=== PATIENT | male | born 1950 | race Caucasian/White ===

== ENCOUNTER 2018-11-11 09:33 | Observation (INO) ==
--- NOTE | 2018-11-09 12:19 | Anesthesiology Consultation ---
Date of Service November 09, 2018 Assessment & Plan (1) Encounter for pre-operative examination: Chart Review Chart Review: Acceptable Risk for Surgery and Patient seen in Pre Admission Testing Consults Requested none Was seen by PCPs office on 11/01, at which time it was noted "For history of coronary artery disease status post bypass surgery the repeat EKG shows no change compared to February 11, 2018." "There are no contraindications to surgery." Teaching & Discussion Pre-Anesthesia Teaching/Discussion Notes: Instructed NPO after midnight before surgery, except medications with 15 cc of water. Medication instructions provided according to the PAT guidelines. History Surgery Operation Date: 11/11/18 12:00 Proposed Procedures p Laparoscopic Cholecystectomy - Bishop Guevara MD, FACS Height/Weight Height: 5 ft 7 in Weight: 75.6 kg Allergies Allergy/AdvReac Type Severity Reaction Status Date / Time amoxicillin Allergy Mild Diarrhea Verified 11/09/18 07:51 ciprofloxacin [From Cipro] Allergy Mild diarhea Verified 11/09/18 07:51 Sulfa (Sulfonamide Allergy Unknown fever/chill Unverified 11/09/18 07:51 Antibiotics) s Medications Home Medications Medication Instructions Recorded Confirmed Last Taken aspirin 81 mg PO QAM 11/09/18 11/09/18 Unknown cephalexin 500 mg PO QID 11/09/18 11/09/18 Unknown ezetimibe-simvastatin 1 tab PO PM 11/09/18 11/09/18 Unknown metoprolol succinate 100 mg PO QAM 11/09/18 11/09/18 Unknown olsalazine [Dipentum] 250 mg PO BID 11/09/18 11/09/18 Unknown omeprazole 20 mg PO QPM 11/09/18 11/09/18 Unknown ursodiol 300 mg PO BID 11/09/18 11/09/18 Unknown Past Medical History Medical History CAD (coronary artery disease) Crohn disease GERD (gastroesophageal reflux disease) Hyperlipidemia Hypertension Myocardial Infarction 1995 - then CABG X 5 IN [place] Sleep apnea no machine Past Surgical History Surgical History History of open reduction and internal fixation (ORIF) procedure RIGHT ELBOW Hx of appendectomy Hx of colonoscopy Hx of foot surgery RIGHT FOOT SURGERY, REMOVAL OF FIBROMA Hx of inguinal hernia repair RIGHT Hx of laceration of skin LEFT WRIST REPAIR OF LACERATION S/P CABG x 5 1996 AFTER [place] Past Anesthesia History No Hx of Anesthesia Complications and No Family Hx of Anesthesia Complications History of PONV No (Once in 1970's) Motion Sickness Screening History of Motion Sickness: No Social History Smoking Status: Never smoker Do You Dip or Chew Tobacco: No Hx Alcohol Use: No Hx Substance Use: No Exercise / Class Metabolic Activity II 4-5 Yardwork/Stairs/Walk up hill (Was very active until earlier this month, has been sick from gallbladder this month. Usually hikes, hunts, etc. Able to climb FOS. Denies CP/SOB.) Review of Systems Patient denies chest pain, shortness of breath, dyspnea on exertion, joint pain, cough, wheezing, palpitations. +acid reflux (controlled by medications) Physical Exam Vital Signs BP: 125/75 P: 70 R: 18 T: 97.8 SPO2: 98% on RA ENMT Thyromental Distance: < 3.5 Finger Breadths (3) Mallampati Class: I Neck normal visual inspection, trachea midline and + facial hair (advised); neck extension not limited Respiratory normal respiratory effort Auscultation: lungs clear to auscultation bilaterally Cardiovascular Rate/Rhythm: regular rate and regular rhythm Heart Sounds: no murmur Vessels: no carotid bruit Neurologic moves all extremities Psychiatric Orientation: alert and oriented x 3 Testing Electrocardiogram Date: 11/01/18 Findings: + NSR @ (66) Borderline left axis deviation. Nonspecific T-wave abnormality. No change compared to 02/11/18. Chest X-Ray Date: 10/14/18 Findings: + NAD Laboratory Results Laboratory Tests 11/01/18 11/01/18 11/01/18 10:16 10:16 10:16 WBC 9.77 Hgb 16.3 Hct 47.9 Plt Count 323 PT 11.1 INR 1.1 APTT 31.3 H Sodium 137 Laboratory Tests 11/01/18 10:16 Potassium 4.1 Chloride 105 Carbon Dioxide 27 BUN 20 H Creatinine 1.11 Glucose 81
[2018-11-09 13:29] LABS: Albumin Level 2.9 gm/dl (3.4-5.0); Bilirubin Direct 0.1 mg/dl (0-0.2); Bilirubin,Total 0.4 mg/dl (0.2-1); Total Protein 8.2 gm/dl (6.4-8.2)
[~2018-11-11 09:33] MED LIST: LR 15ML/HR IV SCH; cefUROXime 1,500 MG in DEXTROSE 5% 100 ML IV SCH
--- NOTE | 2018-11-11 10:52 | History & Physical Bridge Note ---
Date of Service November 11, 2018 History & Physical Bridge Note I have examined the patient, reviewed the History & Physical and in the interval since the performance of the History & Physical I have noted the following changes of clinical significance: no changes noted
[2018-11-11] MEDS ORDERED: MIDAZOLAM HCL 1 MG/ML 2ML VIAL ONE (11:46)
[2018-11-11] MEDS ORDERED: fentaNYL citrate 100 MCG/2 ML VIAL ONE ×2 (11:46→12:55)
[2018-11-11] MEDS ORDERED: NALOXONE HCL 0.4 MG/1 ML VIAL/CARP IV PRN (12:15)
[2018-11-11] MEDS ORDERED: fentaNYL citrate 100 MCG/2 ML VIAL IV PRN (12:15)
[2018-11-11] MEDS ORDERED: ONDANSETRON INJ 2 MG/ML 2 ML VIAL IV PRN ×2 (12:15→14:33)
[2018-11-11] MEDS ORDERED: ePHEDrine sulfate 50 MG/ML AMP IV PRN (12:15)
[2018-11-11] MEDS ORDERED: LABETALOL HCL IV 5 MG/ML 20ML IV PRN (12:15)
[2018-11-11] MEDS ORDERED: ATROPINE SULFATE 0.1 MG/ML 10ML SYR IV PRN (12:15)
[2018-11-11] MEDS ORDERED: PROMETHAZINE HCL 12.5 MG in SODIUM CHLORIDE 0.9% 50 ML IV PRN ×2 (12:15→14:33)
[2018-11-11] MEDS ORDERED: FLUMAZENIL 0.1 MG/1 ML 10 ML VIAL IV PRN (12:15)
[2018-11-11] MEDS ORDERED: BUPIVACAINE 0.5 % 5 MG/1 ML MPF 30ML VIAL ONE (12:19)
[2018-11-11] MEDS ORDERED: ePHEDrine sulfate 50 MG/ML SYR ONE (13:02)
[2018-11-11] MEDS ORDERED: PHENYLEPHRINE 100MCG/ML 5ML SYR ONE (13:02)
[2018-11-11] MEDS ORDERED: CISATRACURIUM BESYLATE IV SOLN 2 MG/ML 10 ML VIAL IV ONE (13:03)
[2018-11-11] MEDS ORDERED: LIDOCAINE HCL 2% 2 ML VIAL/AMP(20MG/ML) INFIL ONE (13:03)
[2018-11-11] MEDS ORDERED: ONDANSETRON INJ 2 MG/ML 2 ML VIAL ONE (13:03)
[2018-11-11] MEDS ORDERED: DEXAMETHASONE SOD INJ 4 MG/ML VIAL ONE (13:03)
[2018-11-11] MEDS ORDERED: PROPOFOL IV EMULSION 10 MG/ML 20 ML VIAL IV ONE (13:03)
[2018-11-11] MEDS ORDERED: GLYCOPYRROLATE 0.2 MG/ML VIAL ONE (13:12)
[2018-11-11] MEDS ORDERED: NEOSTIGMINE METHYLSULFATE 5 MG/5 ML SYR ONE (13:12)
--- NOTE | 2018-11-11 13:15 | Operative Report ---
Post Operative Report Pre & Post Diagnosis Operation Date: 11/11/18 12:00 Pre-Op Diagnosis: Biliary Colic and right upper quadrant pain Post-Op Diagnosis: Biliary Colic and right upper quadrant pain same Procedure Operation Date: 11/11/18 12:00 Actual Procedures p Laparoscopic Cholecystectomy(Not Applicable) - Bishop Guevara MD, FACS same Surgeon Bishop Guevara MD, FACS Vessel Specialist nurses Estimated Blood Loss 10 Findings Consistent with Post-Op Diagnosis Specimens gallbladder Description of Procedure see distated note I attest to the content of the Intraoperative Record and any orders documented therein. Any exceptions are noted below.
--- NOTE | 2018-11-11 14:09 | Anesthesiology Progress Note ---
Date of Service November 11, 2018 Anesthesia Post Procedure Vital Signs Vital Signs: Temp Pulse Pulse Pulse Resp BP BP 11/11/18 14:03 36.9 C 11/11/18 14:00 62 14 130/79 11/11/18 13:55 62 22 140/81 11/11/18 13:50 64 18 147/86 H 11/11/18 13:48 60 22 11/11/18 13:47 62 14 147/92 H 11/11/18 13:45 72 21 142/109 H 11/11/18 13:40 59 L 18 144/83 H 11/11/18 13:35 68 20 139/79 11/11/18 13:30 69 23 146/97 H 11/11/18 13:28 36.3 C L 72 72 20 145/84 H 11/11/18 10:11 36.5 C 66 20 155/92 H BP Pulse Ox 11/11/18 14:03 95 11/11/18 14:00 96 11/11/18 13:55 95 11/11/18 13:50 96 11/11/18 13:48 95 11/11/18 13:47 96 11/11/18 13:45 100 11/11/18 13:40 99 11/11/18 13:35 99 11/11/18 13:30 100 11/11/18 13:28 145/84 H 100 11/11/18 10:11 96 Pain Intensity Abdomen: Pain Intensity: 0 Notes Mental Status: alert / awake / arousable Patient Amnestic to Procedure: Yes Nausea / Vomiting: adequately controlled Pain: adequately controlled Airway Patency, RR, SpO2: stable & adequate BP & HR: stable & adequate Hydration State: stable & adequate Anesthetic Complications: no major complications apparent
[2018-11-11] MEDS ORDERED: HYDROmorphone INJ 0.5 MG/0.5 ML SYR IV PRN (14:33)
[2018-11-11] MEDS ORDERED: SODIUM CHLORIDE 0.9% 1000ML 1,000 ML IV SCH (14:33)
[2018-11-11] MEDS ORDERED: HYDROCODONE/ACETAMOPHEN 5/325MG TAB PO PRN ×2 (14:33)
[2018-11-11] MEDS ORDERED: PROMETHAZINE HCL 25 MG in SODIUM CHLORIDE 0.9% 50 ML IV PRN (14:33)
--- NOTE | 2018-11-11 14:55 | Consultation ---
Date of Consultation November 11, 2018 Assessment & Plan (1) S/P laparoscopic cholecystectomy: - Pain management, bowel regimen per primary team - will add tylenol 1000 mg PO scheduled. - Continue keflex 500 mg QID - Continue olsalazine 250 mg PO BID and ursodiol 300 mg PO BID - Continue to encourage ambulation, incentive spirometry. No chemical dvt ppx. - Heart healthy diet (2) CAD (coronary artery disease): - Cont asa 81 mg, metoprolol succinate 100 mg daily - S/p CABG x 5 in [place] in 1995 after [place] - VS stable, HR in mid 50s. (3) Benign essential HTN: - Continue antihypertensives as above, BP stable. (4) HLD (hyperlipidemia): - Continue ezetimibe-simvastatin (5) FLAKITO (obstructive sleep apnea): - Noted, does not wear Cpap (6) GERD (gastroesophageal reflux disease): - Stable (7) Crohn's disease: - Stable, no recent flares. (8) DVT prophylaxis: - Teds, scds, ambulation. No chemical ppx. Disposition: From home, discharge per the primary team. Thank you for involving the medical team in the care of Mr. Hartley, please do not hesitate to call with questions or concerns. Supervising Physician Co-Signing Physician Notes Patient seen and examined, discussed with physician marketing operations assistant about patient condition and care plan, agree current care plan, History of Present Illness Reason for Consultation: Medical management Requesting Physician: Dr. Bishop Guevara Attending Physician: Bishop Guevara MD, [facility] History of Present Illness This is a 68 yo M with PMHx of CAD, HTN, HLD, s/p CABG x 5 in 1995 after [place], Crohns disease, GERD, FLAKITO not on cpap, who presents for elective laproscopic cholecystectomy by Dr. Guevara on 11/11/18. The patient was seen this afternoon. He appears to be in mild pain, has difficulty with minimal movement but is able to participate in coversation and follow commands. He has c/o abdominal soreness/deep pain from surgery, and is feeling bloated. Pt denies flatus yet, and has just had a few sips of water. He has a lunch tray being delivered now. Pt reports his gallbladder initially gave him trouble last January-February, and then flared up again earlier this month where gallbladder ware thickened on imaging so elected for removal. He lives at home with and son. Allergies Allergy/AdvReac Type Severity Reaction Status Date / Time Sulfa (Sulfonamide Allergy Unknown fever/chill Verified 11/11/18 10:00 Antibiotics) s amoxicillin AdvReac Mild Diarrhea Verified 11/11/18 10:00 ciprofloxacin [From Cipro] AdvReac Mild diarhea Verified 11/11/18 10:00 Home Medications Home Medications Medication Instructions Recorded Confirmed Type Dipentum 250 mg PO BID 11/09/18 11/11/18 History aspirin 81 mg PO QAM 11/09/18 11/11/18 History cephalexin 500 mg PO QID 11/09/18 11/11/18 History ezetimibe-simvastatin 1 tab PO PM 11/09/18 11/11/18 History metoprolol succinate 100 mg PO QAM 11/09/18 11/11/18 History omeprazole 20 mg PO QPM 11/09/18 11/11/18 History ursodiol 300 mg PO BID 11/09/18 11/11/18 History hydrocodone-acetaminophen [[place]] 1 - 2 tab PO Q6H #40 tab 11/11/18 Rx Patient History Surgical History History of open reduction and internal fixation (ORIF) procedure RIGHT ELBOW Hx of appendectomy Hx of colonoscopy Hx of foot surgery RIGHT FOOT SURGERY, REMOVAL OF FIBROMA Hx of inguinal hernia repair RIGHT Hx of laceration of skin LEFT WRIST REPAIR OF LACERATION S/P CABG x 5 1995 AFTER [place] Social History Preferred Language: Luxem[place] Beliefs That Will Affect Care: None Current Living Situation: Spouse Other Information That Helps Us Care for You: No Feels Safe at Home: Yes Safety Concerns: Feels Safe At This Time Smoking Status: Never smoker Hx Alcohol Use: No Hx Substance Use: No Review of Systems Constitutional: no fever, no chills, no sweats and no fatigue Eyes: no diplopia and no worsening vision Ear, Nose, Mouth, Throat: no dizziness, no nasal discharge, no facial pain and no sore throat Respiratory: no cough, no dyspnea and no wheezing Cardiovascular: no chest pain, no palpitations, no lightheadedness and no syncope Gastrointestinal: no nausea, no vomiting and no constipation Genitourinary (Male): no dysuria, no urinary frequency, no urinary hesitancy and no hematuria Musculoskeletal: no back pain, no joint pain, no swelling and no muscle weakness Integumentary: no rash, no lesions and no wounds Neurologic: no gait abnormality, no falls, no numbness, no dizziness and no syncope Psychiatric: no depression and no anxiety Endocrine: no fatigue Physical Exam Vital Signs (Past 24 Hours): Last Vital Signs Temp 36.5 C 11/11/18 14:35 Pulse 57 L 11/11/18 14:35 Resp 17 11/11/18 14:35 BP 137/74 11/11/18 14:35 Pulse Ox 96 11/11/18 14:35 Physical Exam: General: awake, alert, no apparent distress Head: Normocephalic, atraumatic ENT: PERRL, EOMI, no pharyngeal exudate, mucous membranes moist Chest: Clear to auscultation, on room air, no adventitious breath sounds Cardiac: Regular rate and rhythm, no murmur, no JVD, normal peripheral pulses, good capillary refill Abdominal: + hypoactive bowel sounds x 4, mild distension. bandages over laproscopic incisions are c/d/i. Extremities: Normal inspection, no peripheral edema or erythema, calfs nontender to palpation Psych: Normal mood and affect Neuro: AAO x 3, no motor deficits, speech is clear
--- NOTE | 2018-11-11 15:02 | Operative Report ---
DATE OF OPERATION: 11/11/2018 NAME OF OPERATION: Laparoscopic cholecystectomy. PREOPERATIVE DIAGNOSIS: Biliary colic. POSTOPERATIVE DIAGNOSIS: Biliary colic. STAFF SURGEON: Bishop Guevara MD ANESTHESIA: General. DESCRIPTION OF PROCEDURE: The patient was brought in the operating room and placed on the operating table in supine position. His abdomen was prepped and draped in usual fashion. Pneumatic stockings, orogastric tube were placed. An incision was made above the umbilicus using 0.5% plain Marcaine to anesthetize all incisions. Dissection was carried down to the fascia, placing a Veress needle producing pneumoperitoneum. An 11 mm port placed at this level and then under visualization, three 5 mm ports placed, 1 cephalad and 2 laterally. Gallbladder was extremely distended with bile. It was aspirated of bile and then retracted. Dissection was carried out at the brenda hepatis. The patient did have a fibrotic looking liver and some hypervascular changes in the gallbladder and omentum. The cystic duct and cystic artery were identified. These were clipped and transected and the gallbladder dissected away from the liver in the usual fashion. He did have relatively large venous structures from the liver to the gallbladder. These were controlled. The gallbladder was placed in an Endobag. After appropriate irrigation and hemostasis, the Endobag was removed through the umbilical site. All ports then removed. Fascia at the umbilicus closed using 0 PDS suture. Skin reapproximated all incisions using 4-0 nylon suture. Dressings applied and the patient transferred to recovery room in stable condition. I attest to the content of the Intraoperative Record and any orders documented therein. Any exception s are noted below.
[2018-11-11] MEDS ORDERED: ACETAMINOPHEN 500 MG TAB PO PRN ×2 (15:30→16:18)
[2018-11-11] MEDS ORDERED: ACETAMINOPHEN SOLN 500 MG/15.62 ML UDP PO SCH (15:45)
[2018-11-11] MEDS ORDERED: ACETAMINOPHEN 500 MG TAB PO SCH (16:00)
[2018-11-11] MEDS: cephALEXin 500 MG CAP PO SCH ×2 (16:45→20:50)
[2018-11-11] MEDS: URSODIOL 300 MG CAP PO SCH (20:49)
[2018-11-11] MEDS ORDERED: PANTOprazole 40 MG TAB PO SCH (21:00)
[2018-11-12 06:06] LABS: Basophils # (auto) 0.01 K/uL (0-0.2); Basophils % (auto) 0.1 %; Hematocrit (blood only) 40.9 % (42-52); Hemoglobin 13.6 g/dL (14.0-18.0); Immature Granulocytes # (auto) 0.07 K/uL (0.00-0.02); Immature Granulocytes % (auto) 0.4 %; Lymphocytes # (auto) 1.57 K/uL (1.2-3.4); Lymphocytes % (auto) 8.3 %; Mean Corpuscular Hgb Conc 33.3 g/dL (32-36); Mean Corpuscular Volume 89.3 fL (80-100); Mean Platelet Volume 10.1 fL (7.4-10.4); Monocytes # (auto) 1.34 K/uL (0.11-0.59); Monocytes % (auto) 7.1 %; Neutrophils % (auto) 84.1 %; Platelet Count 292 K/uL (130-400); RDW Coefficient of Variation 12.9 % (11.5-14.5); RDW Standard Deviation 41.9 fL (36.4-46.3); Red Blood Count 4.58 M/uL (4.7-6.1); White Blood Count 18.99 K/uL (4.8-10.8)
[2018-11-12 06:35] LABS: Albumin Level 2.5 gm/dl (3.4-5.0); BUN Creatinine Ratio 17.5 (10-20); Bilirubin Direct 0.2 mg/dl (0-0.2); Calcium 8.6 mg/dl (8.5-10.1); Creatinine Clr Calc Pharmacy 50.1 ml/min; Est GFR (African American) 64.5; Est GFR (Non-African American) 55.7; Potassium 4.2 mmol/L (3.5-5.1)
[2018-11-12 06:38] LABS: Albumin Globulin Ratio 0.5 (0.9-2); Bilirubin,Total 0.4 mg/dl (0.2-1); Globulin 4.6 gm/dl (2.5-4.0); Phosphorus 1.7 mg/dl (2.5-4.9); Total Protein 7.1 gm/dl (6.4-8.2)
--- NOTE | 2018-11-12 06:38 | Discharge Summary ---
PRINCIPAL DIAGNOSIS: Chronic cholecystitis with biliary colic. PROCEDURES: The patient underwent laparoscopic cholecystectomy. HISTORY OF PRESENT ILLNESS: The patient is a 68-year-old male who has been having intermittent abdominal pain with evidence of severe gallbladder distention and a history of sclerosing cholangitis. He has been followed by Dr. Sanders who feels that his gallbladder is causing his symptoms. HOSPITAL COURSE: He was brought into the hospital on 11/11/2018. He underwent laparoscopic cholecystectomy. Findings were severely distended gallbladder. He did have some inflammatory changes and hypervascularity of his tissues with hepatic fibrosis. He did tolerate the procedure well, has done well overnight and is felt stable for discharge home today to be followed in the surgical clinic next week.
[2018-11-12] MEDS ORDERED: METOPROLOL SUCC 50MG EXT REL TAB PO SCH (09:00)
[2018-11-12] MEDS: cephALEXin 500 MG CAP PO SCH ×3 (09:01→16:52)
[2018-11-12] MEDS: URSODIOL 300 MG CAP PO SCH (09:01)
[2018-11-12] MEDS ORDERED: SODIUM PHOSPHATE 3 MMOL/1 ML INFUSION IV STA (09:18)
[2018-11-12] MEDS ORDERED: SODIUM PHOSPHATE 21 MMOL in SODIUM CHLORIDE 0.9% 500 ML IV ONE (11:00)
--- NOTE | 2018-11-12 11:26 | Anesthesiology Progress Note ---
Date of Service November 12, 2018 Anesthesia Post Procedure Vital Signs Vital Signs: Temp Pulse Pulse Pulse Resp BP BP 11/12/18 09:04 70 11/12/18 08:00 37.2 C 50 L 16 11/12/18 07:47 36.7 C 72 67 16 155/92 H 11/12/18 03:53 36.7 C 67 16 11/11/18 23:08 36.8 C 68 16 11/11/18 21:56 36.7 C 81 18 11/11/18 17:56 36.7 C 72 18 11/11/18 16:55 36.5 C 69 16 11/11/18 15:42 36.5 C 66 16 11/11/18 14:58 54 L 16 11/11/18 14:35 36.5 C 57 L 17 11/11/18 14:10 57 L 17 137/76 11/11/18 14:05 64 21 124/79 11/11/18 14:03 36.9 C 11/11/18 14:00 62 14 130/79 11/11/18 13:55 62 22 140/81 11/11/18 13:50 64 18 147/86 H 11/11/18 13:48 60 22 11/11/18 13:47 62 14 147/92 H 11/11/18 13:45 72 21 142/109 H 11/11/18 13:40 59 L 18 144/83 H 11/11/18 13:35 68 20 139/79 11/11/18 13:30 69 23 146/97 H 11/11/18 13:28 36.3 C L 72 72 20 145/84 H BP Pulse Ox 11/12/18 09:04 135/69 11/12/18 08:00 126/63 93 11/12/18 07:47 125/64 96 11/12/18 03:53 125/64 96 11/11/18 23:08 112/60 95 11/11/18 21:56 149/83 H 94 11/11/18 17:56 163/87 H 97 11/11/18 16:55 130/75 96 11/11/18 15:42 153/78 H 95 11/11/18 14:58 137/74 95 11/11/18 14:35 137/74 96 11/11/18 14:10 95 11/11/18 14:05 94 11/11/18 14:03 95 11/11/18 14:00 96 11/11/18 13:55 95 11/11/18 13:50 96 11/11/18 13:48 95 11/11/18 13:47 96 11/11/18 13:45 100 11/11/18 13:40 99 11/11/18 13:35 99 11/11/18 13:30 100 11/11/18 13:28 145/84 H 100 Pain Intensity Abdomen: Pain Intensity: 3 Notes Mental Status: alert / awake / arousable and participated in evaluation Patient Amnestic to Procedure: Yes Nausea / Vomiting: adequately controlled Pain: adequately controlled Airway Patency, RR, SpO2: stable & adequate BP & HR: stable & adequate Hydration State: stable & adequate Anesthetic Complications: no major complications apparent
[2018-11-12 13:48] VITALS: O2SAT 94
--- NOTE | 2018-11-12 14:39 | Hospitalist Progress Note ---
Date of Service November 12, 2018 Assessment & Plan (1) S/P laparoscopic cholecystectomy: (2) CAD (coronary artery disease): (3) Benign essential HTN: (4) HLD (hyperlipidemia): (5) FLAKITO (obstructive sleep apnea): (6) GERD (gastroesophageal reflux disease): (7) Crohn's disease: (8) DVT prophylaxis: 68 yo M with PMHx of CAD, HTN, HLD, s/p CABG x 5 in 1995 after [place], Crohns disease, GERD, FLAKITO not on cpap, admitted to Dr. Guevara service for elective laproscopic cholecystectomy by Dr. Guevara on 11/11/18. S/P laparoscopic cholecystectomy: ain management, bowel regimen per primary team Patient has leukocytosis today, I told him to notified provider if has fever chills or anything feeling unusual History of CAD S/P CABG, hypertension, dyslipidemia obstructive sleep apnea, GERD Crohn disease, stable labs are unremarkable of BMP, continue home medication Advised patient to follow-up with PCP after discharge Subjective Doing fair, no complaint, denies fever and chill, has been eating and voiding good, tolerating diet, Denied facial droop slurred speech Denies chest pain palpitation lower extremity swelling Denies nausea vomiting abdominal pain diarrhea constipation Denies dysuria urgency and frequency Physical Exam Vital Signs (Past 24 Hours): Last Vital Signs Temp 37.1 C 11/12/18 12:00 Pulse 62 11/12/18 12:00 Resp 16 11/12/18 12:00 BP 133/70 11/12/18 12:00 Pulse Ox 94 11/12/18 12:00 Physical Exam: General Appearance: WD/WN, no apparent distress, Eyes: normal inspection, PERRL, EOMI, sclerae normal ENT: normal ENT inspection, hearing grossly normal, pharynx normal Neck: supple, no adenopathy, thyroid normal, no JVD, no carotid bruits, trachea midline Respiratory/Chest: chest non-tender, normal breath sounds, no respiratory distress, no accessory muscle use, breath sounds, rales, wheezing Cardiovascular: regular rate, rhythm, no JVD, no murmur Abdomen: normal bowel sounds, non tender, soft, no organomegaly, Extremities: normal range of motion, non-tender, normal inspection, no pedal edema, no calf tenderness, normal capillary refill, pelvis stable, joint has no limited range of motion, capillary refill is normal, no cyanosis clubbing Neurologic/Psychiatric: cost controller II-XII nml as tested, no motor/sensory deficits, alert, normal mood/affect, oriented x 3 Skin: normal color, warm/dry, no rash Results & Data Laboratory Results Laboratory Results - last 24 hr 11/12/18 11/12/18 05:05 05:05 WBC 18.99 H RBC 4.58 L Hgb 13.6 L Hct 40.9 L MCV 89.3 MCH 29.7 MCHC 33.3 RDW Std Deviation 41.9 RDW Coeff of Kaity 12.9 Plt Count 292 MPV 10.1 Immature Gran % (Auto) 0.4 Neut % (Auto) 84.1 Lymph % (Auto) 8.3 Cooper % (Auto) 7.1 Eos % (Auto) 0.0 Baso % (Auto) 0.1 Immature Gran # (Auto) 0.07 H Neut # (Auto) 16.00 H Lymph # (Auto) 1.57 Cooper # (Auto) 1.34 H Eos # (Auto) 0.00 Baso # (Auto) 0.01 Sodium 138 Potassium 4.2 Chloride 108 H Carbon Dioxide 23 Anion Gap 7.0 BUN 23 H Creatinine 1.30 Est Cr Clr Drug Dosing 50.1 Est GFR ( Amer) 64.5 Est GFR (Non-Af Amer) 55.7 BUN/Creatinine Ratio 17.5 Glucose 174 H Calcium 8.6 Phosphorus 1.7 L Total Bilirubin 0.4 Direct Bilirubin 0.2 AST 39 H ALT 32 Alkaline Phosphatase 84 Total Protein 7.1 Albumin 2.5 L Globulin 4.6 H Albumin/Globulin Ratio 0.5 L
[2018-11-12 15:01] VITALS: BP 135/76; PULSE 50; TEMP 98.1
== END 2018-11-12 17:58 | disposition home or self-care (01) ==
LOC: 3N 09:33 → ASU 09:33

== ENCOUNTER 2021-02-11 03:07 | Inpatient (IN) ==
[2021-02-11] MEDS ORDERED: PIPERACILLIN/TAZOBACTAM 4.5 GM/120 ML BAG IV ONE (03:24)
[2021-02-11] MEDS ORDERED: PIPERACILL/TAZOBAC CONSULT ACTIVE PRN ×2 (03:24→07:55)
[2021-02-11] MEDS ORDERED: SODIUM CHLORIDE 0.9% 1000ML 1,000 ML IV ONE (03:24)
[2021-02-11] MEDS ORDERED: DAPTOmycin 400 MG in SYRINGE 0 ML IV ONE (03:24)
--- NOTE | 2021-02-11 03:26 | Emergency Department Note ---
Impression & Plan Fever, Abdominal pain ED Provider Note NAME: MARKUS DARNELL AGE: 70 SEX: M : 1950 ARRIVES VIA: Walk-In INFORMANT: Patient, ED PROVIDER(S): Yoav Dong MD CHIEF COMPLAINT: Chills, fever HPI: This 70-year-old male who has a history of primary sclerosing cholangitis who presents to the emergency department complaining of fever and chills. The patient was told by his autopsy assistant to report to the emergency department anytime this happens. He reports he was running a fever of 102 at home. He t ook Cipro for the fever with some improvement in his symptoms. He is currently complaining of some abdominal pain in the right upper quadrant. He describes the pain as an aching sensation. He reports nothing makes the pain better or worse. He has not taken anything for the pain. ROS: See above HPI for pertinent positives & negatives. A total of 10 systems reviewed and were otherwise negative. PAST MEDICAL HISTORY: See Below PAST SURGICAL HISTORY: See Below FAMILY HISTORY: See Below SOCIAL HISTORY: See Below HOME MEDICATIONS: See Below ALLERGIES: See Below VITALS: See Below PHYSICAL EXAMINATION: VITAL SIGNS - Vital signs and nursing notes were reviewed. GENERAL - 70-year-old male appearing stated age who is in no acute distress. Communicates well with provider and answers questions appropriately. SKIN - Without rashes. HEAD - NC/AT. EYES - PERRL with EOMI bilaterally. Sclera anicteric. Palpebral conjunctiva pink and moist with no injection noted. EARS - No deformities of external structures noted on gross examination bilaterally. NOSE - Midline and without cyanosis. No epistaxis or purulent drainage noted. Septum midline without deviation or septal hematoma noted. MOUTH/OROPHARYNX - Without perioral cyanosis. Buccal mucosa pink and moist and without leukoplakia. Tongue midline with equal elevation of palate bilaterally. No tonsillar hypertrophy, erythema, or exudates noted. NECK - Neck with FROM. Supple to palpation. No nuchal rigidity. LUNGS - Chest wall symmetric without accessory muscle use, intercostals retractions, or central cyanosis. Normal vesicular breath sounds CTA B/L. No wheezes, rales, or rhonchi appreciated. CARDIAC - RRR with S1/S2. No murmur, rubs, or gallops appreciated. ABDOMEN - Abdominal contour without pulsations or visible masses. BS normoactive all four quadrants. No tenderness, palpable masses, he patosplenomegaly, or ascites noted. EXTREMITIES - No clubbing or peripheral cyanosis. No pretibial edema present. +3/5 radial, posterior tibial, and dorsalis pedis pulses palpated throughout. +5/5 strength noted in UE/LE bilaterally. NEUROLOGIC - Cranial nerves II through XII grossly intact. Sensory intact to light touch throughout. Patellar reflexes +2/4. PSYCH - A&Ox3 and cooperates fully with examiner. Pt is very pleasant and interacts well with examiner. MEDICAL DECISION MAKING: Patient was seen and evaluated as above in room C11B. Review was performed of nursing notes and vital signs. I did review pertinent previous visits and patient history. After obtaining a thorough history and physical examination the above work up was performed. This 70-year-old male who has a history of primary sclerosing cholangitis who presents emergency department complaining of right upper quadrant abdominal pain as well as rigors. He does have an elevation his white blood cell count. An IV was established, the patient is given a normal saline bolus. He was started on broad-spectrum antibiotics including Zosyn and daptomycin. An order was placed for continuous cardiac monitoring. The monitor shows a rate of 77 with Normal SInus rhythm. The patient was evaluated during a period of high volume and high acuity during the global COVID-19 pandemic, and that diagnosis was suspected/considered upon their initial presentation. Their evaluation, treatment and testing was consistent with current guidelines for patients who present with complaints or symptoms that may be related to COVID-19. Patient was seen while provider was wearing PPE. Triage Nursing notes reviewed. Prior medical records reviewed Vital Signs: reviewed and remarkable for no significant abnormalities Differential diagnosis: Sepsis, UTI, pneumonia, metabolic, electrolyte abnormalities, cardiac sources, intracerebral event, toxicologic, neurologic, as well as other pathologies. ER treatment provided: See below Diagnostics interpreted by me: ECG: Normal sinus rhythm no ST elevation or depression QTC is 426 ventricular rate of 79. EKG is compared to 10/02/2020 no significant changes found Laboratory studies: As stated above and show below. Imaging studies: 1 view the chest was interpreted by me shows no evidence of pneumonia congestion or pneumothorax. CT abdomen pelvis with contrast: Impression no acute abdominal process. Pneumobilia. Cholecystectomy. Mild lobulation of the liver outline can be associated with cirrhosis. Small hiatal hernia. Consultation(s): Internal Medicine ED COURSE: Past Med/Surg History Medical History (Updated 02/11/21 @ 06:17 by Yoav Dong MD) CAD (coronary artery disease) Crohn disease GERD (gastroesophageal reflux disease) Hyperlipidemia Hypertension Medicare annual wellness visit, subsequent Myocardial Infarction 1995 - then CABG X 5 IN [place] Osteoporosis Prostate cancer screening Renal insufficiency Sleep apnea no machine Surgical History History of open reduction and internal fixation (ORIF) procedure RIGHT ELBOW Hx of appendectomy Hx of colonoscopy Hx of foot surgery RIGHT FOOT SURGERY, REMOVAL OF FIBROMA Hx of inguinal hernia repair RIGHT Hx of laceration of skin LEFT WRIST REPAIR OF LACERATION S/P CABG x 5 1995 AFTER [place] Family History Other Family history non-contributory Social History Smoking Status: Never smoker Second Hand Exposure: No; Hx Alcohol Use: No Hx Substance Use: No Preferred Language: Upper Sorbian Communication Ability: Effective Robotype Operator Required: No Beliefs That Will Affect Care: None Current Living Situation: Spouse Feels Safe at Home: Yes caffeine: No Seatbelt Use: always Assistive Devices: Glasses Allergies Allergies Allergy/AdvReac Type Severity Reaction Status Date / Time Sulfa (Sulfonamide Allergy Unknown fever/chill Verified 11/01/20 08:20 Antibiotics) s amoxicillin AdvReac Mild Diarrhea Verified 11/01/20 08:20 Home Meds Home Medications Medication Instructions Recorded Confirmed cholecalciferol (vitamin D3) 50 mcg PO DAILY 10/02/20 11/01/20 [Vitamin D3] Previous Rx's Medication Instructions Recorded aspirin 81 mg tablet,delayed 81 mg PO DAILY #90 tab 04/13/19 release hydrocortisone 2.5 % topical cream 1 appln TOP TID PRN #30 gm 10/23/19 ezetimibe 10 mg-simvastatin 80 mg 1 tab PO PM #90 tab 03/27/20 tablet metoprolol succinate 100 mg 100 mg PO QAM #90 tab 04/22/20 tablet,extended release 24 hr nitroglycerin 0.4 mg sublingual 0.4 mg SL Q5M PRN #25 tab 06/27/20 tablet omeprazole 40 mg capsule,delayed 40 mg PO DAILY #90 cap 06/30/20 release amlodipine 2.5 mg tablet 2.5 mg PO DAILY #30 tab 11/01/20 lorazepam 1 mg tablet 1 mg PO ONCE #2 tab 11/01/20 olsalazine 250 mg capsule 250 mg PO BID #180 cap 11/01/20 ursodiol 300 mg capsule 300 mg PO BID #180 cap 11/01/20 lorazepam 1 mg tablet 1 mg PO ONCE PRN #2 tab 01/03/21 Results & Data (ED) Vital Signs Vital Signs - 24 hr 02/11/21 03:08 02/11/21 03:24 02/11/21 03:30 Temperature 37.0 C Temperature Source Temporal Artery Scan Pulse Rate 93 H 83 78 Pulse Rate [Apical] Pulse Rate from SpO2 Sensor 79 Pulse Rhythm Regular Pulse Rhythm [Apical] Pulse Strength [Apical] Respiratory Rate 18 18 14 Respiratory Effort / Characteristics Non-Labored Spontaneous Respiratory Depth Normal Respiratory Pattern Regular Blood Pressure 123/78 121/70 Blood Pressure [Right Arm] Blood Pressure Mean 93 87 Blood Pressure Mean [Right Arm] Blood Pressure Position Sitting Blood Pressure Position [Right Arm] Pulse Oximetry 96 95 96 Oxygen Delivery Method Room Air Room Air Sepsis Recent Fever Within 48 Hours No Sepsis New/Unexplained Change in Mental Status No Sepsis Action Taken by Nursing No Action Required 02/11/21 03:40 02/11/21 03:43 02/11/21 03:45 Temperature 37.4 C Temperature Source Oral Pulse Rate 80 78 Pulse Rate [Apical] 77 Pulse Rate from SpO2 Sensor 81 78 Pulse Rhythm Pulse Rhythm [Apical] Regular Pulse Strength [Apical] Normal Respiratory Rate 18 19 20 Respiratory Effort / Characteristics Non-Labored Non-Labored Respiratory Depth Normal Respiratory Pattern Regular Blood Pressure Blood Pressure [Right Arm] 121/70 Blood Pressure Mean Blood Pressure Mean [Right Arm] 87 Blood Pressure Position Blood Pressure Position [Right Arm] Sitting Pulse Oximetry 95 96 96 Oxygen Delivery Method Room Air Room Air Sepsis Recent Fever Within 48 Hours Sepsis New/Unexplained Change in Mental Status Sepsis Action Taken by Nursing 02/11/21 03:54 02/11/21 04:00 02/11/21 04:15 Temperature Temperature Source Pulse Rate 73 75 Pulse Rate [Apical] Pulse Rate from SpO2 Sensor 73 76 Pulse Rhythm Pulse Rhythm [Apical] Pulse Strength [Apical] Respiratory Rate 18 12 Respiratory Effort / Characteristics Non-Labored Respiratory Depth Respiratory Pattern Blood Pressure Blood Pressure [Right Arm] Blood Pressure Mean Blood Pressure Mean [Right Arm] Blood Pressure Position Blood Pressure Position [Right Arm] Pulse Oximetry 95 97 97 Oxygen Delivery Method Room Air Sepsis Recent Fever Within 48 Hours Sepsis New/Unexplained Change in Mental Status Sepsis Action Taken by Nursing 02/11/21 04:24 02/11/21 04:30 02/11/21 04:45 Temperature Temperature Source Pulse Rate 82 76 Pulse Rate [Apical] Pulse Rate from SpO2 Sensor 82 76 Pulse Rhythm Pulse Rhythm [Apical] Pulse Strength [Apical] Respiratory Rate 25 H 24 Respiratory Effort / Characteristics Non-Labored Respiratory Depth Respiratory Pattern Blood Pressure Blood Pressure [Right Arm] Blood Pressure Mean Blood Pressure Mean [Right Arm] Blood Pressure Position Blood Pressure Position [Right Arm] Pulse Oximetry 96 94 93 Oxygen Delivery Method Room Air Sepsis Recent Fever Within 48 Hours Sepsis New/Unexplained Change in Mental Status Sepsis Action Taken by Nursing 02/11/21 04:50 02/11/21 04:54 02/11/21 05:00 Temperature Temperature Source Pulse Rate 81 Pulse Rate [Apical] Pulse Rate from SpO2 Sensor 82 Pulse Rhythm Pulse Rhythm [Apical] Pulse Strength [Apical] Respiratory Rate 23 Respiratory Effort / Characteristics Non-Labored Non-Labored Respiratory Depth Respiratory Pattern Blood Pressure 127/74 Blood Pressure [Right Arm] Blood Pressure Mean 91 Blood Pressure Mean [Right Arm] Blood Pressure Position Blood Pressure Position [Right Arm] Pulse Oximetry 94 94 95 Oxygen Delivery Method Room Air Room Air Sepsis Recent Fever Within 48 Hours Sepsis New/Unexplained Change in Mental Status Sepsis Action Taken by Nursing 02/11/21 05:06 02/11/21 05:07 02/11/21 05:08 Temperature Temperature Source Pulse Rate 79 80 77 Pulse Rate [Apical] Pulse Rate from SpO2 Sensor 79 80 77 Pulse Rhythm Pulse Rhythm [Apical] Pulse Strength [Apical] Respiratory Rate 23 21 20 Respiratory Effort / Characteristics Respiratory Depth Respiratory Pattern Blood Pressure 129/74 Blood Pressure [Right Arm] Blood Pressure Mean 92 Blood Pressure Mean [Right Arm] Blood Pressure Position Blood Pressure Position [Right Arm] Pulse Oximetry 94 95 96 Oxygen Delivery Method Sepsis Recent Fever Within 48 Hours Sepsis New/Unexplained Change in Mental Status Sepsis Action Taken by Nursing 02/11/21 05:15 02/11/21 05:16 02/11/21 05:30 Temperature Temperature Source Pulse Rate 77 78 77 Pulse Rate [Apical] Pulse Rate from SpO2 Sensor 77 78 77 Pulse Rhythm Pulse Rhythm [Apical] Pulse Strength [Apical] Respiratory Rate 23 22 23 Respiratory Effort / Characteristics Non-Labored Respiratory Depth Respiratory Pattern Blood Pressure 125/70 114/68 Blood Pressure [Right Arm] Blood Pressure Mean 88 83 Blood Pressure Mean [Right Arm] Blood Pressure Position Blood Pressure Position [Right Arm] Pulse Oximetry 93 95 93 Oxygen Delivery Method Room Air Sepsis Recent Fever Within 48 Hours Sepsis New/Unexplained Change in Mental Status Sepsis Action Taken by Nursing 02/11/21 05:31 02/11/21 05:45 02/11/21 05:46 Temperature Temperature Source Pulse Rate 78 71 73 Pulse Rate [Apical] Pulse Rate from SpO2 Sensor 79 72 73 Pulse Rhythm Pulse Rhythm [Apical] Pulse Strength [Apical] Respiratory Rate 16 23 24 Respiratory Effort / Characteristics Respiratory Depth Respiratory Pattern Blood Pressure 118/61 Blood Pressure [Right Arm] Blood Pressure Mean 80 Blood Pressure Mean [Right Arm] Blood Pressure Position Blood Pressure Position [Right Arm] Pulse Oximetry 94 93 94 Oxygen Delivery Method Sepsis Recent Fever Within 48 Hours Sepsis New/Unexplained Change in Mental Status Sepsis Action Taken by Nursing 02/11/21 06:00 02/11/21 06:01 02/11/21 06:17 Temperature Temperature Source Pulse Rate 80 80 82 Pulse Rate [Apical] Pulse Rate from SpO2 Sensor 80 80 80 Pulse Rhythm Pulse Rhythm [Apical] Pulse Strength [Apical] Respiratory Rate 16 22 22 Respiratory Effort / Characteristics Non-Labored Respiratory Depth Respiratory Pattern Blood Pressure 113/72 Blood Pressure [Right Arm] Blood Pressure Mean 85 Blood Pressure Mean [Right Arm] Blood Pressure Position Blood Pressure Position [Right Arm] Pulse Oximetry 94 94 93 Oxygen Delivery Method Room Air Sepsis Recent Fever Within 48 Hours Sepsis New/Unexplained Change in Mental Status Sepsis Action Taken by Nursing Laboratory Data Result diagrams: 02/11/21 03:32 02/11/21 03:32 Lab Results 02/11/21 02/11/21 02/11/21 Range/Units 03:32 03:32 03:32 WBC 10.02 (4.8-10.8) K/uL RBC 5.40 (4.7-6.1) M/uL Hgb 17.1 (14.0-18.0) g/dL Hct 49.1 (42-52) % MCV 90.9 (80-100) fL MCH 31.7 (25-34) pg MCHC 34.8 (32-36) g/dL RDW Std Deviation 43.6 (36.4-46.3) fL RDW Coeff of Kaity 13.2 (11.5-14.5) % Plt Count 239 (130-400) K/uL MPV 10.1 (7.4-10.4) fL Immature Gran % (Auto) 0.2 % Neut % (Auto) 79.9 % Lymph % (Auto) 10.1 % Tillman % (Auto) 7.6 % Eos % (Auto) 2.0 % Baso % (Auto) 0.2 % Neut # (Auto) 8.01 H (1.4-6.5) K/uL Lymph # (Auto) 1.01 L (1.2-3.4) K/uL Tillman # (Auto) 0.76 H (0.11-0.59) K/uL Eos # (Auto) 0.20 (0-0.5) K/uL Baso # (Auto) 0.02 (0-0.2) K/uL Immature Gran # (Auto) 0.02 (0.00-0.02) K/uL Sodium 137 (136-145) mmol/L Potassium (3.5-5.1) mmol/L Chloride 108 H (98-107) mmol/L Carbon Dioxide 21 (21-32) mmol/L Anion Gap 8.0 (3-11) BUN 21 H (7-18) mg/dl Creatinine 1.44 H (0.6-1.4) mg/dl Est Cr Clr Drug Dosing 44.0 ml/min Est GFR ( Amer) 56.2 ml/min Est GFR (Non-Af Amer) 48.5 ml/min BUN/Creatinine Ratio 14.9 (10-20) Glucose 114 H (70-99) mg/dl Lactate 1.4 (0.4-2.0) mmol/L Calcium 9.1 (8.5-10.1) mg/dl Magnesium (1.8-2.4) mg/dl Total Bilirubin 0.7 (0.2-1) mg/dl AST (15-37) U/L ALT 25 (12-78) U/L Alkaline Phosphatase 71 (45-117) U/L Total Protein 8.3 H (6.4-8.2) gm/dl Albumin 3.7 (3.4-5.0) gm/dl Globulin 4.6 H (2.5-4.0) gm/dl Albumin/Globulin Ratio 0.8 L (0.9-2) Urine Color Urine Appearance (Clear) Urine pH (4.5-7.5) Ur Specific [place] (1.000-1.030) Urine Protein (Negative) Urine Glucose (UA) (Negative) Urine Ketones (Negative) Urine Blood (Negative) Urine Nitrite (Negative) Urine Bilirubin (Negative) Urine Urobilinogen (Negative) Ur Leukocyte Esterase (Negative) Urine RBC (0-4) /hpf Urine WBC (0-5) /hpf Ur Epithelial Cells (0-5) /lpf Urine Bacteria (Negative) Hyaline Casts (0-5) /lpf Urine Mucus (None Prsent) COVID-19 Eval Order SARS-CoV-2 (PCR) (Negative) 02/11/21 02/11/21 02/11/21 Range/Units 04:00 04:00 04:05 WBC (4.8-10.8) K/uL RBC (4.7-6.1) M/uL Hgb (14.0-18.0) g/dL Hct (42-52) % MCV (80-100) fL MCH (25-34) pg MCHC (32-36) g/dL RDW Std Deviation (36.4-46.3) fL RDW Coeff of Kaity (11.5-14.5) % Plt Count (130-400) K/uL MPV (7.4-10.4) fL Immature Gran % (Auto) % Neut % (Auto) % Lymph % (Auto) % Tillman % (Auto) % Eos % (Auto) % Baso % (Auto) % Neut # (Auto) (1.4-6.5) K/uL Lymph # (Auto) (1.2-3.4) K/uL Tillman # (Auto) (0.11-0.59) K/uL Eos # (Auto) (0-0.5) K/uL Baso # (Auto) (0-0.2) K/uL Immature Gran # (Auto) (0.00-0.02) K/uL Sodium (136-145) mmol/L Potassium (3.5-5.1) mmol/L Chloride (98-107) mmol/L Carbon Dioxide (21-32) mmol/L Anion Gap (3-11) BUN (7-18) mg/dl Creatinine (0.6-1.4) mg/dl Est Cr Clr Drug Dosing ml/min Est GFR ( Amer) ml/min Est GFR (Non-Af Amer) ml/min BUN/Creatinine Ratio (10-20) Glucose (70-99) mg/dl Lactate (0.4-2.0) mmol/L Calcium (8.5-10.1) mg/dl Magnesium (1.8-2.4) mg/dl Total Bilirubin (0.2-1) mg/dl AST (15-37) U/L ALT (12-78) U/L Alkaline Phosphatase (45-117) U/L Total Protein (6.4-8.2) gm/dl Albumin (3.4-5.0) gm/dl Globulin (2.5-4.0) gm/dl Albumin/Globulin Ratio (0.9-2) Urine Color Yellow Urine Appearance Clear (Clear) Urine pH 6.0 (4.5-7.5) Ur Specific [place] 1.020 (1.000-1.030) Urine Protein Negative (Negative) Urine Glucose (UA) Negative (Negative) Urine Ketones Negative (Negative) Urine Blood Trace-intact H (Negative) Urine Nitrite Negative (Negative) Urine Bilirubin Negative (Negative) Urine Urobilinogen Negative (Negative) Ur Leukocyte Esterase Negative (Negative) Urine RBC 0-4 (0-4) /hpf Urine WBC 0-5 (0-5) /hpf Ur Epithelial Cells 0-5 (0-5) /lpf Urine Bacteria Negative (Negative) Hyaline Casts 0-5 (0-5) /lpf Urine Mucus Present A (None Prsent) COVID-19 Eval Order Covid19 at [facility] SARS-CoV-2 (PCR) NEGATIVE (Negative) 02/11/21 Range/Units 04:26 WBC (4.8-10.8) K/uL RBC (4.7-6.1) M/uL Hgb (14.0-18.0) g/dL Hct (42-52) % MCV (80-100) fL MCH (25-34) pg MCHC (32-36) g/dL RDW Std Deviation (36.4-46.3) fL RDW Coeff of Kaity (11.5-14.5) % Plt Count (130-400) K/uL MPV (7.4-10.4) fL Immature Gran % (Auto) % Neut % (Auto) % Lymph % (Auto) % Tillman % (Auto) % Eos % (Auto) % Baso % (Auto) % Neut # (Auto) (1.4-6.5) K/uL Lymph # (Auto) (1.2-3.4) K/uL [place] # (Auto) (0.11-0.59) K/uL Eos # (Auto) (0-0.5) K/uL Baso # (Auto) (0-0.2) K/uL Immature Gran # (Auto) (0.00-0.02) K/uL Sodium (136-145) mmol/L Potassium Cancelled (3.5-5.1) mmol/L Chloride (98-107) mmol/L Carbon Dioxide (21-32) mmol/L Anion Gap (3-11) BUN (7-18) mg/dl Creatinine (0.6-1.4) mg/dl Est Cr Clr Drug Dosing ml/min Est GFR ( Amer) ml/min Est GFR (Non-Af Amer) ml/min BUN/Creatinine Ratio (10-20) Glucose (70-99) mg/dl Lactate (0.4-2.0) mmol/L Calcium (8.5-10.1) mg/dl Magnesium Cancelled (1.8-2.4) mg/dl Total Bilirubin (0.2-1) mg/dl AST Cancelled (15-37) U/L ALT (12-78) U/L Alkaline Phosphatase (45-117) U/L Total Protein (6.4-8.2) gm/dl Albumin (3.4-5.0) gm/dl Globulin (2.5-4.0) gm/dl Albumin/Globulin Ratio (0.9-2) Urine Color Urine Appearance (Clear) Urine pH (4.5-7.5) Ur Specific [place] (1.000-1.030) Urine Protein (Negative) Urine Glucose (UA) (Negative) Urine Ketones (Negative) Urine Blood (Negative) Urine Nitrite (Negative) Urine Bilirubin (Negative) Urine Urobilinogen (Negative) Ur Leukocyte Esterase (Negative) Urine RBC (0-4) /hpf Urine WBC (0-5) /hpf Ur Epithelial Cells (0-5) /lpf Urine Bacteria (Negative) Hyaline Casts (0-5) /lpf Urine Mucus (None Prsent) COVID-19 Eval Order SARS-CoV-2 (PCR) (Negative) Administered Medications Miscellaneous Information (Piperacill/Tazobac Consult Active) 1 ea N/A UD PRN PRN Reason: Consult Stop: 03/13/21 03:23 Last Admin: 02/11/21 04:21 Dose: 1 ea Documented by: [id number] Miscellaneous Information (Daptomycin Consult Active) 1 ea N/A UD PRN PRN Reason: Consult Stop: 03/13/21 03:23 Last Admin: 02/11/21 04:21 Dose: 1 ea Documented by: [id number] Discontinued Medications Sodium Chloride (Nss 1000ml) 1,000 mls @ 999 mls/hr IV .[id number] ONE Stop: 02/11/21 04:24 Last Infusion: 02/11/21 04:31 Dose: 0 mls/hr Documented by: [id number] Admin: 02/11/21 03:35 Dose: 999 mls/hr Documented by: [id number] Piperacillin Sod/Tazobactam Sod (Zosyn) 4.5 gm in 120 mls @ 240 mls/hr IV NOW ONE Stop: 02/11/21 03:53 Last Infusion: 02/11/21 05:29 Dose: 0 mls/hr Documented by: [id number] Admin: 02/11/21 04:20 Dose: 240 mls/hr Documented by: [id number] Daptomycin 400 mg/ Syringe 8 mls @ 4 mls/min IV NOW ONE; Protocol Stop: 02/11/21 03:25 Last Admin: 02/11/21 04:01 Dose: 4 mls/min Documented by: [id number] Ioversol (Optiray 320 100ml) 100 ml IV ONCE ONE Stop: 02/11/21 05:07 Last Admin: 02/11/21 05:07 Dose: 92 ml Documented by: [id number] Discharge Plan Visit Data Chief Complaint: Abdominal Pain Stated Complaint: DULL PAIN UPPER ABDOMEN,CHILLS,FEVER 102.7 ED Provider: Yoav Dong Discharge Problem: Fever, Abdominal pain Forms Stand Alone Forms: My [facility] [place] [employer] Prescriptions Prescriptions: No Action ezetimibe-simvastatin 10-80 mg tablet 1 tab PO PM Qty: 90 RF: 3 metoprolol succinate 100 mg tablet extended release 24 hr 100 mg PO QAM Qty: 90 RF: 3 omeprazole 40 mg capsule,delayed release(DR/EC) 40 mg PO DAILY Qty: 90 RF: 3 aspirin 81 mg tablet,delayed release (DR/EC) 81 mg PO DAILY Qty: 90 RF: 3 lorazepam 1 mg tablet 1 mg PO ONCE Qty: 2 RF: 0 ursodiol 300 mg capsule 300 mg PO BID Qty: 180 RF: 3 Dipentum 250 mg capsule 250 mg PO BID Qty: 180 RF: 3 amlodipine 2.5 mg tablet 2.5 mg PO DAILY Qty: 30 RF: 11 hydrocortisone 2.5 % cream 1 appln TOP TID PRN (Reason: skin irritation) Qty: 30 RF: 11 nitroglycerin 0.4 mg tablet, sublingual 0.4 mg SL Q5M PRN (Reason: chest pain) Qty: 25 RF: 3 lorazepam 1 mg tablet 1 mg PO ONCE PRN (Reason: anxiety) Qty: 2 RF: 0 cholecalciferol (vitamin D3) [Vitamin D3] 50 mcg (2,000 unit) Tablet 50 mcg PO DAILY RF: 0 Discharge Problem: Fever Qualifiers: Fever type: unspecified Qualified Code(s): R50.9 - Fever, unspecified Abdominal pain Qualifiers: Abdominal location: unspecified location Qualified Code(s): R10.9 - Unspecified abdominal pain
[2021-02-11 03:48] LABS: Basophils # (auto) 0.02 K/uL (0-0.2); Basophils % (auto) 0.2 %; Hematocrit (blood only) 49.1 % (42-52); Hemoglobin 17.1 g/dL (14.0-18.0); Immature Granulocytes # (auto) 0.02 K/uL (0.00-0.02); Immature Granulocytes % (auto) 0.2 %; Lymphocytes # (auto) 1.01 K/uL (1.2-3.4); Lymphocytes % (auto) 10.1 %; Mean Corpuscular Hemoglobin 31.7 pg (25-34); Mean Corpuscular Hgb Conc 34.8 g/dL (32-36); Mean Corpuscular Volume 90.9 fL (80-100); Mean Platelet Volume 10.1 fL (7.4-10.4); Monocytes # (auto) 0.76 K/uL (0.11-0.59); Monocytes % (auto) 7.6 %; Neutrophils # (auto) 8.01 K/uL (1.4-6.5); Neutrophils % (auto) 79.9 %; Platelet Count 239 K/uL (130-400); RDW Coefficient of Variation 13.2 % (11.5-14.5); RDW Standard Deviation 43.6 fL (36.4-46.3); White Blood Count 10.02 K/uL (4.8-10.8)
[2021-02-11 04:16] LABS: Appearance Urine Clear (Clear); Bilirubin Urine Negative (Negative); Blood Urine Trace-intact (Negative); Color Urine Yellow; Glucose Urine UA Negative (Negative); Ketones Urine Negative (Negative); Leukocyte Esterase Urine Negative (Negative); Nitrite Urine Negative (Negative); Protein Urine Negative (Negative); Urobilinogen Urine Negative (Negative)
[2021-02-11 04:20] LABS: Albumin Globulin Ratio 0.8 (0.9-2); Albumin Level 3.7 gm/dl (3.4-5.0); BUN Creatinine Ratio 14.9 (10-20); Bilirubin,Total 0.7 mg/dl (0.2-1); Calcium 9.1 mg/dl (8.5-10.1); Est GFR (African American) 56.2 ml/min; Est GFR (Non-African American) 48.5 ml/min; Globulin 4.6 gm/dl (2.5-4.0); Total Protein 8.3 gm/dl (6.4-8.2)
[2021-02-11 04:42] LABS: Bacteria Urine Negative (Negative); Epithelial Cell Urine 0-5 /lpf (0-5); RBC Urine 0-4 /hpf (0-4); WBC Urine 0-5 /hpf (0-5)
[2021-02-11 04:43] LABS: Mucus Urine Present (None Prsent)
[2021-02-11 04:44] LABS: Hyaline Casts Urine 0-5 /lpf (0-5)
[2021-02-11] MEDS ORDERED: OPTIRAY 320 100ml IV ONE (05:06)
--- NOTE | 2021-02-11 05:37 | History & Physical Report ---
Date of Service February 11, 2021 Assessment & Plan (1) Primary sclerosing cholangitis: Primary sclerosing cholangitis/Crohn's/GERD without esophagitis- Continue olsalazine 250 mg p.o. twice daily and ursodiol 300 mg p.o. twice daily Zosyn 4.5 g IV every 8 hours Flagyl 500 mg IV every 8 hours Famotidine 20 mg IV every 12 hours Zofran 4 mg IV every 6 hours as needed Morphine sulfate 2 mg IV every 4 hours as needed severe pain NSS@100 mils per hour Patient may have ice chips and sips CT of abdomen and pelvis without acute pathology as read by [facility] Consult gastroenterology Dr. Sanders Present on Admission?: Yes (2) Crohns disease: See above Present on Admission?: Yes (3) GERD without esophagitis: See above Present on Admission?: Yes (4) Acute kidney injury: Creatinine 1.44 upon admission, with range 1.18-1.49. Placing on NSS at 100 mils per hour Repeat laboratories in a.m. Present on Admission?: Yes (5) CAD (coronary artery disease): CAD/hypertension- Hold amlodipine, aspirin, metoprolol succinate for now due to relatively low blood pressure. Present on Admission?: Yes (6) Benign essential HTN: See above Present on Admission?: Yes (7) FLAKITO (obstructive sleep apnea): CPAP at bedtime if needed Present on Admission?: Yes (8) Hypercholesterolemia: Hold Zetia/simvastatin for now Present on Admission?: Yes History of Present Illness Chief Complaint: The patient presents to the emergency department with complaint of initial development of abdominal pain last evening, and then later on in the morning he awoke with a temperature of 102.7 F Primary Care Provider: Alex Terrazas MD The patient is a 70-year-old male with a past medical history including osteoporosis, renal insufficiency, CAD, Crohn's disease, GERD and esophagitis, hypercholesterolemia, primary sclerosing cholangitis, status post laparoscopic cholecystectomy in 11/2018, status post ERCP 02/2019 with sphincterotomy and dilation some strictures, melanoma, kidney stones, hypertension and status post CABG. He has been notified by his needle valve operator Dr. Sanders that should he develop a temperature at any time, he was to take Cipro, and then come to the emergency department for assessment, which he did earlier this morning. Allergies Allergy/AdvReac Type Severity Reaction Status Date / Time Sulfa (Sulfonamide Allergy Unknown fever/chill Verified 11/01/20 08:20 Antibiotics) s amoxicillin AdvReac Mild Diarrhea Verified 11/01/20 08:20 Home Medications Medication Instructions Recorded Confirmed Type aspirin 81 mg tablet,delayed 81 mg PO DAILY #90 tab 04/13/19 11/01/20 Rx release hydrocortisone 2.5 % topical cream 1 appln TOP TID PRN #30 gm 10/23/19 11/01/20 Rx ezetimibe 10 mg-simvastatin 80 mg 1 tab PO PM #90 tab 03/27/20 11/01/20 Rx tablet metoprolol succinate 100 mg 100 mg PO QAM #90 tab 04/22/20 11/01/20 Rx tablet,extended release 24 hr nitroglycerin 0.4 mg sublingual 0.4 mg SL Q5M PRN #25 tab 06/27/20 11/01/20 Rx tablet omeprazole 40 mg capsule,delayed 40 mg PO DAILY #90 cap 06/30/20 11/01/20 Rx release cholecalciferol (vitamin D3) 50 mcg PO DAILY 10/02/20 11/01/20 History [Vitamin D3] amlodipine 2.5 mg tablet 2.5 mg PO DAILY #30 tab 11/01/20 11/01/20 Rx lorazepam 1 mg tablet 1 mg PO ONCE #2 tab 11/01/20 11/01/20 Rx olsalazine 250 mg capsule 250 mg PO BID #180 cap 11/01/20 11/01/20 Rx ursodiol 300 mg capsule 300 mg PO BID #180 cap 11/01/20 11/01/20 Rx lorazepam 1 mg tablet 1 mg PO ONCE PRN #2 tab 01/03/21 01/03/21 Rx Past Med/Surg History Medical History (Updated 02/11/21 @ 06:01 by Jermaine Dobson MD) CAD (coronary artery disease) Crohn disease GERD (gastroesophageal reflux disease) Hyperlipidemia Hypertension Medicare annual wellness visit, subsequent Myocardial Infarction 1995 - then CABG X 5 [place] Osteoporosis Prostate cancer screening Renal insufficiency Sleep apnea no machine Surgical History History of open reduction and internal fixation (ORIF) procedure RIGHT ELBOW Hx of appendectomy Hx of colonoscopy Hx of foot surgery RIGHT FOOT SURGERY, REMOVAL OF FIBROMA Hx of inguinal hernia repair RIGHT Hx of laceration of skin LEFT WRIST REPAIR OF LACERATION S/P CABG x 5 1995 AFTER [place] Family History Other Family history non-contributory Social History Smoking Status: Never smoker Second Hand Exposure: No; Hx Alcohol Use: No Hx Substance Use: No Preferred Language: Latvian Communication Ability: Effective Day Care Director Required: No Beliefs That Will Affect Care: None Current Living Situation: Spouse Feels Safe at Home: Yes caffeine: No Seatbelt Use: always Assistive Devices: Glasses Review of Systems Review of Systems: The patient denies chest pain, palpitations, shortness of breath, dyspnea on exertion, cough, lower extremity swelling, sore throat, chills, sweats, vomiting, diarrhea , constipation, blood in urine or stool, dysuria, urinary frequency or urgency, lightheadedness, dizziness, headache, memory loss, loss of consciousness, rash, abnormal bruising or bleeding, imbalance, focal or generalized weakness, numbness or tingling in arms or legs, generalized arthralgias or myalgias, back or neck pain, or night sweats. The review of systems is otherwise negative other than for that already noted above, and at least 10 systems have been reviewed. Physical Exam Physical Exam: The patient is awake, alert and oriented 3, well developed and well nourished, normocephalic and atraumatic, lying in bed and in no acute distress. HEENT--PERRL, EOMI, mucous membranes and oropharynx dry. Neck--supple. No JVD. No bruits. Thyroid normal, trachea midline, no adenopat hy. Heart--normal S1 and S2. No murmurs, rubs or gallops. Lungs--clear bilaterally, no respiratory distress, no accessory muscle use. Abdomen--normal bowel sounds and soft. Epigastric and right upper quadrant tenderness. Nondistended. Extremities--no cyanosis or clubbing. No edema. Dermatologic--normal skin turgor, normal color, no abnormal lymph nodes, no rash. Neurologic--cranial nerves II through XII grossly intact. Rheumatologic--normal range of motion. Psychiatric--normal affect. Results & Data Results & Data ([facility]) Vital Signs (Past 12 Hours) Vital Signs Temp Pulse Pulse Resp BP BP Pulse Ox 02/11/21 05:15 77 23 125/70 93 02/11/21 05:08 77 20 96 02/11/21 05:07 80 21 129/74 95 02/11/21 05:06 79 23 94 02/11/21 05:00 95 02/11/21 04:54 94 02/11/21 04:50 81 23 127/74 94 02/11/21 04:45 76 24 93 02/11/21 04:30 82 25 H 94 02/11/21 04:24 96 02/11/21 04:15 75 12 97 02/11/21 04:00 73 18 97 02/11/21 03:54 95 02/11/21 03:45 78 20 96 02/11/21 03:43 80 19 96 02/11/21 03:40 99.3 F 77 18 121/70 95 02/11/21 03:30 78 14 121/70 96 02/11/21 03:24 83 18 95 02/11/21 03:08 98.6 F 93 H 18 123/78 96 Laboratory Results Laboratory Results WBC 10.02 K/uL (4.8-10.8) 02/11/21 03:32 RBC 5.40 M/uL (4.7-6.1) 02/11/21 03:32 Hgb 17.1 g/dL (14.0-18.0) 02/11/21 03:32 Hct 49.1 % (42-52) 02/11/21 03:32 MCV 90.9 fL (80-100) 02/11/21 03:32 MCH 31.7 pg (25-34) 02/11/21 03:32 MCHC 34.8 g/dL (32-36) 02/11/21 03:32 RDW Std Deviation 43.6 fL (36.4-46.3) 02/11/21 03:32 RDW Coeff of Kaity 13.2 % (11.5-14.5) 02/11/21 03:32 Plt Count 239 K/uL (130-400) 02/11/21 03:32 MPV 10.1 fL (7.4-10.4) 02/11/21 03:32 Immature Gran % (Auto) 0.2 % 02/11/21 03:32 Neut % (Auto) 79.9 % 02/11/21 03:32 Lymph % (Auto) 10.1 % 02/11/21 03:32 [place] % (Auto) 7.6 % 02/11/21 03:32 Eos % (Auto) 2.0 % 02/11/21 03:32 Baso % (Auto) 0.2 % 02/11/21 03:32 Neut # (Auto) 8.01 K/uL (1.4-6.5) H 02/11/21 03:32 Lymph # (Auto) 1.01 K/uL (1.2-3.4) L 02/11/21 03:32 [place] # (Auto) 0.76 K/uL (0.11-0.59) H 02/11/21 03:32 Eos # (Auto) 0.20 K/uL (0-0.5) 02/11/21 03:32 Baso # (Auto) 0.02 K/uL (0-0.2) 02/11/21 03:32 Immature Gran # (Auto) 0.02 K/uL (0.00-0.02) 02/11/21 03:32 Sodium 137 mmol/L (136-145) 02/11/21 03:32 Potassium Cancelled 02/11/21 04:26 Chloride 108 mmol/L (98-107) H 02/11/21 03:32 Carbon Dioxide 21 mmol/L (21-32) 02/11/21 03:32 Anion Gap 8.0 (3-11) 02/11/21 03:32 BUN 21 mg/dl (7-18) H 02/11/21 03:32 Creatinine 1.44 mg/dl (0.6-1.4) H 02/11/21 03:32 Est Cr Clr Drug Dosing 44.0 ml/min 02/11/21 03:32 Est GFR ( Amer) 56.2 ml/min 02/11/21 03:32 Est GFR (Non-Af Amer) 48.5 ml/min 02/11/21 03:32 BUN/Creatinine Ratio 14.9 (10-20) 02/11/21 03:32 Glucose 114 mg/dl (70-99) H 02/11/21 03:32 Lactate 1.4 mmol/L (0.4-2.0) 02/11/21 03:32 Calcium 9.1 mg/dl (8.5-10.1) 02/11/21 03:32 Magnesium Cancelled 02/11/21 04:26 Total Bilirubin 0.7 mg/dl (0.2-1) 02/11/21 03:32 AST Cancelled 02/11/21 04:26 ALT 25 U/L (12-78) 02/11/21 03:32 Alkaline Phosphatase 71 U/L (45-117) 02/11/21 03:32 Total Protein 8.3 gm/dl (6.4-8.2) H 02/11/21 03:32 Albumin 3.7 gm/dl (3.4-5.0) 02/11/21 03:32 Globulin 4.6 gm/dl (2.5-4.0) H 02/11/21 03:32 Albumin/Globulin Ratio 0.8 (0.9-2) L 02/11/21 03:32 Urine Color Yellow 02/11/21 04:05 Urine Appearance Clear (Clear) 02/11/21 04:05 Urine pH 6.0 (4.5-7.5) 02/11/21 04:05 Ur Specific [place] 1.020 (1.000-1.030) 02/11/21 04:05 Urine Protein Negative (Negative) 02/11/21 04:05 Urine Glucose (UA) Negative (Negative) 02/11/21 04:05 Urine Ketones Negative (Negative) 02/11/21 04:05 Urine Blood Trace-intact (Negative) H 02/11/21 04:05 Urine Nitrite Negative (Negative) 02/11/21 04:05 Urine Bilirubin Negative (Negative) 02/11/21 04:05 Urine Urobilinogen Negative (Negative) 02/11/21 04:05 Ur Leukocyte Esterase Negative (Negative) 02/11/21 04:05 Urine RBC 0-4 /hpf (0-4) 02/11/21 04:05 Urine WBC 0-5 /hpf (0-5) 02/11/21 04:05 Ur Epithelial Cells 0-5 /lpf (0-5) 02/11/21 04:05 Urine Bacteria Negative (Negative) 02/11/21 04:05 Hyaline Casts 0-5 /lpf (0-5) 02/11/21 04:05 Urine Mucus Present (None Prsent) A 02/11/21 04:05 COVID-19 Eval Order Covid19 at [facility] 02/11/21 04:00 SARS-CoV-2 (PCR) NEGATIVE (Negative) 02/11/21 04:00 Diagnostic Findings [facility] Patient: MARKUS DARNELL (Male) : 48 Status: ER Date: 02/11/21 05:05 Room #: History: PAIN AT UPPER ABD,Pt c/o Primary sclerosing cholangitis Slices: [id number] Priors: Tech: Rey Flood @ [phone] Exams: CT ABDOMEN & PELVIS With Contrast Contrast: IV Amt: 92 ML OPTIRAY 320 Accession Numbers: [id number] Preliminary Findings Only See Final Report For Complete Findings CT ABDOMEN & PELVIS With Contrast: Impression: No acute abdominal process. Pneumobilia. Cholecystectomy. Mild lobulation of the liver outline can be associated with cirrhosis. Small hiatus hernia. Radiologist: Allen Montero MD Study ready at 05:15 and initial results transmitted at 05:52 *This report constitutes a preliminary interpretation only. Non-acute findings felt to be unrelated to the clinical presentation may not be discussed in this report. The study will be interpreted and a final report will be generated by the local Radiologist the following shift. To reach the hospital radiology department call [phone]. If a discrepancy is found between the preliminary and final interpretations of this study, please notify us via our Client Portal at [email or web address].You can also fax this report with a description of the discrepancy, or include the final report, to our daytime fax number [phone].If faxing, please indicate the severity of discrepancy using one of the following categories: [ ] 1 - Agree/Informational [ ] 2 - Unlikely to Affect Management [ ] 3 - Possible Eventual Change of Management [ ] 4 - Probable Immediate Change of Management For all other patient related information, please fax us at [phone]. [id number] Code Status & VTE Plan Code Status Full code VTE Prophylaxis Plan VTE Prophylaxis will be ordered: Yes PG Care Time/CCT Total # of Minutes Spent Total Time Spent with Patient: Total time spent is greater than 50% in coordination of care (as documented) at patient's floor/unit and/or counseling patient: Coding Level of Care Code 78781 Initial Inpt Care Lvl 3 Diagnoses Primary sclerosing cholangitis K83.01 Crohns disease K50.90 Gastrointestinal tract location: unspecified location Digestive disease complication type: without complication GERD without esophagitis K21.9 Acute kidney injury N17.9 CAD (coronary artery disease) I25.10 Benign essential HTN I10 FLAKITO (obstructive sleep apnea) G47.33 Hypercholesterolemia E78.00 (1) Crohns disease Gastrointestinal tract location: unspecified location Digestive disease complication type: without complication Qualified Code(s): K50.90 - Crohn's disease, unspecified, without complications
--- NOTE | 2021-02-11 06:50 | XRay Report ---
XR chest 1V portable CLINICAL HISTORY: SEPSIS COMPARISON STUDY: No previous studies for comparison. FINDINGS: Lung volumes are normal. Lungs are clear. There is no pneumothorax or pleural effusion. Car diac size is at the upper limits of normal. There are mediastinal wires and mediastinal surgical clip s. Mediastinal contours are normal. There is no evidence for pulmonary edema. IMPRESSION: No acute cardiopulmonary findings. ACT 112: Negative or not required by law. Electronically signed by: Dewey Felix M.D. 02/11/2021 6:48 AM
[2021-02-11] MEDS ORDERED: MoRPHine SULFATE 2 MG/ML CARP IV PRN (07:55)
[2021-02-11] MEDS ORDERED: ONDANSETRON INJ 2 MG/ML 2 ML VIAL IV PRN (07:55)
[2021-02-11] MEDS ORDERED: LORazepam 1 MG TAB SL STA (08:21)
[2021-02-11] MEDS ORDERED: [UNRECOGNIZED DRUG - OTHER] PO SCH (09:00)
--- NOTE | 2021-02-11 09:03 | CT Scan Report ---
CT abd pelvis IV con only CLINICAL HISTORY: Primary sclerosing cholangitis UPPER ABDOMINAL PAIN COMPARISON STUDY: 10/05/2020 TECHNIQUE: The patient was scanned in a dynamic helical fashion during intravenous administration of 92 cc of Optiray 320. A dose lowering technique was utilized adhering to the principles of ALARA. CT DOSE: 497.81 mGy.cm FINDINGS: Lower chest: There are right basilar opacities, likely atelectatic. There is a small hiatal hernia Liver: There is pneumobilia. The serosal surface appears nodular suggesting cirrhosis. There is mild left lung ductal prominence. The previously described nonspecific focus of ill-defined decreased enha ncement with associated capsular retraction within the right lobe the liver appears less pronounced t he current study, currently measuring approximately 2.5 cm Gallbladder: Surgically absent Spleen: Normal in size and attenuation. Pancreas: Unremarkable. Adrenal glands: Unremarkable. Kidneys: Bilateral renal hypodensities are felt to represent cysts. Bowel: There are no transition zones to indicate bowel obstruction. There is colonic diverticulosis. There is no evidence of acute diverticulitis. By history the appendix is surgically absent. Peritoneum: There is no intraperitoneal free air or abdominal ascites. There is a tiny fat-containing left inguinal hernia Vasculature: The abdominal aorta is normal in course and caliber. Adenopathy: Paracaval lymph nodes are the upper limits of normal in size. Pelvic viscera: The bladder, and pelvic viscera are unremarkable. Skeletal structures: No destructive osseous lesions are seen. IMPRESSION: 1. No evidence of bowel obstruction. No evidence of free air 2. Colonic diverticulosis. No evidence of acute diverticulitis 3. Cirrhotic morphology the liver. Mild left lobe ductal dilatation. Pneumobilia. 4. Surgically absent gallbladder 5. Paracaval lymph note at the upper limits of normal in size 6. The previously described nonspecific ill-defined hypodense focus within the right lobe of the live r with associated capsular retraction appears less pronounced on the current study measuring approxim ately 2.5 cm ACT 112: Negative or not required by law. Electronically signed by: Kaiden Maddox M.D. 02/11/2021 9:02 AM
--- NOTE | 2021-02-11 09:09 | Gastrointestinal Consultation ---
Date of Consultation February 11, 2021 Assessment & Plan (1) Primary sclerosing cholangitis: (2) Crohns disease: The patient is a pleasant 70-year-old male who presented with fever and right upper quadrant pain concerning for exacerbation of known primary sclerosing cholangitis. He started Cipro orally at home. Inpatient he is currently n.p.o., and on IV Zosyn and Flagyl. He is afebrile and reports no pain currently. MRCP results are pending. Continue current plan of care and comfort measures. Will continue to follow and reevaluate plan of care once MRCP is resulted. Dr. Sanders is on service today. Plan reviewed with him and he will be in later today. Please refer to supervising physician addendum for further recommendations. History of Present Illness Attending Physician: Jermaine Dobson MD History of Present Illness The patient is a pleasant 70-year-old male with past medical history to include Crohn's disease, hypertension, melanoma, primary sclerosing cholangitis, sleep apnea who presented to the emergency department 02/11/2021 with complaints of fever and chills. States he was running a fever of 102 F at home. States he took Cipro with some improvement in symptoms. Complaining of right upper quadrant abdominal pain. CT abdomen and pelvis demonstrated no acute abdominal process. Pneumobilia. Cholecystectomy. Mild lobulation of the liver possibly associated with cirrhosis. Small hiatal hernia. Patient was subsequently admitted due to history of primary sclerosing cholangitis and the GI service consulted. Patient was most recently admitted September 2020 due to same symptoms. He follows with Dr. Mari in Hepatology at [facility]. Liver MRI obtained in [place] 11/2020 demonstrated area of fibrosis in the liver without a tumor seen. Plan for repeat imaging in 3-4 months. On exam/interview today, the patient reports that he began having right upper quadrant abdominal pain, temperature of 102.7, nausea at home. He reports that he started taking first dose of Cipro and hoped that he "nipped it in the bud". Unfortunately symptoms were severe and brought him to the emergency department. He does state this feels as his previous episodes of cholangitis. He denies current abdominal pain. Denies nausea or vomiting. Denies melena or hematochezia. Nursing reports no temperatures since admission. He is on IV Zosyn and Flagyl. He reports that MRI was to be repeated 02/12/2021. Social history: Lifetime nonsmoker. Denies use of alcohol or recreational drugs including marijuana. Retired from [employer] in 2018. He is and lives at home with his . Allergies Allergy/AdvReac Type Severity Reaction Status Date / Time Sulfa (Sulfonamide Allergy Unknown fever/chill Verified 11/01/20 08:20 Antibiotics) s amoxicillin AdvReac Mild Diarrhea Verified 11/01/20 08:20 Home Medications Medication Instructions Recorded Confirmed Type aspirin 81 mg tablet,delayed 81 mg PO DAILY #90 tab 04/13/19 11/01/20 Rx release hydrocortisone 2.5 % topical cream 1 appln TOP TID PRN #30 gm 10/23/19 11/01/20 Rx ezetimibe 10 mg-simvastatin 80 mg 1 tab PO PM #90 tab 03/27/20 11/01/20 Rx tablet metoprolol succinate 100 mg 100 mg PO QAM #90 tab 04/22/20 11/01/20 Rx tablet,extended release 24 hr nitroglycerin 0.4 mg sublingual 0.4 mg SL Q5M PRN #25 tab 06/27/20 11/01/20 Rx tablet omeprazole 40 mg capsule,delayed 40 mg PO DAILY #90 cap 06/30/20 11/01/20 Rx release cholecalciferol (vitamin D3) 50 mcg PO DAILY 10/02/20 11/01/20 History [Vitamin D3] amlodipine 2.5 mg tablet 2.5 mg PO DAILY #30 tab 11/01/20 11/01/20 Rx lorazepam 1 mg tablet 1 mg PO ONCE #2 tab 11/01/20 11/01/20 Rx olsalazine 250 mg capsule 250 mg PO BID #180 cap 11/01/20 11/01/20 Rx ursodiol 300 mg capsule 300 mg PO BID #180 cap 11/01/20 11/01/20 Rx lorazepam 1 mg tablet 1 mg PO ONCE PRN #2 tab 01/03/21 01/03/21 Rx Patient History Medical History (Updated 02/11/21 @ 06:17 by Yoav Dong MD) CAD (coronary artery disease) Crohn disease GERD (gastroesophageal reflux disease) Hyperlipidemia Hypertension Medicare annual wellness visit, subsequent Myocardial Infarction 1995 - then CABG X 5 IN [place] Osteoporosis Prostate cancer screening Renal insufficiency Sleep apnea no machine Surgical History History of open reduction and internal fixation (ORIF) procedure RIGHT ELBOW Hx of appendectomy Hx of colonoscopy Hx of foot surgery RIGHT FOOT SURGERY, REMOVAL OF FIBROMA Hx of inguinal hernia repair RIGHT Hx of laceration of skin LEFT WRIST REPAIR OF LACERATION S/P CABG x 5 1995 AFTER [place] Family History Other Family history non-contributory Social History Smoking Status: Never smoker Second Hand Exposure: No; Hx Alcohol Use: No Hx Substance Use: No Preferred Language: Tamazight Communication Ability: Effective Director Of Strategic Programs Required: No Beliefs That Will Affect Care: None Current Living Situation: Spouse Feels Safe at Home: Yes caffeine: No Seatbelt Use: always Assistive Devices: None and Apnea Monitor Review of Systems Review of Systems: All systems reviewed & are unremarkable except as noted in Subjective Physical Exam Constitutional: WD/WN, vitals as above Eyes: PERRL, conjunctivae normal, anicteric sclerae wears corrective lenses ENMT: external ear and nose normal, oropharynx normal Neck: normal visual inspection and trachea midline Respiratory: normal respiratory effort, lungs clear to auscultation Cardiovascular: RRR, no murmur, no edema Gastrointestinal (Abdomen): normal bowel sounds, soft, nontender, no hepatosplenomegaly Musculoskeletal: no cyanosis or clubbing, extremities motor strength 5/5 Skin: no rashes, warm and dry Neurologic: PERRL, EOMI, accommodation nl, no face palsy, no dysarthria Psychiatric: A+Ox3, euthymic affect Lymphatic: no cervical or axillary lymphadenopathy Results & Data ([facility]) Vital Signs (Past 12 Hours) Vital Signs Temp Pulse Pulse Pulse Resp BP BP 02/11/21 07:30 37.2 C 72 18 116/68 02/11/21 06:17 82 22 02/11/21 06:01 80 22 02/11/21 06:00 80 16 113/72 02/11/21 05:46 73 24 02/11/21 05:45 71 23 118/61 02/11/21 05:31 78 16 02/11/21 05:30 77 23 114/68 02/11/21 05:16 78 22 02/11/21 05:15 77 23 125/70 02/11/21 05:08 77 20 02/11/21 05:07 80 21 129/74 02/11/21 05:06 79 23 02/11/21 05:00 02/11/21 04:54 02/11/21 04:50 81 23 127/74 02/11/21 04:45 76 24 02/11/21 04:30 82 25 H 02/11/21 04:24 02/11/21 04:15 75 12 02/11/21 04:00 73 18 02/11/21 03:54 02/11/21 03:45 78 20 02/11/21 03:43 80 19 02/11/21 03:40 37.4 C 77 18 121/70 02/11/21 03:30 78 14 121/70 02/11/21 03:24 83 18 02/11/21 03:08 37.0 C 93 H 18 123/78 Pulse Ox 02/11/21 07:30 95 02/11/21 06:17 93 02/11/21 06:01 94 02/11/21 06:00 94 02/11/21 05:46 94 02/11/21 05:45 93 02/11/21 05:31 94 02/11/21 05:30 93 02/11/21 05:16 95 02/11/21 05:15 93 02/11/21 05:08 96 02/11/21 05:07 95 02/11/21 05:06 94 02/11/21 05:00 95 02/11/21 04:54 94 02/11/21 04:50 94 02/11/21 04:45 93 02/11/21 04:30 94 02/11/21 04:24 96 02/11/21 04:15 97 02/11/21 04:00 97 02/11/21 03:54 95 02/11/21 03:45 96 02/11/21 03:43 96 02/11/21 03:40 95 02/11/21 03:30 96 02/11/21 03:24 95 02/11/21 03:08 96 Laboratory Results - last 24 hr 02/11/21 02/11/21 02/11/21 03:32 03:32 03:32 WBC 10.02 RBC 5.40 Hgb 17.1 Hct 49.1 MCV 90.9 MCH 31.7 MCHC 34.8 RDW Std Deviation 43.6 RDW Coeff of Kaity 13.2 Plt Count 239 MPV 10.1 Immature Gran % (Auto) 0.2 Neut % (Auto) 79.9 Lymph % (Auto) 10.1 [place] % (Auto) 7.6 Eos % (Auto) 2.0 Baso % (Auto) 0.2 Neut # (Auto) 8.01 H Lymph # (Auto) 1.01 L [place] # (Auto) 0.76 H Eos # (Auto) 0.20 Baso # (Auto) 0.02 Immature Gran # (Auto) 0.02 Sodium 137 Potassium Chloride 108 H Carbon Dioxide 21 Anion Gap 8.0 BUN 21 H Creatinine 1.44 H Est Cr Clr Drug Dosing 44.0 Est GFR ( Amer) 56.2 Est GFR (Non-Af Amer) 48.5 BUN/Creatinine Ratio 14.9 Glucose 114 H Lactate 1.4 Calcium 9.1 Magnesium Total Bilirubin 0.7 AST ALT 25 Alkaline Phosphatase 71 Total Protein 8.3 H Albumin 3.7 Globulin 4.6 H Albumin/Globulin Ratio 0.8 L Urine Color Urine Appearance Urine pH Ur Specific [place] Urine Protein Urine Glucose (UA) Urine Ketones Urine Blood Urine Nitrite Urine Bilirubin Urine Urobilinogen Ur Leukocyte Esterase Urine RBC Urine WBC Ur Epithelial Cells Urine Bacteria Hyaline Casts Urine Mucus COVID-19 Eval Order SARS-CoV-2 (PCR) 02/11/21 02/11/21 02/11/21 04:00 04:00 04:05 WBC RBC Hgb Hct MCV MCH MCHC RDW Std Deviation RDW Coeff of Kaity Plt Count MPV Immature Gran % (Auto) Neut % (Auto) Lymph % (Auto) [place] % (Auto) Eos % (Auto) Baso % (Auto) Neut # (Auto) Lymph # (Auto) [place] # (Auto) Eos # (Auto) Baso # (Auto) Immature Gran # (Auto) Sodium Potassium Chloride Carbon Dioxide Anion Gap BUN Creatinine Est Cr Clr Drug Dosing Est GFR ( Amer) Est GFR (Non-Af Amer) BUN/Creatinine Ratio Glucose Lactate Calcium Magnesium Total Bilirubin AST ALT Alkaline Phosphatase Total Protein Albumin Globulin Albumin/Globulin Ratio Urine Color Yellow Urine Appearance Clear Urine pH 6.0 Ur Specific [place] 1.020 Urine Protein Negative Urine Glucose (UA) Negative Urine Ketones Negative Urine Blood Trace-intact H Urine Nitrite Negative Urine Bilirubin Negative Urine Urobilinogen Negative Ur Leukocyte Esterase Negative Urine RBC 0-4 Urine WBC 0-5 Ur Epithelial Cells 0-5 Urine Bacteria Negative Hyaline Casts 0-5 Urine Mucus Present A COVID-19 Eval Order Covid19 at [facility] SARS-CoV-2 (PCR) NEGATIVE 02/11/21 04:26 WBC RBC Hgb Hct MCV MCH MCHC RDW Std Deviation RDW Coeff of Kaity Plt Count MPV Immature Gran % (Auto) Neut % (Auto) Lymph % (Auto) [place] % (Auto) Eos % (Auto) Baso % (Auto) Neut # (Auto) Lymph # (Auto) [place] # (Auto) Eos # (Auto) Baso # (Auto) Immature Gran # (Auto) Sodium Potassium Cancelled Chloride Carbon Dioxide Anion Gap BUN Creatinine Est Cr Clr Drug Dosing Est GFR ( Amer) Est GFR (Non-Af Amer) BUN/Creatinine Ratio Glucose Lactate Calcium Magnesium Cancelled Total Bilirubin AST Cancelled ALT Alkaline Phosphatase Total Protein Albumin Globulin Albumin/Globulin Ratio Urine Color Urine Appearance Urine pH Ur Specific [place] Urine Protein Urine Glucose (UA) Urine Ketones Urine Blood Urine Nitrite Urine Bilirubin Urine Urobilinogen Ur Leukocyte Esterase Urine RBC Urine WBC Ur Epithelial Cells Urine Bacteria Hyaline Casts Urine Mucus COVID-19 Eval Order SARS-CoV-2 (PCR) 02/11/2021: CT A/P with IV contrast demonstrated 1. No evidence of bowel obstruction. No evidence of free air 2. Colonic diverticulosis. No evidence of acute diverticulitis 3. Cirrhotic morphology the liver. Mild left lobe ductal dilatation. Pneumobilia. 4. Surgically absent gallbladder 5. Paracaval lymph note at the upper limits of normal in size 6. The previously described nonspecific ill-defined hypodense focus within the right lobe of the liver with associated capsular retraction appears less pronounced on the current study measuring approximately 2.5 cm (1) Crohns disease Digestive disease complication type: without complication Gastrointestinal tract location: unspecified location Qualified Code(s): K50.90 - Crohn's disease, unspecified, without complications
[2021-02-11] MEDS: SODIUM CHLORIDE 0.9% 1000ML 1,000 ML IV SCH ×2 (09:12→20:24)
[2021-02-11] MEDS: metroNIDAZOLE 500 MG/100 ML BAG IV SCH ×2 (09:15→16:33)
[2021-02-11] MEDS: FAMOTIDINE 20 MG in SYRINGE 3 ML IV SCH ×2 (09:17→21:13)
[2021-02-11] MEDS: ursodioL 300 MG CAP PO SCH ×2 (09:17→20:24)
--- NOTE | 2021-02-11 10:29 | Magnetic Resonance Report ---
MRCP CLINICAL HISTORY: [facility], Crohn's TECHNIQUE: Utilizing a 1.5 Leena magnet and dedicated coil, multiplanar, multiecho imaging of the [facility] er abdomen was performed utilizing heavily T2 weighted pulsing sequences without IV contrast. COMPARISON STUDY: October 04, 2020 FINDINGS: Gallbladder is surgically absent. Stable mild intrahepatic biliary prominence with multiple areas of strictures and dilatations are aga in seen through the right and left lobes of the liver and appear more prominent within its central as pect. This is consistent with reported history of primary sclerosing cholangitis. Previously seen long stricture of the common bile duct is no longer visualized. Common bile duct is nondilated measuring 6 mm in diameter. There is no intraluminal filling defects t o suggest choledocholithiasis. Liver is normal in size with heterogeneous appearance of its parenchyma and lobulated contour which i s similar to prior study. Previously seen slightly T2 hyperintense oval lesion within inferior right lobe is significantly improved, measured 1.3 cm in size and has appearance of patchy areas of ill-de fined areas of T2 hyperintensity on fiesta sequence. Interval development of 2.9 x 2.4 cm slightly T2 hyperintense area within segment 7 of the liver (ser ies 5 image 11) which shows no evidence of contour abnormalities. Pancreas is slightly atrophic with stable appearance of multiple focal cystic lesions within its body , unchanged since prior and could represent side branch IPMNs. Spleen and bilateral adrenal glands are unremarkable. Redemonstration of multiple bilateral renal cysts, stable since prior. Largest cyst is measuring 1.6 cm in diameter and unchanged since prior. Visualized loops of bowel are nondilated. No evidence of ascites. Visualized portion of abdominal aorta is normal in caliber. Stable moderate hiatal hernia is again seen. Previously seen slightly enlarged portocaval lymph node significantly decreased in size and measuring 0.8 cm in short axis. IMPRESSION: 1. Redemonstration of numerous areas of stricture and dilatation within intrahepatic biliary ducts c onsistent with reported history of primary sclerosing cholangitis as detailed above. 2. Previously seen long segment stricture of the midportion of the common bile duct is no longer vis ualized. 3. Status post cholecystectomy. No evidence of choledocholithiasis. 4. Previously seen 3 cm T2 hyperintensity at the inferior right lobe is significantly improved since prior. Interval development of focal area of increased T2 signal within the right lobe of the liver as detailed above and of indeterminate significance, could represent infectious/inflammatory process, however developing neoplasm cannot be completely ruled out. Further evaluation with contrast-enhance d CT of the abdomen on nonemergency basis might be considered if clinically indicated. ACT 112: Positive. There are findings on this exam that require communication between the performing entity and the patient following Patient Test Result Information Act ([place] Act 112) guidelines. The above report was generated using voice recognition software. It may contain grammatical, syntax o r spelling errors. Electronically signed by: Carli Wagner DO 02/11/2021 10:28 AM
[2021-02-11] MEDS: PIPERACILLIN/TAZOBACTAM 4.5 GM in DEXTROSE 5% 100 ML IV SCH ×2 (10:35→18:07)
[2021-02-11] MEDS: [UNRECOGNIZED DRUG - OTHER] PO SCH ×2 (10:39→20:25)
--- NOTE | 2021-02-11 11:24 | Electrocardiogram Report ---
Test Reason : Blood Pressure : / mmHG Vent. Rate : 079 BPM Atrial Rate : 079 BPM P-R Int : 160 ms QRS Dur : 084 ms QT Int : 372 ms P-R-T Axes : 049 -26 018 degrees QTc Int : 426 ms Normal sinus rhythm Minimal voltage criteria for LVH, may be normal variant Borderline ECG When compared with ECG of 02-OCT-2020 12:30, No significant change was found Confirmed by Nacho Rivas ([id number]) on 02/11/2021 11:23:54 AM Referred By: Teodoro Sanders Confirmed By:Nacho Rivas
[2021-02-11] MEDS ORDERED: FAMOTIDINE 20 MG in SYRINGE 3 ML IV SCH (12:15)
[2021-02-11] MEDS ORDERED: METOPROLOL SUCC 50MG EXT REL TAB PO STA (12:17)
--- NOTE | 2021-02-11 12:20 | Hospitalist Progress Note ---
Date of Service February 11, 2021 Assessment & Plan (1) Primary sclerosing cholangitis: * Hx Primary sclerosing cholangitis/Crohn's/GERD without esophagitis. Hx cholecystectomy. * Presented with abdominal pain and fever and per prior conversation with GI he took a dose of Cipro and presented to the emergency department CTAP Impression: * 1. No evidence of bowel obstruction. No evidence of free air * 2. Colonic diverticulosis. No evidence of acute diverticulitis * 3. Cirrhotic morphology the liver. Mild left lobe ductal dilatation. Pneumobilia. * 4. Surgically absent gallbladder * 5. Paracaval lymph note at the upper limits of normal in size * 6. The previously described nonspecific ill-defined hypodense focus within the right lobe of the liver with associated capsular retraction appears less pronounced on the current study measuring approximately 2.5 cm MRCP Impression: * 1. Re-demonstration of numerous areas of stricture and dilatation within intrahepatic biliary ducts consistent with reported history of primary sclerosing cholangitis as detailed above. * 2. Previously seen long segment stricture of the midportion of the common bile duct is no longer visualized. * 3. Status post cholecystectomy. No evidence of choledocholithiasis. * 4. Previously seen 3 cm T2 hyperintensity at the inferior right lobe is significantly improved since prior. Interval development of focal area of increased T2 signal within the right lobe of the liver as detailed above and of indeterminate significance, could represent infectious/inflammatory process, however developing neoplasm cannot be completely ruled out. Further evaluation with contrast-enhanced CT of the abdomen on nonemergency basis migh t be considered if clinically indicated. GI on consult -- appreciate recs. Patient with hx needing dilation but unsure if assessable. . Messaged Kiki Gutierres with results of MRCP. Awaiting eval this a fternoon by Dr. Sanders -- evidence of cholangitis. Patient with hx of such but main bile duct looks good, more of an issue with smaller ducts and would continue current antibiotics. * KEEP ON 3 DAYS IV ABX given infection/time to heal and would sent with antibiotics to complete FOURTEEN DAY COURSE * Afebrile (temp highest 37.4C since admission) * Blood cultures pending * Continue Zosyn/Flagyl IV (got dose of Dapto/Zosyn in ER) * NPO except meds/sips/chips * NSS @ 100cc/hr * Antiemetics -- zofran IV prn * Pain control -- morphine IV prn * Pepcid IV * Continue olsalazine 250mg PO BID (patient brought on medication as non- formulary) and Ursodiol 300mg PO BID (2) Crohns disease: * See above (3) GERD without esophagitis: * See above -- Pepcid IV BID (On omeprazole 40mg daily [employer]) (4) Acute kidney injury: * Creatinine 1.44 upon admission, with range 1.18-1.49. * IVF NSS @ 100cc/hr as above * BMP in AM (5) CAD (coronary artery disease): * CAD/hypertension- * Held ASA 81mg daily -- RESUMED as ok with GI * Hold ezetimibe-simvastatin 1 tablet daily for now but can resume tomorrow (6) Benign essential HTN: * Held amlodipine 2.5mg daily, metoprolol succinate 100mg daily initially due to relatively low blood pressure * BP 116/68 -- will resume metoprolol succinate but continue to hold amlodipine for now * -- continue to monitor (7) FLAKITO (obstructive sleep apnea): * CPAP at bedtime (8) Hypercholesterolemia: * Hold Zetia/simvastatin for now (9) DVT prophylaxis: * SCDs for now * Add chemoproph tomorrow -- ideally Lovenox given liver but will wait for improvement of Cr with IVF Dispo: continued inpatient stay Admission and Anticipated Discharge Date Admission Date: February 11, 2021 Subjective BRIDGE NOTE:: PATIENT ADMITTED AT 5:36AM Patient evaluated this afternoon. Pain prior to admission similar to previous episodes. Was seen this morning by GI ANTENNA INSTALLER and awaiting to be seen by Dr Sanders this afternoon. Feeling much better than prior to admission. No abdominal pain currently. Moving bowels. Belching and doesn't have hx reflux but will order GI proph with pepcid as he is on antibiotics. MRCP to be reviewed by Dr Sanders this afternoon. No further fever, chills. No chest pain, shortness of breath, abdominal pain, n/v/d at this time. Questions/concerns addressed. Review of Systems Review of Systems: All systems reviewed & are unremarkable except as noted in HPI & below Physical Exam Constitutional: WD/WN, vitals as above Eyes: PERRL, conjunctivae normal, anicteric sclerae ENMT: external ear and nose normal, oropharynx normal Neck: normal visual inspection and trachea midline Respiratory: normal respiratory effort, lungs clear to auscultation Cardiovascular: RRR, no murmur, no edema Gastrointestinal (Abdomen): normal bowel sounds, soft, nontender, no hepatosplenomegaly Musculoskeletal: no cyanosis or clubbing, extremities motor strength 5/5 Skin: no rashes, warm and dry Neurologic: PERRL, EOMI, accommodation nl, no face palsy, no dysarthria Psychiatric: A+Ox3, euthymic affect Lymphatic: no cervical or axillary lymphadenopathy Results & Data Results & Data ([facility]) Vital Signs (Past 12 Hours) Vital Signs Temp Pulse Pulse Pulse Resp BP BP 02/11/21 07:30 37.2 C 72 18 116/68 02/11/21 06:17 82 22 02/11/21 06:01 80 22 02/11/21 06:00 80 16 113/72 02/11/21 05:46 73 24 02/11/21 05:45 71 23 118/61 02/11/21 05:31 78 16 02/11/21 05:30 77 23 114/68 02/11/21 05:16 78 22 02/11/21 05:15 77 23 125/70 02/11/21 05:08 77 20 02/11/21 05:07 80 21 129/74 02/11/21 05:06 79 23 02/11/21 05:00 02/11/21 04:54 02/11/21 04:50 81 23 127/74 02/11/21 04:45 76 24 02/11/21 04:30 82 25 H 02/11/21 04:24 02/11/21 04:15 75 12 02/11/21 04:00 73 18 02/11/21 03:54 02/11/21 03:45 78 20 02/11/21 03:43 80 19 02/11/21 03:40 37.4 C 77 18 121/70 02/11/21 03:30 78 14 121/70 02/11/21 03:24 83 18 02/11/21 03:08 37.0 C 93 H 18 123/78 Pulse Ox 02/11/21 07:30 95 02/11/21 06:17 93 02/11/21 06:01 94 02/11/21 06:00 94 02/11/21 05:46 94 02/11/21 05:45 93 02/11/21 05:31 94 02/11/21 05:30 93 02/11/21 05:16 95 02/11/21 05:15 93 02/11/21 05:08 96 02/11/21 05:07 95 02/11/21 05:06 94 02/11/21 05:00 95 02/11/21 04:54 94 02/11/21 04:50 94 02/11/21 04:45 93 02/11/21 04:30 94 02/11/21 04:24 96 02/11/21 04:15 97 02/11/21 04:00 02/11/21 03:54 02/11/21 03:45 96 02/11/21 03:43 96 02/11/21 03:40 95 02/11/21 03:30 96 02/11/21 03:24 95 02/11/21 03:08 96 Laboratory Results 02/11/21 02/11/21 02/11/21 Range/Units 04:26 04:05 04:00 WBC (4.8-10.8) K/uL RBC (4.7-6.1) M/uL Hgb (14.0-18.0) g/dL Hct (42-52) % MCV (80-100) fL MCH (25-34) pg MCHC (32-36) g/dL RDW Std Deviation (36.4-46.3) fL RDW Coeff of Kaity (11.5-14.5) % Plt Count (130-400) K/uL MPV (7.4-10.4) fL Immature Gran % (Auto) % Neut % (Auto) % Lymph % (Auto) % [place] % (Auto) % Eos % (Auto) % Baso % (Auto) % Neut # (Auto) (1.4-6.5) K/uL Lymph # (Auto) (1.2-3.4) K/uL [place] # (Auto) (0.11-0.59) K/uL Eos # (Auto) (0-0.5) K/uL Baso # (Auto) (0-0.2) K/uL Immature Gran # (Auto) (0.00-0.02) K/uL Sodium (136-145) mmol/L Potassium Cancelled (3.5-5.1) mmol/L Chloride (98-107) mmol/L Carbon Dioxide (21-32) mmol/L Anion Gap (3-11) BUN (7-18) mg/dl Creatinine (0.6-1.4) mg/dl Est Cr Clr Drug Dosing ml/min Est GFR ( Amer) ml/min Est GFR (Non-Af Amer) ml/min BUN/Creatinine Ratio (10-20) Glucose (70-99) mg/dl Lactate (0.4-2.0) mmol/L Calcium (8.5-10.1) mg/dl Magnesium Cancelled (1.8-2.4) mg/dl Total Bilirubin (0.2-1) mg/dl AST Cancelled (15-37) U/L ALT (12-78) U/L Alkaline Phosphatase (45-117) U/L Total Protein (6.4-8.2) gm/dl Albumin (3.4-5.0) gm/dl Globulin (2.5-4.0) gm/dl Albumin/Globulin Ratio (0.9-2) Urine Color Yellow Urine Appearance Clear (Clear) Urine pH 6.0 (4.5-7.5) Ur Specific [place] 1.020 (1.000-1.030) Urine Protein Negative (Negative) Urine Glucose (UA) Negative (Negative) Urine Ketones Negative (Negative) Urine Blood Trace-intact H (Negative) Urine Nitrite Negative (Negative) Urine Bilirubin Negative (Negative) Urine Urobilinogen Negative (Negative) Ur Leukocyte Esterase Negative (Negative) Urine RBC 0-4 (0-4) /hpf Urine WBC 0-5 (0-5) /hpf Ur Epithelial Cells 0-5 (0-5) /lpf Urine Bacteria Negative (Negative) Hyaline Casts 0-5 (0-5) /lpf Urine Mucus Present A (None Prsent) COVID-19 Eval Order SARS-CoV-2 (PCR) NEGATIVE (Negative) 02/11/21 02/11/21 02/11/21 Range/Units 04:00 03:32 03:32 WBC (4.8-10.8) K/uL RBC (4.7-6.1) M/uL Hgb (14.0-18.0) g/dL Hct (42-52) % MCV (80-100) fL MCH (25-34) pg MCHC (32-36) g/dL RDW Std Deviation (36.4-46.3) fL RDW Coeff of Kaity (11.5-14.5) % Plt Count (130-400) K/uL MPV (7.4-10.4) fL Immature Gran % (Auto) % Neut % (Auto) % Lymph % (Auto) % [place] % (Auto) % Eos % (Auto) % Baso % (Auto) % Neut # (Auto) (1.4-6.5) K/uL Lymph # (Auto) (1.2-3.4) K/uL [place] # (Auto) (0.11-0.59) K/uL Eos # (Auto) (0-0.5) K/uL Baso # (Auto) (0-0.2) K/uL Immature Gran # (Auto) (0.00-0.02) K/uL Sodium 137 (136-145) mmol/L Potassium (3.5-5.1) mmol/L Chloride 108 H (98-107) mmol/L Carbon Dioxide 21 (21-32) mmol/L Anion Gap 8.0 (3-11) BUN 21 H (7-18) mg/dl Creatinine 1.44 H (0.6-1.4) mg/dl Est Cr Clr Drug Dosing 44.0 ml/min Est GFR ( Amer) 56.2 ml/min Est GFR (Non-Af Amer) 48.5 ml/min BUN/Creatinine Ratio 14.9 (10-20) Glucose 114 H (70-99) mg/dl Lactate 1.4 (0.4-2.0) mmol/L Calcium 9.1 (8.5-10.1) mg/dl Magnesium (1.8-2.4) mg/dl Total Bilirubin 0.7 (0.2-1) mg/dl AST (15-37) U/L ALT 25 (12-78) U/L Alkaline Phosphatase 71 (45-117) U/L Total Protein 8.3 H (6.4-8.2) gm/dl Albumin 3.7 (3.4-5.0) gm/dl Globulin 4.6 H (2.5-4.0) gm/dl Albumin/Globulin Ratio 0.8 L (0.9-2) Urine Color Urine Appearance (Clear) Urine pH (4.5-7.5) Ur Specific [place] (1.000-1.030) Urine Protein (Negative) Urine Glucose (UA) (Negative) Urine Ketones (Negative) Urine Blood (Negative) Urine Nitrite (Negative) Urine Bilirubin (Negative) Urine Urobilinogen (Negative) Ur Leukocyte Esterase (Negative) Urine RBC (0-4) /hpf Urine WBC (0-5) /hpf Ur Epithelial Cells (0-5) /lpf Urine Bacteria (Negative) Hyaline Casts (0-5) /lpf Urine Mucus (None Prsent) COVID-19 Eval Order Covid19 at [facility] SARS-CoV-2 (PCR) (Negative) 02/11/21 Range/Units 03:32 WBC 10.02 (4.8-10.8) K/uL RBC 5.40 (4.7-6.1) M/uL Hgb 17.1 (14.0-18.0) g/dL Hct 49.1 (42-52) % MCV 90.9 (80-100) fL MCH 31.7 (25-34) pg MCHC 34.8 (32-36) g/dL RDW Std Deviation 43.6 (36.4-46.3) fL RDW Coeff of Kaity 13.2 (11.5-14.5) % Plt Count 239 (130-400) K/uL MPV 10.1 (7.4-10.4) fL Immature Gran % (Auto) 0.2 % Neut % (Auto) 79.9 % Lymph % (Auto) 10.1 % [place] % (Auto) 7.6 % Eos % (Auto) 2.0 % Baso % (Auto) 0.2 % Neut # (Auto) 8.01 H (1.4-6.5) K/uL Lymph # (Auto) 1.01 L (1.2-3.4) K/uL [place] # (Auto) 0.76 H (0.11-0.59) K/uL Eos # (Auto) 0.20 (0-0.5) K/uL Baso # (Auto) 0.02 (0-0.2) K/uL Immature Gran # (Auto) 0.02 (0.00-0.02) K/uL Sodium (136-145) mmol/L Potassium (3.5-5.1) mmol/L Chloride (98-107) mmol/L Carbon Dioxide (21-32) mmol/L Anion Gap (3-11) BUN (7-18) mg/dl Creatinine (0.6-1.4) mg/dl Est Cr Clr Drug Dosing ml/min Est GFR ( Amer) ml/min Est GFR (Non-Af Amer) ml/min BUN/Creatinine Ratio (10-20) Glucose (70-99) mg/dl Lactate (0.4-2.0) mmol/L Calcium (8.5-10.1) mg/dl Magnesium (1.8-2.4) mg/dl Total Bilirubin (0.2-1) mg/dl AST (15-37) U/L ALT (12-78) U/L Alkaline Phosphatase (45-117) U/L Total Protein (6.4-8.2) gm/dl Albumin (3.4-5.0) gm/dl Globulin (2.5-4.0) gm/dl Albumin/Globulin Ratio (0.9-2) Urine Color Urine Appearance (Clear) Urine pH (4.5-7.5) Ur Specific [place] (1.000-1.030) Urine Protein (Negative) Urine Glucose (UA) (Negative) Urine Ketones (Negative) Urine Blood (Negative) Urine Nitrite (Negative) Urine Bilirubin (Negative) Urine Urobilinogen (Negative) Ur Leukocyte Esterase (Negative) Urine RBC (0-4) /hpf Urine WBC (0-5) /hpf Ur Epithelial Cells (0-5) /lpf Urine Bacteria (Negative) Hyaline Casts (0-5) /lpf Urine Mucus (None Prsent) COVID-19 Eval Order SARS-CoV-2 (PCR) (Negative) Diagnostic Findings Chest X-Ray 02/11/21 03:24 XR chest 1V portable CLINICAL HISTORY: SEPSIS COMPARISON STUDY: No previous studies for comparison. FINDINGS: Lung volumes are normal. Lungs are clear. There is no pneumothorax or pleural effusion. Cardiac size is at the upper limits of normal. There are mediastinal wires and mediastinal surgical clips. Mediastinal contours are normal. There is no evidence for pulmonary edema. IMPRESSION: No acute cardiopulmonary findings. ACT 112: Negative or not required by law. Electronically signed by: Dewey Felix M.D. 02/11/2021 6:48 AM Abdomen/Pelvis CT 02/11/21 03:27 CT abd pelvis IV con only CLINICAL HISTORY: Primary sclerosing cholangitis UPPER ABDOMINAL PAIN COMPARISON STUDY: 10/05/2020 TECHNIQUE: The patient was scanned in a dynamic helical fashion during intravenous administration of 92 cc of Optiray 320. A dose lowering technique was utilized adhering to the principles of ALARA. CT DOSE: 497.81 mGy.cm FINDINGS: Lower chest: There are right basilar opacities, likely atelectatic. There is a small hiatal hernia Liver: There is pneumobilia. The serosal surface appears nodular suggesting cirrhosis. There is mild left lung ductal prominence. The previously described nonspecific focus of ill-defined decreased enhancement with associated capsular retraction within the right lobe the liver appears less pronounced the current study, currently measuring approximately 2.5 cm Gallbladder: Surgically absent Spleen: Normal in size and attenuation. Pancreas: Unremarkable. Adrenal glands: Unremarkable. Kidneys: Bilateral renal hypodensities are felt to represent cysts. Bowel: There are no transition zones to indicate bowel obstruction. There is colonic diverticulosis. There is no evidence of acute diverticulitis. By history the appendix is surgically absent. Peritoneum: There is no intraperitoneal free air or abdominal ascites. There is a tiny fat-containing left inguinal hernia Vasculature: The abdominal aorta is normal in course and caliber. Adenopathy: Paracaval lymph nodes are the upper limits of normal in size. Pelvic viscera: The bladder, and pelvic viscera are unremarkable. Skeletal structures: No destructive osseous lesions are seen. IMPRESSION: 1. No evidence of bowel obstruction. No evidence of free air 2. Colonic diverticulosis. No evidence of acute diverticulitis 3. Cirrhotic morphology the liver. Mild left lobe ductal dilatation. Pneumobilia. 4. Surgically absent gallbladder 5. Paracaval lymph note at the upper limits of normal in size 6. The previously described nonspecific ill-defined hypodense focus within the right lobe of the liver with associated capsular retraction appears less pronounced on the current study measuring approximately 2.5 cm ACT 112: Negative or not required by law. Electronically signed by: Kaiden Maddox M.D. 02/11/2021 9:02 AM Cholangiopancreatography MRI 02/11/21 06:21 MRCP CLINICAL HISTORY: PSC, Crohn's TECHNIQUE: Utilizing a 1.5 Leena magnet and dedicated coil, multiplanar, multiecho imaging of the upper abdomen was performed utilizing heavily T2 weighted pulsing sequences without IV contrast. COMPARISON STUDY: October 04, 2020 FINDINGS: Gallbladder is surgically absent. Stable mild intrahepatic biliary prominence with multiple areas of strictures and dilatations are again seen through the right and left lobes of the liver and appear more prominent within its central aspect. This is consistent with reported history of primary sclerosing cholangitis. Previously seen long stricture of the common bile duct is no longer visualized. Common bile duct is nondilated measuring 6 mm in diameter. There is no intraluminal filling defects to suggest choledocholithiasis. Liver is normal in size with heterogeneous appearance of its parenchyma and lobulated contour which is similar to prior study. Previously seen slightly T2 hyperintense oval lesion within inferior right lobe is significantly improved, measured 1.3 cm in size and has appearance of patchy areas of ill-defined areas of T2 hyperintensity on fiesta sequence. Interval development of 2.9 x 2.4 cm slightly T2 hyperintense area within segment 7 of the liver (series 5 image 11) which shows no evidence of contour abnormalities. Pancreas is slightly atrophic with stable appearance of multiple focal cystic lesions within its body, unchanged since prior and could represent side branch IPMNs. Spleen and bilateral adrenal glands are unremarkable. Redemonstration of multiple bilateral renal cysts, stable since prior. Largest cyst is measuring 1.6 cm in diameter and unchanged since prior. Visualized loops of bowel are nondilated. No evidence of ascites. Visualized portion of abdominal aorta is normal in caliber. Stable moderate hiatal hernia is again seen. Previously seen slightly enlarged portocaval lymph node significantly decreased in size and measuring 0.8 cm in short axis. IMPRESSION: 1. Redemonstration of numerous areas of stricture and dilatation within intrahepatic biliary ducts consistent with reported history of primary sclerosing cholangitis as detailed above. 2. Previously seen long segment stricture of the midportion of the common bile duct is no longer visualized. 3. Status post cholecystectomy. No evidence of choledocholithiasis. 4. Previously seen 3 cm T2 hyperintensity at the inferior right lobe is signif icantly improved since prior. Interval development of focal area of increased T2 signal within the right lobe of the liver as detailed above and of indeterminate significance, could represent infectious/inflammatory process, however developing neoplasm cannot be completely ruled out. Further evaluation with contrast-enhanced CT of the abdomen on nonemergency basis might be considered if clinically indicated. ACT 112: Positive. There are findings on this exam that require communication between the performing entity and the patient following Patient Test Result Information Act ([place] Act 112) guidelines. The above report was generated using voice recognition software. It may contain grammatical, syntax or spelling errors. Electronically signed by: Carli Wagner DO 02/11/2021 10:28 AM PG Care Time/CCT Total # of Minutes Spent Total Time Spent with Patient: Total time spent is greater than 50% in coordination of care (as documented) at patient's floor/unit and/or counseling patient: Coding Level of Care Code None Diagnoses Primary sclerosing cholangitis K83.01 Crohns disease K50.90 Gastrointestinal tract location: unspecified location Digestive disease complication type: without complication GERD without esophagitis K21.9 Acute kidney injury N17.9 CAD (coronary artery disease) I25.10 Benign essential HTN I10 FLAKITO (obstructive sleep apnea) G47.33 Hypercholesterolemia E78.00 DVT prophylaxis Z29.9 (1) Crohns disease Gastrointestinal tract location: unspecified location Digestive disease complication type: without complication Qualified Code(s): K50.90 - Crohn's disease, unspecified, without complications
[2021-02-11] MEDS: ASPIRIN 81 MG ECTAB PO SCH (13:28)
--- NOTE | 2021-02-11 13:48 | Consultation Report ---
DATE OF CONSULTATION: 02/11/2021 Addendum to the consult note done by Kiki Gutierres today: I spoke to the patient and examined him and reviewed his chart, x-rays and lab. The patient appears to have recurrent cholangitis due to his underlying sclerosing cholangitis. His main bile duct appears patent following an ERCP at [facility] in the past, so no need for further intervention there. He is currently on Zosyn and Flagyl, and his white count is normal, and his temperature has returned to normal. I would recommend a total of 3 days of IV antibiotics as long as he continues to remain stable followed by outpatient antibiotics for a total of 14 days treatment. We will follow his blood cultures and keep a track of him during his hospital stay.
[2021-02-12] MEDS: metroNIDAZOLE 500 MG/100 ML BAG IV SCH (01:01)
[2021-02-12] MEDS: PIPERACILLIN/TAZOBACTAM 4.5 GM in DEXTROSE 5% 100 ML IV SCH ×3 (02:30→17:32)
[2021-02-12 06:57] LABS: Basophils # (auto) 0.04 K/uL (0-0.2); Basophils % (auto) 0.6 %; Eosinophils # (auto) 0.23 K/uL (0-0.5); Eosinophils % (auto) 3.3 %; Hematocrit (blood only) 45.1 % (42-52); Hemoglobin 15.5 g/dL (14.0-18.0); Immature Granulocytes # (auto) 0.01 K/uL (0.00-0.02); Immature Granulocytes % (auto) 0.1 %; Lymphocytes # (auto) 1.27 K/uL (1.2-3.4); Lymphocytes % (auto) 18.2 %; Mean Corpuscular Hemoglobin 31.4 pg (25-34); Mean Corpuscular Hgb Conc 34.4 g/dL (32-36); Mean Corpuscular Volume 91.5 fL (80-100); Mean Platelet Volume 9.6 fL (7.4-10.4); Monocytes # (auto) 0.95 K/uL (0.11-0.59); Monocytes % (auto) 13.6 %; Neutrophils # (auto) 4.49 K/uL (1.4-6.5); Neutrophils % (auto) 64.2 %; Platelet Count 190 K/uL (130-400); RDW Coefficient of Variation 13.4 % (11.5-14.5); Red Blood Count 4.93 M/uL (4.7-6.1); White Blood Count 6.99 K/uL (4.8-10.8)
[2021-02-12 07:09] LABS: INR 1.1 (0.9-1.1); Prothrombin Time 11.5 Seconds (9.0-12.0)
[2021-02-12 07:31] LABS: BUN Creatinine Ratio 12.1 (10-20); Bilirubin Direct 0.3 mg/dl (0-0.2); Calcium 8.2 mg/dl (8.5-10.1); Creatinine Clr Calc Pharmacy 45.9 ml/min; Est GFR (African American) 59.2 ml/min; Est GFR (Non-African American) 51.1 ml/min
[2021-02-12 07:37] LABS: Bilirubin,Total 1.4 mg/dl (0.2-1)
--- NOTE | 2021-02-12 08:33 | Gastroenterology Progress Note ---
Date of Service February 12, 2021 Assessment & Plan (1) Primary sclerosing cholangitis: (2) Crohns disease: Primary sclerosing cholangitis: The patient is a pleasant 70-year-old male who presented with fever and right upper quadrant pain concerning for exacerbation of known primary sclerosing cholangitis. MRCP findings demonstrated patent main bile duct and recurrent cholangitis. Continue IV Zosyn and Flagyl for total of 3 days followed by p.o. antibiotics to total 14 days of treatment. Will follow blood cultures, follow during hospital stay, and follow- up in the office after discharge. Continue current plan of care and comfort measures. Please refer to supervising physician addendum for further recommendations. Admission and Anticipated Discharge Date Admission Date: February 11, 2021 Subjective The patient is awake, alert, and oriented this morning. He is lying in bed and position of comfort. He denies any complaints overnight. Denies fever. Denies abdominal pain. Denies nausea or vomiting. He has not had a bowel movement this morning but does report he is passing gas. Denies any melena or hematochezia noted in stool yesterday. He reports that he is hungry and ready for breakfast. Review of Systems Review of Systems: All systems reviewed & are unremarkable except as noted in Subjective Physical Exam Constitutional: WD/WN, vitals as above Eyes: Wears corrective lenses Neck: normal visual inspection and trachea midline Respiratory: normal respiratory effort, lungs clear to auscultation Cardiovascular: RRR, no murmur, no edema Gastrointestinal (Abdomen): normal bowel sounds, soft, nontender, no hepatosplenomegaly Psychiatric: A+Ox3, euthymic affect Results & Data ([facility]) Vital Signs (Past 12 Hours) Vital Signs Temp Pulse Resp BP Pulse Ox 02/12/21 08:11 36.6 C 55 L 25 H 165/79 H 95 02/11/21 23:48 36.8 C 70 18 134/76 94 Laboratory Results - last 24 hr 02/12/21 02/12/21 02/12/21 06:35 06:35 06:35 WBC 6.99 RBC 4.93 Hgb 15.5 Hct 45.1 MCV 91.5 MCH 31.4 MCHC 34.4 RDW Std Deviation 45.0 RDW Coeff of Kaity 13.4 Plt Count 190 MPV 9.6 Immature Gran % (Auto) 0.1 Neut % (Auto) 64.2 Lymph % (Auto) 18.2 [place] % (Auto) 13.6 Eos % (Auto) 3.3 Baso % (Auto) 0.6 Neut # (Auto) 4.49 Lymph # (Auto) 1.27 [place] # (Auto) 0.95 H Eos # (Auto) 0.23 Baso # (Auto) 0.04 Immature Gran # (Auto) 0.01 PT 11.5 INR 1.1 Sodium 141 Potassium 4.0 Chloride 112 H Carbon Dioxide 22 Anion Gap 7.0 BUN 17 Creatinine 1.38 Est Cr Clr Drug Dosing 45.9 Est GFR ( Amer) 59.2 Est GFR (Non-Af Amer) 51.1 BUN/Creatinine Ratio 12.1 Glucose 107 H Calcium 8.2 L Magnesium 2.0 Total Bilirubin 1.4 H D Direct Bilirubin 0.3 H AST 18 ALT 18 Alkaline Phosphatase 55 Total Protein 7.0 Albumin 3.0 L (1) Crohns disease Gastrointestinal tract location: unspecified location Digestive disease complication type: without complication Qualified Code(s): K50.90 - Crohn's disease, unspecified, without complications
[2021-02-12] MEDS: ursodioL 300 MG CAP PO SCH ×2 (08:46→20:23)
[2021-02-12] MEDS: METOPROLOL SUCC 50MG EXT REL TAB PO SCH (08:46)
[2021-02-12] MEDS: FAMOTIDINE 20 MG in SYRINGE 3 ML IV SCH ×2 (08:46→20:23)
[2021-02-12] MEDS: ASPIRIN 81 MG ECTAB PO SCH (08:46)
[2021-02-12] MEDS: [UNRECOGNIZED DRUG - OTHER] PO SCH ×2 (08:47→20:23)
--- NOTE | 2021-02-12 08:48 | Hospitalist Progress Note ---
Date of Service February 12, 2021 Assessment & Plan (1) Primary sclerosing cholangitis: * Hx Primary sclerosing cholangitis/Crohn's/GERD without esophagitis. Hx cholecystectomy. * Presented with abdominal pain and fever and per prior conversation with GI he took a dose of Cipro and presented to the emergency department CTAP Impression: * 1. No evidence of bowel obstruction. No evidence of free air * 2. Colonic diverticulosis. No evidence of acute diverticulitis * 3. Cirrhotic morphology the liver. Mild left lobe ductal dilatation. Pneumobilia. * 4. Surgically absent gallbladder * 5. Paracaval lymph note at the upper limits of normal in size * 6. The previously described nonspecific ill-defined hypodense focus within the right lobe of the liver with associated capsular retraction appears less pronounced on the current study measuring approximately 2.5 cm MRCP Impression: * 1. Re-demonstration of numerous areas of stricture and dilatation within intrahepatic biliary ducts consistent with reported history of primary sclerosing cholangitis as detailed above. * 2. Previously seen long segment stricture of the midportion of the common bile duct is no longer visualized. * 3. Status post cholecystectomy. No evidence of choledocholithiasis. * 4. Previously seen 3 cm T2 hyperintensity at the inferior right lobe is significantly improved since prior. Interval development of focal area of increased T2 signal within the right lobe of the liver as detailed above and of indeterminate significance, could represent infectious/inflammatory process, however developing neoplasm cannot be completely ruled out. Further evaluation with contrast-enhanced CT of the abdomen on nonemergency basis migh t be considered if clinically indicated. GI on consult -- appreciate recs. evidence of cholangitis. Patient with hx of such but main bile duct looks good, more of an issue with smaller ducts and wo uld continue current antibiotics per GI * KEEP ON 3 DAYS IV ABX (on day two) given infection/time to heal and would sent with antibiotics to complete FOURTEEN DAY COURSE * Afebrile (temp highest 37.4C since admission) * Lactic 1.4 * Blood cultures pending -- NGTD * Tbili 1.4, direct 0.3 -- likely elevated secondary to infection. 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 * Cr 1.38 on AM labs -- continue IVF as above for this morning but likely can d/c (5) CAD (coronary artery disease): * CAD/hypertension- * Held ASA 81mg daily -- RESUMED as ok with GI * Resume ezetimibe-simvastatin 1 tablet daily at d/c (6) Benign essential HTN: * Held amlodipine 2.5mg daily, metoprolol succinate 100mg daily initially due to relatively low blood pressure * BP 165/79 -- already resumed metoprolol succinate but will now resume amlodipine as well * Continue to monitor (7) FLAKITO (obstructive sleep apnea): * CPAP at bedtime (8) Hypercholesterolemia: * Hold Zetia/simvastatin for now (9) DVT prophylaxis: * SCDs for now * Lovenox SQ added Dispo: continued inpatient stay hopeful d/c after day 3 of IV abx Admission and Anticipated Discharge Date Admission Date: February 11, 2021 Subjective Patient evaluated this morning. Doing well. Sitting up in bed on his tablet. Eating/drinking without issue, regular diet. BM yesterday but nothing yet today. No pain. No fever, chills, chest pain, shortness of breath, abdominal pain, nausea, vomiting. Elevated Tbili but likely from infxn and will continue IV abx for total 3 days per GI and patient hopeful for d/c after tomorrow abx on oral agents. Questions/concerns addressed at this time. Review of Systems Review of Systems: All systems reviewed & are unremarkable except as noted in HPI & below Physical Exam Constitutional: WD/WN, vitals as above Eyes: PERRL, conjunctivae normal, anicteric sclerae ENMT: external ear and nose normal, oropharynx normal Neck: normal visual inspection and trachea midline Respiratory: normal respiratory effort, lungs clear to auscultation Cardiovascular: RRR, no murmur, no edema Gastrointestinal (Abdomen): normal bowel sounds, soft, nontender, no hepatosplenomegaly Musculoskeletal: no cyanosis or clubbing, extremities motor strength 5/5 Skin: no rashes, warm and dry Neurologic: PERRL, EOMI, accommodation nl, no face palsy, no dysarthria Psychiatric: A+Ox3, euthymic affect Lymphatic: no cervical or axillary lymphadenopathy Results & Data Results & Data ([facility]) Vital Signs (Past 12 Hours) Vital Signs Temp Pulse Resp BP Pulse Ox 02/12/21 08:11 36.6 C 55 L 25 H 165/79 H 95 02/11/21 23:48 36.8 C 70 18 134/76 94 Laboratory Results 02/12/21 02/12/21 02/12/21 Range/Units 06:35 06:35 06:35 WBC 6.99 (4.8-10.8) K/uL RBC 4.93 (4.7-6.1) M/uL Hgb 15.5 (14.0-18.0) g/dL Hct 45.1 (42-52) % MCV 91.5 (80-100) fL MCH 31.4 (25-34) pg MCHC 34.4 (32-36) g/dL RDW Std Deviation 45.0 (36.4-46.3) fL RDW Coeff of Kaity 13.4 (11.5-14.5) % Plt Count 190 (130-400) K/uL MPV 9.6 (7.4-10.4) fL Immature Gran % (Auto) 0.1 % Neut % (Auto) 64.2 % Lymph % (Auto) 18.2 % [place] % (Auto) 13.6 % Eos % (Auto) 3.3 % Baso % (Auto) 0.6 % Neut # (Auto) 4.49 (1.4-6.5) K/uL Lymph # (Auto) 1.27 (1.2-3.4) K/uL [place] # (Auto) 0.95 H (0.11-0.59) K/uL Eos # (Auto) 0.23 (0-0.5) K/uL Baso # (Auto) 0.04 (0-0.2) K/uL Immature Gran # (Auto) 0.01 (0.00-0.02) K/uL PT 11.5 (9.0-12.0) Seconds INR 1.1 (0.9-1.1) Sodium 141 (136-145) mmol/L Potassium 4.0 (3.5-5.1) mmol/L Chloride 112 H (98-107) mmol/L Carbon Dioxide 22 (21-32) mmol/L Anion Gap 7.0 (3-11) BUN 17 (7-18) mg/dl Creatinine 1.38 (0.6-1.4) mg/dl Est Cr Clr Drug Dosing 45.9 ml/min Est GFR ( Amer) 59.2 ml/min Est GFR (Non-Af Amer) 51.1 ml/min BUN/Creatinine Ratio 12.1 (10-20) Glucose 107 H (70-99) mg/dl Calcium 8.2 L (8.5-10.1) mg/dl Magnesium 2.0 (1.8-2.4) mg/dl Total Bilirubin 1.4 H D (0.2-1) mg/dl Direct Bilirubin 0.3 H (0-0.2) mg/dl AST 18 (15-37) U/L ALT 18 (12-78) U/L Alkaline Phosphatase 55 (45-117) U/L Total Protein 7.0 (6.4-8.2) gm/dl Albumin 3.0 L (3.4-5.0) gm/dl PG Care Time/CCT Total # of Minutes Spent Total Time Spent with Patient: Total time spent is greater than 50% in coordination of care (as documented) at patient's floor/unit and/or counseling patient: Coding Level of Care Code 73432 Subseq Hosp Care Lvl 3 Diagnoses Primary sclerosing cholangitis K83.01 Crohns disease K50.90 Digestive disease complication type: without complication Gastrointestinal tract location: unspecified location GERD without esophagitis K21.9 Acute kidney injury N17.9 CAD (coronary artery disease) I25.10 Benign essential HTN I10 FLAKITO (obstructive sleep apnea) G47.33 Hypercholesterolemia E78.00 DVT prophylaxis Z29.9 (1) Crohns disease Digestive disease complication type: without complication Gastrointestinal tract location: unspecified location Qualified Code(s): K50.90 - Crohn's disease, unspecified, without complications
[2021-02-12] MEDS: SODIUM CHLORIDE 0.9% 1000ML 1,000 ML IV SCH (10:20)
[2021-02-12] MEDS: ENOXAPARIN INJ 40 MG/0.4 ML SYR SQ SCH (13:09)
[2021-02-12] MEDS: amLODIPine BESYLATE 5 MG TAB PO SCH (13:09)
--- NOTE | 2021-02-12 15:51 | Progress Notes ---
DATE: 02/12/2021 Progress note on the patient with Kiki Guerray. I examined the patient, interviewed him and reviewed his chart. The patient is feeling much better and tolerating solid food. He has been afebrile and his white count is normal. His bilirubin went to 1.4 but most of it is indirect suggesting possible Gilbert's disease. His Flagyl was discontinued today and he continues on Zosyn. Blood cultures are still no growth after 24 hours. Recommend continuing the IV antibiotics until tomorrow afternoon. If he continues to do so well, we can hopefully and his cultures are negative, we can switch him to oral antibiotics and continue his treatment as an outpatient.
[2021-02-12] MEDS ORDERED: ACETAMINOPHEN 325 MG TAB PO PRN (21:41)
[2021-02-13] MEDS: PIPERACILLIN/TAZOBACTAM 4.5 GM in DEXTROSE 5% 100 ML IV SCH ×3 (02:39→18:01)
[2021-02-13 06:38] LABS: Basophils # (auto) 0.03 K/uL (0-0.2); Basophils % (auto) 0.5 %; Eosinophils # (auto) 0.38 K/uL (0-0.5); Hematocrit (blood only) 45.8 % (42-52); Hemoglobin 15.8 g/dL (14.0-18.0); Immature Granulocytes # (auto) 0.01 K/uL (0.00-0.02); Immature Granulocytes % (auto) 0.2 %; Lymphocytes # (auto) 1.64 K/uL (1.2-3.4); Lymphocytes % (auto) 25.9 %; Mean Corpuscular Hemoglobin 31.2 pg (25-34); Mean Corpuscular Hgb Conc 34.5 g/dL (32-36); Mean Corpuscular Volume 90.3 fL (80-100); Mean Platelet Volume 9.7 fL (7.4-10.4); Monocytes % (auto) 12.6 %; Neutrophils # (auto) 3.47 K/uL (1.4-6.5); Neutrophils % (auto) 54.8 %; Platelet Count 198 K/uL (130-400); RDW Coefficient of Variation 13.4 % (11.5-14.5); Red Blood Count 5.07 M/uL (4.7-6.1); White Blood Count 6.33 K/uL (4.8-10.8)
[2021-02-13 07:15] LABS: Albumin Level 2.9 gm/dl (3.4-5.0); BUN Creatinine Ratio 12.4 (10-20); Bilirubin Direct 0.2 mg/dl (0-0.2); Calcium 8.6 mg/dl (8.5-10.1); Creatinine Clr Calc Pharmacy 47.3 ml/min; Est GFR (African American) 61.3 ml/min; Est GFR (Non-African American) 52.9 ml/min
[2021-02-13 07:29] LABS: Bilirubin,Total 0.8 mg/dl (0.2-1)
[2021-02-13] MEDS: METOPROLOL SUCC 50MG EXT REL TAB PO SCH (08:16)
[2021-02-13] MEDS: amLODIPine BESYLATE 5 MG TAB PO SCH (08:16)
--- NOTE | 2021-02-13 08:35 | Gastroenterology Progress Note ---
Date of Service February 13, 2021 Assessment & Plan (1) Primary sclerosing cholangitis: Primary sclerosing cholangitis: Continue IV Zosyn for a total of 3 days followed by p.o. antibiotics to total 14 days of treatment. Blood cultures are negative to date. Will follow-up in the office after discharge. Please refer to supervising physician addendum for further recommendations. Admission and Anticipated Discharge Date Admission Date: February 11, 2021 Subjective The patient is alert, oriented, and sitting upright in bed. He is not feeling 100% this morning per his report. Reports night sweats overnight. No fever per nursing. He reports some epigastric abdominal pain. Denies nausea or vomiting. Reports he is passing gas. Large bowel movement last night. Denies melena or hematochezia. Review of Systems Review of Systems: All systems reviewed & are unremarkable except as noted in Subjective Physical Exam Gastrointestinal (Abdomen): normal bowel sounds, soft, nontender, no hepatosplenomegaly Results & Data ([facility]) Vital Signs (Past 12 Hours) Vital Signs Temp Pulse Resp BP Pulse Ox 02/13/21 07:39 36.5 C 46 L 18 146/85 H 95 02/12/21 22:32 37.1 C 63 18 128/73 94 Laboratory Results - last 24 hr 02/13/21 02/13/21 06:19 06:19 WBC 6.33 RBC 5.07 Hgb 15.8 Hct 45.8 MCV 90.3 MCH 31.2 MCHC 34.5 RDW Std Deviation 44.0 RDW Coeff of Kaity 13.4 Plt Count 198 MPV 9.7 Immature Gran % (Auto) 0.2 Neut % (Auto) 54.8 Lymph % (Auto) 25.9 [place] % (Auto) 12.6 Eos % (Auto) 6.0 Baso % (Auto) 0.5 Neut # (Auto) 3.47 Lymph # (Auto) 1.64 [place] # (Auto) 0.80 H Eos # (Auto) 0.38 Baso # (Auto) 0.03 Immature Gran # (Auto) 0.01 Sodium 141 Potassium 4.0 Chloride 112 H Carbon Dioxide 21 Anion Gap 8.0 BUN 17 Creatinine 1.34 Est Cr Clr Drug Dosing 47.3 Est GFR ( Amer) 61.3 Est GFR (Non-Af Amer) 52.9 BUN/Creatinine Ratio 12.4 Glucose 102 H Calcium 8.6 Total Bilirubin 0.8 D Direct Bilirubin 0.2 AST 16 ALT 18 Alkaline Phosphatase 53 Total Protein 7.0 Albumin 2.9 L
[2021-02-13] MEDS: FAMOTIDINE 20 MG in SYRINGE 3 ML IV SCH (08:38)
[2021-02-13] MEDS: [UNRECOGNIZED DRUG - OTHER] PO SCH ×2 (08:39→20:48)
[2021-02-13] MEDS: ASPIRIN 81 MG ECTAB PO SCH (08:39)
[2021-02-13] MEDS: ENOXAPARIN INJ 40 MG/0.4 ML SYR SQ SCH (08:39)
[2021-02-13] MEDS: ursodioL 300 MG CAP PO SCH ×2 (08:40→20:48)
--- NOTE | 2021-02-13 08:53 | Hospitalist Progress Note ---
Date of Service February 13, 2021 Assessment & Plan (1) Primary sclerosing cholangitis: * Hx Primary sclerosing cholangitis/Crohn's/GERD without esophagitis. Hx cholecystectomy. * Presented with abdominal pain and fever and per prior conversation with GI he took a dose of Cipro and presented to the emergency department CTAP Impression: * 1. No evidence of bowel obstruction. No evidence of free air * 2. Colonic diverticulosis. No evidence of acute diverticulitis * 3. Cirrhotic morphology the liver. Mild left lobe ductal dilatation. Pneumobilia. * 4. Surgically absent gallbladder * 5. Paracaval lymph note at the upper limits of normal in size * 6. The previously described nonspecific ill-defined hypodense focus within the right lobe of the liver with associated capsular retraction appears less pronounced on the current study measuring approximately 2.5 cm MRCP Impression: * 1. Re-demonstration of numerous areas of stricture and dilatation within intrahepatic biliary ducts consistent with reported history of primary sclerosing cholangitis as detailed above. * 2. Previously seen long segment stricture of the midportion of the common bile duct is no longer visualized. * 3. Status post cholecystectomy. No evidence of choledocholithiasis. * 4. Previously seen 3 cm T2 hyperintensity at the inferior right lobe is significantly improved since prior. Interval development of focal area of increased T2 signal within the right lobe of the liver as detailed above and of indeterminate significance, could represent infectious/inflammatory process, however developing neoplasm cannot be completely ruled out. Further evaluation with contrast-enhanced CT of the abdomen on nonemergency basis migh t be considered if clinically indicated. GI on consult -- appreciate recs. evidence of cholangitis. Patient with hx of such but main bile duct looks good, more of an issue with smaller ducts and wo uld continue current antibiotics per GI * KEEP ON 3 DAYS IV ABX (on day three) given infection/time to heal and would sent with antibiotics to complete FOURTEEN DAY COURSE with Augmentin (pharmacy to switch for AM) * Afebrile (temp highest 37.4C since admission) * Lactic 1.4 * Blood cultures pending -- NGTD after 48 hours thus far * Tbili 1.4, direct 0.3 -- likely elevated secondary to infection--> improved on am labs, wnl * Zosyn/Flagyl IV (got dose of Dapto/Zosyn in ER) --> D/c Flagyl and continue on Zosyn as should be sufficient anaerobic coverage * Tolerating regular diet * Antiemetics -- zofran IV prn * Pain control -- morphine IV prn * Pepcid IV * Continue olsalazine 250mg PO BID (patient brought on medication as non- formulary) and Ursodiol 300mg PO BID (2) Crohns disease: * See above (3) GERD without esophagitis: * See above -- Pepcid IV BID (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 * Cr 1.34 -- stable (5) CAD (coronary artery disease): * CAD/hypertension- * Held ASA 81mg daily -- RESUMED as ok with GI * Resume ezetimibe-simvastatin 1 tablet daily at d/c (6) Benign essential HTN: * Held amlodipine 2.5mg daily, metoprolol succinate 100mg daily initially due to relatively low blood pressure * BP 146/85 -- already resumed metoprolol succinate, amlodipine (held this AM for low HR) * Continue to monitor (7) FLAKITO (obstructive sleep apnea): * CPAP at bedtime (8) Hypercholesterolemia: * Hold Zetia/simvastatin for now (9) DVT prophylaxis: * SCDs for now * Lovenox SQ Dispo: continued inpatient stay -- switching to PO abx tomorrow and likely d/c Admission and Anticipated Discharge Date Admission Date: February 11, 2021 Subjective Patient evaluated this morning. Stated some subjective fever/chills and night sweats overnight. No fevers noted on frequent checked. Has had some diarrhea/loose stool -- once last evening and once today. Will check cdiff prior to admin Imodium. Eating/drinking without issue. Labs acceptable but discussed with patient that he would like to continued monitoring overnight and will plan for AM discharge if feeling better/labs stable and tolerating oral antibiotics. BCx remain negative to date. No cp, sob, abdominal pain, n/v at this time. Review of Systems Review of Systems: All systems reviewed & are unremarkable except as noted in HPI & below Physical Exam Constitutional: WD/WN, vitals as above Eyes: PERRL, conjunctivae normal, anicteric sclerae ENMT: external ear and nose normal, oropharynx normal Neck: normal visual inspection and trachea midline Respiratory: normal respiratory effort, lungs clear to auscultation Cardiovascular: RRR, no murmur, no edema Gastrointestinal (Abdomen): normal bowel sounds, soft, nontender, no h epatosplenomegaly Musculoskeletal: no cyanosis or clubbing, extremities motor strength 5/5 Skin: no rashes, warm and dry Neurologic: PERRL, EOMI, accommodation nl, no face palsy, no dysarthria Psychiatric: A+Ox3, euthymic affect Lymphatic: no cervical or axillary lymphadenopathy Results & Data Results & Data ([facility]) Vital Signs (Past 12 Hours) Vital Signs Temp Pulse Resp BP Pulse Ox 02/13/21 07:39 36.5 C 46 L 18 146/85 H 95 02/12/21 22:32 37.1 C 63 18 128/73 94 Laboratory Results 02/13/21 02/13/21 Range/Units 06:19 06:19 WBC 6.33 (4.8-10.8) K/uL RBC 5.07 (4.7-6.1) M/uL Hgb 15.8 (14.0-18.0) g/dL Hct 45.8 (42-52) % MCV 90.3 (80-100) fL MCH 31.2 (25-34) pg MCHC 34.5 (32-36) g/dL RDW Std Deviation 44.0 (36.4-46.3) fL RDW Coeff of Kaity 13.4 (11.5-14.5) % Plt Count 198 (130-400) K/uL MPV 9.7 (7.4-10.4) fL Immature Gran % (Auto) 0.2 % Neut % (Auto) 54.8 % Lymph % (Auto) 25.9 % [place] % (Auto) 12.6 % Eos % (Auto) 6.0 % Baso % (Auto) 0.5 % Neut # (Auto) 3.47 (1.4-6.5) K/uL Lymph # (Auto) 1.64 (1.2-3.4) K/uL [place] # (Auto) 0.80 H (0.11-0.59) K/uL Eos # (Auto) 0.38 (0-0.5) K/uL Baso # (Auto) 0.03 (0-0.2) K/uL Immature Gran # (Auto) 0.01 (0.00-0.02) K/uL Sodium 141 (136-145) mmol/L Potassium 4.0 (3.5-5.1) mmol/L Chloride 112 H (98-107) mmol/L Carbon Dioxide 21 (21-32) mmol/L Anion Gap 8.0 (3-11) BUN 17 (7-18) mg/dl Creatinine 1.34 (0.6-1.4) mg/dl Est Cr Clr Drug Dosing 47.3 ml/min Est GFR ( Amer) 61.3 ml/min Est GFR (Non-Af Amer) 52.9 ml/min BUN/Creatinine Ratio 12.4 (10-20) Glucose 102 H (70-99) mg/dl Calcium 8.6 (8.5-10.1) mg/dl Total Bilirubin 0.8 D (0.2-1) mg/dl Direct Bilirubin 0.2 (0-0.2) mg/dl AST 16 (15-37) U/L ALT 18 (12-78) U/L Alkaline Phosphatase 53 (45-117) U/L Total Protein 7.0 (6.4-8.2) gm/dl Albumin 2.9 L (3.4-5.0) gm/dl PG Care Time/CCT Total # of Minutes Spent Total Time Spent with Patient: Total time spent is greater than 50% in coordination of care (as documented) at patient's floor/unit and/or counseling patient: Coding Level of Care Code 00658 Subseq Hosp Care Lvl 3 Diagnoses Primary sclerosing cholangitis K83.01 Crohns disease K50.90 Gastrointestinal tract location: unspecified location Digestive disease complication type: without complication GERD without esophagitis K21.9 Acute kidney injury N17.9 CAD (coronary artery disease) I25.10 Benign essential HTN I10 FLAKITO (obstructive sleep apnea) G47.33 Hypercholesterolemia E78.00 DVT prophylaxis Z29.9 (1) Crohns disease Gastrointestinal tract location: unspecified location Digestive disease complication type: without complication Qualified Code(s): K50.90 - Crohn's disease, unspecified, without complications
[2021-02-13] MEDS ORDERED: LOPERAMIDE HCL 2 MG CAP PO PRN (11:32)
--- NOTE | 2021-02-13 13:47 | Progress Notes ---
DATE: 02/13/2021 Addendum to the progress note on Skip Hartley by Kiki Gutierres today: The patient had chills for about an hour last evening around 5:00 p.m. and then during the night had some night sweats. He is feeling a little tired this morning, but his appetite is good and his labs look okay. His blood cultures are still no growth, but still in preliminary stage. In review of his records, HE IS ALLERGIC TO AMOXICILLIN, so I plan on keeping him on the IV Zosyn for now for another 24 hours and then when he does go home, recommend putting him on Cipro and Flagyl 500 b.i.d. of each to complete 14 days. Hopefully, he will be able to go home tomorrow.
[2021-02-14 05:54] LABS: Basophils # (auto) 0.02 K/uL (0-0.2); Basophils % (auto) 0.3 %; Eosinophils # (auto) 0.48 K/uL (0-0.5); Eosinophils % (auto) 6.6 %; Hematocrit (blood only) 49.5 % (42-52); Hemoglobin 17.1 g/dL (14.0-18.0); Immature Granulocytes # (auto) 0.02 K/uL (0.00-0.02); Immature Granulocytes % (auto) 0.3 %; Lymphocytes # (auto) 2.03 K/uL (1.2-3.4); Mean Corpuscular Hemoglobin 31.1 pg (25-34); Mean Corpuscular Hgb Conc 34.5 g/dL (32-36); Mean Platelet Volume 9.5 fL (7.4-10.4); Monocytes # (auto) 0.95 K/uL (0.11-0.59); Monocytes % (auto) 13.1 %; Neutrophils # (auto) 3.75 K/uL (1.4-6.5); Neutrophils % (auto) 51.7 %; Platelet Count 201 K/uL (130-400); RDW Coefficient of Variation 13.2 % (11.5-14.5); RDW Standard Deviation 43.4 fL (36.4-46.3); White Blood Count 7.25 K/uL (4.8-10.8)
[2021-02-14 06:36] LABS: Albumin Level 3.2 gm/dl (3.4-5.0); BUN Creatinine Ratio 13.4 (10-20); Bilirubin Direct 0.1 mg/dl (0-0.2); Bilirubin,Total 0.6 mg/dl (0.2-1); Calcium 8.7 mg/dl (8.5-10.1); Est GFR (African American) 62.5 ml/min; Est GFR (Non-African American) 53.9 ml/min; Potassium 3.9 mmol/L (3.5-5.1)
[2021-02-14] MEDS ORDERED: AMOXICILLIN/CLAVULANATE 875 MG TAB PO SCH (08:00)
--- NOTE | 2021-02-14 08:04 | Hospitalist Progress Note ---
Date of Service February 14, 2021 Assessment & Plan (1) Primary sclerosing cholangitis: * Hx Primary sclerosing cholangitis/Crohn's/GERD without esophagitis. Hx cholecystectomy. * Presented with abdominal pain and fever and per prior conversation with GI he took a dose of Cipro and presented to the emergency department CTAP Impression: * 1. No evidence of bowel obstruction. No evidence of free air * 2. Colonic diverticulosis. No evidence of acute diverticulitis * 3. Cirrhotic morphology the liver. Mild left lobe ductal dilatation. Pneumobilia. * 4. Surgically absent gallbladder * 5. Paracaval lymph note at the upper limits of normal in size * 6. The previously described nonspecific ill-defined hypodense focus within the right lobe of the liver with associated capsular retraction appears less pronounced on the current study measuring approximately 2.5 cm MRCP Impression: * 1. Re-demonstration of numerous areas of stricture and dilatation within intrahepatic biliary ducts consistent with reported history of primary sclerosing cholangitis as detailed above. * 2. Previously seen long segment stricture of the midportion of the common bile duct is no longer visualized. * 3. Status post cholecystectomy. No evidence of choledocholithiasis. * 4. Previously seen 3 cm T2 hyperintensity at the inferior right lobe is significantly improved since prior. Interval development of focal area of increased T2 signal within the right lobe of the liver as detailed above and of indeterminate significance, could represent infectious/inflammatory process, however developing neoplasm cannot be completely ruled out. Further evaluation with contrast-enhanced CT of the abdomen on nonemergency basis migh t be considered if clinically indicated. GI on consult -- appreciate recs. evidence of cholangitis. Patient with hx of such but main bile duct looks good, more of an issue with smaller ducts and wo uld continue current antibiotics per GI * KEEP ON 3 DAYS IV ABX (on day three) given infection/time to heal and would sent with antibiotics to complete FOURTEEN DAY COURSE with Augmentin (pharmacy to switch for AM) * Afebrile (temp highest 37.4C since admission) * Lactic 1.4 * Blood cultures pending -- NGTD after 48 hours thus far * Tbili 1.4, direct 0.3 -- likely elevated secondary to infection--> improved on am labs, wnl * Zosyn/Flagyl IV (got dose of Dapto/Zosyn in ER) --> D/c Flagyl and continue on Zosyn as should be sufficient anaerobic coverage * Tolerating regular diet * Antiemetics -- zofran IV prn * Pain control -- morphine IV prn * Pepcid IV * Continue olsalazine 250mg PO BID (patient brought on medication as non- formulary) and Ursodiol 300mg PO BID (2) Crohns disease: * See above (3) GERD without esophagitis: * See above -- Pepcid IV BID (On omeprazole 40mg daily [employer]) (4) Acute kidney injury: slight dehydration on admission with Cr 1.44, typical range 1.1-1.49 CKD III at baseline IVF given, since discontinued Cr stable 1.34 (5) CAD (coronary artery disease): * CAD/hypertension- * Held ASA 81mg daily -- RESUMED as ok with GI * Resume ezetimibe-simvastatin 1 tablet daily at d/c (6) Benign essential HTN: * Held amlodipine 2.5mg daily, metoprolol succinate 100mg daily initially due to relatively low blood pressure * BP 146/85 -- already resumed metoprolol succinate, amlodipine (held this AM for low HR) * Continue to monitor (7) FLAKITO (obstructive sleep apnea): * CPAP at bedtime (8) Hypercholesterolemia: * Hold Zetia/simvastatin for now (9) DVT prophylaxis: * SCDs for now * Lovenox SQ Dispo: continued inpatient stay -- switching to PO abx tomorrow and likely d/c Admission and Anticipated Discharge Date Admission Date: February 11, 2021 Results & Data Results & Data ([facility]) Vital Signs (Past 12 Hours) Vital Signs Temp Pulse Resp BP Pulse Ox 02/14/21 07:16 36.5 C 50 L 16 149/84 H 96 02/13/21 22:39 36.7 C 55 L 16 120/71 97 PG Care Time/CCT Total # of Minutes Spent Total Time Spent with Patient: Total time spent is greater than 50% in coordination of care (as documented) at patient's floor/unit and/or counseling patient: Coding Diagnoses Primary sclerosing cholangitis K83.01 Crohns disease K50.90 Gastrointestinal tract location: unspecified location Digestive disease complication type: without complication GERD without esophagitis K21.9 Acute kidney injury N17.9 CAD (coronary artery disease) I25.10 Benign essential HTN I10 FLAKITO (obstructive sleep apnea) G47.33 Hypercholesterolemia E78.00 DVT prophylaxis Z29.9 (1) Crohns disease Gastrointestinal tract location: unspecified location Digestive disease complication type: without complication Qualified Code(s): K50.90 - Crohn's disease, unspecified, without complications
[2021-02-14] MEDS: METOPROLOL SUCC 50MG EXT REL TAB PO SCH (08:28)
[2021-02-14] MEDS: amLODIPine BESYLATE 5 MG TAB PO SCH (08:29)
[2021-02-14] MEDS: ursodioL 300 MG CAP PO SCH (08:30)
[2021-02-14] MEDS: ASPIRIN 81 MG ECTAB PO SCH (08:30)
[2021-02-14] MEDS: ENOXAPARIN INJ 40 MG/0.4 ML SYR SQ SCH (08:30)
[2021-02-14] MEDS: [UNRECOGNIZED DRUG - OTHER] PO SCH (08:31)
--- NOTE | 2021-02-14 08:50 | Gastroenterology Progress Note ---
Date of Service February 14, 2021 Assessment & Plan (1) Primary sclerosing cholangitis: Primary sclerosing cholangitis: The patient is doing much better today. He has had no further abdominal pain or chills. He is hopeful for discharge today. He has completed 4 days of IV antibiotics. Recommendation is to discharge to home with p.o. antibiotics (Cipro and Flagyl 500 mg twice daily each as he is allergic to amoxicillin) to total 14 days of treatment. Blood cultures are negative to date. Will follow-up in the office after discharge. Please refer to supervising physician addendum for further recommendations. Admission and Anticipated Discharge Date Admission Date: February 11, 2021 Supervising Physician Co-Signing Physician Notes Pt discharged prior to being seen by me today. Subjective The patient is doing well this morning. He is sitting upright in a chair at his bedside. He states he is feeling very good this morning. He denies any fever or chills through the night. Denies abdominal pain. Denies epigastric pain. Denies nausea or vomiting. Denies any blood in the stool. He did have a bowel movement yesterday. He is doing well and hoping for discharge today. Review of Systems Review of Systems: All systems reviewed & are unremarkable except as noted in Subjective Physical Exam Gastrointestinal (Abdomen): normal bowel sounds, soft, nontender, no hepatosplenomegaly Results & Data ([facility]) Vital Signs (Past 12 Hours) Vital Signs Temp Pulse Resp BP Pulse Ox 02/14/21 07:16 36.5 C 50 L 16 149/84 H 96 02/13/21 22:39 36.7 C 55 L 16 120/71 97 Laboratory Results - last 24 hr 02/13/21 02/14/21 02/14/21 17:13 05:37 05:37 WBC 7.25 RBC 5.50 Hgb 17.1 Hct 49.5 MCV 90.0 MCH 31.1 MCHC 34.5 RDW Std Deviation 43.4 RDW Coeff of Kaity 13.2 Plt Count 201 MPV 9.5 Immature Gran % (Auto) 0.3 Neut % (Auto) 51.7 Lymph % (Auto) 28.0 [place] % (Auto) 13.1 Eos % (Auto) 6.6 Baso % (Auto) 0.3 Neut # (Auto) 3.75 Lymph # (Auto) 2.03 [place] # (Auto) 0.95 H Eos # (Auto) 0.48 Baso # (Auto) 0.02 Immature Gran # (Auto) 0.02 Sodium 138 Potassium 3.9 Chloride 109 H Carbon Dioxide 22 Anion Gap 7.0 BUN 18 Creatinine 1.32 Est Cr Clr Drug Dosing 48.0 Est GFR ( Amer) 62.5 Est GFR (Non-Af Amer) 53.9 BUN/Creatinine Ratio 13.4 Glucose 108 H Calcium 8.7 Total Bilirubin 0.6 Direct Bilirubin 0.1 AST 17 ALT 19 Alkaline Phosphatase 56 Total Protein 8.0 Albumin 3.2 L Stl C. diff Tox B Gene Negative Cdiff Gene
[2021-02-14] MEDS ORDERED: metroNIDAZOLE 500 MG TAB PO SCH (09:00)
[2021-02-14] MEDS ORDERED: CIPROFLOXACIN 500 MG TAB PO SCH (09:00)
[2021-02-14] MEDS ORDERED: PANTOprazole 40 MG TAB PO SCH (09:00)
--- NOTE | 2021-02-14 12:39 | Discharge Summary ---
Date of Service February 14, 2021 Admission HPI Per Admitting Provider The patient is a 70-year-old male with a past medical history including osteoporosis, renal insufficiency, CAD, Crohn's disease, GERD and esophagitis, hypercholesterolemia, primary sclerosing cholangitis, status post laparoscopic cholecystectomy in 11/2018, status post ERCP 02/2019 with sphincterotomy and dilation some strictures, melanoma, kidney stones, hypertension and status post CABG. He has been notified by his process controls technician Dr. Sanders that should he develop a temperature at any time, he was to take Cipro, and then come to the emergency department for assessment, which he did earlier this morning. Admission Exam Per Admitting Provider The patient is awake, alert and oriented 3, well developed and well nourished, normocephalic and atraumatic, lying in bed and in no acute distress. HEENT--PERRL, EOMI, mucous membranes and oropharynx dry. Neck--supple. No JVD. No bruits. Thyroid normal, trachea midline, no adenopathy. Heart--normal S1 and S2. No murmurs, rubs or gallops. Lungs--clear bilaterally, no respiratory distress, no accessory muscle use. Abdomen--normal bowel sounds and soft. Epigastric and right upper quadrant tenderness. Nondistended. Extremities--no cyanosis or clubbing. No edema. Dermatologic--normal skin turgor, normal color, no abnormal lymph nodes, no rash. Neurologic--cranial nerves II through XII grossly intact. Rheumatologic--normal range of motion. Psychiatric--normal affect. Principal Diagnosis PSC Discharge Exam Constitutional WD/WN, vitals as above Eyes PERRL, conjunctivae normal, anicteric sclerae ENMT external ear and nose normal, oropharynx normal Neck normal visual inspection and trachea midline Respiratory normal respiratory effort, lungs clear to auscultation Cardiovascular RRR, no murmur, no edema Gastrointestinal (Abdomen) normal bowel sounds, soft, nontender, no hepatosplenomegaly Musculoskeletal no cyanosis or clubbing, extremities motor strength 5/5 Skin no rashes, warm and dry Neurologic PERRL, EOMI, accommodation nl, no face palsy, no dysarthria Psychiatric A+Ox3, euthymic affect Lymphatic no cervical or axillary lymphadenopathy Discharge Data Allergies Allergy/AdvReac Type Severity Reaction Status Date / Time Sulfa (Sulfonamide Allergy Unknown fever/chill Verified 11/01/20 08:20 Antibiotics) s amoxicillin AdvReac Mild Diarrhea Verified 11/01/20 08:20 Consultations 02/11/21 05:15 ED Decision to Admit Stat 02/11/21 07:55 Consult Gastroenterology Routine Ordered Studies 02/11/21 03:27 CT abd pelvis IV con only Urgent 02/11/21 06:21 MR MRCP Stat Hospital Course (1) Primary sclerosing cholangitis: * Hx Primary sclerosing cholangitis/Crohn's/GERD without esophagitis. Hx cholecystectomy. * Presented with abdominal pain and fever and per prior conversation with GI he took a dose of Cipro and presented to the emergency department CTAP Impression: * 1. No evidence of bowel obstruction. No evidence of free air * 2. Colonic diverticulosis. No evidence of acute diverticulitis * 3. Cirrhotic morphology the liver. Mild left lobe ductal dilatation. Pneumobilia. * 4. Surgically absent gallbladder * 5. Paracaval lymph note at the upper limits of normal in size * 6. The previously described nonspecific ill-defined hypodense focus within the right lobe of the liver with associated capsular retraction appears less pronounced on the current study measuring approximately 2.5 cm MRCP Impression: * 1. Re-demonstration of numerous areas of stricture and dilatation within intrahepatic biliary ducts consistent with reported history of primary sclerosing cholangitis as detailed above. * 2. Previously seen long segment stricture of the midportion of the common bile duct is no longer visualized. * 3. Status post cholecystectomy. No evidence of choledocholithiasis. * 4. Previously seen 3 cm T2 hyperintensity at the inferior right lobe is significantly improved since prior. Interval development of focal area of increased T2 signal within the right lobe of the liver as detailed above and of indeterminate significance, could represent infectious/inflammatory process, however developing neoplasm cannot be completely ruled out. Further evaluation with contrast-enhanced CT of the abdomen on nonemergency basis might be considered if clinically indicated. GI on consult -- appreciate recs. evidence of cholangitis. Patient with hx of such but main bile duct looks good, more of an issue with smaller ducts and would continue current antibiotics per GI Lactic 1.4, BCx NGTD after 48 hours Initially on Zosyn/Flagyl (flagyl d/c'd as ZOsyn adequate coverage) -- continued for 3 days, extended to 4 given reported chills during inpatient stay IVF, antiemetics, pain control provided WBC wnl, remained afebrile [place] much better / and tolerated oral antibiotics with Cipro/Flagyl to be continued 500mg BID for total of fourteen days at discharge Continued his home olsalazine 250mg PO BID (patient brought on medication as non-formulary) and Ursodiol 300mg PO BID To follow up with Dr Sanders outpatient (2) Crohns disease: See above (3) GERD without esophagitis: Pepcid IV BID while inpatient and switched back to omeprazole 40mg at discharge as he was taking [employer] (4) Acute kidney injury: slight dehydration on admission with Cr 1.44, typical range 1.1-1.49 CKD III at baseline IVF given, since discontinued Cr stable 1.34 (5) CAD (coronary artery disease): * CAD/hypertension- * Held ASA 81mg daily -- RESUMED as ok with GI * Resumed ezetimibe-simvastatin 1 tablet daily at d/c (6) Benign essential HTN: * Held amlodipine 2.5mg daily, metoprolol succinate 100mg daily initially due to relatively low blood pressure * BP 149/84 * Resumed home medications at discharge (7) FLAKITO (obstructive sleep apnea): * CPAP at bedtime (8) Hypercholesterolemia: * Zetia/simvastatin (9) DVT prophylaxis: * SCDs , Lovenox SQ while inpatient * Lovenox SQ Discharged home Total Time Total Time Spent Total Time Spent (In Minutes): 60 Discharge Plan Discharge Items Patient Disposition: Home - Self-Care Reason For Visit: PRIMARY SCLEROSING CHOLANGITIS Discharge Diagnosis: Primary Sclerosing Cholangitis Goals: You have been hospitalized for an acute medical problem. During your stay at [facility], we have made an effort to correct the problem that brought you to the hospital while keeping you as comfortable as possible. Medications were used to bring your condition under control and your discharge instructions will include directions for any medications you should take after leaving the hospital. Please make sure you see your Primary Care Provider as part of your follow up plan. Activity: Resume your previous activity Non-emergency contact: Primary Care Provider Call non-emergency contact if: you have any medication questions, your symptoms worsen, your pain is not controlled and you have a fever Follow-up/Referrals: Alex Terrazas MD [Primary Care Provider] - 02/18/21 10:00 am Teodoro Sanders [Physician] - 02/27/21 9:00 am (2 weeks) Diet: Heart Healthy Addtl Attending Provider Instructions: You have been hospitalized for fever and found to have cholangitis. You have been treated with IV antibiotics and evaluated by GI and felt to keep on IV antibiotics for three days and complete a FOURTEEN day course with Cipro/Flagyl by mouth. These will both be 500mg by mouth TWICE daily for an additional 11 days. Your blood cultures have remained negative and your labs are stable. You will need to follow up with PCP and Dr Sanders. Please return to the emergency department with any fever, chills, worsening pain, inability to keep up with oral intake or for any other symptoms that are concerning for you. It has been a pleasure being a part of the medical team providing for you while you have been in the hospital. Take care! Pending Studies at Discharge: Yes Studies:: Blood cultures -- negative to date Stand-Alone Forms: [facility] [employer], Smoking Cessation Medications and DC Order Prescriptions: New metronidazole 500 mg Tablet 500 mg PO BID 11 Days Qty: 22 RF: 0 ciprofloxacin HCl 500 mg Tablet 500 mg PO BID 11 Days Qty: 22 RF: 0 Continued ezetimibe-simvastatin 10-80 mg tablet 1 tab PO PM Qty: 90 RF: 3 metoprolol succinate 100 mg tablet extended release 24 hr 100 mg PO QAM Qty: 90 RF: 3 omeprazole 40 mg capsule,delayed release(DR/EC) 40 mg PO DAILY Qty: 90 RF: 3 aspirin 81 mg tablet,delayed release (DR/EC) 81 mg PO DAILY Qty: 90 RF: 3 lorazepam 1 mg tablet 1 mg PO ONCE Qty: 2 RF: 0 ursodiol 300 mg capsule 300 mg PO BID Qty: 180 RF: 3 Dipentum 250 mg capsule 250 mg PO BID Qty: 180 RF: 3 amlodipine 2.5 mg tablet 2.5 mg PO DAILY Qty: 30 RF: 11 hydrocortisone 2.5 % cream 1 appln TOP TID PRN (Reason: skin irritation) Qty: 30 RF: 11 nitroglycerin 0.4 mg tablet, sublingual 0.4 mg SL Q5M PRN (Reason: chest pain) Qty: 25 RF: 3 lorazepam 1 mg tablet 1 mg PO ONCE PRN (Reason: anxiety) Qty: 2 RF: 0 cholecalciferol (vitamin D3) [Vitamin D3] 50 mcg (2,000 unit) Tablet 50 mcg PO DAILY RF: 0 Discharge Orders: Discharge Order (Routine); Ordered 02/14/21 Ordered By: Jessie Johnson/Other Patient Handouts: Anatomy of the Digestive System Admission Data Admit Date/Time: 02/11/21 05:36 Attending Provider: Skip Lynch Admit Provider: Jermanie Dobson Primary Care Provider: Alex Terrazas Other Providers: Jermaine Dobson ; Teodoro Sanders Other Interventions: Discharge Summary Assessment (RN) Last Done: 02/14/21 10:00 Coding Level of Care Code D/C Day Management >30 mins Diagnoses Primary sclerosing cholangitis K83.01 Crohns disease K50.90 Digestive disease complication type: without complication Gastrointestinal tract location: unspecified location GERD without esophagitis K21.9 Acute kidney injury N17.9 CAD (coronary artery disease) I25.10 Benign essential HTN I10 FLAKITO (obstructive sleep apnea) G47.33 Hypercholesterolemia E78.00 DVT prophylaxis Z29.9
== END 2021-02-14 11:30 | disposition home or self-care (01) | DRG 445 ==
LOC: ED 03:07 → 3N 05:36 → SUATTDRO 05:36 → 3N 07:02

== ENCOUNTER 2021-05-08 01:16 | Observation (INO) ==
[2021-05-08 02:23] LABS: Appearance Urine Clear (Clear); Bilirubin Urine Negative (Negative); Blood Urine Negative (Negative); Color Urine Yellow; Glucose Urine UA Negative (Negative); Ketones Urine Negative (Negative); Leukocyte Esterase Urine Negative (Negative); Nitrite Urine Negative (Negative); Protein Urine Negative (Negative); Specific Gravity Urine 1.017 (1.000-1.030); Urobilinogen Urine Negative (Negative); pH Urine 6.5 (4.5-7.5)
[2021-05-08] MEDS ORDERED: SODIUM CHLORIDE 0.9% 1000ML 1,000 ML IV SCH (04:15)
[2021-05-08 04:38] LABS: Basophils # (auto) 0.02 K/uL (0-0.2); Basophils % (auto) 0.2 %; Eosinophils % (auto) 0.9 %; Hematocrit (blood only) 48.4 % (42-52); Immature Granulocytes # (auto) 0.02 K/uL (0.00-0.02); Immature Granulocytes % (auto) 0.2 %; Lymphocytes # (auto) 1.07 K/uL (1.2-3.4); Lymphocytes % (auto) 9.3 %; Mean Corpuscular Hemoglobin 31.4 pg (25-34); Mean Corpuscular Hgb Conc 35.1 g/dL (32-36); Mean Corpuscular Volume 89.3 fL (80-100); Mean Platelet Volume 9.9 fL (7.4-10.4); Monocytes # (auto) 0.99 K/uL (0.11-0.59); Monocytes % (auto) 8.6 %; Neutrophils % (auto) 80.8 %; Platelet Count 204 K/uL (130-400); RDW Coefficient of Variation 13.3 % (11.5-14.5); RDW Standard Deviation 43.1 fL (36.4-46.3); Red Blood Count 5.42 M/uL (4.7-6.1)
[2021-05-08 05:05] LABS: Alanine Aminotransferase 22 U/L (12-78); Albumin Globulin Ratio 0.8 (0.9-2); Albumin Level 3.7 gm/dl (3.4-5.0); Alkaline Phosphatase 69 U/L (45-117); BUN Creatinine Ratio 18.5 (10-20); Bilirubin,Total 0.9 mg/dl (0.2-1); Blood Urea Nitrogen 23 mg/dl (7-18); Calcium 9.1 mg/dl (8.5-10.1); Carbon Dioxide 23 mmol/L (21-32); Chloride 110 mmol/L (98-107); Creatinine Clr Calc Pharmacy 50.8 ml/min; Est GFR (African American) 67.6 ml/min; Est GFR (Non-African American) 58.3 ml/min; Globulin 4.5 gm/dl (2.5-4.0); Glucose 134 mg/dl (70-99); Sodium 138 mmol/L (136-145); Total Protein 8.2 gm/dl (6.4-8.2); Troponin I < 0.015 ng/ml (0-0.045)
[2021-05-08 05:07] LABS: Partial Thromboplastin Ratio 1.2; Partial Thromboplastin Time 31.9 Seconds (21.0-31.0); Prothrombin Time 10.6 Seconds (9.0-12.0)
[2021-05-08] MEDS ORDERED: PIPERACILLIN/TAZOBACTAM 4.5 GM/120 ML BAG IV ONE (05:14)
[2021-05-08] MEDS ORDERED: metroNIDAZOLE 500 MG/100 ML BAG IV STA (05:14)
[2021-05-08] MEDS ORDERED: PIPERACILL/TAZOBAC CONSULT ACTIVE PRN ×2 (05:14→10:23)
[2021-05-08 05:36] LABS: Magnesium 1.8 mg/dl (1.8-2.4); Potassium 4.3 mmol/L (3.5-5.1)
--- NOTE | 2021-05-08 05:49 | History & Physical Report ---
Date of Service May 08, 2021 Assessment & Plan (1) Ascending cholangitis: Plan: Primary sclerosing cholangitis/Crohn's/GERD without esophagitis - Continue olsalazine 250 mg p.o. twice daily and ursodiol 300 mg p.o. twice daily - Zosyn 4.5 g IV every 8 hours. received 1 dose metronidazole in ER, discontinuing as zosyn provides adequate anaerobic coverage. - no transaminitis, lactic acidosis, negative procal. not septic appearing. mildly elevated WBC - Famotidine 20 mg IV every 12 hours - Zofran 4 mg IV every 6 hours as needed - NS @ 125 - given frequency of presentation and no new/worsening symptoms at this time, no repeat imaging performed. - [facility] gastroenterology consult - blood cultures pending CAD - cont asa - holding ezetimibe-simvastatin 80? med rec not completed -- unsure patient is on this dose HTN - cont amlodipine, metoprolol DVT ppx: lovenox FEN/GI: heart healthy diet/famotidine Code Status: Full Code Dispo: med/Surg (2) Fever: (3) Abdominal pain: (4) FLAKITO (obstructive sleep apnea): (5) Primary sclerosing cholangitis: (6) Acute kidney injury: History of Present Illness Primary Care Provider: Alex Terrazas MD The patient is a 70-year-old male with a past medical history including osteoporosis, renal insufficiency, CAD, Crohn's disease, GERD and esophagitis, hypercholesterolemia, primary sclerosing cholangitis, status post laparoscopic cholecystectomy in 11/2018, status post ERCP 02/2019 with sphincterotomy and dilation some strictures, melanoma, kidney stones, hypertension and status post CABG. Saw Dr. gomes of [facility] recently on 04/03/21. notified by his physician that should he develop a temperature at any time, he was to take a Cipro, and then come to the emergency department for assessment. He noticed he was getting chills that wouldn't go away overnight and decided to come in early this morning. he says this time it's a little less painful than before but he's also getting better at noticing the symptoms/pattern earlier and able to get the treatment sooner. Allergies Allergy/AdvReac Type Severity Reaction Status Date / Time Sulfa (Sulfonamide Allergy Unknown fever/chill Verified 05/08/21 07:26 Antibiotics) s amoxicillin AdvReac Mild Diarrhea Verified 05/08/21 07:26 Home Medications Medication Instructions Recorded Confirmed Type aspirin 81 mg tablet,delayed 81 mg PO DAILY #90 tab 04/13/19 05/08/21 Rx release hydrocortisone 2.5 % topical cream 1 appln TOP TID PRN #30 gm 10/23/19 05/08/21 Rx nitroglycerin 0.4 mg sublingual 0.4 mg SL Q5M PRN #25 tab 06/27/20 05/08/21 Rx tablet cholecalciferol (vitamin D3) 50 50 mcg PO DAILY 10/02/20 05/08/21 History mcg (2,000 unit) tablet (Vitamin D3) olsalazine 250 mg capsule 250 mg PO BID #180 cap 11/01/20 05/08/21 Rx (Dipentum) ursodiol 300 mg capsule 300 mg PO BID #180 cap 11/01/20 05/08/21 Rx cholestyramine (with sugar) 4 gram 4 g PO BID #378 g 02/18/21 05/08/21 Rx oral powder omeprazole 40 mg capsule,delayed 40 mg PO DAILY #90 cap 03/03/21 05/08/21 Rx release ezetimibe 10 mg-simvastatin 80 mg 1 tab PO PM #90 tab 03/25/21 05/08/21 Rx tablet amlodipine 2.5 mg tablet 2.5 mg PO PM 05/08/21 05/08/21 History metoprolol succinate 100 mg 100 mg PO QAM 05/08/21 05/08/21 History tablet,extended release 24 hr Past Med/Surg History Medical History CAD (coronary artery disease) Crohn disease GERD (gastroesophageal reflux disease) Hyperlipidemia Hypertension Medicare annual wellness visit, subsequent Myocardial Infarction 1995 - then CABG X 5 IN [place] Osteoporosis Prostate cancer screening Renal insufficiency Sleep apnea no machine Surgical History History of open reduction and internal fixation (ORIF) procedure Hx of appendectomy Hx of colonoscopy Hx of foot surgery Hx of inguinal hernia repair Hx of laceration of skin S/P CABG x 5 Family History Other Family history non-contributory Social History Smoking Status: Never smoker Second Hand Exposure: No; Hx Alcohol Use: No Hx Substance Use: No Preferred Language: Tunisian Communication Ability: Effective Circulation Representative Required: No Beliefs That Will Affect Care: None Current Living Situation: Spouse Feels Safe at Home: Yes caffeine: No Seatbelt Use: always Assistive Devices: Glasses Review of Systems Constitutional: + fever (100.9F), + chills and + sweats; no fatigue Eyes: no blind spots and no discharge Ear, Nose, Mouth, Throat: no hearing loss and no nasal congestion Respiratory: no cough and no dyspnea Cardiovascular: no chest pain, no dyspnea on exertion and no edema Gastrointestinal: + abdominal pain and + nausea; no bloating, no vomiting, no constipation, no diarrhea/loose stools and no blood in stools Musculoskeletal: no joint pain and no myalgia Neurologic: no tingling, no numbness and no headache(s) Endocrine: no fatigue Physical Exam Physical Exam: Constitutional: elderly male in no apparent distress, sitting comfortably in bed. Eyes: EOMI, pupils equal and reactive bilaterally, no scleral icterus Cardiac: RRR, no murmurs, gallops or rubs. Normal S1, S2 Pulm: CTA BL, no wheezes, rhonchi, crackles or rubs, moving air well throughout both lungs Abd: soft, mildly distended, TTP in epigastrium and LUQ, normal bowel sounds, no rebound or guarding Extremities: 2+ peripheral pulses, no edema Neuro: no focal deficits, moving all 4 limbs, A&Ox3 Results & Data Results & Data ([facility]) Vital Signs (Past 12 Hours) Vital Signs Temp Pulse Resp BP Pulse Ox 05/08/21 04:26 37.5 C 93 05/08/21 04:21 98 05/08/21 01:24 37 C 97 H 18 149/90 H 97 Laboratory Results Laboratory Results WBC 11.50 K/uL (4.8-10.8) H 05/08/21 04:26 RBC 5.42 M/uL (4.7-6.1) 05/08/21 04:26 Hgb 17.0 g/dL (14.0-18.0) 05/08/21 04:26 Hct 48.4 % (42-52) 05/08/21 04: MCV 89.3 fL (80-100) 05/08/21 04: MCH 31.4 pg (25-34) 05/08/21 04: MCHC 35.1 g/dL (32-36) 05/08/21 04: RDW Std Deviation 43.1 fL (36.4-46.3) 05/08/21 04: RDW Coeff of Kaity 13.3 % (11.5-14.5) 05/08/21 04:26 Plt Count 204 K/uL (130-400) 05/08/21 04: MPV 9.9 fL (7.4-10.4) 05/08/21 04: Immature Gran % (Auto) 0.2 % 05/08/21 04: Neut % (Auto) 80.8 % 05/08/21 04: Lymph % (Auto) 9.3 % 05/08/21 04:26 [place] % (Auto) 8.6 % 05/08/21 04:26 Eos % (Auto) 0.9 % 05/08/21 04:26 Baso % (Auto) 0.2 % 05/08/21 04:26 Neut # (Auto) 9.30 K/uL (1.4-6.5) H 05/08/21 04:26 Lymph # (Auto) 1.07 K/uL (1.2-3.4) L 05/08/21 04:26 [place] # (Auto) 0.99 K/uL (0.11-0.59) H 05/08/21 04:26 Eos # (Auto) 0.10 K/uL (0-0.5) 05/08/21 04:26 Baso # (Auto) 0.02 K/uL (0-0.2) 05/08/21 04:26 Immature Gran # (Auto) 0.02 K/uL (0.00-0.02) 05/08/21 04:26 PT 10.6 Seconds (9.0-12.0) 05/08/21 04:41 INR 1.0 (0.9-1.1) 05/08/21 04:41 APTT 31.9 Seconds (21.0-31.0) H 05/08/21 04:41 PTT Ratio 1.2 05/08/21 04:41 Sodium 138 mmol/L (136-145) 05/08/21 04:26 Potassium 4.3 mmol/L (3.5-5.1) 05/08/21 04:41 Chloride 110 mmol/L (98-107) H 05/08/21 04:26 Carbon Dioxide 23 mmol/L (21-32) 05/08/21 04:26 Anion Gap 5.0 (3-11) 05/08/21 04:26 BUN 23 mg/dl (7-18) H 05/08/21 04:26 Creatinine 1.23 mg/dl (0.6-1.4) 05/08/21 04:26 Est Cr Clr Drug Dosing 50.8 ml/min 05/08/21 04:26 Est GFR ( Amer) 67.6 ml/min 05/08/21 04:26 Est GFR (Non-Af Amer) 58.3 ml/min 05/08/21 04:26 BUN/Creatinine Ratio 18.5 (10-20) 05/08/21 04:26 Glucose 134 mg/dl (70-99) H 05/08/21 04:26 Lactate 1.2 mmol/L (0.4-2.0) 05/08/21 04:26 Calcium 9.1 mg/dl (8.5-10.1) 05/08/21 04:26 Magnesium 1.8 mg/dl (1.8-2.4) 05/08/21 04:41 Total Bilirubin 0.9 mg/dl (0.2-1) 05/08/21 04:26 AST 25 U/L (15-37) 05/08/21 04:41 ALT 22 U/L (12-78) 05/08/21 04:26 Alkaline Phosphatase 69 U/L (45-117) 05/08/21 04:26 Troponin I < 0.015 ng/ml (0-0.045) 05/08/21 04:26 Total Protein 8.2 gm/dl (6.4-8.2) 05/08/21 04:26 Albumin 3.7 gm/dl (3.4-5.0) 05/08/21 04:26 Globulin 4.5 gm/dl (2.5-4.0) H 05/08/21 04:26 Albumin/Globulin Ratio 0.8 (0.9-2) L 05/08/21 04:26 Procalcitonin < 0.05 ng/ml (0-0.5) 05/08/21 04:41 Specimen Hemolysis 05/08/21 04:41 Urine Color Yellow 05/08/21 01:28 Urine Appearance Clear (Clear) 05/08/21 01:28 Urine pH 6.5 (4.5-7.5) 05/08/21 01:28 Ur Specific [place] 1.017 (1.000-1.030) 05/08/21 01:28 Urine Protein Negative (Negative) 05/08/21 01:28 Urine Glucose (UA) Negative (Negative) 05/08/21 01:28 Urine Ketones Negative (Negative) 05/08/21 01:28 Urine Blood Negative (Negative) 05/08/21 01:28 Urine Nitrite Negative (Negative) 05/08/21 01:28 Urine Bilirubin Negative (Negative) 05/08/21 01:28 Urine Urobilinogen Negative (Negative) 05/08/21 01:28 Ur Leukocyte Esterase Negative (Negative) 05/08/21 01:28 Supervising Physician Co-Signing Physician Notes Patient seen and examined, chart removed, case discussed with Dr. Parada and I agree with her assessment and plan as documented above. In brief, patient is a 71yo male with history of ascending cholangitis presenting with fever. Patient has been instructed that should he develop fever he should take a Cipro and come to the ER. Patient with fever and shaking chills prior to arrival as well as nausea and diarrhea Unremarkable exam No RUQ tenderness Labs and images reviewed. WBC=11.5 with neutrophil predominance and lymphopenia Procalcitonin negative LFTs WNL Assessment/Plan- 71yo with history of primary sclerosing cholangitis presenting with fever and shaking chills. Patient is a high risk, instructed to come to the hospital any time he develops fever -Follow cultures -Continue Zosyn -GI consultation -Remainder of plan as above Resident Activity Tracking Resident Involvement: Resident Care Provided Care Provided: Adult Hospital Medicine (1) Fever Fever type: unspecified Qualified Code(s): R50.9 - Fever, unspecified (2) Abdominal pain Abdominal location: unspecified location Qualified Code(s): R10.9 - Unspecified abdominal pain
--- NOTE | 2021-05-08 07:03 | XRay Report ---
XR chest 1V portable CLINICAL HISTORY: SEPSIS COMPARISON STUDY: Chest radiograph February 11, 2021. FINDINGS: There are median sternotomy wires and mediastinal surgical clips. Minimal bibasilar opaciti es favor atelectasis. Lungs are clear. There is no pneumothorax or pleural effusion. Mild cardiomegal y is unchanged. Mediastinal contours are normal. There is no evidence for pulmonary edema. IMPRESSION: No acute cardiopulmonary findings. No change in appearance of the chest. ACT 112: Negative or not required by law. Electronically signed by: Dewey Felix M.D. 05/08/2021 7:02 AM
--- NOTE | 2021-05-08 07:59 | Billing Data ---
Date of Service May 08, 2021 Coding Level of Care Code INT OBSERVATION CARE 50M LVL 2
--- NOTE | 2021-05-08 09:29 | Emergency Department Note ---
History of Present Illness General Chief complaint: Fever Stated complaint: CHILLS, FEVER, DISCOMFORT BELOW RIB CAGE Time Seen by Provider: 05/08/21 03:53 Source: patient Mode of arrival: ambulatory Limitations: no limitations History of Present Illness Provider complaint: Fevers, chills Onset (ago): hour(s) Maximum Pain Intensity: 6 Relieved By: + none Exacerbated By: + none Associated symptoms: + fever/chills and + malaise; no nausea/vomiting, no shortness of breath or no weakness Treatments prior to arrival: other This is a 71-year-old male presents emergency department due to concern for fevers and chills. Patient states he has a history of primary sclerosing cholangitis and occasionally will develop an infection. Patient states at home earlier this evening he developed chills and then a fever. He states at that time he had some mild pressure in the right upper quadrant. He states all of the symptoms to him are similar to prior episodes which have required admission and IV antibiotics due to his risk. Patient is already had a cholecystectomy. Patient does follow with GI due to his history. He states Dr. Sanders had always instructed him that should he develop any symptoms of infection he should take a dose of Cipro which she has at home and come immediately to the emergency room. Patient states his last similar episode was in February, and prior to that September of this year. Patient has no abdominal discomfort or pressure at this time. Patient states he does still feel chilled. He denies any other known sick contacts although state he was at the [facility] fair recently. Patient denies URI symptoms, cough, shortness of breath, chest pain, vomiting, diarrhea, change in urine, rash, insect bite, leg swelling. No recent change in medications. Pt seen during a time of high acuity and national emergency pandemic while wearing PPE. Home Medications Medication Instructions Recorded Confirmed Type aspirin 81 mg tablet,delayed 81 mg PO DAILY #90 tab 04/13/19 05/08/21 Rx release hydrocortisone 2.5 % topical cream 1 appln TOP TID PRN #30 gm 10/23/19 05/08/21 Rx nitroglycerin 0.4 mg sublingual 0.4 mg SL Q5M PRN #25 tab 06/27/20 05/08/21 Rx tablet cholecalciferol (vitamin D3) 50 50 mcg PO DAILY 10/02/20 05/08/21 History mcg (2,000 unit) tablet (Vitamin D3) olsalazine 250 mg capsule 250 mg PO BID #180 cap 11/01/20 05/08/21 Rx (Dipentum) ursodiol 300 mg capsule 300 mg PO BID #180 cap 11/01/20 05/08/21 Rx cholestyramine (with sugar) 4 gram 4 g PO BID #378 g 02/18/21 05/08/21 Rx oral powder omeprazole 40 mg capsule,delayed 40 mg PO DAILY #90 cap 03/03/21 05/08/21 Rx release ezetimibe 10 mg-simvastatin 80 mg 1 tab PO PM #90 tab 03/25/21 05/08/21 Rx tablet amlodipine 2.5 mg tablet 2.5 mg PO PM 05/08/21 05/08/21 History metoprolol succinate 100 mg 100 mg PO QAM 05/08/21 05/08/21 History tablet,extended release 24 hr Allergies Allergy/AdvReac Type Severity Reaction Status Date / Time Sulfa (Sulfonamide Allergy Unknown fever/chill Verified 05/08/21 07:26 Antibiotics) s amoxicillin AdvReac Mild Diarrhea Verified 05/08/21 07:26 Past Med/Surg History Medical History CAD (coronary artery disease) Crohn disease GERD (gastroesophageal reflux disease) Hyperlipidemia Hypertension Medicare annual wellness visit, subsequent Myocardial Infarction 1995 - then CABG X 5 IN [place] Osteoporosis Prostate cancer screening Renal insufficiency Sleep apnea no machine Surgical History History of open reduction and internal fixation (ORIF) procedure RIGHT ELBOW Hx of appendectomy Hx of colonoscopy Hx of foot surgery RIGHT FOOT SURGERY, REMOVAL OF FIBROMA Hx of inguinal hernia repair RIGHT Hx of laceration of skin LEFT WRIST REPAIR OF LACERATION S/P CABG x 5 1995 AFTER [place] Family History Other Family history non-contributory Social History Smoking Status: Never smoker Second Hand Exposure: No; Hx Alcohol Use: No Hx Substance Use: No Preferred Language: Chilean Communication Ability: Effective Director Of Academic Required: No Beliefs That Will Affect Care: None marital status: Current Living Situation: Family Feels Safe at Home: Yes caffeine: No Seatbelt Use: always Assistive Devices: Glasses Review of Systems A total of 10 systems reviewed and were otherwise negative All systems reviewed & are unremarkable except as noted in HPI & below Physical Exam Vital Signs Vital Signs - 24 hr 05/08/21 01:24 05/08/21 04:21 05/08/21 04:26 Temperature 37 C 37.5 C Temperature Source Temporal Artery Scan Oral Pulse Rate 97 H Pulse Rate [Apical] Respiratory Rate 18 Respiratory Effort / Characteristics Non-Labored Non-Labored Spontaneous Respiratory Depth Normal Blood Pressure 149/90 H Blood Pressure [Right Arm] Blood Pressure Mean 109 Blood Pressure Mean [Right Arm] Pulse Oximetry 97 98 93 Oxygen Delivery Method Room Air Room Air Room Air Sepsis Recent Fever Within 48 Hours Yes Sepsis New/Unexplained Change in Mental Status No Sepsis Action Taken by Nursing No Action Required 05/08/21 06:06 05/08/21 08:28 Temperature Temperature Source Pulse Rate 70 Pulse Rate [Apical] 76 Respiratory Rate 24 17 Respiratory Effort / Characteristics Non-Labored Spontaneous Respiratory Depth Normal Blood Pressure 135/77 Blood Pressure [Right Arm] 131/77 Blood Pressure Mean 96 Blood Pressure Mean [Right Arm] 95 Pulse Oximetry 94 97 Oxygen Delivery Method Room Air Sepsis Recent Fever Within 48 Hours Sepsis New/Unexplained Change in Mental Status Sepsis Action Taken by Nursing GENERAL: alert, well appearing, well nourished, no distress, non-toxic EYE EXAM: normal conjunctiva, PERRL and EOM's grossly intact OROPHARYNX: no exudate, no erythema, lips, buccal mucosa, and tongue normal and mucous membranes are moist NECK: supple, no nuchal rigidity, no adenopathy, non-tender LUNGS: Clear to auscultation. Normal chest wall mechanics, no w/r/r HEART: no murmurs, S1 normal and S2 normal ABDOMEN: abdomen soft, non-tender, normo-active bowel sounds, no masses, no rebound or guarding. BACK: Back is symmetrical on inspection and there is no deformity, no midline tenderness, no CVA tenderness. SKIN: no rashes and no bruising UPPER EXTREMITIES: upper extremities are grossly normal. FROM, nml pulses b/l. LOWER EXTREMITIES: No pitting edema. FROM, nml pulses b/l. NEURO EXAM: Normal sensorium, cranial nerves II-XII grossly intact, normal speech, no gross weakness of arms, no gross weakness of legs. Gross sensation intact. Course Administered Medications Amlodipine Besylate (Amlodipine Besylate 5 Mg Tab) 2.5 mg PO QDD [facility] Stop: 06/07/21 16:29 Last Admin: 05/08/21 17:26 Dose: 2.5 mg Documented by: [id number] Aspirin (Aspirin 81 Mg Ectab) 81 mg PO DAILY [facility] Stop: 06/07/21 10:22 Last Admin: 05/09/21 09:20 Dose: 81 mg Documented by: [id number] Admin: 05/08/21 12:25 Dose: 81 mg Documented by: [id number] Piperacillin Sod/Tazobactam (Sod 3.375 gm/ Dextrose) 115 mls @ 28.75 mls/hr IV Q8H [facility]; Protocol Stop: 05/18/21 11:59 Last Infusion: 05/09/21 08:05 Dose: 0 mls/hr Documented by: [id number] Admin: 05/09/21 03:58 Dose: 28.8 mls/hr Documented by: [id number] Infusion: 05/09/21 00:58 Dose: 0 mls/hr Documented by: [id number] Admin: 05/08/21 21:01 Dose: 28.8 mls/hr Documented by: [id number] Infusion: 05/08/21 16:26 Dose: 0 mls/hr Documented by: [id number] Admin: 05/08/21 12:24 Dose: 28.8 mls/hr Documented by: [id number] Famotidine 20 mg/ Syringe 5 mls @ 2.5 mls/min IV BID [facility] Stop: 06/07/21 11:14 Last Admin: 05/09/21 09:23 Dose: 2.5 mls/min Documented by: [id number] Admin: 05/08/21 21:02 Dose: 2.5 mls/min Documented by: [id number] Admin: 05/08/21 12:25 Dose: 2.5 mls/min Documented by: [id number] Metoprolol Succinate (Metoprolol Succ 50mg Ext Rel Tab) 100 mg PO DAILY [facility] Stop: 06/07/21 10:59 Last Admin: 05/09/21 09:20 Dose: 100 mg Documented by: [id number] Admin: 05/08/21 12:25 Dose: 100 mg Documented by: [id number] Miscellaneous (*Olsalazine [Dipentum] 250 Mg*Order Awaiting Action) 1 ea N/A QS [facility] Stop: 06/07/21 15:59 Last Admin: 05/09/21 08:06 Dose: Not Given Documented by: [id number] Admin: 05/08/21 23:31 Dose: Not Given Documented by: [id number] Admin: 05/08/21 16:27 Dose: Not Given Documented by: [id number] Ursodiol (Ursodiol 300 Mg Cap) 300 mg PO BID [facility] Stop: 06/07/21 10:22 Last Admin: 05/09/21 09:20 Dose: 300 mg Documented by: [id number] Admin: 05/08/21 21:02 Dose: 300 mg Documented by: [id number] Admin: 05/08/21 12:25 Dose: 300 mg Documented by: [id number] Discontinued Medications Sodium Chloride (Nss 1000ml) 1,000 mls @ 999 mls/hr IV .Q1H1M [facility] Stop: 05/08/21 05:15 Last Infusion: 05/08/21 05:39 Dose: 0 mls/hr Documented by: [id number] Admin: 05/08/21 04:23 Dose: 999 mls/hr Documented by: [id number] Piperacillin Sod/Tazobactam Sod (Zosyn) 4.5 gm in 120 mls @ 240 mls/hr IV NOW ONE Stop: 05/08/21 05:43 Last Infusion: 05/08/21 06:49 Dose: 0 mls/hr Documented by: [id number] Admin: 05/08/21 06:04 Dose: 240 mls/hr Documented by: [id number] Metronidazole (Flagyl) 500 mg in 100 mls @ 100 mls/hr IV NOW STA Stop: 05/08/21 06:13 Last Infusion: 05/08/21 06:49 Dose: 0 mls/hr Documented by: [id number] Admin: 05/08/21 05:38 Dose: 100 mls/hr Documented by: [id number] Sodium Chloride (Nss 1000ml) 1,000 mls @ 125 mls/hr IV .Q8H [facility] Stop: 05/09/21 02:22 Last Infusion: 05/09/21 02:22 Dose: 0 mls/hr Documented by: [id number] Admin: 05/08/21 18:40 Dose: 125 mls/hr Documented by: [id number] Infusion: 05/08/21 18:40 Dose: 125 mls/hr Documented by: [id number] Admin: 05/08/21 11:23 Dose: 125 mls/hr Documented by: [id number] Medical Decision Making Differential Diagnosis Differential diagnosis: Etiologies such as viral syndrome, otitis, pharyngitis, pneumonia, influenza, meningitis, urinary tract infection, sepsis, bacteremia, as well as others were entertained. Medical Records Attestation: I reviewed the patient's medical records. Home Medications Current Medication List: was personally reviewed by me Laboratory Data Attestation: I reviewed the patient's lab results. Result diagrams: 05/09/21 06:11 05/09/21 06:11 Lab Results 05/08/21 05/08/21 05/08/21 Range/Units 01:28 04:26 04:26 WBC 11.50 H (4.8-10.8) K/uL RBC 5.42 (4.7-6.1) M/uL Hgb 17.0 (14.0-18.0) g/dL Hct 48.4 (42-52) % MCV 89.3 (80-100) fL MCH 31.4 (25-34) pg MCHC 35.1 (32-36) g/dL RDW Std Deviation 43.1 (36.4-46.3) fL RDW Coeff of Kaity 13.3 (11.5-14.5) % Plt Count 204 (130-400) K/uL MPV 9.9 (7.4-10.4) fL Immature Gran % (Auto) 0.2 % Neut % (Auto) 80.8 % Lymph % (Auto) 9.3 % Rock % (Auto) 8.6 % Eos % (Auto) 0.9 % Baso % (Auto) 0.2 % Neut # (Auto) 9.30 H (1.4-6.5) K/uL Lymph # (Auto) 1.07 L (1.2-3.4) K/uL Rock # (Auto) 0.99 H (0.11-0.59) K/uL Eos # (Auto) 0.10 (0-0.5) K/uL Baso # (Auto) 0.02 (0-0.2) K/uL Immature Gran # (Auto) 0.02 (0.00-0.02) K/uL PT (9.0-12.0) Seconds INR (0.9-1.1) APTT (21.0-31.0) Seconds PTT Ratio Sodium 138 (136-145) mmol/L Potassium (3.5-5.1) mmol/L Chloride 110 H (98-107) mmol/L Carbon Dioxide 23 (21-32) mmol/L Anion Gap 5.0 (3-11) BUN 23 H (7-18) mg/dl Creatinine 1.23 (0.6-1.4) mg/dl Est Cr Clr Drug Dosing 50.8 ml/min Est GFR ( Amer) 67.6 ml/min Est GFR (Non-Af Amer) 58.3 ml/min BUN/Creatinine Ratio 18.5 (10-20) Glucose 134 H (70-99) mg/dl Lactate (0.4-2.0) mmol/L Calcium 9.1 (8.5-10.1) mg/dl Magnesium (1.8-2.4) mg/dl Total Bilirubin 0.9 (0.2-1) mg/dl AST (15-37) U/L ALT 22 (12-78) U/L Alkaline Phosphatase 69 (45-117) U/L Troponin I < 0.015 (0-0.045) ng/ml Total Protein 8.2 (6.4-8.2) gm/dl Albumin 3.7 (3.4-5.0) gm/dl Globulin 4.5 H (2.5-4.0) gm/dl Albumin/Globulin Ratio 0.8 L (0.9-2) Procalcitonin (0-0.5) ng/ml Specimen Hemolysis Urine Color Yellow Urine Appearance Clear (Clear) Urine pH 6.5 (4.5-7.5) Ur Specific Loiza 1.017 (1.000-1.030) Urine Protein Negative (Negative) Urine Glucose (UA) Negative (Negative) Urine Ketones Negative (Negative) Urine Blood Negative (Negative) Urine Nitrite Negative (Negative) Urine Bilirubin Negative (Negative) Urine Urobilinogen Negative (Negative) Ur Leukocyte Esterase Negative (Negative) 05/08/21 05/08/21 05/08/21 Range/Units 04:26 04:41 04:41 WBC (4.8-10.8) K/uL RBC (4.7-6.1) M/uL Hgb (14.0-18.0) g/dL Hct (42-52) % MCV (80-100) fL MCH (25-34) pg MCHC (32-36) g/dL RDW Std Deviation (36.4-46.3) fL RDW Coeff of Kaity (11.5-14.5) % Plt Count (130-400) K/uL MPV (7.4-10.4) fL Immature Gran % (Auto) % Neut % (Auto) % Lymph % (Auto) % Rock % (Auto) % Eos % (Auto) % Baso % (Auto) % Neut # (Auto) (1.4-6.5) K/uL Lymph # (Auto) (1.2-3.4) K/uL Rock # (Auto) (0.11-0.59) K/uL Eos # (Auto) (0-0.5) K/uL Baso # (Auto) (0-0.2) K/uL Immature Gran # (Auto) (0.00-0.02) K/uL PT 10.6 (9.0-12.0) Seconds INR 1.0 (0.9-1.1) APTT 31.9 H (21.0-31.0) Seconds PTT Ratio 1.2 Sodium (136-145) mmol/L Potassium (3.5-5.1) mmol/L Chloride (98-107) mmol/L Carbon Dioxide (21-32) mmol/L Anion Gap (3-11) BUN (7-18) mg/dl Creatinine (0.6-1.4) mg/dl Est Cr Clr Drug Dosing ml/min Est GFR ( Amer) ml/min Est GFR (Non-Af Amer) ml/min BUN/Creatinine Ratio (10-20) Glucose (70-99) mg/dl Lactate 1.2 (0.4-2.0) mmol/L Calcium (8.5-10.1) mg/dl Magnesium (1.8-2.4) mg/dl Total Bilirubin (0.2-1) mg/dl AST (15-37) U/L ALT (12-78) U/L Alkaline Phosphatase (45-117) U/L Troponin I (0-0.045) ng/ml Total Protein (6.4-8.2) gm/dl Albumin (3.4-5.0) gm/dl Globulin (2.5-4.0) gm/dl Albumin/Globulin Ratio (0.9-2) Procalcitonin < 0.05 (0-0.5) ng/ml Specimen Hemolysis Urine Color Urine Appearance (Clear) Urine pH (4.5-7.5) Ur Specific Loiza (1.000-1.030) Urine Protein (Negative) Urine Glucose (UA) (Negative) Urine Ketones (Negative) Urine Blood (Negative) Urine Nitrite (Negative) Urine Bilirubin (Negative) Urine Urobilinogen (Negative) Ur Leukocyte Esterase (Negative) 05/08/21 Range/Units 04:41 WBC (4.8-10.8) K/uL RBC (4.7-6.1) M/uL Hgb (14.0-18.0) g/dL Hct (42-52) % MCV (80-100) fL MCH (25-34) pg MCHC (32-36) g/dL RDW Std Deviation (36.4-46.3) fL RDW Coeff of Kaity (11.5-14.5) % Plt Count (130-400) K/uL MPV (7.4-10.4) fL Immature Gran % (Auto) % Neut % (Auto) % Lymph % (Auto) % Rock % (Auto) % Eos % (Auto) % Baso % (Auto) % Neut # (Auto) (1.4-6.5) K/uL Lymph # (Auto) (1.2-3.4) K/uL Rock # (Auto) (0.11-0.59) K/uL Eos # (Auto) (0-0.5) K/uL Baso # (Auto) (0-0.2) K/uL Immature Gran # (Auto) (0.00-0.02) K/uL PT (9.0-12.0) Seconds INR (0.9-1.1) APTT (21.0-31.0) Seconds PTT Ratio Sodium (136-145) mmol/L Potassium 4.3 (3.5-5.1) mmol/L Chloride (98-107) mmol/L Carbon Dioxide (21-32) mmol/L Anion Gap (3-11) BUN (7-18) mg/dl Creatinine (0.6-1.4) mg/dl Est Cr Clr Drug Dosing ml/min Est GFR ( Amer) ml/min Est GFR (Non-Af Amer) ml/min BUN/Creatinine Ratio (10-20) Glucose (70-99) mg/dl Lactate (0.4-2.0) mmol/L Calcium (8.5-10.1) mg/dl Magnesium 1.8 (1.8-2.4) mg/dl Total Bilirubin (0.2-1) mg/dl AST 25 (15-37) U/L ALT (12-78) U/L Alkaline Phosphatase (45-117) U/L Troponin I (0-0.045) ng/ml Total Protein (6.4-8.2) gm/dl Albumin (3.4-5.0) gm/dl Globulin (2.5-4.0) gm/dl Albumin/Globulin Ratio (0.9-2) Procalcitonin (0-0.5) ng/ml Specimen Hemolysis Urine Color Urine Appearance (Clear) Urine pH (4.5-7.5) Ur Specific Loiza (1.000-1.030) Urine Protein (Negative) Urine Glucose (UA) (Negative) Urine Ketones (Negative) Urine Blood (Negative) Urine Nitrite (Negative) Urine Bilirubin (Negative) Urine Urobilinogen (Negative) Ur Leukocyte Esterase (Negative) Imaging Data My Impression: X-ray: I interpreted the following studies. Chest: A single view study of the chest was reviewed and was negative for cardiomegaly, focal infiltrate, effusion, pulmonary edema, or wide mediastinum. Radiologist's Impression: Chest X-Ray 05/08/21 04:01 XR chest 1V portable CLINICAL HISTORY: SEPSIS COMPARISON STUDY: Chest radiograph February 11, 2021. FINDINGS: There are median sternotomy wires and mediastinal surgical clips. Minimal bibasilar opacities favor atelectasis. Lungs are clear. There is no pneumothorax or pleural effusion. Mild cardiomegaly is unchanged. Mediastinal contours are normal. There is no evidence for pulmonary edema. IMPRESSION: No acute cardiopulmonary findings. No change in appearance of the chest. ACT 112: Negative or not required by law. Electronically signed by: Dewey Felix M.D. 05/08/2021 7:02 AM MDM Narrative This is a 71-year-old male who presents due to concern for fevers and chills and prior history of significant infection. Patient with history of primary sclerosing cholangitis and does follow with GI. Patient has previously been admitted with similar episodes. Cultures drawn and sent, patient afebrile here, patient did take a dose of Cipro prior to arrival however Zosyn and Flagyl were added. Patient had no abdominal pain on my exam the emergency department so no additional abdominal imaging was pursued pending of the results. Patient's labs reassuring despite significant history and fevers and chills reported from earlier tonight. Case discussed with hospitalist for additional evaluation and management. An order was placed for continuous cardiac monitoring. The monitor shows a rate of _56__ with __sinus bradycardia_ rhythm. Impression & Plan Fever and chills, Primary sclerosing cholangitis Discharge Plan Visit Data Chief Complaint: Fever Stated Complaint: CHILLS, FEVER, DISCOMFORT BELOW RIB CAGE ED Provider: Leanne Boo Discharge Problem: Fever and chills, Primary sclerosing cholangitis Patient Disposition: Admitted As Inpatient Condition: Good Discharge Instructions Interventions: ED Discharge Assessment Last Done: 05/08/21 09:57
[2021-05-08] MEDS ORDERED: ONDANSETRON INJ 2 MG/ML 2 ML VIAL IV PRN (10:23)
[2021-05-08] MEDS ORDERED: POLYETHYLENE (MIRALAX) 17 GM PACK PO PRN (10:23)
[2021-05-08] MEDS ORDERED: ACETAMINOPHEN 325 MG TAB PO PRN (10:23)
[2021-05-08] MEDS ORDERED: PIPERACILLIN/TAZOBACTAM 3.375 GM in DEXTROSE 5% 100 ML IV ONE (10:45)
[2021-05-08] MEDS: SODIUM CHLORIDE 0.9% 1000ML 1,000 ML IV SCH ×2 (11:23→18:40)
[2021-05-08] MEDS: PIPERACILLIN/TAZOBACTAM 3.375 GM in DEXTROSE 5% 100 ML IV SCH ×2 (12:24→21:01)
[2021-05-08] MEDS: METOPROLOL SUCC 50MG EXT REL TAB PO SCH (12:25)
[2021-05-08] MEDS: ursodioL 300 MG CAP PO SCH ×2 (12:25→21:02)
[2021-05-08] MEDS: FAMOTIDINE 20 MG in SYRINGE 3 ML IV SCH ×2 (12:25→21:02)
[2021-05-08] MEDS: ASPIRIN 81 MG ECTAB PO SCH (12:25)
--- NOTE | 2021-05-08 15:32 | Gastrointestinal Consultation ---
Date of Consultation May 08, 2021 Assessment & Plan (1) Ascending cholangitis: (2) Primary sclerosing cholangitis: (3) Fever and chills: (4) Abdominal pain: (5) Crohns disease: Impression is that this is another episode of recurrent cholangitis in a patient with PSC and known multiple strictures of intrahepatic biliary ducts. Liver tests are normal and unchanged with this episode which is reassuring that he doesn't have major duct obstruction. Aerobic and anaerobic blood cultures are pending, these were consistently negative with the 2 previous episodes in September and February of 2021. He denies diarrhea, rectal bleeding, his colitis appears inactive at this time. I completely agree with current management with IV Zosyn and observation in the hospital, and no urgent imaging or invasive procedure at this time. I will notify the patient's funeral home general manager of his admission and hospital course. GI will follow the patient and assist in care as needed. Current management plan was discussed with the patient and all questions answered. History of Present Illness Reason for Consultation: Recurrent episode of cholangitis in a patient with primary sclerosing cholangitis Attending Physician: Madison Scruggs DO History of Present Illness Mr. Hartley is a 71 year old man admitted this morning for treatment of an episode of cholangitis. He has had 4 similar episodes since 2018. Last night he experienced shaking chills with feverishness and upper abdominal pain. He measured his temp at home at 100.9. He states that symptoms were identical to the symptoms experienced with the previous 4 episodes, although not nearly as severe. He reported to the ER and was admitted for treatment of cholangitis wi th IV antibiotics. There is history of Crohn's disease with colitis, managed with olsalazine. 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 CT and MRI were performed at that time revealing CBD abnormalities consistent with PSC. In November 2018 he had cholecystectomy, and hepatic fibrosis was noted (no biopsy performed). In February 2019 he had ERCP with biliary sphincterotomy and 2 CBD stones extracted. The two most recent episodes of cholangitis were in September and February of 2021. He was admitted for IV antibiotics spending 4-6 days in the hospital on both occasions; symptoms were similar to the current episode but more severe. The most recent MRCP was February,: Gallbladder is surgically absent. Stable mild intrahepatic biliary prominence with multiple areas of strictures and dilatations are again seen through the right and left lobes of the liver and appear more prominent within its central aspect. This is consistent with repor jeremy history of primary sclerosing cholangitis. Previously seen long stricture of the common bile duct is no longer visualized. Common bile duct is nondilated measuring 6 mm in diameter. There is no in traluminal filling defects to suggest choledocholithiasis. Liver is normal in size with heterogeneous appearance of its parenchyma and lobulated contour which is similar to prior study. Previously seen slightly T2 hyperintense oval lesion within inferior right lobe is significantly improved, measured 1.3 cm in size and has appearance of patchy areas of ill-defined areas of T2 hyperintensity on fiesta sequence. Interval development of 2.9 x 2.4 cm slightly T2 hyperintense area within segment 7 of the liver (series 5 image 11) which shows no evidence of contour abnormalities. He was evaluated by his Psych Tech, Dr. Leanne Corona, on 04-03-2021. Dr. Corona recommended as needed treatment of episodes of cholangitis with antibiotics and close observation, no new imaging or invasive intervention or transplant evaluation contemplated. Significant past history of CAD s/p [place] and 5 vessel CABG, renal insufficiency, osteoporosis, and GERD Allergies Allergy/AdvReac Type Severity Reaction Status Date / Time Sulfa (Sulfonamide Allergy Unknown fever/chill Verified 05/08/21 07:26 Antibiotics) s amoxicillin AdvReac Mild Diarrhea Verified 05/08/21 07:26 Home Medications Medication Instructions Recorded Confirmed Type aspirin 81 mg tablet,delayed 81 mg PO DAILY #90 tab 04/13/19 05/08/21 Rx release hydrocortisone 2.5 % topical cream 1 appln TOP TID PRN #30 gm 10/23/19 05/08/21 Rx nitroglycerin 0.4 mg sublingual 0.4 mg SL Q5M PRN #25 tab 06/27/20 05/08/21 Rx tablet cholecalciferol (vitamin D3) 50 50 mcg PO DAILY 10/02/20 05/08/21 History mcg (2,000 unit) tablet (Vitamin D3) olsalazine 250 mg capsule 250 mg PO BID #180 cap 11/01/20 05/08/21 Rx (Dipentum) ursodiol 300 mg capsule 300 mg PO BID #180 cap 11/01/20 05/08/21 Rx cholestyramine (with sugar) 4 gram 4 g PO BID #378 g 02/18/21 05/08/21 Rx oral powder omeprazole 40 mg capsule,delayed 40 mg PO DAILY #90 cap 03/03/21 05/08/21 Rx release ezetimibe 10 mg-simvastatin 80 mg 1 tab PO PM #90 tab 03/25/21 05/08/21 Rx tablet amlodipine 2.5 mg tablet 2.5 mg PO PM 05/08/21 05/08/21 History metoprolol succinate 100 mg 100 mg PO QAM 05/08/21 05/08/21 History tablet,extended release 24 hr Patient History Medical History CAD (coronary artery disease) Crohn disease GERD (gastroesophageal reflux disease) Hyperlipidemia Hypertension Medicare annual wellness visit, subsequent Myocardial Infarction 1995 - then CABG X 5 IN [place] Osteoporosis Prostate cancer screening Renal insufficiency Sleep apnea no machine Surgical History History of open reduction and internal fixation (ORIF) procedure RIGHT ELBOW Hx of appendectomy Hx of colonoscopy Hx of foot surgery RIGHT FOOT SURGERY, REMOVAL OF FIBROMA Hx of inguinal hernia repair RIGHT Hx of laceration of skin LEFT WRIST REPAIR OF LACERATION S/P CABG x 5 1995 AFTER [place] Family History Other Family history non-contributory Social History Smoking Status: Never smoker Second Hand Exposure: No; Hx Alcohol Use: No Hx Substance Use: No Preferred Language: Greenlandic Communication Ability: Effective Clinical Education Coordinator Required: No Beliefs That Will Affect Care: None Current Living Situation: Family Feels Safe at Home: Yes caffeine: No Seatbelt Use: always Assistive Devices: Glasses and Hearing Aid - Bilateral Review of Systems Review of Systems: He denied chest pain, shortness of breath, cough, myalgias and arthralgias. The remainder as noted in the history of present illness Physical Exam Constitutional: At time of my exam, the patient was alert, oriented, cooperative, afebrile, in no distress Eyes: Sclerae normal, not icteric Respiratory: normal respiratory effort, lungs clear to auscultation Cardiovascular: RRR, no murmur, no edema No carotid bruits Gastrointestinal (Abdomen): The abdomen is protuberant, soft, without g uarding, without localized tenderness. Normal active bowel sounds. No masses, no hepatosplenomegaly or ascites detected Skin: no rashes, warm and dry Not jaundiced Neurologic: No focal neurologic signs. Results & Data ([facility]) Vital Signs (Past 12 Hours) Vital Signs Temp Pulse Pulse Pulse Resp BP BP 05/08/21 14:35 37.2 C 62 16 134/75 05/08/21 10:05 36.6 C 64 18 149/88 H 05/08/21 09:30 57 L 17 143/68 H 05/08/21 09:00 67 20 126/75 05/08/21 08:30 73 19 121/75 05/08/21 08:28 70 17 135/77 05/08/21 06:06 76 24 131/77 05/08/21 04:26 37.5 C 05/08/21 04:21 Pulse Ox 05/08/21 14:35 96 05/08/21 10:05 98 05/08/21 09:30 95 05/08/21 09:00 95 05/08/21 08:30 94 05/08/21 08:28 97 05/08/21 06:06 94 05/08/21 04:26 93 05/08/21 04:21 98 (1) Abdominal pain Abdominal location: unspecified location Qualified Code(s): R10.9 - Unspecified abdominal pain (2) Crohns disease Gastrointestinal tract location: unspecified location Digestive disease complication type: without complication Qualified Code(s): K50.90 - Crohn's disease, unspecified, without complications
[2021-05-08] MEDS: amLODIPine BESYLATE 5 MG TAB PO SCH (17:26)
--- NOTE | 2021-05-08 18:15 | History & Physical Bridge Note ---
Date of Service May 08, 2021 History & Physical Bridge Note I have examined the patient, reviewed the History & Physical and in the interval since the performance of the History & Physical I have noted the following changes of clinical significance: Patient was changed to n.p.o. this morning by myself in case he needed a procedure. I saw him in the evening and he was improved, no fevers all day. He had no abdominal pain. Last bowel movement yesterday was nonbloody. He is making plenty of urine today. Denies nausea and is feeling hungry. Vitals reviewed Gen: AAOx3, NAD HEENT: Anicteric sclerae, EOMI CV: RRR no mgr nl S1S2 Pulm: CTAB no wcr Abd: +BS soft mild tenderness palpation in the mid abdomen without guarding or rebound, ND no masses or hernias Ext: No edema or calf tenderness Skin: No rashes, warm/dry Neuro: Full strength throughout Okay to advance diet to clear liquids I reviewed the GI consultation-much appreciated-no plan for invasive procedures or further imaging at this point time Continue antibiotics in the form of IV Zosyn and continue IV fluids
[2021-05-09] MEDS: PIPERACILLIN/TAZOBACTAM 3.375 GM in DEXTROSE 5% 100 ML IV SCH ×3 (03:58→20:27)
[2021-05-09 06:31] LABS: Basophils # (auto) 0.02 K/uL (0-0.2); Basophils % (auto) 0.3 %; Eosinophils # (auto) 0.21 K/uL (0-0.5); Eosinophils % (auto) 2.7 %; Hemoglobin 16.1 g/dL (14.0-18.0); Immature Granulocytes # (auto) 0.02 K/uL (0.00-0.02); Immature Granulocytes % (auto) 0.3 %; Lymphocytes # (auto) 1.57 K/uL (1.2-3.4); Lymphocytes % (auto) 20.5 %; Mean Corpuscular Hemoglobin 31.2 pg (25-34); Mean Corpuscular Hgb Conc 34.3 g/dL (32-36); Mean Corpuscular Volume 91.1 fL (80-100); Mean Platelet Volume 9.9 fL (7.4-10.4); Monocytes # (auto) 1.05 K/uL (0.11-0.59); Monocytes % (auto) 13.7 %; Neutrophils # (auto) 4.77 K/uL (1.4-6.5); Neutrophils % (auto) 62.5 %; Platelet Count 201 K/uL (130-400); RDW Coefficient of Variation 13.5 % (11.5-14.5); Red Blood Count 5.16 M/uL (4.7-6.1); White Blood Count 7.64 K/uL (4.8-10.8)
[2021-05-09 07:07] LABS: Albumin Globulin Ratio 0.7 (0.9-2); Albumin Level 3.2 gm/dl (3.4-5.0); BUN Creatinine Ratio 11.1 (10-20); Bilirubin,Total 1.7 mg/dl (0.2-1); Calcium 8.8 mg/dl (8.5-10.1); Creatinine Clr Calc Pharmacy 50.3 ml/min; Est GFR (African American) 66.9 ml/min; Est GFR (Non-African American) 57.7 ml/min; Globulin 4.4 gm/dl (2.5-4.0); Potassium 4.1 mmol/L (3.5-5.1); Total Protein 7.6 gm/dl (6.4-8.2)
--- NOTE | 2021-05-09 08:44 | Gastroenterology Progress Note ---
Date of Service May 09, 2021 Assessment & Plan (1) Ascending cholangitis: (2) Primary sclerosing cholangitis: (3) Crohns disease: Plan: Recurrent cholangitis with known PSC and multiple strictures of the intrahepatic biliary ducts. Last hepatology appointment in [facility] [place]. Two prior admissions this year for cholangitis in September and February 2021. Aerobic and anaerobic blood cultures without growth to date, previously negative. Patient without complaints at present. Total bilirubin 1.7 this morning with labs otherwise unremarkable. Advance diet as tolerated. Continue antibiotic therapy and comfort measures. Please refer to supervising physician addendum for further recommendations. Admission and Anticipated Discharge Date Admission Date: May 08, 2021 Supervising Physician Co-Signing Physician Notes I interviewed and examined the patient and reviewed the medical record, with the following observations: Subjective: Patient states he feels well today, he did have a brief episode of bloating and a brief feeling of chills, but temp has been consistently normal Physical Examination: Benign abdominal examination with no localized guarding, tenderness, masses. Soft and not distended, no peritoneal signs Chart Review: WBC count is down to normal. Bilirubin bumped up to 1.7. He had similar bump in bilirubin with previous episodes of cholangitis in September and February This case was reviewed with the advanced practice provider I agree with the assessment as outlined in this consultation, with the following observations: Recommend continuing the present plan of care and observation. I agree with the plan of care as outlined in this consultation, with the following changes and/or additions: Case discussed with the patient's ice delivery driver, Dr. Mari. She is concerned that Mr. Hartley has had 2 episodes of cholangitis in the past 2 months, and that this may indicate a biliary stricture that should be dilated. On the other hand, he has multiple strictures so that it is not clear what to dilate, and instrumenting the biliary ducts with ERCP may actually introduce infection into the bile ducts. No invasive procedures recommended at this time, continue medical management and observation. This plan was discussed with the patient and understanding acknowledged. Subjective The patient is awake, alert, and oriented this morning sitting at the bedside eating a clear liquid breakfast. He is requesting to advance his diet. No fevers through the night. Denies abdominal pain, nausea, or vomiting. Feeling good. BM last night without melena or hematochezia. Review of Systems Review of Systems: All systems reviewed & are unremarkable except as noted in Subjective Physical Exam Gastrointestinal (Abdomen): normal bowel sounds, soft, nontender, no hepatosplenomegaly Results & Data ([facility]) Vital Signs (Past 12 Hours) Vital Signs Temp Pulse Resp BP Pulse Ox 05/09/21 07:10 37.2 C 54 L 16 145/76 H 95 05/08/21 22:12 37.2 C 54 L 16 146/72 H 94 Laboratory Results Laboratory Results - last 24 hr 05/09/21 05/09/21 05/09/21 06:11 06:11 06:11 WBC 7.64 RBC 5.16 Hgb 16.1 Hct 47.0 MCV 91.1 MCH 31.2 MCHC 34.3 RDW Std Deviation 45.0 RDW Coeff of Kaity 13.5 Plt Count 201 MPV 9.9 Immature Gran % (Auto) 0.3 Neut % (Auto) 62.5 Lymph % (Auto) 20.5 [place] % (Auto) 13.7 Eos % (Auto) 2.7 Baso % (Auto) 0.3 Neut # (Auto) 4.77 Lymph # (Auto) 1.57 [place] # (Auto) 1.05 H Eos # (Auto) 0.21 Baso # (Auto) 0.02 Immature Gran # (Auto) 0.02 Sodium 138 Potassium 4.1 Chloride 109 H Carbon Dioxide 23 Anion Gap 6.0 BUN 14 Creatinine 1.24 Est Cr Clr Drug Dosing 50.3 Est GFR ( Amer) 66.9 Est GFR (Non-Af Amer) 57.7 BUN/Creatinine Ratio 11.1 Glucose 101 H Calcium 8.8 Total Bilirubin 1.7 H D AST 19 ALT 19 Alkaline Phosphatase 64 Total Protein 7.6 Albumin 3.2 L Globulin 4.4 H Albumin/Globulin Ratio 0.7 L Hepatitis C Ab Screen Pending (1) Crohns disease Gastrointestinal tract location: unspecified location Digestive disease complication type: without complication Qualified Code(s): K50.90 - Crohn's disease, unspecified, without complications
[2021-05-09] MEDS: METOPROLOL SUCC 50MG EXT REL TAB PO SCH (09:20)
[2021-05-09] MEDS: ursodioL 300 MG CAP PO SCH ×2 (09:20→20:27)
[2021-05-09] MEDS: ASPIRIN 81 MG ECTAB PO SCH (09:20)
[2021-05-09] MEDS: FAMOTIDINE 20 MG in SYRINGE 3 ML IV SCH (09:23)
--- NOTE | 2021-05-09 14:35 | Hospitalist Progress Note ---
Date of Service May 09, 2021 Assessment & Plan (1) Ascending cholangitis: Plan: Primary sclerosing cholangitis/Crohn's/GERD without esophagitis-presents with fever at home and abdominal pain - no transaminitis, lactic acidosis, negative procal. not septic appearing. mildly elevated WBC now resolved has h/o cholecystectomy and multiple episodes of cholangitis TBili up slightly today to 1.7 with some mild pain post-prandial but remains afebrile GI advanced diet to regular Moving bowels - Continue olsalazine 250 mg p.o. twice daily when can be brought in from home and ursodiol 300 mg p.o. twice daily - continue Zosyn 4.5 g IV every 8 hours and will convert to po abx for discharge - dc Famotidine 20 mg IV every 12 hours and revert back to home po PPI - Zofran 4 mg IV every 6 hours as needed - dc IVFs - given frequency of presentation and no new/worsening symptoms at this time, no repeat imaging performed as per GI - [facility] gastroenterology consult appreciated-no imaging or procedure needed - blood cultures NGTD -follow LFTs in AM (2) Fever: Plan: as above, resolved (3) Abdominal pain: Plan: as above, improved (4) Primary sclerosing cholangitis: Plan: as above (5) CAD (coronary artery disease): Plan: s/p [place] 1995 and 5 v CABG no acute issues continue ASA, metoprolol no longer on statin? (6) Crohns disease: Plan: no acute issues (7) GERD without esophagitis: Plan: restart home PPI as above (8) Hypercholesterolemia: Plan: not on meds except is on cholestyramine (9) Benign essential HTN: Plan: controlled continue amlodipine and metoprolol (10) FLAKITO (obstructive sleep apnea): Plan: ?CPAP at home? will find out Plan: DVT proph-add Lovenox Dispo-continued stay Admission and Anticipated Discharge Date Admission Date: May 08, 2021 Subjective Pt had a little bit of pain after eating clear liquids for lunch today but also then had a large BM and feels better now. Had some chills but it was also right after eating Amharic ice and is now resolved. Is afebrile. Scale Agent CP/SOB, has been ambulating the halls frequently. Feels like he wants to stay one more night just to be sure he's ok Review of Systems Review of Systems: All systems reviewed & are unremarkable except as noted in HPI & below Physical Exam Constitutional: WD/WN, vitals as above Eyes: + anicteric sclerae Neck: trachea midline, no thyromegaly Respiratory: normal respiratory effort, lungs clear to auscultation Cardiovascular: RRR, no murmur, no edema Chest (Breasts): Chest: normal inspection of chest Gastrointestinal (Abdomen): normal bowel sounds, soft, nontender, no hepatosplenomegaly Musculoskeletal: Extremities: extremities normal to inspection; no cyanosis and no clubbing Skin: no rashes, warm and dry Neurologic: moves all extremities and awake; no focal motor deficits Psychiatric: A+Ox3, euthymic affect Lymphatic: no lymphedema Results & Data Results & Data ([facility]) Vital Signs (Past 12 Hours) Vital Signs Temp Pulse Resp BP Pulse Ox 05/09/21 07:10 37.2 C 54 L 16 145/76 H 95 Laboratory Results 05/09/21 05/09/21 05/09/21 Range/Units 06:11 06:11 06:11 WBC 7.64 (4.8-10.8) K/uL RBC 5.16 (4.7-6.1) M/uL Hgb 16.1 (14.0-18.0) g/dL Hct 47.0 (42-52) % MCV 91.1 (80-100) fL MCH 31.2 (25-34) pg MCHC 34.3 (32-36) g/dL RDW Std Deviation 45.0 (36.4-46.3) fL RDW Coeff of Kaity 13.5 (11.5-14.5) % Plt Count 201 (130-400) K/uL MPV 9.9 (7.4-10.4) fL Immature Gran % (Auto) 0.3 % Neut % (Auto) 62.5 % Lymph % (Auto) 20.5 % [place] % (Auto) 13.7 % Eos % (Auto) 2.7 % Baso % (Auto) 0.3 % Neut # (Auto) 4.77 (1.4-6.5) K/uL Lymph # (Auto) 1.57 (1.2-3.4) K/uL [place] # (Auto) 1.05 H (0.11-0.59) K/uL Eos # (Auto) 0.21 (0-0.5) K/uL Baso # (Auto) 0.02 (0-0.2) K/uL Immature Gran # (Auto) 0.02 (0.00-0.02) K/uL Sodium 138 (136-145) mmol/L Potassium 4.1 (3.5-5.1) mmol/L Chloride 109 H (98-107) mmol/L Carbon Dioxide 23 (21-32) mmol/L Anion Gap 6.0 (3-11) BUN 14 (7-18) mg/dl Creatinine 1.24 (0.6-1.4) mg/dl Est Cr Clr Drug Dosing 50.3 ml/min Est GFR ( Amer) 66.9 ml/min Est GFR (Non-Af Amer) 57.7 ml/min BUN/Creatinine Ratio 11.1 (10-20) Glucose 101 H (70-99) mg/dl Calcium 8.8 (8.5-10.1) mg/dl Total Bilirubin 1.7 H D (0.2-1) mg/dl AST 19 (15-37) U/L ALT 19 (12-78) U/L Alkaline Phosphatase 64 (45-117) U/L Total Protein 7.6 (6.4-8.2) gm/dl Albumin 3.2 L (3.4-5.0) gm/dl Globulin 4.4 H (2.5-4.0) gm/dl Albumin/Globulin Ratio 0.7 L (0.9-2) Hepatitis C Ab Screen Neg (Neg) PG Care Time/CCT Total # of Minutes Spent Total Time Spent with Patient: Total time spent is greater than 50% in coordination of care (as documented) at patient's floor/unit and/or counseling patient: Coding Level of Care Code 12196 Subseq Hosp Care Lvl 2 Diagnoses Ascending cholangitis K83.09 Fever R50.9 Fever type: unspecified Abdominal pain R10.9 Abdominal location: unspecified location FLAKITO (obstructive sleep apnea) G47.33 Primary sclerosing cholangitis K83.01 CAD (coronary artery disease) I25.10 Crohns disease K50.90 Gastrointestinal tract location: unspecified location Digestive disease complication type: without complication GERD without esophagitis K21.9 Hypercholesterolemia E78.00 Benign essential HTN I10 (1) Fever Fever type: unspecified Qualified Code(s): R50.9 - Fever, unspecified (2) Abdominal pain Abdominal location: unspecified location Qualified Code(s): R10.9 - Unspecified abdominal pain (3) Crohns disease Gastrointestinal tract location: unspecified location Digestive disease complication type: without complication Qualified Code(s): K50.90 - Crohn's disease, unspecified, without complications
[2021-05-09] MEDS ORDERED: ENOXAPARIN INJ 40 MG/0.4 ML SYR SQ SCH (16:00)
--- NOTE | 2021-05-09 17:01 | Electrocardiogram Report ---
Test Reason : Blood Pressure : / mmHG Vent. Rate : 087 BPM Atrial Rate : 087 BPM P-R Int : 162 ms QRS Dur : 080 ms QT Int : 350 ms P-R-T Axes : 044 -21 033 degrees QTc Int : 421 ms Normal sinus rhythm Normal ECG When compared with ECG of 11-FEB-2021 03:39, No significant change was found Confirmed by James Nieto ([id number]) on 05/09/2021 5:01:38 PM Referred By: REFERRED SELF Confirmed By:James Nieto
[2021-05-09] MEDS: amLODIPine BESYLATE 5 MG TAB PO SCH (17:24)
[2021-05-10] MEDS: PIPERACILLIN/TAZOBACTAM 3.375 GM in DEXTROSE 5% 100 ML IV SCH (04:59)
[2021-05-10 06:23] LABS: Basophils # (auto) 0.04 K/uL (0-0.2); Basophils % (auto) 0.5 %; Eosinophils # (auto) 0.37 K/uL (0-0.5); Eosinophils % (auto) 4.4 %; Hematocrit (blood only) 48.4 % (42-52); Hemoglobin 16.5 g/dL (14.0-18.0); Immature Granulocytes # (auto) 0.02 K/uL (0.00-0.02); Immature Granulocytes % (auto) 0.2 %; Lymphocytes # (auto) 2.42 K/uL (1.2-3.4); Lymphocytes % (auto) 28.7 %; Mean Corpuscular Hgb Conc 34.1 g/dL (32-36); Mean Corpuscular Volume 90.8 fL (80-100); Mean Platelet Volume 9.9 fL (7.4-10.4); Monocytes # (auto) 1.03 K/uL (0.11-0.59); Monocytes % (auto) 12.2 %; Neutrophils # (auto) 4.56 K/uL (1.4-6.5); Platelet Count 228 K/uL (130-400); RDW Coefficient of Variation 13.6 % (11.5-14.5); RDW Standard Deviation 44.7 fL (36.4-46.3); Red Blood Count 5.33 M/uL (4.7-6.1); White Blood Count 8.44 K/uL (4.8-10.8)
[2021-05-10 06:54] LABS: Albumin Level 3.2 gm/dl (3.4-5.0); Calcium 9.2 mg/dl (8.5-10.1); Potassium 4.2 mmol/L (3.5-5.1)
[2021-05-10 07:13] LABS: BUN Creatinine Ratio 13.1 (10-20); Bilirubin Direct 0.2 mg/dl (0-0.2); Bilirubin,Total 0.8 mg/dl (0.2-1); Est GFR (African American) 56.8 ml/min
[2021-05-10] MEDS: ursodioL 300 MG CAP PO SCH (08:14)
[2021-05-10] MEDS: ASPIRIN 81 MG ECTAB PO SCH (08:14)
[2021-05-10] MEDS: METOPROLOL SUCC 50MG EXT REL TAB PO SCH (08:15)
[2021-05-10] MEDS ORDERED: PANTOprazole 40 MG TAB PO SCH (09:00)
--- NOTE | 2021-05-10 10:50 | Gastroenterology Progress Note ---
Date of Service May 10, 2021 Assessment & Plan (1) Ascending cholangitis: (2) Primary sclerosing cholangitis: (3) Crohns disease: (4) Fever and chills: Plan: related to cholangitis, resolved (5) Abdominal pain: Plan: related to cholangitis, episode, resolved (6) Renal insufficiency: (7) CAD (coronary artery disease): Plan: Impression: Resolution of symptoms related to cholangitis episode. No fever, chills since admission. Abdominal pain resolved. WBC count remains normal and bilirubin level back in normal range today. No new physical findings. I think it is safe to discharge Mr. Hartley to outpatient care, on an oral antibiotic for 2 week course of antibiotics, instructions to return to the ED if syndrome of feve r, chills, abdominal pain recur, and office follow up with GI service in 6 weeks. Our office will call Mr. Hartley to make the appointment arrangements. Discussed with Mr. Hartley and Dr. Angel. Admission and Anticipated Discharge Date Admission Date: May 08, 2021 Subjective This morning Mr. Hartley feels well and has no complaints, he denies fever, chills, abdominal pain, nausea, vomiting, change in bowel habits Review of Systems Review of Systems: He denied chest pain, shortness of breath, cough, myalgias and arthralgias. The remainder as noted in the history of present illness Physical Exam Respiratory: normal respiratory effort, lungs clear to auscultation Cardiovascular: RRR, no murmur, no edema Gastrointestinal (Abdomen): normal bowel sounds, soft, nontender, no hepatosplenomegaly Skin: no rashes, warm and dry Results & Data ([facility]) Vital Signs (Past 12 Hours) Vital Signs Temp Pulse Resp BP Pulse Ox 05/10/21 07:36 36.6 C 50 L 16 155/78 H 96 05/09/21 23:34 36.4 C L 50 L 17 114/71 95 Laboratory Results 05/10/21 05/10/21 Range/Units 05:40 05:40 WBC 8.44 (4.8-10.8) K/uL RBC 5.33 (4.7-6.1) M/uL Hgb 16.5 (14.0-18.0) g/dL Hct 48.4 (42-52) % MCV 90.8 (80-100) fL MCH 31.0 (25-34) pg MCHC 34.1 (32-36) g/dL RDW Std Deviation 44.7 (36.4-46.3) fL RDW Coeff of Kaity 13.6 (11.5-14.5) % Plt Count 228 (130-400) K/uL MPV 9.9 (7.4-10.4) fL Immature Gran % (Auto) 0.2 % Neut % (Auto) 54.0 % Lymph % (Auto) 28.7 % Levy % (Auto) 12.2 % Eos % (Auto) 4.4 % Baso % (Auto) 0.5 % Neut # (Auto) 4.56 (1.4-6.5) K/uL Lymph # (Auto) 2.42 (1.2-3.4) K/uL Levy # (Auto) 1.03 H (0.11-0.59) K/uL Eos # (Auto) 0.37 (0-0.5) K/uL Baso # (Auto) 0.04 (0-0.2) K/uL Immature Gran # (Auto) 0.02 (0.00-0.02) K/uL Sodium 139 (136-145) mmol/L Potassium 4.2 (3.5-5.1) mmol/L Chloride 109 H (98-107) mmol/L Carbon Dioxide 26 (21-32) mmol/L Anion Gap 4.0 (3-11) BUN 19 H (7-18) mg/dl Creatinine 1.42 H (0.6-1.4) mg/dl Est Cr Clr Drug Dosing 44.0 ml/min Est GFR ( Amer) 56.8 ml/min Est GFR (Non-Af Amer) 49.0 ml/min BUN/Creatinine Ratio 13.1 (10-20) Glucose 112 H (70-99) mg/dl Calcium 9.2 (8.5-10.1) mg/dl Total Bilirubin 0.8 D (0.2-1) mg/dl Direct Bilirubin 0.2 (0-0.2) mg/dl AST 18 (15-37) U/L ALT 18 (12-78) U/L Alkaline Phosphatase 65 (45-117) U/L Total Protein 8.0 (6.4-8.2) gm/dl Albumin 3.2 L (3.4-5.0) gm/dl Medications Administered Current Inpatient Medications Acetaminophen (Acetaminophen 325 Mg Tab) 650 mg PO Q4H PRN PRN Reason: pain/fever Stop: 06/07/21 10:22 Amlodipine Besylate (Amlodipine Besylate 5 Mg Tab) 2.5 mg PO QDD [facility] Stop: 06/07/21 16:29 Last Admin: 05/09/21 17:24 Dose: 2.5 mg Documented by: Aspirin (Aspirin 81 Mg Ectab) 81 mg PO DAILY [facility] Stop: 06/07/21 10:22 Last Admin: 05/10/21 08:14 Dose: 81 mg Documented by: Enoxaparin Sodium (Enoxaparin Inj 40 Mg/0.4 Ml Syr) 40 mg SQ Q24H [facility] Stop: 06/08/21 15:59 Last Admin: 05/09/21 17:24 Dose: Not Given Documented by: Piperacillin Sod/Tazobactam (Sod 3.375 gm/ Dextrose) 115 mls @ 28.75 mls/hr IV Q8H [facility]; Protocol Stop: 05/18/21 11:59 Last Admin: 05/10/21 04:59 Dose: 28.8 mls/hr Documented by: Metoprolol Succinate (Metoprolol Succ 50mg Ext Rel Tab) 100 mg PO DAILY [facility] Stop: 06/07/21 10:59 Last Admin: 05/10/21 08:15 Dose: Not Given Documented by: Miscellaneous (*Olsalazine [Dipentum] 250 Mg*Order Awaiting Action) 1 ea N/A QS [facility] Stop: 06/07/21 15:59 Last Admin: 05/09/21 22:19 Dose: Not Given Documented by: Miscellaneous Information (Piperacill/Tazobac Consult Active) 1 ea N/A UD PRN PRN Reason: Consult Stop: 06/07/21 10:22 Ondansetron HCl (Ondansetron Inj 2 Mg/Ml 2 Ml Vial) 4 mg IV Q6H PRN PRN Reason: Nausea Stop: 06/07/21 10:22 Pantoprazole Sodium (Pantoprazole 40 Mg Tab) 40 mg PO QAM [facility] Stop: 06/09/21 08:59 Last Admin: 05/10/21 08:14 Dose: 40 mg Documented by: Polyethylene Glycol (Polyethylene (Miralax) 17 Gm Pack) 17 gm PO DAILY PRN PRN Reason: Constipation Stop: 06/07/21 10:22 Ursodiol (Ursodiol 300 Mg Cap) 300 mg PO BID [facility] Stop: 06/07/21 10:22 Last Admin: 05/10/21 08:14 Dose: 300 mg Documented by: (1) Crohns disease Gastrointestinal tract location: unspecified location Digestive disease complication type: without complication Qualified Code(s): K50.90 - Crohn's disease, unspecified, without complications (2) Abdominal pain Abdominal location: unspecified location Qualified Code(s): R10.9 - Unspecified abdominal pain
--- NOTE | 2021-05-10 11:02 | Discharge Summary ---
Date of Service May 10, 2021 Admission HPI Per Admitting Provider The patient is a 70-year-old male with a past medical history including osteoporosis, renal insufficiency, CAD, Crohn's disease, GERD and esophagitis, hypercholesterolemia, primary sclerosing cholangitis, status post laparoscopic cholecystectomy in 11/2018, status post ERCP 02/2019 with sphincterotomy and dilation some strictures, melanoma, kidney stones, hypertension and status post CABG. Saw Dr. gomes of [facility] team recently on 04/03/21. notified by his physician that should he develop a temperature at any time, he was to take a Cipro, and then come to the emergency department for assessment. He n oticed he was getting chills that wouldn't go away overnight and decided to come in early this morning. he says this time it's a little less painful than before but he's also getting better at noticing the symptoms/pattern earlier and able to get the treatment sooner. Principal Diagnosis Ascending cholangitis Discharge Exam Constitutional WD/WN, vitals as above Eyes + anicteric sclerae Neck trachea midline, no thyromegaly Respiratory normal respiratory effort, lungs clear to auscultation Cardiovascular RRR, no murmur, no edema Chest (Breasts) Chest: normal inspection of chest Gastrointestinal (Abdomen) normal bowel sounds, soft, nontender, no hepatosplenomegaly Musculoskeletal Extremities: extremities normal to inspection; no cyanosis and no clubbing Skin no rashes, warm and dry Neurologic moves all extremities and awake; no focal motor deficits Psychiatric A+Ox3, euthymic affect Lymphatic no lymphedema Discharge Data Allergies Allergy/AdvReac Type Severity Reaction Status Date / Time Sulfa (Sulfonamide Allergy Unknown fever/chill Verified 05/08/21 07:26 Antibiotics) s amoxicillin AdvReac Mild Diarrhea Verified 05/08/21 07:26 Consultations 05/08/21 05:50 ED Decision to Admit Stat 05/08/21 10:23 Consult Gastroenterology Routine Hospital Course (1) Ascending cholangitis: Primary sclerosing cholangitis/Crohn's/GERD without esophagitis-presents with fever at home and abdominal pain - no transaminitis, lactic acidosis, negative procal. not septic appearing. mildly elevated WBC now resolved has h/o cholecystectomy and multiple episodes of cholangitis TBili up slightly to 1.7 but remains afebrile since admission and TBili back to normal on day of discharge No further abd pain, no nausea, is movin gbowels, tolerating reg diet Stabkle for dc to [facility] as per my d/w GI - Continue olsalazine 250 mg p.o. twice daily and ursodiol 300 mg p.o. twice daily - received Zosyn 4.5 g IV every 8 hours and will convert to po abx for discharge with Cipro and Flagyl x 11 more days for total 2 week course - given frequency of presentation and no new/worsening symptoms at this time, no repeat imaging performed as per GI - [facility] gastroenterology consult appreciated-no imaging or procedure needed - blood cultures NGTD -f/u with GI as an outpt (2) Fever: as above, resolved (3) Abdominal pain: as above,resolved (4) Primary sclerosing cholangitis: as above (5) CAD (coronary artery disease): s/p [place] 1995 and 5 v CABG no acute issues, marine ebradycardia in the 50s but asymptomatic, ok to continue metoprolol continue ASA, metoprolol continue Vytorin on discharge (6) Crohns disease: no acute issues (7) GERD without esophagitis: continue PPI (8) Hypercholesterolemia: not on meds except is on cholestyramine (9) Benign essential HTN: controlled continue amlodipine and metoprolol (10) FLAKITO (obstructive sleep apnea): DVT proph-Lovenox Dispo-dc to home, doing well Total Time Total Time Spent Total Time Spent (In Minutes): 35 min Total Time Includes: Examination of the Patient, Discharge Planning, Medication Reconciliation and Communication With Other Providers Discharge Plan Discharge Items Patient Disposition: Home - Self-Care Reason For Visit: FEVER Discharge Diagnosis: Ascending cholangitis Condition on Discharge: Good Activity: Resume your previous activity Non-emergency contact: Primary Care Provider and Medical Supervisor Call non-emergency contact if: you have any medication questions, your symptoms worsen, your pain is not controlled, your pain is worsening, your pain is concerning for you and you have a fever Follow-up/Referrals: Alex Terrazas MD [Primary Care Provider] - (Follow up within 1-2 weeks.) Tyler Alicea [Physician] - (Dr. Napier's office will call you with an appointment date and time to be seen in 6 weeks) Diet: Regular Addtl Attending Provider Instructions: Please finish out a 2 week course of Cipro and Flagyl for your liver infection. Follow up with GI and your PCP as scheduled. If you have worsening pain, fever, or any other acute concerns, please return to the hospital. Pending Studies at Discharge: Yes Stand-Alone Forms: My [facility] Medications and DC Order Prescriptions: New ciprofloxacin HCl 500 mg tablet 500 mg PO BID Qty: 22 RF: 0 metronidazole [Flagyl] 500 mg tablet 500 mg PO Q8H Qty: 33 RF: 0 Continued omeprazole 40 mg capsule,delayed release(DR/EC) 40 mg PO DAILY Qty: 90 RF: 3 ezetimibe-simvastatin 10-80 mg tablet 1 tab PO PM Qty: 90 RF: 3 aspirin 81 mg tablet,delayed release (DR/EC) 81 mg PO DAILY Qty: 90 RF: 3 ursodiol 300 mg capsule 300 mg PO BID Qty: 180 RF: 3 Dipentum 250 mg capsule 250 mg PO BID Qty: 180 RF: 3 hydrocortisone 2.5 % cream 1 appln TOP TID PRN (Reason: skin irritation) Qty: 30 RF: 11 nitroglycerin 0.4 mg tablet, sublingual 0.4 mg SL Q5M PRN (Reason: chest pain) Qty: 25 RF: 3 cholestyramine (with sugar) 4 gram powder 4 g PO BID Qty: 378 RF: 2 cholecalciferol (vitamin D3) [Vitamin D3] 50 mcg (2,000 unit) Tablet 50 mcg PO DAILY RF: 0 metoprolol succinate 100 mg tablet extended release 24 hr 100 mg PO QAM RF: 0 amlodipine 2.5 mg tablet 2.5 mg PO PM RF: 0 Discharge Orders: Discharge Order (Routine); Ordered 05/10/21 Ordered By: Halley Angel Admission Data Admit Date/Time: 05/08/21 05:43 Attending Provider: Halley Angel Admit Provider: Madison Scruggs Primary Care Provider: Alex Terrazas Other Providers: Halley Angel ; Madison Scruggs ; Tyler Alicea Coding Level of Care Code D/C DAY MANAGEMENT >30 MINS Diagnoses Ascending cholangitis K83.09 Fever R50.9 Fever type: unspecified Abdominal pain R10.9 Abdominal location: unspecified location Primary sclerosing cholangitis K83.01 CAD (coronary artery disease) I25.10 Crohns disease K50.90 Gastrointestinal tract location: unspecified location Digestive disease complication type: without complication GERD without esophagitis K21.9 Hypercholesterolemia E78.00 Benign essential HTN I10 FLAKITO (obstructive sleep apnea) G47.33
== END 2021-05-10 13:38 | disposition home or self-care (01) | DRG 445 ==
LOC: ED 01:16 → 3E 01:16 → INTOOBSV 05:43 → OBSVTOIN 05:43 → SUATTDRO 05:43 → 3E 09:57

== ENCOUNTER 2022-06-07 19:02 | Observation (INO) ==
[2022-06-07] MEDS ORDERED: ONDANSETRON INJ 2 MG/ML 2 ML VIAL IV STA (19:21)
[2022-06-07] MEDS ORDERED: CEFEPIME 2,000 MG/20 ML VIAL IV STA (19:21)
--- NOTE | 2022-06-07 19:27 | Emergency Department Note ---
Impression & Plan Fever, Ascending cholangitis, Leukocytosis, Epigastric abdominal pain ED Provider Note NAME: MARKUS DARNELL AGE: 72 SEX: M : 1950 ARRIVES VIA: Walk-In INFORMANT: [Patient] ED PROVIDER(S): [Alex Viera MD] CHIEF COMPLAINT: Fever HISTORY OF PRESENT ILLNESS: The patient is a 72-year-old male with a history of a ascending cholangitis. He states that for the last few days, he has had some mild epigastric discomfort. Today, he developed chills and a fever. Temperature was 102 F. He did take a left over Cipro tablet he had at home. The patient has had nausea, no vomiting. He had some diarrhea yesterday, none today. No urinary complaints, no increased cough or shortness of breath or respiratory complaints. No recent sick contacts. He states that his symptoms today are very similar to his last episode of ascending cholangitis which was about a year ago. REVIEW OF SYSTEMS: See HPI for pertinent positives and negatives. A total of ten systems were reviewed and were otherwise negative. PMHx/PSHx: See Below SOCIAL HISTORY: See Below. PHYSICAL EXAM: GENERAL: Patient is in no acute distress. HEENT: No acute trauma, normocephalic atraumatic, mucous membranes moist, no nasal congestion, no scleral icterus. NECK: No stridor, no adenopathy, no meningismus, trachea is midline. LUNGS: A few scattered wheezes heard, no respiratory distress, no rhonchi, breath sounds equal. HEART: Without murmurs gallops or rubs, regular rate and rhythm. ABDOMEN: Soft, very mildly tender in the epigastrium and right upper quadrant, no lower abdominal tenderness. EXTREMITIES: No cyanosis or edema, full range of motion of all the joints without pain or difficulty, no signs for acute trauma. NEUROLOGIC: Oriented x 3, no acute motor or sensory deficits, no focal weakness. SKIN: No rash, no jaundice, no diaphoresis. DIFFERENTIAL DIAGNOSIS: Sepsis, UTI, pneumonia, metabolic abnormality, electrolyte abnormalities, cardiac sources, cellulitis, bacteremia, ascending cholangitis, COVID-19, intracerebral event, toxicologic etiology, neurologic event, as well as other pathologies. EMERGENCY DEPARTMENT COURSE/PROCEDURES: ECG: Indication was possible sepsis. The ECG shows a normal sinus rhythm with a rate of 81. There is no ST elevation, no PVCs. The QTc is 420. Continuous Cardiac Monitoring: An order was placed for continuous cardiac monitoring. The monitor shows a rate of 88 with normal sinus rhythm. MEDICAL DECISION MAKING: There is a mild leukocytosis which certainly could be consistent with infection. There is a normal hemoglobin and platelet count. No renal failure or significant electrolyte abnormality. Bilirubin is slightly elevated. Lactic acid level was not elevated making severe sepsis less likely. Procalcitonin level was not elevated. ECG shows a normal sinus rhythm, no ischemia. Cardiac enzyme testing x1 is not consistent with acute cardiac injury. Influenza, COVID-19 and RSV test were negative. Chest x-ray showed some basilar congestion that was most consistent with atelectasis, no obvious pneumonia. On exam, the patient was febrile, he was not toxic. The patient was given IV Tylenol, IV cefepime, IV Zofran and IV saline. The patient very likely has early ascending cholangitis. He has had this issue many times in the past. He presents with very similar symptoms. I do think a hospital stay would be warranted. I spoke with the patient and case management. The on-call hospitalist was consulted. Past Med/Surg History Medical History Acute renal insufficiency CAD (coronary artery disease) Crohn disease GERD (gastroesophageal reflux disease) Hand eczema Hyperlipidemia Hypertension Leukocytosis Medicare annual wellness visit, subsequent Medicare annual wellness visit, subsequent Myocardial Infarction 1995 - then CABG X 5 IN [place] Osteoporosis Prostate cancer screening Sleep apnea no machine Vitamin D deficiency Surgical History History of open reduction and internal fixation (ORIF) procedure RIGHT ELBOW Hx of appendectomy Hx of colonoscopy Hx of foot surgery RIGHT FOOT SURGERY, REMOVAL OF FIBROMA Hx of inguinal hernia repair RIGHT Hx of laceration of skin LEFT WRIST REPAIR OF LACERATION S/P CABG x 5 1995 AFTER [place] Family History Other Family history non-contributory Social History Smoking Status: Never smoker Second Hand Exposure: No; Hx Alcohol Use: No Hx Substance Use: No Preferred Language: Kosovan Communication Ability: Effective Manager Retention Required: No Beliefs That Will Affect Care: None marital status: Current Living Situation: Family Feels Safe at Home: Yes caffeine: No Seatbelt Use: always Assistive Devices: Glasses Allergies Allergies Allergy/AdvReac Type Severity Reaction Status Date / Time Sulfa (Sulfonamide Allergy Unknown fever/chill Verified 06/07/22 19:50 Antibiotics) s amoxicillin AdvReac Mild Diarrhea Verified 06/07/22 19:50 clavulanic acid AdvReac Diarrhea Verified 06/07/22 19:50 [From Augmentin] Home Meds Home Medications Medication Instructions Recorded Confirmed cholecalciferol (vitamin D3) 50 50 mcg PO DAILY 10/02/20 06/07/22 mcg (2,000 unit) tablet (Vitamin D3) ursodiol 300 mg capsule 300 mg PO AMHS 06/07/22 06/07/22 Previous Rx's Medication Instructions Recorded aspirin 81 mg tablet,delayed 81 mg PO DAILY #90 tabs 04/13/19 release olsalazine 250 mg capsule 250 mg PO BID #180 caps 07/08/21 (Dipentum) metoprolol succinate 100 mg 100 mg PO QAM #90 tabs 07/28/21 tablet,extended release 24 hr nitroglycerin 0.4 mg sublingual 0.4 mg sublingual Q5M PRN chest 12/17/21 tablet pain #25 tabs omeprazole 40 mg capsule,delayed 40 mg PO DAILY #90 caps 03/02/22 release amlodipine 10 mg tablet 10 mg PO PM #90 tabs 03/12/22 atorvastatin 80 mg tablet 80 mg PO DAILY #90 tabs 03/12/22 lisinopril 10 mg tablet 10 mg PO DAILY #90 tabs 03/12/22 lorazepam 1 mg tablet 1 mg PO .COMPLEX PRN anxiety #2 03/12/22 tabs Results & Data (ED) Vital Signs Vital Signs - 24 hr 06/07/22 19:04 06/07/22 19:39 06/07/22 19:43 Temperature 37.3 C 38.2 C H Temperature Source Oral Oral Pulse Rate 106 H Pulse Rate [Finger] 85 Pulse Rhythm [Finger] Regular Pulse Strength [Finger] Normal Respiratory Rate 20 15 Respiratory Effort / Characteristics Non-Labored Spontaneous Non-Labored Non-Labored Spontaneous Respiratory Depth Normal Normal Normal Respiratory Pattern Regular Regular Blood Pressure 131/80 Blood Pressure [Right Arm] 122/75 Blood Pressure Mean 97 Blood Pressure Mean [Right Arm] 90 Pulse Oximetry 93 95 Oxygen Delivery Method Room Air Room Air Sepsis Recent Fever Within 48 Hours Yes Sepsis New/Unexplained Change in Mental Status N/A Sepsis Action Taken by Nursing No Action Required 06/07/22 19:43 Temperature Temperature Source Pulse Rate 88 Pulse Rate [Finger] Pulse Rhythm [Finger] Pulse Strength [Finger] Respiratory Rate Respiratory Effort / Characteristics Respiratory Depth Respiratory Pattern Blood Pressure Blood Pressure [Right Arm] Blood Pressure Mean Blood Pressure Mean [Right Arm] Pulse Oximetry 95 Oxygen Delivery Method Room Air Sepsis Recent Fever Within 48 Hours Sepsis New/Unexplained Change in Mental Status Sepsis Action Taken by Retirement Medications Current Medication List: was personally reviewed by me Laboratory Data Attestation: I reviewed the patient's lab results. Result diagrams: 06/07/22 19:30 06/07/22 19:30 Lab Results 06/07/22 06/07/22 06/07/22 Range/Units 19:30 19:30 19:30 WBC 11.95 H (4.8-10.8) K/ul RBC 5.09 (4.63-6.08) M/uL Hgb 15.6 (14.0-18.0) g/dl Hct 45.2 (40.1-51.0) % MCV 88.8 (80.0-100.0) fL MCH 30.6 (25.0-34.0) pg MCHC 34.5 (32.0-36.0) g/dL RDW Std Deviation 42.1 (36.4-46.3) fL RDW Coeff of Kaity 12.9 (11.5-14.5) % Plt Count 219 (130-400) K/uL MPV 9.6 (9.4-12.4) fL Immature Gran % (Auto) 0.3 % Neut % (Auto) 74.7 % Lymph % (Auto) 13.0 % [place] % (Auto) 10.9 % Eos % (Auto) 0.8 % Baso % (Auto) 0.3 % Neut # (Auto) 8.92 H (1.4-6.5) K/uL Lymph # (Auto) 1.55 (1.2-3.4) K/uL [place] # (Auto) 1.30 H (0.24-0.82) K/uL Eos # (Auto) 0.10 (0-0.50) K/uL Baso # (Auto) 0.04 (0-0.2) K/uL Immature Gran # (Auto) 0.04 H (0.00-0.02) K/uL Sodium 135 L (136-145) mmol/L Potassium 4.0 (3.5-5.1) mmol/L Chloride 108 H (98-107) mmol/L Carbon Dioxide 19 L (21-32) mmol/L Anion Gap 8 (3-11) BUN 25 H (6-23) mg/dl Creatinine 1.39 (0.6-1.4) mg/dl Est Cr Clr Drug Dosing 47.9 ml/min Est GFR ( Amer) 57.9 ml/min Est GFR (Non-Af Amer) 49.9 ml/min BUN/Creatinine Ratio 18.0 (10-20) Glucose 122 H (70-99(Fasting)) mg/dl Lactate 1.1 (0.4-2.0) mmol/L Calcium 9.1 (8.5-10.1) mg/dl Magnesium 1.7 (1.7-2.4) mg/dl Total Bilirubin 1.1 H (0.2-1.0) mg/dl Direct Bilirubin 0.2 (0-0.2) mg/dl AST 18 (13-39) U/L ALT 13 (7-52) U/L Alkaline Phosphatase 73 (34-104) U/L Troponin I High Sens 4.7 (0-20) pg/ml Total Protein 7.8 (6.0-8.3) gm/dl Albumin 3.8 (3.4-5.0) gm/dl Procalcitonin (0-0.5) ng/ml SARS-CoV-2 (PCR) (Negative) Influenza Type A (PCR) (Neg) Influenza Type B (PCR) (Neg) RSV (RT-PCR) (Neg) 06/07/22 06/07/22 Range/Units 19:30 19:33 WBC (4.8-10.8) K/ul RBC (4.63-6.08) M/uL Hgb (14.0-18.0) g/dl Hct (40.1-51.0) % MCV (80.0-100.0) fL MCH (25.0-34.0) pg MCHC (32.0-36.0) g/dL RDW Std Deviation (36.4-46.3) fL RDW Coeff of Kaity (11.5-14.5) % Plt Count (130-400) K/uL MPV (9.4-12.4) fL Immature Gran % (Auto) % Neut % (Auto) % Lymph % (Auto) % [place] % (Auto) % Eos % (Auto) % Baso % (Auto) % Neut # (Auto) (1.4-6.5) K/uL Lymph # (Auto) (1.2-3.4) K/uL [place] # (Auto) (0.24-0.82) K/uL Eos # (Auto) (0-0.50) K/uL Baso # (Auto) (0-0.2) K/uL Immature Gran # (Auto) (0.00-0.02) K/uL Sodium (136-145) mmol/L Potassium (3.5-5.1) mmol/L Chloride (98-107) mmol/L Carbon Dioxide (21-32) mmol/L Anion Gap (3-11) BUN (6-23) mg/dl Creatinine (0.6-1.4) mg/dl Est Cr Clr Drug Dosing ml/min Est GFR ( Amer) ml/min Est GFR (Non-Af Amer) ml/min BUN/Creatinine Ratio (10-20) Glucose (70-99(Fasting)) mg/dl Lactate (0.4-2.0) mmol/L Calcium (8.5-10.1) mg/dl Magnesium (1.7-2.4) mg/dl Total Bilirubin (0.2-1.0) mg/dl Direct Bilirubin (0-0.2) mg/dl AST (13-39) U/L ALT (7-52) U/L Alkaline Phosphatase (34-104) U/L Troponin I High Sens (0-20) pg/ml Total Protein (6.0-8.3) gm/dl Albumin (3.4-5.0) gm/dl Procalcitonin 0.09 (0-0.5) ng/ml SARS-CoV-2 (PCR) NEGATIVE (Negative) Influenza Type A (PCR) Negative (Neg) Influenza Type B (PCR) Negative (Neg) RSV (RT-PCR) Negative (Neg) Administered Medications Discontinued Medications Acetaminophen (Acetaminophen 1000 Mg/100 Ml Iv) 1,000 mg IV NOW STA Stop: 06/07/22 19:50 Last Admin: 06/07/22 19:54 Dose: 1,000 mg Documented By: ANTONIA Sodium Chloride (Nss 1000ml) 1,000 mls @ 999 mls/hr IV .Q1H1M ARTEM Stop: 06/07/22 20:30 Last Infusion: 06/07/22 21:07 Dose: 0 mls/hr Documented By: Admin: 06/07/22 19:47 Dose: 999 mls/hr Documented By: JEREMY Cefepime HCl (Maxipime) 2,000 mg in 20 mls @ 5 mls/min IV NOW STA; Protocol Stop: 06/07/22 19:24 Last Admin: 06/07/22 19:48 Dose: 5 mls/min Documented By: JEREMY Ondansetron HCl (Ondansetron Inj 2 Mg/Ml 2 Ml Vial) 4 mg IV NOW STA Stop: 06/07/22 19:22 Last Admin: 06/07/22 19:48 Dose: 4 mg Documented By: JEREMY Imaging Data My Impression: Chest x-ray: Per my review, there is some bibasilar atelectasis, no focal pneumonia, no CHF. Discharge Plan Visit Data Chief Complaint: Fever Stated Complaint: LIVER FLARE UP, FEVER, CHILLS, NAUSEA ED Provider: Alex Viera Discharge Problem: Fever, Ascending cholangitis, Leukocytosis, Epigastric abdominal pain Patient Disposition: Admitted As Inpatient Condition: Good Forms Stand Alone Forms: My [facility] Prescriptions Prescriptions: No Action metoprolol succinate 100 mg tablet extended release 24 hr 100 mg PO QAM Qty: 90 3RF nitroglycerin 0.4 mg tablet, sublingual 0.4 mg SL Q5M PRN (Reason: chest pain) Qty: 25 3RF omeprazole 40 mg capsule,delayed release(DR/EC) 40 mg PO DAILY Qty: 90 3RF aspirin 81 mg tablet,delayed release (DR/EC) 81 mg PO DAILY Qty: 90 3RF atorvastatin 80 mg tablet 80 mg PO DAILY Qty: 90 3RF lisinopril 10 mg tablet 10 mg PO DAILY Qty: 90 3RF lorazepam 1 mg tablet 1 mg PO .COMPLEX PRN (Reason: anxiety) Qty: 2 0RF Rx Instructions: 1 mg PO 1 hr prior and immediately prior to MRI PRN; amlodipine 10 mg tablet 10 mg PO PM Qty: 90 3RF Rx Instructions: Take with supper for blood pressure. Dipentum 250 mg capsule 250 mg PO BID Qty: 180 3RF cholecalciferol (vitamin D3) [Vitamin D3] 50 mcg (2,000 unit) Tablet 50 mcg PO DAILY ursodiol 300 mg capsule 300 mg PO AMHS Referrals Referrals: Alex Terrazas MD [Primary Care Provider] -
[2022-06-07] MEDS ORDERED: SODIUM CHLORIDE 0.9% 1000ML 1,000 ML IV SCH (19:30)
[2022-06-07 19:39] LABS: Basophils # (auto) 0.04 K/uL (0-0.2); Basophils % (auto) 0.3 %; Eosinophils % (auto) 0.8 %; Hematocrit (blood only) 45.2 % (40.1-51.0); Hemoglobin 15.6 g/dl (14.0-18.0); Immature Granulocytes # (auto) 0.04 K/uL (0.00-0.02); Immature Granulocytes % (auto) 0.3 %; Lymphocytes # (auto) 1.55 K/uL (1.2-3.4); Mean Corpuscular Hemoglobin 30.6 pg (25.0-34.0); Mean Corpuscular Hgb Conc 34.5 g/dL (32.0-36.0); Mean Corpuscular Volume 88.8 fL (80.0-100.0); Mean Platelet Volume 9.6 fL (9.4-12.4); Monocytes % (auto) 10.9 %; Neutrophils # (auto) 8.92 K/uL (1.4-6.5); Neutrophils % (auto) 74.7 %; Platelet Count 219 K/uL (130-400); RDW Coefficient of Variation 12.9 % (11.5-14.5); RDW Standard Deviation 42.1 fL (36.4-46.3); Red Blood Count 5.09 M/uL (4.63-6.08); White Blood Count 11.95 K/ul (4.8-10.8)
[2022-06-07] MEDS ORDERED: ACETAMINOPHEN 1000 MG/100 ML IV IV STA (19:49)
[2022-06-07 20:00] LABS: Albumin Level 3.8 gm/dl (3.4-5.0); Bilirubin Direct 0.2 mg/dl (0-0.2); Bilirubin,Total 1.1 mg/dl (0.2-1.0); Calcium 9.1 mg/dl (8.5-10.1); Creatinine Clr Calc Pharmacy 47.9 ml/min; Est GFR (African American) 57.9 ml/min; Est GFR (Non-African American) 49.9 ml/min; Magnesium 1.7 mg/dl (1.7-2.4); Total Protein 7.8 gm/dl (6.0-8.3)
[2022-06-07 20:06] LABS: Troponin I High Sensitivity 4.7 pg/ml (0-20)
[2022-06-07] MEDS ORDERED: LABETALOL HCL IV 5 MG/ML 20ML IV STA (20:16)
[2022-06-07 20:27] LABS: Influenza A virus by PCR Negative (Neg); Influenza B virus by PCR Negative (Neg); RSV by PCR Negative (Neg); SARS CoV2 RNA(COVID-19) InHosp NEGATIVE (Negative)
--- NOTE | 2022-06-07 21:30 | History & Physical Report ---
Date of Service June 07, 2022 Assessment & Plan (1) Fever: Plan: 72yo male with history of primary sclerosing cholangitis, prior cholangitis presents with two days of progressive fever, chills and RUQ/epigastric pain. Patient reports symptoms are identical to prior episodes of cholangitis. Presently febrile, HD stable. Mild leukocytosis with WBC=11.95. LFTs are unremarkable. -Observation to medical -Check lipase -Check RUQUS -Repeat labs in AM, CBC/LFTs/Chemistry -Consider MRCP pending findings of above studies [place] [facility] -IVF with LR at 80mL/hr x 2 liters -Zosyn 3.375gm IV q 8 (2) Primary sclerosing cholangitis: Plan: Chronic. Patient follows with GI and [place] [facility]Continue Ursodiol -Continue Olsalazine 250mg po BID - patient may need to take home medication Patient [place] with [place] [facility] Last seen on 04/23/22. He had multiple admissions for cholangitis in the past. Last in 04/2021. Has a lesion in the right lobe of the liver that is being followed. (3) Crohns disease: Plan: Chronic. Stable. Patient denies diarrhea. -Continue Olsalazine (4) CAD (coronary artery disease): Plan: Patient with CAD s/p CABG x 5V. Denies chest pain -Continue ASA 81mg po daily -Continue Atorvastatin 80mg po daily -Continue Metoprolol XL 100mg po daily -Continue Lisinopril 10mg po daily (5) GERD without esophagitis: Plan: Chronic -Continue Pepcid 40mg po daily while inpatient (6) Hypercholesterolemia: Plan: Chronic -Continue Atorvastatin 80mg po daily (7) Benign essential HTN: Plan: Chronic. Blood pressure stable, well controlled at present at 122/75 -Continue Amlodipine 10mg po daily -Continue Lisinopril 10mg po daily -Continue Metoprolol 100mg po daily -Continue to monitor History of Present Illness Chief Complaint: RUQ pain Primary Care Provider: Alex Terrazas MD Skip Hartley is a 72 yo male with history of Primary Sclerosing Cholangitis, CAD s/p CABG x 5v (1995), HTN, HLP, GERD and FLAKITO presenting with fever, chills and RUQ abdominal pain. Patient has history of PSC with multiple prior episodes of cholangitis. He typically presents as such - epigastric and RUQ pain followed by fever, chills and nausea. Patient began feeling some epigastric fullness and RUQ pain 06/06/22 which worsened today. He then developed fever to 102.7 and chills. He took a Cipro today at 15:00 (has them at home in case he develops fever). Patient [place] [facility] In the ER he is febrile, HD stable, nontoxic in appearance. ER Course: Cefepime, Tylenol, Labetalol, Zofran, NSS Allergies Allergy/AdvReac Type Severity Reaction Status Date / Time Sulfa (Sulfonamide Allergy Unknown fever/chill Verified 06/07/22 19:50 Antibiotics) s amoxicillin AdvReac Mild Diarrhea Verified 06/07/22 19:50 clavulanic acid AdvReac Diarrhea Verified 06/07/22 19:50 [From Augmentin] Home Medications Medication Instructions Recorded Confirmed Type aspirin 81 mg tablet,delayed 81 mg PO DAILY #90 tabs 04/13/19 06/07/22 Rx release cholecalciferol (vitamin D3) 50 50 mcg PO DAILY 10/02/20 06/07/22 History mcg (2,000 unit) tablet (Vitamin D3) olsalazine 250 mg capsule 250 mg PO BID #180 caps 07/08/21 06/07/22 Rx (Dipentum) metoprolol succinate 100 mg 100 mg PO QAM #90 tabs 07/28/21 06/07/22 Rx tablet,extended release 24 hr nitroglycerin 0.4 mg sublingual 0.4 mg sublingual Q5M PRN chest 12/17/21 06/07/22 Rx tablet pain #25 tabs omeprazole 40 mg capsule,delayed 40 mg PO DAILY #90 caps 03/02/22 06/07/22 Rx release amlodipine 10 mg tablet 10 mg PO PM #90 tabs 03/12/22 06/07/22 Rx atorvastatin 80 mg tablet 80 mg PO DAILY #90 tabs 03/12/22 06/07/22 Rx lisinopril 10 mg tablet 10 mg PO DAILY #90 tabs 03/12/22 06/07/22 Rx lorazepam 1 mg tablet 1 mg PO .COMPLEX PRN anxiety #2 03/12/22 06/07/22 Rx tabs ursodiol 300 mg capsule 300 mg PO AMHS 06/07/22 06/07/22 History Past Med/Surg History Medical History Acute renal insufficiency CAD (coronary artery disease) Crohn disease GERD (gastroesophageal reflux disease) Hand eczema Hyperlipidemia Hypertension Leukocytosis Medicare annual wellness visit, subsequent Medicare annual wellness visit, subsequent Myocardial Infarction 1995 - then CABG X 5 IN [place] Osteoporosis Prostate cancer screening Sleep apnea no machine Vitamin D deficiency Surgical History History of open reduction and internal fixation (ORIF) procedure RIGHT ELBOW Hx of appendectomy Hx of colonoscopy Hx of foot surgery RIGHT FOOT SURGERY, REMOVAL OF FIBROMA Hx of inguinal hernia repair RIGHT Hx of laceration of skin LEFT WRIST REPAIR OF LACERATION S/P CABG x 5 1995 AFTER [place] Family History Other Family history non-contributory Social History Smoking Status: Never smoker Second Hand Exposure: No; Hx Alcohol Use: No Hx Substance Use: No Preferred Language: Italian Communication Ability: Effective Performance Improvement Coordinator Required: No Beliefs That Will Affect Care: None marital status: Current Living Situation: Spouse Current Living Situation Comment: lives with in a 2 story home Other Information That Helps Us Care for You: No Feels Safe at Home: Yes Safety Concerns: Feels Safe At This Time caffeine: No Seatbelt Use: always Assistive Devices: Glasses Review of Systems Review of Systems: All systems reviewed & are unremarkable except as noted in HPI & below Physical Exam Physical Exam: General: patient resting comfortably, NAD, non-toxic in appearance, AA&O x 4 Skin: warm, dry, intact, no rashes or lesions HEENT: NC/AT, PERRL, EOMI, anicteric sclera, conjunctiva without injection, external ear normal to inspection and nontender, nares patent, moist mucus membranes, dentition intact, no oropharyngeal lesions, neck supple, trachea midline, no LAD, no thyromegaly, no JVD Heart: +S1/S2, regular, no m/r/g, sternotomy scar present Lungs: equal air entry bilaterally, no rales/rhonchi/wheezes Abd: +BS, soft, ND, tenderness in the epigastric region and RUQ, no masses/ organomegaly/ascites Ext: warm, 2+ pulses in UE/LE bilaterally, no clubbing/cyanosis or edema Neuro: nonfocal, patient AA&O x 4, speech intact, no facial droop, moving all extremities on command with equal strength 5/5 Results & Data Results & Data ([facility]) Vital Signs (Past 12 Hours) Vital Signs Temp Pulse Pulse Resp BP BP Pulse Ox 06/07/22 19:43 88 95 06/07/22 19:43 38.2 C H 85 15 122/75 95 06/07/22 19:04 37.3 C 106 H 20 131/80 93 O2 Del Method 06/07/22 19:43 Room Air 06/07/22 19:43 Room Air 06/07/22 19:04 Room Air Laboratory Results Laboratory Results WBC 11.95 K/ul (4.8-10.8) H 06/07/22 19: RBC 5.09 M/uL (4.63-6.08) 06/07/22 19:30 Hgb 15.6 g/dl (14.0-18.0) 06/07/22 19:30 Hct 45.2 % (40.1-51.0) 06/07/22 19: MCV 88.8 fL (80.0-100.0) 06/07/22 19:30 MCH 30.6 pg (25.0-34.0) 06/07/22 19: MCHC 34.5 g/dL (32.0-36.0) 06/07/22 19:30 RDW Std Deviation 42.1 fL (36.4-46.3) 06/07/22 19:30 RDW Coeff of Kaity 12.9 % (11.5-14.5) 06/07/22 19:30 Plt Count 219 K/uL (130-400) 06/07/22 19:30 MPV 9.6 fL (9.4-12.4) 06/07/22 19:30 Immature Gran % (Auto) 0.3 % 06/07/22 19:30 Neut % (Auto) 74.7 % 06/07/22 19:30 Lymph % (Auto) 13.0 % 09/25/22 19:30 [place] % (Auto) 10.9 % 06/07/22 19:30 Eos % (Auto) 0.8 % 06/07/22 19:30 Baso % (Auto) 0.3 % 06/07/22 19:30 Neut # (Auto) 8.92 K/uL (1.4-6.5) H 06/07/22 19:30 Lymph # (Auto) 1.55 K/uL (1.2-3.4) 06/07/22 19:30 [place] # (Auto) 1.30 K/uL (0.24-0.82) H 06/07/22 19:30 Eos # (Auto) 0.10 K/uL (0-0.50) 06/07/22 19: Baso # (Auto) 0.04 K/uL (0-0.2) 06/07/22 19: Immature Gran # (Auto) 0.04 K/uL (0.00-0.02) H 06/07/22 19:30 Sodium 135 mmol/L (136-145) L 06/07/22 19:30 Potassium 4.0 mmol/L (3.5-5.1) 06/07/22 19:30 Chloride 108 mmol/L (98-107) H 06/07/22 19:30 Carbon Dioxide 19 mmol/L (21-32) L 06/07/22 19:30 Anion Gap 8 (3-11) 06/07/22 19:30 BUN 25 mg/dl (6-23) H 06/07/22 19:30 Creatinine 1.39 mg/dl (0.6-1.4) 06/07/22 19:30 Est Cr Clr Drug Dosing 47.9 ml/min 06/07/22 19:30 Est GFR ( Amer) 57.9 ml/min 06/07/22 19:30 Est GFR (Non-Af Amer) 49.9 ml/min 06/07/22 19:30 BUN/Creatinine Ratio 18.0 (10-20) 06/07/22 19:30 Glucose 122 mg/dl (70-99(Fasting)) H 06/07/22 19:30 Lactate 1.1 mmol/L (0.4-2.0) 06/07/22 19:30 Calcium 9.1 mg/dl (8.5-10.1) 06/07/22 19:30 Magnesium 1.7 mg/dl (1.7-2.4) 06/07/22 19:30 Total Bilirubin 1.1 mg/dl (0.2-1.0) H 06/07/22 19:30 Direct Bilirubin 0.2 mg/dl (0-0.2) 06/07/22 19:30 AST 18 U/L (13-39) 06/07/22 19:30 ALT 13 U/L (7-52) 06/07/22 19:30 Alkaline Phosphatase 73 U/L (34-104) 06/07/22 19:30 Troponin I High Sens 4.7 pg/ml (0-20) 06/07/22 19: Total Protein 7.8 gm/dl (6.0-8.3) 06/07/22 19:30 Albumin 3.8 gm/dl (3.4-5.0) 06/07/22 19:30 Procalcitonin 0.09 ng/ml (0-0.5) 06/07/22 19:30 SARS-CoV-2 (PCR) NEGATIVE (Negative) 06/07/22 19:33 Influenza Type A (PCR) Negative (Neg) 06/07/22 19:33 Influenza Type B (PCR) Negative (Neg) 06/07/22 19:33 RSV (RT-PCR) Negative (Neg) 06/07/22 19:33 Code Status & VTE Plan VTE Prophylaxis Plan VTE Prophylaxis will be ordered: No PG Care Time/CCT Total # of Minutes Spent Total Time Spent with Patient: Total time spent is greater than 50% in coordination of care (as documented) at patient's floor/unit and/or counseling patient: Coding Level of Care Code INT OBSERVATION CARE 70M LVL 3 Diagnoses Fever R50.9 Fever type: unspecified Primary sclerosing cholangitis K83.01 Crohns disease K50.90 Digestive disease complication type: without complication Gastrointestinal tract location: unspecified location CAD (coronary artery disease) I25.10 GERD without esophagitis K21.9 Hypercholesterolemia E78.00 Benign essential HTN I10 (1) Fever Fever type: unspecified Qualified Code(s): R50.9 - Fever, unspecified (2) Crohns disease Digestive disease complication type: without complication Gastrointestinal tract location: unspecified location Qualified Code(s): K50.90 - Crohn's disease, unspecified, without complications
[2022-06-07] MEDS ORDERED: ONDANSETRON INJ 2 MG/ML 2 ML VIAL IV PRN (22:38)
[2022-06-07] MEDS ORDERED: ACETAMINOPHEN 325 MG TAB PO PRN (22:38)
[2022-06-07] MEDS: LACTATED RINGER'S 1,000 ML IV SCH (22:50)
[2022-06-07] MEDS ORDERED: PIPERACILLIN/TAZOBACTAM 3.375 GM in DEXTROSE 5% 100 ML IV ONE (23:00)
[2022-06-08] MEDS: PIPERACILLIN/TAZOBACTAM 3.375 GM in DEXTROSE 5% 100 ML IV SCH ×3 (05:10→21:40)
--- NOTE | 2022-06-08 06:44 | Ultrasound Report ---
US liver HISTORY: 72 years-old Male RUQ pain, history of cholangitis acute right upper quadrant abdominal jessica n COMPARISON: CT 02/11/2021 TECHNIQUE: Multiple real-time sonographic images of the abdominal right upper quadrant were obtained assessing grayscale appearance and color flow FINDINGS: The visualized pancreas is unremarkable. Capsular retraction of the inferior right hepatic lobe is re demonstrated without definitive mass. Mild marginal nodularity of the liver. Cholecystectomy. Probabl e pneumobilia again noted. Normal common bile duct measures 6 mm. The imaged right kidney is unremarkable without hydronephrosis. IMPRESSION: 1. Prior cholecystectomy. No biliary ductal dilation. 2. Heterogeneous liver with marginal nodularity redemonstrated suggestive of cirrhosis. The previousl y questioned lesion within the inferior right hepatic lobe is not definitively seen by ultrasound. ACT 112: Negative or not required by law. The above report was generated using voice recognition software. It may contain grammatical, syntax o r spelling errors. Electronically signed by: Bear Riley M.D. 06/08/2022 6:43 AM
[2022-06-08 07:22] LABS: Basophils # (auto) 0.05 K/uL (0-0.2); Basophils % (auto) 0.5 %; Eosinophils # (auto) 0.12 K/uL (0-0.50); Eosinophils % (auto) 1.2 %; Hematocrit (blood only) 38.6 % (40.1-51.0); Hemoglobin 13.3 g/dl (14.0-18.0); Immature Granulocytes # (auto) 0.04 K/uL (0.00-0.02); Immature Granulocytes % (auto) 0.4 %; Lymphocytes # (auto) 1.51 K/uL (1.2-3.4); Lymphocytes % (auto) 15.1 %; Mean Corpuscular Hemoglobin 30.4 pg (25.0-34.0); Mean Corpuscular Hgb Conc 34.5 g/dL (32.0-36.0); Mean Corpuscular Volume 88.3 fL (80.0-100.0); Mean Platelet Volume 10.2 fL (9.4-12.4); Monocytes # (auto) 1.22 K/uL (0.24-0.82); Monocytes % (auto) 12.2 %; Neutrophils # (auto) 7.06 K/uL (1.4-6.5); Neutrophils % (auto) 70.6 %; Platelet Count 187 K/uL (130-400); RDW Coefficient of Variation 13.1 % (11.5-14.5); RDW Standard Deviation 42.6 fL (36.4-46.3); Red Blood Count 4.37 M/uL (4.63-6.08)
[2022-06-08 07:49] LABS: Appearance Urine Clear (Clear); Bacteria Urine Automated Negative (Negative); Bilirubin Urine Negative (Negative); Blood Urine Negative (Negative); Color Urine Yellow; Glucose Urine UA Negative (Negative); Ketones Urine Negative (Negative); Leukocyte Esterase Urine Negative (Negative); Nitrite Urine Negative (Negative); Protein Urine 1+ (Negative); RBC Urine Automated 0-4 /hpf (0-4); Specific Gravity Urine 1.017 (1.000-1.030); Urobilinogen Urine Negative (Negative); pH Urine 6.5 (4.5-7.5)
--- NOTE | 2022-06-08 07:57 | XRay Report ---
XR chest 1V portable CLINICAL HISTORY: Sepsis COMPARISON STUDY: Chest radiograph May 08, 2021. FINDINGS: There are median sternotomy wires and mediastinal surgical clips. No pneumothorax or pleura l effusion is present. Mild cardiomegaly is unchanged. There is no evidence for pulmonary edema. Mild lower lung interstitial thickening is similar to prior exam. IMPRESSION: No acute cardiopulmonary findings. No change in appearance of the chest. ACT 112: Negative or not required by law. Electronically signed by: Dewey Felix M.D. 06/08/2022 7:56 AM
[2022-06-08 07:58] LABS: Albumin Level 3.4 gm/dl (3.4-5.0); BUN Creatinine Ratio 15.2 (10-20); Bilirubin Direct 0.4 mg/dl (0-0.2); Bilirubin,Total 1.5 mg/dl (0.2-1.0); Calcium 8.6 mg/dl (8.5-10.1); Creatinine Clr Calc Pharmacy 46.6 ml/min; Est GFR (African American) 61.6 ml/min; Est GFR (Non-African American) 53.1 ml/min; Total Protein 6.6 gm/dl (6.0-8.3)
[2022-06-08] MEDS: ASPIRIN 81 MG ECTAB PO SCH (10:33)
[2022-06-08] MEDS: FAMOTIDINE 40 MG TABLET PO SCH (10:34)
[2022-06-08] MEDS: ATORVASTATIN 40 MG TAB PO SCH (10:34)
[2022-06-08] MEDS: lisinopril 10 MG TAB PO SCH (10:35)
[2022-06-08] MEDS: METOPROLOL SUCC 50MG EXT REL TAB PO SCH (10:35)
[2022-06-08] MEDS: ursodioL 300 MG CAP PO SCH ×2 (10:36→20:23)
[2022-06-08] MEDS: LORazepam 1 MG TAB PO PRN ×2 (10:39→11:38)
[2022-06-08] MEDS ORDERED: GADOBUTROL 65ML VIAL IV ONE (13:49)
[2022-06-08] MEDS: LACTATED RINGER'S 1,000 ML IV SCH (14:22)
[2022-06-08 14:38] VITALS: O2SAT 95
--- NOTE | 2022-06-08 16:00 | Magnetic Resonance Report ---
MR abdomen wo/w con HISTORY: 72 years-old Male cholangitis, acute right upper quadrant abdominal pain. COMPARISON: Ultrasound of the liver same day, MRI abdomen 03/23/2022, MRCP 02/11/2021, CT abdomen and pe lvis 02/11/2021, CT liver 10/05/2020, MRCP 03/29/2020. TECHNIQUE: Multiplanar multisequence MRI of the abdomen was obtained both with and without the use of 7.8 cc Gadavist. FINDINGS: No acute process of the imaged lower chest. There are 2 nodules within the left lower lobe measuring up to approximately 4 mm, stable from the 02/11/2021 exam. Cardiomegaly with prior median sternotomy. P robable bibasilar atelectasis. The study is motion degraded. Trace perisplenic ascites. The spleen is normal in size. Moderately atr ophic pancreas. No pancreatic ductal dilation identified. Unremarkable adrenal glands. Cholecystectom y. There is minimal drop of signal within the liver on the [id number]. Numerous foci of stricturing throughout the intrahepatic biliary tree with long segment stricture of the common bile duct measuri ng approximately 3.3 cm is redemonstrated. No choledocholithiasis or progressive intrahepatic biliary ductal dilation. Vascular shunting with capsular retraction within the hepatic dome is redemonstrate d with increased diffusion-weighted signal, likely T2 shine-through. 2.6 cm slightly T2 hyperintense area in the inferior right hepatic lobe on image 18 series 19. It appears generally stable dating thania k to the 2018 study. This demonstrates no definite enhancement. No pancreatic ductal dilation. 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 Bilateral perinephric stranding. 1.4 cm T2 hyperintense lesion within the inferior pole of the left k idney suggestive of a probable cyst. Mild nonspecific retroperitoneal lymphadenopathy. No abdominal a ortic aneurysm. No bowel obstruction or bowel wall thickening. Unremarkable soft tissues. Degenerativ e changes of the spine. IMPRESSION: 1. Motion degraded exam. 2. Diffusely irregular intrahepatic biliary tree with multiple intrahepatic and long segment common b ile duct strictures which overall appear generally stable compared to the 02/09/2018 study. Findings a re compatible with the patient's clinical history of primary sclerosing cholangitis. 3. Fibrosis of the right hepatic lobe with inferior right hepatic lobe capsular retraction which also appears generally stable. There is a stable 2.6 cm area of probable fibrosis with hepatic neoplasm c onsidered less likely. This lesion shows no significant change dating back to 2018. 4. Cholecystectomy. ACT 112: Negative or not required by law. The above report was generated using voice recognition software. It may contain grammatical, syntax o r spelling errors. Dictated: 06/08/2022 2:48 PM Transcribed: 06/08/2022 3:25 PM Nguyen [id number] [email or web address] Electronically signed by: Bear Riley M.D. 06/08/2022 3:59 PM
--- NOTE | 2022-06-08 16:48 | Hospitalist Progress Note ---
Date of Service June 08, 2022 Assessment & Plan (1) Fever: Plan: 72yo male with history of primary sclerosing cholangitis, prior cholangitis presents with two days of progressive fever, chills and RUQ/epigastric pain. Patient reports symptoms are identical to prior episodes of cholangitis. Presently febrile, HD stable. Mild leukocytosis with WBC=11.95. LFTs are unremarkable. -Satrted on antibiotics, with clinical improvement -MRI abdomen shows stable result compared to previous study -Will continue Zosyn -Repeat CBC, Liver enzymes tomorrow (2) Primary sclerosing cholangitis: Plan: Chronic. Patient follows with GI and Hepatology at [facility] [place] -Continue Ursodiol -Continue Olsalazine 250mg po BID - patient may need to take home medication Patient follows with Hepatology at [facility] [place]> Last seen on 04/23/22. He had multiple admissions for cholangitis in the past. Last in 04/2021. Has a lesion in the right lobe of the liver that is being followed. Repeat MRI 06/08 shows comparable result to previous studies (3) Crohns disease: Plan: Chronic. Stable. Patient denies diarrhea. -Continue Olsalazine (4) CAD (coronary artery disease): Plan: Patient with CAD s/p CABG x 5V. Denies chest pain -Continue ASA 81mg po daily -Continue Atorvastatin 80mg po daily -Continue Metoprolol XL 100mg po daily -Continue Lisinopril 10mg po daily (5) GERD without esophagitis: Plan: Chronic -Continue Pepcid 40mg po daily while inpatient (6) Hypercholesterolemia: Plan: Chronic -Continue Atorvastatin 80mg po daily (7) Benign essential HTN: Plan: Chronic. Blood pressure stable, well controlled -Continue Amlodipine 10mg po daily -Continue Lisinopril 10mg po daily -Continue Metoprolol 100mg po daily -Continue to monitor Admission and Anticipated Discharge Date Admission Date: June 07, 2022 Subjective patient seen and examined, feels better Review of Systems Review of Systems: All systems reviewed are negative, apart from the ones contained in the history. Physical Exam Physical Exam: The patient is awake, alert and oriented 3, well developed and well nourished, normocephalic and atraumatic, lying in bed and in no acute distress. HEENT--PERRL, EOMI, mucous membranes and oropharynx mildly dry Neck--supple. No JVD. No bruits. Thyroid normal, trachea midline, no adenopathy. Heart--normal S1 and S2. No murmurs, rubs or gallops. Lungs--clear bilaterally, no respiratory distress, no accessory muscle use. Abdomen--normal bowel sounds and soft. Mild epigastric and left sided abdominal pain Extremities--no cyanosis or clubbing. No edema. Dermatologic--normal skin turgor, normal color, no abnormal lymph nodes, no rash. Neurologic--cranial nerves II through XII grossly intact. Rheumatologic--normal range of motion. Psychiatric--normal affect. Results & Data Results & Data ([facility]) Vital Signs (Past 12 Hours) Vital Signs Temp Pulse Resp BP Pulse Ox O2 Del Method 06/08/22 14:37 97.9 F 72 16 124/72 95 Room Air 06/08/22 07:25 97.7 F 58 L 16 112/67 92 Room Air PG Care Time/CCT Total # of Minutes Spent Total Time Spent with Patient: Total time spent is greater than 50% in coordination of care (as documented) at patient's floor/unit and/or counseling patient: Coding Level of Care Code 39918 Subseq Hosp Care Lvl 2 Diagnoses Fever R50.9 Fever type: unspecified Primary sclerosing cholangitis K83.01 Crohns disease K50.90 Gastrointestinal tract location: unspecified location Digestive disease complication type: without complication CAD (coronary artery disease) I25.10 GERD without esophagitis K21.9 Hypercholesterolemia E78.00 Benign essential HTN I10 Time Spent (min) 35 (1) Fever Fever type: unspecified Qualified Code(s): R50.9 - Fever, unspecified (2) Crohns disease Gastrointestinal tract location: unspecified location Digestive disease complication type: without complication Qualified Code(s): K50.90 - Crohn's disease, unspecified, without complications
[2022-06-08 20:26] VITALS: PULSE 77
[2022-06-08] MEDS ORDERED: amLODIPine BESYLATE 5 MG TAB PO SCH (21:00)
--- NOTE | 2022-06-08 21:41 | Electrocardiogram Report ---
Test Reason : Blood Pressure : / mmHG Vent. Rate : 081 BPM Atrial Rate : 081 BPM P-R Int : 160 ms QRS Dur : 082 ms QT Int : 362 ms P-R-T Axes : 041 -23 037 degrees QTc Int : 420 ms Normal sinus rhythm Normal ECG When compared with ECG of 08-MAY-2021 04:07, No significant change was found Confirmed by Isidro Ramirez ([id number]) on 06/08/2022 9:41:11 PM Referred By: REFERRED SELF Confirmed By:Isidro Ramirez
[2022-06-09] MEDS: PIPERACILLIN/TAZOBACTAM 3.375 GM in DEXTROSE 5% 100 ML IV SCH (05:52)
[2022-06-09 06:25] LABS: Hematocrit (blood only) 42.3 % (40.1-51.0); Hemoglobin 14.7 g/dl (14.0-18.0); Mean Corpuscular Hemoglobin 30.9 pg (25.0-34.0); Mean Corpuscular Hgb Conc 34.8 g/dL (32.0-36.0); Mean Corpuscular Volume 89.1 fL (80.0-100.0); Mean Platelet Volume 9.6 fL (9.4-12.4); Platelet Count 192 K/uL (130-400); RDW Coefficient of Variation 12.8 % (11.5-14.5); RDW Standard Deviation 41.9 fL (36.4-46.3); Red Blood Count 4.75 M/uL (4.63-6.08); White Blood Count 9.45 K/ul (4.8-10.8)
[2022-06-09 06:55] LABS: Albumin Level 3.7 gm/dl (3.4-5.0); Bilirubin Direct 0.4 mg/dl (0-0.2); Bilirubin,Total 1.7 mg/dl (0.2-1.0); Total Protein 7.5 gm/dl (6.0-8.3)
[2022-06-09 08:34] VITALS: BP 114/74; TEMP 98.6
[2022-06-09] MEDS: ATORVASTATIN 40 MG TAB PO SCH (09:15)
[2022-06-09] MEDS: ASPIRIN 81 MG ECTAB PO SCH (09:15)
[2022-06-09] MEDS: FAMOTIDINE 40 MG TABLET PO SCH (09:16)
[2022-06-09] MEDS: lisinopril 10 MG TAB PO SCH (09:16)
[2022-06-09] MEDS: METOPROLOL SUCC 50MG EXT REL TAB PO SCH (09:17)
[2022-06-09] MEDS: ursodioL 300 MG CAP PO SCH (09:17)
--- NOTE | 2022-06-09 14:58 | Discharge Summary ---
Date of Service June 09, 2022 Admission HPI Per Admitting Provider Skip Hartley is a 72 yo male with history of Primary Sclerosing Cholangitis, CAD s/p CABG x 5v (1995), HTN, HLP, GERD and FLAKITO presenting with fever, chills and RUQ abdominal pain. Patient has history of PSC with multiple prior episodes of cholangitis. He typically presents as such - epigastric and RUQ pain followed by fever, chills and nausea. Patient began feeling some epigastric fullness and RUQ pain 06/06/22 which worsened today. He then developed fever to 102.7 and chills. He took a Cipro today at 15:00 (has them at home in case he develops fever). Patient follows with Hepatology at [facility]. In the ER he is febrile, HD stable, nontoxic in appearance. ER Course: Cefepime, Tylenol, Labetalol, Zofran, NSS Principal Diagnosis cholangitis Discharge Exam The patient is awake, alert and oriented 3, well developed and well nourished, normocephalic and atraumatic, lying in bed and in no acute distress. HEENT--PERRL, EOMI, mucous membranes and oropharynx mildly dry Neck--supple. No JVD. No bruits. Thyroid normal, trachea midline, no adenopathy. Heart--normal S1 and S2. No murmurs, rubs or gallops. Lungs--clear bilaterally, no respiratory distress, no accessory muscle use. Abdomen--normal bowel sounds and soft. Mild epigastric and left sided abdominal pain Extremities--no cyanosis or clubbing. No edema. Dermatologic--normal skin turgor, normal color, no abnormal lymph nodes, no rash. Neurologic--cranial nerves II through XII grossly intact. Rheumatologic--normal range of motion. Psychiatric--normal affect. Discharge Data Allergies Allergy/AdvReac Type Severity Reaction Status Date / Time Sulfa (Sulfonamide Allergy Unknown fever/chill Verified 06/07/22 19:50 Antibiotics) s amoxicillin AdvReac Mild Diarrhea Verified 06/07/22 19:50 clavulanic acid AdvReac Diarrhea Verified 06/07/22 19:50 [From Augmentin] Consultations 06/07/22 20:56 ED Decision to Admit Stat Ordered Studies 06/07/22 21:29 US liver Urgent 06/08/22 08:29 MRI Abdomen [MR abdomen wo/w con] Routine Hospital Course (1) Fever: 72yo male with history of primary sclerosing cholangitis, prior cholangitis presents with two days of progressive fever, chills and RUQ/epigastric pain. Patient reports symptoms are identical to prior episodes of cholangitis. Presently febrile, HD stable. Mild leukocytosis with WBC=11.95. LFTs are unremarkable. -Satrted on antibiotics, with clinical improvement -MRI abdomen shows stable result compared to previous study -Will discharge on PO Cipro and Flagyl for 5 days -Follow up with regular GI dcotors (2) Primary sclerosing cholangitis: Chronic. Patient follows with GI and Hepatology at [facility] -Continue Ursodiol -Continue Olsalazine 250mg po BID - patient may need to take home medication Patient follows with Hepatology at [facility]> Last seen on 04/23/22. He had multiple admissions for cholangitis in the past. Last in 04/2021. Has a lesion in the right lobe of the liver that is being followed. Repeat MRI 06/08 shows comparable result to previous studies (3) Crohns disease: Chronic. Stable. Patient denies diarrhea. -Continue Olsalazine (4) CAD (coronary artery disease): Patient with CAD s/p CABG x 5V. Denies chest pain -Continue ASA 81mg po daily -Continue Atorvastatin 80mg po daily -Continue Metoprolol XL 100mg po daily -Continue Lisinopril 10mg po daily (5) GERD without esophagitis: Chronic -Continue Pepcid 40mg po daily while inpatient (6) Hypercholesterolemia: Chronic -Continue Atorvastatin 80mg po daily (7) Benign essential HTN: Chronic. Blood pressure stable, well controlled -Continue Amlodipine 10mg po daily -Continue Lisinopril 10mg po daily -Continue Metoprolol 100mg po daily -Continue to monitor Total Time Total Time Spent Total Time Spent (In Minutes): 35 Discharge Plan Discharge Items Patient Disposition: Home - Self-Care Reason For Visit: RUQ PAIN, FEVER Discharge Diagnosis: cholangitis Condition on Discharge: Good Activity: Resume your previous activity Non-emergency contact: Primary Care Provider and Wood Cabinet Finisher Call non-emergency contact if: you have any medication questions Follow-up/Referrals: Alex Terrazas MD [Primary Care Provider] - 06/17/22 11:45 am Kiki Gutierres CRNP [Nurse Practitioner] - 06/19/22 2:00 pm Diet: Regular Addtl Attending Provider Instructions: please make appointment to follow up with your regular PCP and GI doctor Pending Studies at Discharge: No Stand-Alone Forms: My [facility], Smoking Cessation Medications and DC Order Prescriptions: New ciprofloxacin HCl 500 mg tablet 500 mg PO BID 5 Days Qty: 10 0RF metronidazole [Flagyl] 375 mg capsule 375 mg PO BID 5 Days Qty: 10 0RF Continued metoprolol succinate 100 mg tablet extended release 24 hr 100 mg PO QAM Qty: 90 3RF nitroglycerin 0.4 mg tablet, sublingual 0.4 mg SL Q5M PRN (Reason: chest pain) Qty: 25 3RF omeprazole 40 mg capsule,delayed release(DR/EC) 40 mg PO DAILY Qty: 90 3RF aspirin 81 mg tablet,delayed release (DR/EC) 81 mg PO DAILY Qty: 90 3RF atorvastatin 80 mg tablet 80 mg PO DAILY Qty: 90 3RF lisinopril 10 mg tablet 10 mg PO DAILY Qty: 90 3RF lorazepam 1 mg tablet 1 mg PO .COMPLEX PRN (Reason: anxiety) Qty: 2 0RF Rx Instructions: 1 mg PO 1 hr prior and immediately prior to MRI PRN; amlodipine 10 mg tablet 10 mg PO PM Qty: 90 3RF Rx Instructions: Take with supper for blood pressure. Dipentum 250 mg capsule 250 mg PO BID Qty: 180 3RF cholecalciferol (vitamin D3) [Vitamin D3] 50 mcg (2,000 unit) Tablet 50 mcg PO DAILY ursodiol 300 mg capsule 300 mg PO [facility] Discharge Orders: Discharge Order (Routine); Ordered 06/09/22 Ordered By: Carlos Johnson/Other Patient Handouts: ED Epigastric Pain Uncertain Cause Admission Data Admit Date/Time: 06/07/22 21:29 Attending Provider: Carlos Tucker Admit Provider: Madison Scruggs Primary Care Provider: Alex Terrazas Other Providers: Madison Scruggs Other Interventions: Discharge Summary Assessment (RN) Last Done: 06/09/22 12:53 Coding Level of Care Code D/C DAY MANAGEMENT >30 MINS Diagnoses Fever R50.9 Fever type: unspecified Primary sclerosing cholangitis K83.01 Crohns disease K50.90 Gastrointestinal tract location: unspecified location Digestive disease complication type: without complication CAD (coronary artery disease) I25.10 GERD without esophagitis K21.9 Hypercholesterolemia E78.00 Benign essential HTN I10 Time Spent (min) 35
== END 2022-06-09 13:16 | disposition home or self-care (01) ==
LOC: 3N 19:02 → ED 19:02 → SUATTDRO 21:29 → 3N 23:01
DX: Z79.899 Other long term (current) drug therapy; Z95.1 Presence of aortocoronary bypass graft; I25.10 Atherosclerotic heart disease of native coronary artery without angina pectoris; Z88.1 Allergy status to other antibiotic agents; I10 Essential (primary) hypertension; Z88.2 Allergy status to sulfonamides; K83.01 Primary sclerosing cholangitis; E78.00 Pure hypercholesterolemia, unspecified; Z79.82 Long term (current) use of aspirin; K21.9 Gastro-esophageal reflux disease without esophagitis; D72.829 Elevated white blood cell count, unspecified

== ENCOUNTER 2023-05-12 13:40 | Inpatient (IN) ==
[2023-05-12 16:00] LABS: Basophils # (auto) 0.04 K/uL (0.00-0.20); Basophils % (auto) 0.4 %; Eosinophils # (auto) 0.08 K/uL (0.00-0.50); Eosinophils % (auto) 0.7 %; Hematocrit (blood only) 45.6 % (42.0-52.0); Hemoglobin 15.7 g/dl (14.0-18.0); Immature Granulocytes # (auto) 0.05 K/uL (0.01-0.20); Immature Granulocytes % (auto) 0.5 %; Lymphocytes # (auto) 1.19 K/uL (1.20-3.40); Mean Corpuscular Hemoglobin 30.1 pg (25.0-34.0); Mean Corpuscular Hgb Conc 34.4 g/dL (32.0-36.0); Mean Corpuscular Volume 87.5 fL (80.0-100.0); Mean Platelet Volume 9.6 fL (9.4-12.4); Monocytes % (auto) 8.3 %; Neutrophils # (auto) 8.55 K/uL (1.40-6.50); Neutrophils % (auto) 79.1 %; Platelet Count 250 K/uL (130-400); RDW Coefficient of Variation 13.2 % (11.5-14.5); RDW Standard Deviation 42.7 fL (36.4-46.3); Red Blood Count 5.21 M/uL (4.70-6.10); White Blood Count 10.81 K/ul (4.8-10.8)
[2023-05-12 16:32] LABS: Albumin Globulin Ratio 1.2 (0.9-2); Albumin Level 4.3 gm/dl (3.4-5.0); BUN Creatinine Ratio 15.7 (10-20); Bilirubin,Total 1.7 mg/dl (0.2-1.0); Calcium 9.6 mg/dl (8.6-10.3); Creatinine Clr Calc Pharmacy 39.6 ml/min; Est GFR (African American) 51.2 ml/min; Est GFR (Non-African American) 44.1 ml/min; Globulin 3.6 gm/dl (2.5-4.0); Magnesium 1.8 mg/dl (1.7-2.4); Potassium 4.8 mmol/L (3.5-5.1); Total Protein 7.9 gm/dl (6.0-8.3)
[2023-05-12] MEDS ORDERED: ONDANSETRON INJ 2 MG/ML 2 ML VIAL IV STA (16:32)
[2023-05-12 16:38] LABS: Troponin I High Sensitivity 6.8 pg/ml (0-20)
--- NOTE | 2023-05-12 16:49 | XRay Report ---
SINGLE VIEW CHEST CLINICAL HISTORY: Sepsis. FINDINGS: An AP, portable, upright chest radiograph is compared to study dated 06/07/2022 and correlat ed with chest CT dated 04/20/2023. The patient is status post midline sternotomy. The heart is enlarged . The pulmonary vasculature is noncongested. Chronic interstitial thickening similar to previous. The re is bibasilar scarring/atelectasis. No airspace consolidation or large pleural effusion is identifi ed. No pneumothorax is seen. The skeletal structures are osteopenic. The bony thorax is grossly intac t. IMPRESSION: Cardiomegaly with no acute cardiopulmonary abnormality. ACT 112: Negative or not required by law. Electronically signed by: Alex Cameron M.D. 05/12/2023 4:47 PM
[2023-05-12] MEDS ORDERED: SODIUM CHLORIDE 0.9% 2,000 ML IV ONE (16:53)
[2023-05-12] MEDS ORDERED: CEFEPIME 2,000 MG/20 ML VIAL IV STA (16:53)
--- NOTE | 2023-05-12 17:14 | Emergency Department Note ---
Impression & Plan Fever, Elevated bilirubin, Primary sclerosing cholangitis ED Provider Note NAME: MARKUS DARNELL AGE: 73 SEX: M : 1950 ARRIVES VIA: Walk-In INFORMANT: Patient ED PROVIDER(S): Edwadr Franks DO CHIEF COMPLAINT: abdominal pain HPI: Patient is a 73-year-old male who presents to the ER for fevers of 102-103. He has a past medical history of primary sclerosing cholangitis, Crohn's disease, CAD and JUANCHO who presents to the ER for fevers of 102-103 today. He denies any headache or change in vision. No chest pain or shortness of breath. No nausea, vomiting or diarrhea. No dysuria, urgency or frequency. No other exacerbating or remitting factors. He does not believe he has any discomfort in the right upper quadrant. PAST MEDICAL HISTORY:See Below PAST SURGICAL HISTORY:See Below FAMILY HISTORY:See Below SOCIAL HISTORY:See Below HOME MEDICATIONS:See Below ALLERGIES:See Below VITALS:See Below PHYSICAL EXAMINATION: GENERAL: Sitting up in bed, alert, well appearing, well nourished, no distress, non-toxic EYE EXAM: normal conjunctiva. OROPHARYNX: no exudate, no erythema, lips, buccal mucosa, and tongue normal and mucous membranes are moist NECK: supple, no nuchal rigidity, no adenopathy, non-tender LUNGS: Clear to auscultation. Normal chest wall mechanics HEART: no murmurs, S1 normal and S2 normal ABDOMEN: abdomen soft, non-tender, normo-active bowel sounds, no masses, no rebound or guarding. BACK: Back is symmetrical on inspection and there is no deformity, no midline tenderness, no CVA tenderness. SKIN: no rashes and no bruising UPPER EXTREMITIES: upper extremities are grossly normal. LOWER EXTREMITIES: No pitting edema. NEURO EXAM: Normal sensorium, cranial nerves II-XII grossly intact, normal speech, no gross weakness of arms, no gross weakness of legs. MEDICAL DECISION MAKING: Patient is a 73-year-old male who presents ER for the above-stated complaint. IV was established blood work was obtained. External records reviewed with a history of primary sclerosing cholangitis. Labs show mild leukocytosis of 10.8 thousand. No significant anemia. BMP with a creatinine 1.5. T. bili 1.7. No transaminitis. Pro-Laith normal. UA was clean. Lyme COVID flu and RSV was negative. Ultrasound of the liver was unremarkable. He was given IV antibiotics as well as fluids. Updated bedside. With extensive history of PSC patient was discussed with the hospitalist for further evaluation management treatment. Triage Nursing notes reviewed. Limited review of prior medical records performed Vital Signs: reviewed and remarkable for no significant abnormalities Differential diagnosis: Differential diagnosis includes etiologies such as sepsis, UTI, pneumonia, metabolic, electrolyte abnormalities, cardiac sources, intracerebral event, toxicologic, neurological, as well as others were entertained. ER treatment provided: See below Diagnostics interpreted by me include EKG and cardiac monitoring as listed below: -Cardiac Monitoring: An order was placed for continuous cardiac monitoring. The monitor shows a rate of 70 with sinus rhythm. -ECG: none -Laboratory studies:Interpreted by me as stated above in MDM and shown below. Imaging studies: Xrays: As interpreted by me:none CTs show: none Ultrasound liver was unremarkable Consultation(s): As described in MDM Procedures:none Critical Care: None Past Med/Surg History Medical History Acute renal insufficiency Ascending cholangitis CAD (coronary artery disease) Crohn disease DVT prophylaxis GERD (gastroesophageal reflux disease) Hand eczema Hyperlipidemia Hypertension Leukocytosis Medicare annual wellness visit, subsequent Medicare annual wellness visit, subsequent Myocardial Infarction 1995 - then CABG X 5 IN [place] Osteoporosis Prostate cancer screening Sleep apnea no machine Vitamin D deficiency Surgical History History of open reduction and internal fixation (ORIF) procedure RIGHT ELBOW Hx of appendectomy Hx of colonoscopy Hx of foot surgery RIGHT FOOT SURGERY, REMOVAL OF FIBROMA Hx of inguinal hernia repair RIGHT Hx of laceration of skin LEFT WRIST REPAIR OF LACERATION S/P CABG x 5 1995 AFTER [place] Family History Other Family history non-contributory Social History Smoking Status: Never smoker Second Hand Exposure: No; Do You Dip or Chew Tobacco: No; Hx Alcohol Use: No Hx Substance Use: No Preferred Language: Burkinan Communication Ability: Effective Sales Route Driver Required: No Beliefs That Will Affect Care: None marital status: Current Living Situation: Spouse Current Living Situation Comment: lives with in a 2 story home Feels Safe at Home: Yes caffeine: No Seatbelt Use: always Assistive Devices: None Allergies Allergies Allergy/AdvReac Type Severity Reaction Status Date / Time amoxicillin AdvReac Intermediate Diarrhea Verified 05/12/23 16:51 clavulanic acid AdvReac Intermediate Diarrhea Verified 05/12/23 16:51 [From Augmentin] Sulfa (Sulfonamide AdvReac Intermediate fever/chill Verified 05/12/23 16:51 Antibiotics) s Home Meds Home Medications Medication Instructions Recorded Confirmed cholecalciferol (vitamin D3) 50 50 mcg PO DAILY 10/02/20 05/12/23 mcg (2,000 unit) tablet (Vitamin D3) metronidazole 500 mg tablet 500 mg PO DIRECTED PRN 07/09/22 05/12/23 PROPHYLACTICALLY ursodiol 300 mg capsule 300 mg PO BID 01/08/23 05/12/23 amlodipine 10 mg tablet 10 mg PO QDD 05/12/23 05/12/23 lorazepam 1 mg tablet 1 mg PO DIRECTED PRN 05/12/23 05/12/23 Claustrophobia Previous Rx's Medication Instructions Recorded aspirin 81 mg tablet,delayed 81 mg PO DAILY #90 tabs 04/13/19 release olsalazine 250 mg capsule 250 mg PO BID #180 caps 07/08/21 (Dipentum) nitroglycerin 0.4 mg sublingual 0.4 mg sublingual Q5M PRN chest 12/17/21 tablet pain #25 tabs atorvastatin 80 mg tablet 80 mg PO DAILY #90 tabs 03/12/22 lisinopril 10 mg tablet 10 mg PO DAILY #90 tabs 03/12/22 cholestyramine (with sugar) 4 gram 4 g PO BID #378 grams 07/20/22 oral powder metoprolol succinate 100 mg 100 mg PO QAM #90 tabs 07/27/22 tablet,extended release 24 hr omeprazole 40 mg capsule,delayed 40 mg PO DAILY #90 caps 03/01/23 release ondansetron 4 mg disintegrating 4 mg PO Q6H PRN nausea and 04/20/23 tablet vomiting #10 tabs oxycodone 5 mg tablet 5 mg PO Q4H PRN pain #15 tabs 04/20/23 Results & Data (ED) Vital Signs Vital Signs - 24 hr 05/12/23 13:54 05/12/23 16:37 05/12/23 19:38 Temperature 37.7 C H Temperature Source Oral Pulse Rate 81 Pulse Rate [Apical] Respiratory Rate 18 Respiratory Effort / Characteristics Non-Labored Spontaneous Respiratory Depth Normal Respiratory Pattern Regular Blood Pressure 104/69 Blood Pressure [Right Arm] Blood Pressure Mean 80 Blood Pressure Mean [Right Arm] Blood Pressure Position Sitting Pulse Oximetry 96 96 Oxygen Delivery Method Room Air Room Air Room Air Sepsis Recent Fever Within 48 Hours No Sepsis New/Unexplained Change in Mental Status N/A Sepsis Action Taken by Nursing No Action Required 05/12/23 18:00 05/12/23 20:00 Temperature Temperature Source Pulse Rate Pulse Rate [Apical] 82 78 Respiratory Rate 16 16 Respiratory Effort / Characteristics Respiratory Depth Respiratory Pattern Blood Pressure Blood Pressure [Right Arm] 131/92 122/61 Blood Pressure Mean Blood Pressure Mean [Right Arm] 105 81 Blood Pressure Position Pulse Oximetry 95 96 Oxygen Delivery Method Room Air Sepsis Recent Fever Within 48 Hours Sepsis New/Unexplained Change in Mental Status Sepsis Action Taken by Nursing Laboratory Data 05/12/23 15:34 05/12/23 15:34 Lab Results 05/12/23 05/12/23 05/12/23 Range/Units 15:34 15:34 15:35 WBC 10.81 H (4.8-10.8) K/ul RBC 5.21 (4.70-6.10) M/uL Hgb 15.7 (14.0-18.0) g/dl Hct 45.6 (42.0-52.0) % MCV 87.5 (80.0-100.0) fL MCH 30.1 (25.0-34.0) pg MCHC 34.4 (32.0-36.0) g/dL RDW Std Deviation 42.7 (36.4-46.3) fL RDW Coeff of Kaity 13.2 (11.5-14.5) % Plt Count 250 (130-400) K/uL MPV 9.6 (9.4-12.4) fL Immature Gran % (Auto) 0.5 % Neut % (Auto) 79.1 % Lymph % (Auto) 11.0 % Jennings % (Auto) 8.3 % Eos % (Auto) 0.7 % Baso % (Auto) 0.4 % Neut # (Auto) 8.55 H (1.40-6.50) K/uL Lymph # (Auto) 1.19 L (1.20-3.40) K/uL Jennings # (Auto) 0.90 H (0.11-0.59) K/uL Eos # (Auto) 0.08 (0.00-0.50) K/uL Baso # (Auto) 0.04 (0.00-0.20) K/uL Immature Gran # (Auto) 0.05 (0.01-0.20) K/uL Sodium 133 L (136-145) mmol/L Potassium 4.8 (3.5-5.1) mmol/L Chloride 102 (98-107) mmol/L Carbon Dioxide 24 (21-32) mmol/L Anion Gap 7 (3-11) BUN 24 H (6-23) mg/dl Creatinine 1.53 H (0.6-1.4) mg/dl Est Cr Clr Drug Dosing 39.6 ml/min Est GFR ( Amer) 51.2 ml/min Est GFR (Non-Af Amer) 44.1 ml/min BUN/Creatinine Ratio 15.7 (10-20) Glucose 113 H (70-99(Fasting)) mg/dl Lactate (0.4-2.0) mmol/L Calcium 9.6 (8.6-10.3) mg/dl Magnesium 1.8 (1.7-2.4) mg/dl Total Bilirubin 1.7 H (0.2-1.0) mg/dl AST 32 (13-39) U/L ALT 23 (7-52) U/L Alkaline Phosphatase 106 H (34-104) U/L Troponin I High Sens 6.8 (0-20) pg/ml Total Protein 7.9 (6.0-8.3) gm/dl Albumin 4.3 (3.4-5.0) gm/dl Globulin 3.6 (2.5-4.0) gm/dl Albumin/Globulin Ratio 1.2 (0.9-2) Procalcitonin 0.36 (0-0.5) ng/ml Urine Color Urine Appearance (Clear) Urine pH (4.5-7.5) Ur Specific Newton (1.000-1.030) Urine Protein (Negative) Urine Glucose (UA) (Negative) Urine Ketones (Negative) Urine Blood (Negative) Urine Nitrite (Negative) Urine Bilirubin (Negative) Urine Urobilinogen (Negative) Ur Leukocyte Esterase (Negative) Lyme Disease IgG Ab (Negative) Lyme Disease IgM Ab (Negative) SARS-CoV-2 (PCR) (Negative) Influenza Type A (PCR) (Neg) Influenza Type B (PCR) (Neg) RSV (RT-PCR) (Neg) 05/12/23 05/12/23 05/12/23 Range/Units 15:35 16:28 18:26 WBC (4.8-10.8) K/ul RBC (4.70-6.10) M/uL Hgb (14.0-18.0) g/dl Hct (42.0-52.0) % MCV (80.0-100.0) fL MCH (25.0-34.0) pg MCHC (32.0-36.0) g/dL RDW Std Deviation (36.4-46.3) fL RDW Coeff of Kaity (11.5-14.5) % Plt Count (130-400) K/uL MPV (9.4-12.4) fL Immature Gran % (Auto) % Neut % (Auto) % Lymph % (Auto) % Jennings % (Auto) % Eos % (Auto) % Baso % (Auto) % Neut # (Auto) (1.40-6.50) K/uL Lymph # (Auto) (1.20-3.40) K/uL Jennings # (Auto) (0.11-0.59) K/uL Eos # (Auto) (0.00-0.50) K/uL Baso # (Auto) (0.00-0.20) K/uL Immature Gran # (Auto) (0.01-0.20) K/uL Sodium (136-145) mmol/L Potassium (3.5-5.1) mmol/L Chloride (98-107) mmol/L Carbon Dioxide (21-32) mmol/L Anion Gap (3-11) BUN (6-23) mg/dl Creatinine (0.6-1.4) mg/dl Est Cr Clr Drug Dosing ml/min Est GFR ( Amer) ml/min Est GFR (Non-Af Amer) ml/min BUN/Creatinine Ratio (10-20) Glucose (70-99(Fasting)) mg/dl Lactate 1.1 (0.4-2.0) mmol/L Calcium (8.6-10.3) mg/dl Magnesium (1.7-2.4) mg/dl Total Bilirubin (0.2-1.0) mg/dl AST (13-39) U/L ALT (7-52) U/L Alkaline Phosphatase (34-104) U/L Troponin I High Sens (0-20) pg/ml Total Protein (6.0-8.3) gm/dl Albumin (3.4-5.0) gm/dl Globulin (2.5-4.0) gm/dl Albumin/Globulin Ratio (0.9-2) Procalcitonin (0-0.5) ng/ml Urine Color Urine Appearance (Clear) Urine pH (4.5-7.5) Ur Specific Newton (1.000-1.030) Urine Protein (Negative) Urine Glucose (UA) (Negative) Urine Ketones (Negative) Urine Blood (Negative) Urine Nitrite (Negative) Urine Bilirubin (Negative) Urine Urobilinogen (Negative) Ur Leukocyte Esterase (Negative) Lyme Disease IgG Ab Negative (Negative) Lyme Disease IgM Ab Negative (Negative) SARS-CoV-2 (PCR) NEGATIVE (Negative) Influenza Type A (PCR) Negative (Neg) Influenza Type B (PCR) Negative (Neg) RSV (RT-PCR) Negative (Neg) 05/12/23 Range/Units 18:33 WBC (4.8-10.8) K/ul RBC (4.70-6.10) M/uL Hgb (14.0-18.0) g/dl Hct (42.0-52.0) % MCV (80.0-100.0) fL MCH (25.0-34.0) pg MCHC (32.0-36.0) g/dL RDW Std Deviation (36.4-46.3) fL RDW Coeff of Kaity (11.5-14.5) % Plt Count (130-400) K/uL MPV (9.4-12.4) fL Immature Gran % (Auto) % Neut % (Auto) % Lymph % (Auto) % Jennings % (Auto) % Eos % (Auto) % Baso % (Auto) % Neut # (Auto) (1.40-6.50) K/uL Lymph # (Auto) (1.20-3.40) K/uL Jennings # (Auto) (0.11-0.59) K/uL Eos # (Auto) (0.00-0.50) K/uL Baso # (Auto) (0.00-0.20) K/uL Immature Gran # (Auto) (0.01-0.20) K/uL Sodium (136-145) mmol/L Potassium (3.5-5.1) mmol/L Chloride (98-107) mmol/L Carbon Dioxide (21-32) mmol/L Anion Gap (3-11) BUN (6-23) mg/dl Creatinine (0.6-1.4) mg/dl Est Cr Clr Drug Dosing ml/min Est GFR ( Amer) ml/min Est GFR (Non-Af Amer) ml/min BUN/Creatinine Ratio (10-20) Glucose (70-99(Fasting)) mg/dl Lactate (0.4-2.0) mmol/L Calcium (8.6-10.3) mg/dl Magnesium (1.7-2.4) mg/dl Total Bilirubin (0.2-1.0) mg/dl AST (13-39) U/L ALT (7-52) U/L Alkaline Phosphatase (34-104) U/L Troponin I High Sens (0-20) pg/ml Total Protein (6.0-8.3) gm/dl Albumin (3.4-5.0) gm/dl Globulin (2.5-4.0) gm/dl Albumin/Globulin Ratio (0.9-2) Procalcitonin (0-0.5) ng/ml Urine Color Yellow Urine Appearance Clear (Clear) Urine pH 6.5 (4.5-7.5) Ur Specific Newton 1.022 (1.000-1.030) Urine Protein Negative (Negative) Urine Glucose (UA) Negative (Negative) Urine Ketones Negative (Negative) Urine Blood Negative (Negative) Urine Nitrite Negative (Negative) Urine Bilirubin Negative (Negative) Urine Urobilinogen Negative (Negative) Ur Leukocyte Esterase Negative (Negative) Lyme Disease IgG Ab (Negative) Lyme Disease IgM Ab (Negative) SARS-CoV-2 (PCR) (Negative) Influenza Type A (PCR) (Neg) Influenza Type B (PCR) (Neg) RSV (RT-PCR) (Neg) Administered Medications Discontinued Medications Sodium Chloride (Nss 1000ml) 2,000 mls @ 999 mls/hr IV .Q2H1M ONE Stop: 05/12/23 18:53 Last Infusion: 05/12/23 20:03 Dose: 999 mls/hr Documented By: Admin: 05/12/23 17:14 Dose: 999 mls/hr Documented By: ACC Cefepime HCl (Maxipime) 2,000 mg in 20 mls @ 5 mls/min IV NOW STA; Protocol Stop: 05/12/23 16:56 Last Admin: 05/12/23 17:11 Dose: 5 mls/min Documented By: ACC Ondansetron HCl (Ondansetron Inj 2 Mg/Ml 2 Ml Vial) 4 mg IV NOW STA Stop: 05/12/23 16:33 Last Admin: 05/12/23 16:34 Dose: 4 mg Documented By: BCN Imaging Data Radiologist's Impression: Chest X-Ray 05/12/23 15:59 SINGLE VIEW CHEST CLINICAL HISTORY: Sepsis. FINDINGS: An AP, portable, upright chest radiograph is compared to study dated 06/07/2022 and correlated with chest CT dated 04/20/2023. The patient is status post midline sternotomy. The heart is enlarged. The pulmonary vasculature is noncongested. Chronic interstitial thickening similar to previous. There is bibasilar scarring/atelectasis. No airspace consolidation or large pleural effusion is identified. No pneumothorax is seen. The skeletal structures are osteopenic. The bony thorax is grossly intact. IMPRESSION: Cardiomegaly with no acute cardiopulmonary abnormality. ACT 112: Negative or not required by law. Electronically signed by: Alex Cameron M.D. 05/12/2023 4:47 PM Liver Ultrasound 05/12/23 17:14 US liver CLINICAL HISTORY: Fever. Right upper quadrant pain. COMPARISON STUDY: CT of the abdomen and pelvis and right upper quadrant ultraso und April 20, 2023. FINDINGS: The liver is cirrhotic. No hepatic lesions are identified by sonography. No biliary ductal dilatation is identified. Common bile duct measures 4 mm. The gallbladder is surgically absent. Pancreatic body is normal. Head and tail are obscured. There is no right hydronephrosis. IMPRESSION: 1. Cirrhotic liver. No hepatic lesions identified by sonography. 2. No biliary ductal dilatation status post cholecystectomy. ACT 112: Negative or not required by law. Electronically signed by: Dewey Felix M.D. 05/12/2023 6:14 PM Discharge Plan Visit Data Chief Complaint: Illness Stated Complaint: LIVER PROBLEMS, CHILLS, FEVER ED Provider: Edward Franks Discharge Problem: Fever, Elevated bilirubin, Primary sclerosing cholangitis Forms Stand Alone Forms: [facility] Prescriptions Prescriptions: No Action nitroglycerin 0.4 mg tablet, sublingual 0.4 mg SL Q5M PRN (Reason: chest pain) Qty: 25 3RF cholestyramine (with sugar) 4 gram powder 4 g PO BID Qty: 378 5RF Rx Instructions: administer w/meal; avoid other meds within 1hr of taking it metoprolol succinate 100 mg tablet extended release 24 hr 100 mg PO QAM Qty: 90 3RF omeprazole 40 mg capsule,delayed release(DR/EC) 40 mg PO DAILY Qty: 90 3RF aspirin 81 mg tablet,delayed release (DR/EC) 81 mg PO DAILY Qty: 90 3RF atorvastatin 80 mg tablet 80 mg PO DAILY Qty: 90 3RF lisinopril 10 mg tablet 10 mg PO DAILY Qty: 90 3RF metronidazole 500 mg tablet 500 mg PO DIRECTED PRN (Reason: PROPHYLACTICALLY) Dipentum 250 mg capsule 250 mg PO BID Qty: 180 3RF ursodiol 300 mg capsule 300 mg PO BID cholecalciferol (vitamin D3) [Vitamin D3] 50 mcg (2,000 unit) Tablet 50 mcg PO DAILY ondansetron 4 mg tablet,disintegrating 4 mg PO Q6H PRN (Reason: nausea and vomiting) Qty: 10 0RF oxycodone 5 mg tablet 5 mg PO Q4H PRN (Reason: pain) Qty: 15 0RF amlodipine 10 mg tablet 10 mg PO QDD Rx Instructions: Take with supper for blood pressure. lorazepam 1 mg tablet 1 mg PO DIRECTED PRN (Reason: Claustrophobia) Rx Instructions: 1 mg orally 1 hour prior to MRI PRN; take second pill immediately prior to MRI if needed. Referrals Referrals: Alex Terrazas MD [Primary Care Provider] -
--- NOTE | 2023-05-12 18:15 | Ultrasound Report ---
US liver CLINICAL HISTORY: Fever. Right upper quadrant pain. COMPARISON STUDY: CT of the abdomen and pelvis and right upper quadrant ultrasound April 20, 2023. FINDINGS: The liver is cirrhotic. No hepatic lesions are identified by sonography. No biliary ductal dilatation is identified. Common bile duct measures 4 mm. The gallbladder is surgically absent. Pancr eatic body is normal. Head and tail are obscured. There is no right hydronephrosis. IMPRESSION: 1. Cirrhotic liver. No hepatic lesions identified by sonography. 2. No biliary ductal dilatation status post cholecystectomy. ACT 112: Negative or not required by law. Electronically signed by: Dewey Felix M.D. 05/12/2023 6:14 PM
[2023-05-12 19:11] LABS: Influenza A virus by PCR Negative (Neg); Influenza B virus by PCR Negative (Neg); RSV by PCR Negative (Neg); SARS CoV2 RNA(COVID-19) Ceph NEGATIVE (Negative)
[2023-05-12 19:19] LABS: Lyme Ab IgG w/WB Rflx Negative (Negative); Lyme Ab IgM w/WB Rflx Negative (Negative)
[2023-05-12 19:21] LABS: Appearance Urine Clear (Clear); Bilirubin Urine Negative (Negative); Blood Urine Negative (Negative); Color Urine Yellow; Glucose Urine UA Negative (Negative); Ketones Urine Negative (Negative); Leukocyte Esterase Urine Negative (Negative); Nitrite Urine Negative (Negative); Protein Urine Negative (Negative); Specific Gravity Urine 1.022 (1.000-1.030); Urobilinogen Urine Negative (Negative); pH Urine 6.5 (4.5-7.5)
--- NOTE | 2023-05-12 21:09 | History & Physical Report ---
Date of Service May 12, 2023 Assessment & Plan (1) Fever: Plan: -Suspect possible biliary infection/ascending cholangitis in setting of known PSC -Negative lactate, pt hemodynamically stable, mild/absent leukocytosis at 10.8, not meeting SIRS criteria on admission -Continue cefepime, Flagyl added for further GI anaerobe coverage -BCx pending -Tylenol PRN -Trend CBC (2) Primary sclerosing cholangitis: Plan: -Chronic, follows with [facility] -MELD score 17 on admission -Continue ursodiol, cholestyramine -MRCP ordered -GI consult placed for AM -NPO midnight for potential ERCP in AM (3) Elevated bilirubin: Plan: -TB 1.7, improved from 4.1 on 04/20 -Associated elevated ALP at 106 -Clinical exam without jaundice or scleral icterus -Likely elevated secondary to worsening biliary disease -Trend CMP (4) Acute renal insufficiency: Plan: -Cr 1.53 on admission, known CKD3 -1LR repletion ongoing -Holding lisinopril -Trend BMP (5) Hyponatremia: Plan: -Na 133 on admission -Likely due to lack of oral intake leading up to admission -IV fluid repletion ongoing -Trend BMP (6) Crohns disease: Plan: -Lower suspicion for acute flare at present -Continue Dipentum (7) CAD (coronary artery disease): Plan: -Continue aspirin, atorvastatin, metoprolol -Holding lisinopril as above (8) GERD without esophagitis: Plan: -Continue omeprazole or formulary equivalent (9) Hypercholesterolemia: Plan: -Continue atorvastatin 80 mg (10) Benign essential HTN: Plan: -BP stable -Continue amlodipine -Holding lisinopril as above Plan FENGI: Clear liquids, NPO midnight Code status: Full DVT prophylaxis: SCDs Isolation: None Disposition: Medical/surgical History of Present Illness Chief Complaint: Fever Primary Care Provider: Alex Terrazas MD Pt is 73 yo M with PMH primary sclerosing cholangitis s/p cholecystectomy, CAD s/p CABG x5, HTN, HLD, GERD, Crohn's disease presenting with fever. Pt was in ER on 04/20 for severe upper abdominal pain with nausea and vomiting. MRCP in late 03/2023 significant for distal bile duct choledocholithiasis vs sludge with ER CTAP w/ similar findings. Consultation placed with [facility], pt had ERCP at [facility] [place]- noted common hepatic duct stricture requiring dilation and stone extraction w/ sludge removal. Pt discharged with 1 week of ciprofloxacin/Flagyl. Pt initially did well after discharge though reports at 6 AM this morning upon awakening onset of fatigue, chills, epigastric abdominal pain, nausea and fever (Tmax 103.1 F, improved with Tylenol). He came to ER as advised on last visit due to concern for repeat flare. Pt arrived to ER hemodynamically stable. Initial evaluation significant for Na 133, Cr 1.53, TB 1.7, ALP 106. CBC, CMP, troponin, PCT otherwise negative. RUQ US w/o evidence of biliary ductal dilatation, though cirrhotic liver noted. ER interventions include NSS 2L bolus, Zofran 4 mg IV, cefepime. At present, pt reports some improvement- less fatigue, mild abdominal pain, no nausea. Allergies Allergy/AdvReac Type Severity Reaction Status Date / Time amoxicillin AdvReac Intermediate Diarrhea Verified 05/12/23 16:51 clavulanic acid AdvReac Intermediate Diarrhea Verified 05/12/23 16:51 [From Augmentin] Sulfa (Sulfonamide AdvReac Intermediate fever/chill Verified 05/12/23 16:51 Antibiotics) s Home Medications Medication Instructions Recorded Confirmed Type aspirin 81 mg tablet,delayed 81 mg PO DAILY #90 tabs 04/13/19 05/12/23 Rx release cholecalciferol (vitamin D3) 50 50 mcg PO DAILY 10/02/20 05/12/23 History mcg (2,000 unit) tablet (Vitamin D3) olsalazine 250 mg capsule 250 mg PO BID #180 caps 07/08/21 05/12/23 Rx (Dipentum) nitroglycerin 0.4 mg sublingual 0.4 mg sublingual Q5M PRN chest 12/17/21 05/12/23 Rx tablet pain #25 tabs atorvastatin 80 mg tablet 80 mg PO DAILY #90 tabs 03/12/22 05/12/23 Rx lisinopril 10 mg tablet 10 mg PO DAILY #90 tabs 03/12/22 05/12/23 Rx metronidazole 500 mg tablet 500 mg PO DIRECTED PRN 07/09/22 05/12/23 History PROPHYLACTICALLY cholestyramine (with sugar) 4 gram 4 g PO BID #378 grams 07/20/22 05/12/23 Rx oral powder metoprolol succinate 100 mg 100 mg PO QAM #90 tabs 07/27/22 05/12/23 Rx tablet,extended release 24 hr ursodiol 300 mg capsule 300 mg PO BID 01/08/23 05/12/23 History omeprazole 40 mg capsule,delayed 40 mg PO DAILY #90 caps 03/01/23 05/12/23 Rx release ondansetron 4 mg disintegrating 4 mg PO Q6H PRN nausea and 04/20/23 05/12/23 Rx tablet vomiting #10 tabs oxycodone 5 mg tablet 5 mg PO Q4H PRN pain #15 tabs 04/20/23 05/12/23 Rx amlodipine 10 mg tablet 10 mg PO QDD 05/12/23 05/12/23 History lorazepam 1 mg tablet 1 mg PO DIRECTED PRN 05/12/23 05/12/23 History Claustrophobia Past Med/Surg History Medical History Acute renal insufficiency Ascending cholangitis CAD (coronary artery disease) Crohn disease DVT prophylaxis GERD (gastroesophageal reflux disease) Hand eczema Hyperlipidemia Hypertension Leukocytosis Medicare annual wellness visit, subsequent Medicare annual wellness visit, subsequent Myocardial Infarction 1995 - then CABG X 5 IN [place] Osteoporosis Prostate cancer screening Sleep apnea no machine Vitamin D deficiency Surgical History History of open reduction and internal fixation (ORIF) procedure RIGHT ELBOW Hx of appendectomy Hx of colonoscopy Hx of foot surgery RIGHT FOOT SURGERY, REMOVAL OF FIBROMA Hx of inguinal hernia repair RIGHT Hx of laceration of skin LEFT WRIST REPAIR OF LACERATION S/P CABG x 5 1995 AFTER ID Family History Other Family history non-contributory Social History Smoking Status: Never smoker Second Hand Exposure: No; Do You Dip or Chew Tobacco: No; Hx Alcohol Use: No Hx Substance Use: No Preferred Language: Mohawk Communication Ability: Effective Engraving Supervisor Required: No Beliefs That Will Affect Care: None marital status: Current Living Situation: Spouse Current Living Situation Comment: lives with in a 2 story home Feels Safe at Home: Yes Safety Concerns: Feels Safe At This Time caffeine: No Seatbelt Use: always Assistive Devices: None Assistive Devices Comment: hearing aides at home- pt doesn't use Review of Systems Review of Systems: Per HPI Physical Exam Physical Exam: General: well-appearing, no acute distress HEENT: PERRL, EOMI, conjunctivae clear without injection, anicteric sclerae, moist mucous membranes, clear oropharynx without exudate or erythema Neck: supple, trachea midline, no thyromegaly, no JVD, no cervical lymphadenopathy CV: RRR, normal S1 and S2, no murmurs Resp: CTAB, no increased work of breathing, no crackles or wheezes Abd: Soft, mildly tender to epigastrium and moderately tender to RLQ, no guarding or rebound, no hepatosplenomegaly MSK: Normal bulk of all four extremities Neuro: AOx3, no focal motor or sensory deficits Skin: no rashes or lesions, warm and dry, no jaundice Ext: no LE peripheral edema or erythema, capillary refill <2s in all four extremities, 2+ LE peripheral pulses b/l Results & Data Results & Data Vital Signs (Past 12 Hours) Vital Signs Temp Pulse Pulse Resp BP BP Pulse Ox 05/12/23 20:00 78 16 122/61 96 05/12/23 18:00 82 16 131/92 95 05/12/23 19:38 96 05/12/23 16:37 05/12/23 13:54 37.7 C H 81 18 104/69 96 O2 Del Method 05/12/23 20:00 05/12/23 18:00 Room Air 05/12/23 19:38 Room Air 05/12/23 16:37 Room Air 05/12/23 13:54 Room Air Supervising Physician Co-Signing Physician Notes Attending addendum: I have physically seen this patient, have supervised the medical residents activities, and agree with the H&P unless as otherwise noted. Assessment and Plan: Febrile illness- Lyme test negative COVID/flu/RSV negative X-ray without acute infection Liver ultrasound showing liver cirrhosis, status postcholecystectomy History of PSC, points more toward biliary infection issue Primary sclerosing cholangitis- Total bilirubin 1.7, alkaline phosphatase 106 Continue ursodiol and cholestyramine Order MRCP N.p.o. after midnight IV fluids GI consult Follow serial CBC with differential and chemistry profile Acute kidney injury on CKD- Creatinine 1.53, with base 1.31 IV fluids as noted above LR 1 L Repeat laboratories in a.m. Remaining orders and notations as noted Resident Activity Tracking Resident Involvement: Resident Care Provided Care Provided: [facility] (6) Crohns disease Digestive disease complication type: without complication Gastrointestinal tract location: unspecified location Qualified Code(s): K50.90 - Crohn's disease, unspecified, without complications
[2023-05-12] MEDS ORDERED: LORazepam 2 MG/1 ML VIAL IV PRN (21:36)
[2023-05-13] MEDS ORDERED: LACTATED RINGER'S 1,000 ML IV SCH (01:03)
[2023-05-13] MEDS ORDERED: ACETAMINOPHEN 500 MG TAB PO PRN (01:03)
[2023-05-13] MEDS: metroNIDAZOLE 500 MG/100 ML BAG IV SCH ×3 (01:40→17:47)
--- NOTE | 2023-05-13 01:55 | Magnetic Resonance Report ---
Exam(s): MRI MRCP EXAM: MR Abdomen Without Intravenous Contrast, MRCP Protocol CLINICAL HISTORY: Primary sclerosing cholangitis flare. TECHNIQUE: Multiplanar magnetic resonance images of the abdomen without intravenous contrast using MRCP protocol. COMPARISON: CT abdomen and pelvis with contrast dated 04/20/2023 FINDINGS: Lower thorax: Curvilinear changes noted at the lung bases. Bile ducts: Filling defect in the mid common bile duct suggests pneumobilia. Gallbladder: Cholecystectomy. Liver: Similar dysmorphic appearance of the medial aspect of the left lobe of the liver with atrophy and ectasia of the regional biliary radicles. There is some ectasia of the biliary branches serving segment 8 and the inferior margin of the right lobe of the liver. There is narrowing of the proximal intrahepatic branch extending superiorly to serve segment 8 (series 803; images 30-32). Pancreas: Evaluation the pancreas is limited by respiratory artifact. No obvious peripancreatic inflammation. No ductal dilation. Spleen: Unremarkable. No splenomegaly. Adrenals: Unremarkable. No mass. Kidneys and ureters: Parapelvic left renal cysts noted inferiorly. Additional subcentimeter renal cortical cysts noted bilaterally. No hydronephrosis. Symmetric perinephric edema. Stomach and bowel: Unremarkable. No obstruction. IMPRESSION: 1. Filling defect in the mid common bile duct suggests pneumobilia. Please correlate with potential sphincterotomy. 2. There is narrowing of the proximal intrahepatic branch extending superiorly to serve segment 8 (series 803; images 30-32). Intrahepatic stenosis suspected. 3. Irregular areas of ectasia of the left lobe of the liver, segment 8 and along the inferior margin of the liver thought to be similar to the previous CT examination. 4. No choledocholithiasis identified. Electronically signed by: Reji Wilson MD 05/13/23 01:55 AM
[2023-05-13] MEDS: ATORVASTATIN 40 MG TAB PO SCH (08:52)
[2023-05-13] MEDS: ASPIRIN 81 MG ECTAB PO SCH (08:52)
[2023-05-13] MEDS: PANTOprazole 40 MG TAB PO SCH (08:52)
[2023-05-13] MEDS: ursodioL 300 MG CAP PO SCH ×2 (08:52→21:03)
[2023-05-13] MEDS: METOPROLOL SUCC 50MG EXT REL TAB PO SCH (08:52)
[2023-05-13 08:57] LABS: Hematocrit (blood only) 41.1 % (42.0-52.0); Hemoglobin 13.7 g/dl (14.0-18.0); Mean Corpuscular Hemoglobin 29.3 pg (25.0-34.0); Mean Corpuscular Hgb Conc 33.3 g/dL (32.0-36.0); Mean Platelet Volume 9.7 fL (9.4-12.4); Platelet Count 188 K/uL (130-400); RDW Coefficient of Variation 13.3 % (11.5-14.5); RDW Standard Deviation 42.8 fL (36.4-46.3); Red Blood Count 4.67 M/uL (4.70-6.10); White Blood Count 6.06 K/ul (4.8-10.8)
[2023-05-13 09:29] LABS: Albumin Globulin Ratio 0.9 (0.9-2); Albumin Level 3.4 gm/dl (3.4-5.0); BUN Creatinine Ratio 13.9 (10-20); Creatinine Clr Calc Pharmacy 49.7 ml/min; Est GFR (African American) 67.3 ml/min; Globulin 3.6 gm/dl (2.5-4.0)
[2023-05-13 09:30] LABS: INR 1.1 (0.9-1.1); Prothrombin Time 12.4 Seconds (9.0-12.0)
[2023-05-13] MEDS: CHOLESTYRAMINE LIGHT 4 GM PKT PO SCH ×2 (09:42→21:04)
--- NOTE | 2023-05-13 15:43 | Gastrointestinal Consultation ---
Date of Consultation May 13, 2023 Assessment & Plan (1) Primary sclerosing cholangitis: Pleasant man with PSC who was admitted with fever and chills. By the information I have I do not think this was related to his PSC as his labs were not suggestive of cholangitis and today are normal. Also he usually gets significant abdominal pain when he has issues with his PSC and he had none this time. I would go ahead and treat him as if it was a biliary infection since he is better on his current meds. I do not think he needs ERCP at this time. I will advance his diet. I am gone after tonight. If GI needed further contact Dr. Bravo History of Present Illness Reason for Consultation: fever, PSC Attending Physician: Halley Angel MD History of Present Illness 73 year old man with Crohn's disease and PSC that was diagnosed in 2018. Recent ERCP done at [place] cleared "sludge" from his bile duct. No dominant stricture to be dilated. Mowed the yard day before yesterday then yesterday he felt fatigued, developed chills and then temp to 103. He had no other symptoms at the time. Usually when he has issues from his PSC he gets the same symptoms but also has abdominal pain with it. This occasion he didn't have abdominal pain. Admit labs showed a mild leukocytosis, alk phos of 106 and bilirubin of 1.7 both of which are markedly better than they were on the 8th of this month. Today his LFT's are completely normal. He has no bowel movement issues. He takes dipentum for his Crohn's. MRCP from last night did not show anything different than described on ERCP nor anything worrisome Allergies Allergy/AdvReac Type Severity Reaction Status Date / Time amoxicillin AdvReac Intermediate Diarrhea Verified 05/12/23 16:51 clavulanic acid AdvReac Intermediate Diarrhea Verified 05/12/23 16:51 [From Augmentin] Sulfa (Sulfonamide AdvReac Intermediate fever/chill Verified 05/12/23 16:51 Antibiotics) s Home Medications Medication Instructions Recorded Confirmed Type aspirin 81 mg tablet,delayed 81 mg PO DAILY #90 tabs 04/13/19 05/12/23 Rx release cholecalciferol (vitamin D3) 50 50 mcg PO DAILY 10/02/20 05/12/23 History mcg (2,000 unit) tablet (Vitamin D3) olsalazine 250 mg capsule 250 mg PO BID #180 caps 07/08/21 05/12/23 Rx (Dipentum) nitroglycerin 0.4 mg sublingual 0.4 mg sublingual Q5M PRN chest 12/17/21 05/12/23 Rx tablet pain #25 tabs atorvastatin 80 mg tablet 80 mg PO DAILY #90 tabs 03/12/22 05/12/23 Rx lisinopril 10 mg tablet 10 mg PO DAILY #90 tabs 03/12/22 05/12/23 Rx metronidazole 500 mg tablet 500 mg PO DIRECTED PRN 07/09/22 05/12/23 History PROPHYLACTICALLY cholestyramine (with sugar) 4 gram 4 g PO BID #378 grams 07/20/22 05/12/23 Rx oral powder metoprolol succinate 100 mg 100 mg PO QAM #90 tabs 07/27/22 05/12/23 Rx tablet,extended release 24 hr ursodiol 300 mg capsule 300 mg PO BID 01/08/23 05/12/23 History omeprazole 40 mg capsule,delayed 40 mg PO DAILY #90 caps 03/01/23 05/12/23 Rx release ondansetron 4 mg disintegrating 4 mg PO Q6H PRN nausea and 04/20/23 05/12/23 Rx tablet vomiting #10 tabs oxycodone 5 mg tablet 5 mg PO Q4H PRN pain #15 tabs 04/20/23 05/12/23 Rx amlodipine 10 mg tablet 10 mg PO QDD 05/12/23 05/12/23 History lorazepam 1 mg tablet 1 mg PO DIRECTED PRN 05/12/23 05/12/23 History Claustrophobia Patient History Medical History Acute renal insufficiency Ascending cholangitis CAD (coronary artery disease) Crohn disease DVT prophylaxis GERD (gastroesophageal reflux disease) Hand eczema Hyperlipidemia Hypertension Leukocytosis Medicare annual wellness visit, subsequent Medicare annual wellness visit, subsequent Myocardial Infarction 1995 - then CABG X 5 IN [place] Osteoporosis Prostate cancer screening Sleep apnea no machine Vitamin D deficiency Surgical History History of open reduction and internal fixation (ORIF) procedure RIGHT ELBOW Hx of appendectomy Hx of colonoscopy Hx of foot surgery RIGHT FOOT SURGERY, REMOVAL OF FIBROMA Hx of inguinal hernia repair RIGHT Hx of laceration of skin LEFT WRIST REPAIR OF LACERATION S/P CABG x 5 1996 AFTER ME Family History Other Family history non-contributory Social History Smoking Status: Never smoker Second Hand Exposure: No; Do You Dip or Chew Tobacco: No; Hx Alcohol Use: No Hx Substance Use: No Preferred Language: [place] Communication Ability: Effective Management Technician Required: No Beliefs That Will Affect Care: None marital status: Current Living Situation: Spouse Current Living Situation Comment: lives with in a 2 story home Feels Safe at Home: Yes Safety Concerns: Feels Safe At This Time caffeine: No Seatbelt Use: always Assistive Devices: None Assistive Devices Comment: hearing aides at home- pt doesn't use Review of Systems Review of Systems: All systems reviewed & are unremarkable except as noted in HPI & below Physical Exam Constitutional: WD/WN, vitals as above no acute distress Eyes: PERRL, conjunctivae normal, anicteric sclerae ENMT: external ear and nose normal, oropharynx normal Neck: trachea midline, no thyromegaly Respiratory: normal respiratory effort, lungs clear to auscultation Cardiovascular: RRR, no murmur, no edema Gastrointestinal (Abdomen): normal bowel sounds, soft, nontender, no hepatosplenomegaly Musculoskeletal: Extremities: no cyanosis and no clubbing Skin: no rashes, warm and dry Neurologic: PERRL, EOMI, accommodation nl, no face palsy, no dysarthria Psychiatric: Orientation: alert and oriented x 3 Results & Data Vital Signs (Past 12 Hours) Vital Signs Temp Pulse Resp BP Pulse Ox O2 Del Method 05/13/23 08:00 Room Air 05/13/23 08:00 36.8 C 65 16 122/65 94 Room Air Laboratory Results 05/13/23 05/13/23 05/13/23 Range/Units 08:26 08:26 08:26 WBC 6.06 (4.8-10.8) K/ul RBC 4.67 L (4.70-6.10) M/uL Hgb 13.7 L (14.0-18.0) g/dl Hct 41.1 L (42.0-52.0) % MCV 88.0 (80.0-100.0) fL MCH 29.3 (25.0-34.0) pg MCHC 33.3 (32.0-36.0) g/dL RDW Std Deviation 42.8 (36.4-46.3) fL RDW Coeff of Kaity 13.3 (11.5-14.5) % Plt Count 188 (130-400) K/uL MPV 9.7 (9.4-12.4) fL Immature Gran % (Auto) % Neut % (Auto) % Lymph % (Auto) % [place] % (Auto) % Eos % (Auto) % Baso % (Auto) % Neut # (Auto) (1.40-6.50) K/uL Lymph # (Auto) (1.20-3.40) K/uL [place] # (Auto) (0.11-0.59) K/uL Eos # (Auto) (0.00-0.50) K/uL Baso # (Auto) (0.00-0.20) K/uL Immature Gran # (Auto) (0.01-0.20) K/uL PT 12.4 H (9.0-12.0) Seconds INR 1.1 (0.9-1.1) Sodium 134 L (136-145) mmol/L Potassium 4.0 (3.5-5.1) mmol/L Chloride 107 (98-107) mmol/L Carbon Dioxide 21 (21-32) mmol/L Anion Gap 6 (3-11) BUN 17 (6-23) mg/dl Creatinine 1.22 D (0.6-1.4) mg/dl Est Cr Clr Drug Dosing 49.7 ml/min Est GFR ( Amer) 67.3 ml/min Est GFR (Non-Af Amer) 58.0 ml/min BUN/Creatinine Ratio 13.9 (10-20) Glucose 93 (70-99(Fasting)) mg/dl Lactate (0.4-2.0) mmol/L Calcium 9.0 (8.6-10.3) mg/dl Magnesium (1.7-2.4) mg/dl Total Bilirubin 1.0 D (0.2-1.0) mg/dl AST 28 (13-39) U/L ALT 21 (7-52) U/L Alkaline Phosphatase 76 (34-104) U/L Troponin I High Sens (0-20) pg/ml Total Protein 7.0 (6.0-8.3) gm/dl Albumin 3.4 (3.4-5.0) gm/dl Globulin 3.6 (2.5-4.0) gm/dl Albumin/Globulin Ratio 0.9 (0.9-2) Procalcitonin (0-0.5) ng/ml Urine Color Urine Appearance (Clear) Urine pH (4.5-7.5) Ur Specific [place] (1.000-1.030) Urine Protein (Negative) Urine Glucose (UA) (Negative) Urine Ketones (Negative) Urine Blood (Negative) Urine Nitrite (Negative) Urine Bilirubin (Negative) Urine Urobilinogen (Negative) Ur Leukocyte Esterase (Negative) Lyme Disease IgG Ab (Negative) Lyme Disease IgM Ab (Negative) SARS-CoV-2 (PCR) (Negative) Influenza Type A (PCR) (Neg) Influenza Type B (PCR) (Neg) RSV (RT-PCR) (Neg) 05/12/23 05/12/23 05/12/23 Range/Units 18:33 18:26 16:28 WBC (4.8-10.8) K/ul RBC (4.70-6.10) M/uL Hgb (14.0-18.0) g/dl Hct (42.0-52.0) % MCV (80.0-100.0) fL MCH (25.0-34.0) pg MCHC (32.0-36.0) g/dL RDW Std Deviation (36.4-46.3) fL RDW Coeff of Kaity (11.5-14.5) % Plt Count (130-400) K/uL MPV (9.4-12.4) fL Immature Gran % (Auto) % Neut % (Auto) % Lymph % (Auto) % [place] % (Auto) % Eos % (Auto) % Baso % (Auto) % Neut # (Auto) (1.40-6.50) K/uL Lymph # (Auto) (1.20-3.40) K/uL [place] # (Auto) (0.11-0.59) K/uL Eos # (Auto) (0.00-0.50) K/uL Baso # (Auto) (0.00-0.20) K/uL Immature Gran # (Auto) (0.01-0.20) K/uL PT (9.0-12.0) Seconds INR (0.9-1.1) Sodium (136-145) mmol/L Potassium (3.5-5.1) mmol/L Chloride (98-107) mmol/L Carbon Dioxide (21-32) mmol/L Anion Gap (3-11) BUN (6-23) mg/dl Creatinine (0.6-1.4) mg/dl Est Cr Clr Drug Dosing ml/min Est GFR ( Amer) ml/min Est GFR (Non-Af Amer) ml/min BUN/Creatinine Ratio (10-20) Glucose (70-99(Fasting)) mg/dl Lactate 1.1 (0.4-2.0) mmol/L Calcium (8.6-10.3) mg/dl Magnesium (1.7-2.4) mg/dl Total Bilirubin (0.2-1.0) mg/dl AST (13-39) U/L ALT (7-52) U/L Alkaline Phosphatase (34-104) U/L Troponin I High Sens (0-20) pg/ml Total Protein (6.0-8.3) gm/dl Albumin (3.4-5.0) gm/dl Globulin (2.5-4.0) gm/dl Albumin/Globulin Ratio (0.9-2) Procalcitonin (0-0.5) ng/ml Urine Color Yellow Urine Appearance Clear (Clear) Urine pH 6.5 (4.5-7.5) Ur Specific [place] 1.022 (1.000-1.030) Urine Protein Negative (Negative) Urine Glucose (UA) Negative (Negative) Urine Ketones Negative (Negative) Urine Blood Negative (Negative) Urine Nitrite Negative (Negative) Urine Bilirubin Negative (Negative) Urine Urobilinogen Negative (Negative) Ur Leukocyte Esterase Negative (Negative) Lyme Disease IgG Ab (Negative) Lyme Disease IgM Ab (Negative) SARS-CoV-2 (PCR) NEGATIVE (Negative) Influenza Type A (PCR) Negative (Neg) Influenza Type B (PCR) Negative (Neg) RSV (RT-PCR) Negative (Neg) 05/12/23 05/12/23 05/12/23 Range/Units 15:35 15:35 15:34 WBC (4.8-10.8) K/ul RBC (4.70-6.10) M/uL Hgb (14.0-18.0) g/dl Hct (42.0-52.0) % MCV (80.0-100.0) fL MCH (25.0-34.0) pg MCHC (32.0-36.0) g/dL RDW Std Deviation (36.4-46.3) fL RDW Coeff of Kaity (11.5-14.5) % Plt Count (130-400) K/uL MPV (9.4-12.4) fL Immature Gran % (Auto) % Neut % (Auto) % Lymph % (Auto) % [place] % (Auto) % Eos % (Auto) % Baso % (Auto) % Neut # (Auto) (1.40-6.50) K/uL Lymph # (Auto) (1.20-3.40) K/uL [place] # (Auto) (0.11-0.59) K/uL Eos # (Auto) (0.00-0.50) K/uL Baso # (Auto) (0.00-0.20) K/uL Immature Gran # (Auto) (0.01-0.20) K/uL PT (9.0-12.0) Seconds INR (0.9-1.1) Sodium 133 L (136-145) mmol/L Potassium 4.8 (3.5-5.1) mmol/L Chloride 102 (98-107) mmol/L Carbon Dioxide 24 (21-32) mmol/L Anion Gap 7 (3-11) BUN 24 H (6-23) mg/dl Creatinine 1.53 H (0.6-1.4) mg/dl Est Cr Clr Drug Dosing 39.6 ml/min Est GFR ( Amer) 51.2 ml/min Est GFR (Non-Af Amer) 44.1 ml/min BUN/Creatinine Ratio 15.7 (10-20) Glucose 113 H (70-99(Fasting)) mg/dl Lactate (0.4-2.0) mmol/L Calcium 9.6 (8.6-10.3) mg/dl Magnesium 1.8 (1.7-2.4) mg/dl Total Bilirubin 1.7 H (0.2-1.0) mg/dl AST 32 (13-39) U/L ALT 23 (7-52) U/L Alkaline Phosphatase 106 H (34-104) U/L Troponin I High Sens 6.8 (0-20) pg/ml Total Protein 7.9 (6.0-8.3) gm/dl Albumin 4.3 (3.4-5.0) gm/dl Globulin 3.6 (2.5-4.0) gm/dl Albumin/Globulin Ratio 1.2 (0.9-2) Procalcitonin 0.36 (0-0.5) ng/ml Urine Color Urine Appearance (Clear) Urine pH (4.5-7.5) Ur Specific [place] (1.000-1.030) Urine Protein (Negative) Urine Glucose (UA) (Negative) Urine Ketones (Negative) Urine Blood (Negative) Urine Nitrite (Negative) Urine Bilirubin (Negative) Urine Urobilinogen (Negative) Ur Leukocyte Esterase (Negative) Lyme Disease IgG Ab Negative (Negative) Lyme Disease IgM Ab Negative (Negative) SARS-CoV-2 (PCR) (Negative) Influenza Type A (PCR) (Neg) Influenza Type B (PCR) (Neg) RSV (RT-PCR) (Neg) 05/12/23 Range/Units 15:34 WBC 10.81 H (4.8-10.8) K/ul RBC 5.21 (4.70-6.10) M/uL Hgb 15.7 (14.0-18.0) g/dl Hct 45.6 (42.0-52.0) % MCV 87.5 (80.0-100.0) fL MCH 30.1 (25.0-34.0) pg MCHC 34.4 (32.0-36.0) g/dL RDW Std Deviation 42.7 (36.4-46.3) fL RDW Coeff of Kaity 13.2 (11.5-14.5) % Plt Count 250 (130-400) K/uL MPV 9.6 (9.4-12.4) fL Immature Gran % (Auto) 0.5 % Neut % (Auto) 79.1 % Lymph % (Auto) 11.0 % [place] % (Auto) 8.3 % Eos % (Auto) 0.7 % Baso % (Auto) 0.4 % Neut # (Auto) 8.55 H (1.40-6.50) K/uL Lymph # (Auto) 1.19 L (1.20-3.40) K/uL [place] # (Auto) 0.90 H (0.11-0.59) K/uL Eos # (Auto) 0.08 (0.00-0.50) K/uL Baso # (Auto) 0.04 (0.00-0.20) K/uL Immature Gran # (Auto) 0.05 (0.01-0.20) K/uL PT (9.0-12.0) Seconds INR (0.9-1.1) Sodium (136-145) mmol/L Potassium (3.5-5.1) mmol/L Chloride (98-107) mmol/L Carbon Dioxide (21-32) mmol/L Anion Gap (3-11) BUN (6-23) mg/dl Creatinine (0.6-1.4) mg/dl Est Cr Clr Drug Dosing ml/min Est GFR ( Amer) ml/min Est GFR (Non-Af Amer) ml/min BUN/Creatinine Ratio (10-20) Glucose (70-99(Fasting)) mg/dl Lactate (0.4-2.0) mmol/L Calcium (8.6-10.3) mg/dl Magnesium (1.7-2.4) mg/dl Total Bilirubin (0.2-1.0) mg/dl AST (13-39) U/L ALT (7-52) U/L Alkaline Phosphatase (34-104) U/L Troponin I High Sens (0-20) pg/ml Total Protein (6.0-8.3) gm/dl Albumin (3.4-5.0) gm/dl Globulin (2.5-4.0) gm/dl Albumin/Globulin Ratio (0.9-2) Procalcitonin (0-0.5) ng/ml Urine Color Urine Appearance (Clear) Urine pH (4.5-7.5) Ur Specific [place] (1.000-1.030) Urine Protein (Negative) Urine Glucose (UA) (Negative) Urine Ketones (Negative) Urine Blood (Negative) Urine Nitrite (Negative) Urine Bilirubin (Negative) Urine Urobilinogen (Negative) Ur Leukocyte Esterase (Negative) Lyme Disease IgG Ab (Negative) Lyme Disease IgM Ab (Negative) SARS-CoV-2 (PCR) (Negative) Influenza Type A (PCR) (Neg) Influenza Type B (PCR) (Neg) RSV (RT-PCR) (Neg) Diagnostic Findings Chest X-Ray 05/12/23 15:59 SINGLE VIEW CHEST CLINICAL HISTORY: Sepsis. FINDINGS: An AP, portable, upright chest radiograph is compared to study dated 06/07/2022 and correlated with chest CT dated 04/20/2023. The patient is status post midline sternotomy. The heart is enlarged. The pulmonary vasculature is noncongested. Chronic interstitial thickening similar to previous. There is bibasilar scarring/atelectasis. No airspace consolidation or large pleural effusion is identified. No pneumothorax is seen. The skeletal structures are osteopenic. The bony thorax is grossly intact. IMPRESSION: Cardiomegaly with no acute cardiopulmonary abnormality. ACT 112: Negative or not required by law. Electronically signed by: Alex Cameron M.D. 05/12/2023 4:47 PM Liver Ultrasound 05/12/23 17:14 US liver CLINICAL HISTORY: Fever. Right upper quadrant pain. COMPARISON STUDY: CT of the abdomen and pelvis and right upper quadrant ultrasound April 20, 2023. FINDINGS: The liver is cirrhotic. No hepatic lesions are identified by sonography. No biliary ductal dilatation is identified. Common bile duct measures 4 mm. The gallbladder is surgically absent. Pancreatic body is normal. Head and tail are obscured. There is no right hydronephrosis. IMPRESSION: 1. Cirrhotic liver. No hepatic lesions identified by sonography. 2. No biliary ductal dilatation status post cholecystectomy. ACT 112: Negative or not required by law. Electronically signed by: Dewey Felix M.D. 05/12/2023 6:14 PM Cholangiopancreatography MRI 05/12/23 21:31 Exam(s): MRI MRCP EXAM: MR Abdomen Without Intravenous Contrast, MRCP Protocol CLINICAL HISTORY: Primary sclerosing cholangitis flare. TECHNIQUE: Multiplanar magnetic resonance images of the abdomen without intravenous contrast using MRCP protocol. COMPARISON: CT abdomen and pelvis with contrast dated 04/20/2023 FINDINGS: Lower thorax: Curvilinear changes noted at the lung bases. Bile ducts: Filling defect in the mid common bile duct suggests pneumobilia. Gallbladder: Cholecystectomy. Liver: Similar dysmorphic appearance of the medial aspect of the left lobe of the liver with atrophy and ectasia of the regional biliary radicles. There is some ectasia of the biliary branches serving segment 8 and the inferior margin of the right lobe of the liver. There is narrowing of the proximal intrahepatic branch extending superiorly to serve segment 8 (series 803; images 30-32). Pancreas: Evaluation the pancreas is limited by respiratory artifact. No obvious peripancreatic inflammation. No ductal dilation. Spleen: Unremarkable. No splenomegaly. Adrenals: Unremarkable. No mass. Kidneys and ureters: Parapelvic left renal cysts noted inferiorly. Additional subcentimeter renal cortical cysts noted bilaterally. No hydronephrosis. Symmetric perinephric edema. Stomach and bowel: Unremarkable. No obstruction. IMPRESSION: 1. Filling defect in the mid common bile duct suggests pneumobilia. Please correlate with potential sphincterotomy. 2. There is narrowing of the proximal intrahepatic branch extending superiorly to serve segment 8 (series 803; images 30-32). Intrahepatic stenosis suspected. 3. Irregular areas of ectasia of the left lobe of the liver, segment 8 and along the inferior margin of the liver thought to be similar to the previous CT examination. 4. No choledocholithiasis identified. Electronically signed by: Reji Wilson MD 05/13/23 01:55 AM
[2023-05-13] MEDS ORDERED: CEFEPIME 2,000 MG in SYRINGE 0 ML IV SCH (16:00)
--- NOTE | 2023-05-13 16:14 | Hospitalist Progress Note ---
Date of Service May 13, 2023 Assessment & Plan (1) Fever: Plan: -Suspect possible biliary infection/ascending cholangitis in setting of known PSC with elevated LFTs -Negative lactate, pt hemodynamically stable, mild/absent leukocytosis at 10.8, not meeting SIRS criteria on admission-WBC count down now -COVID/Flu/RSV negative, no cold symptoms. UA normal, CXR negative for PNA -Blood cultures drawn and no growth to date thus far-continue to monitor -Continue cefepime, Flagyl for coverage for cholangitis -MRCP reviewed with GI and no evidence of obstruction, now LFTs trending downward, no ERCP needed If BCxs remain no growth and doing well, could dc to home with short course of po antibiotics again (2) Primary sclerosing cholangitis: Plan: -Chronic, follows with [facility] GI -MELD score 17 on admission -Continue ursodiol, cholestyramine -MRCP reviewed and no choledocholithiasis, LFs now improved-perhaps passed another stone? -GI consult appreciated -advance diet to regular -follow LFTs in AM (3) Acute renal insufficiency: Plan: -Cr 1.53 on admission, known CKD3 [employer] now improved with IVF hydration and was likely prerenal dc IVFs -Holding lisinopril -Trend BMP (4) Hyponatremia: Plan: -Na 133 on admission and now up to 134 with hydration -Likely due to lack of oral intake leading up to admission -IV fluid repletion given -Trend BMP (5) Crohns disease: Plan: -Lower suspicion for acute flare at present -Continue Dipentum (6) CAD (coronary artery disease): Plan: With a h/o CABG -Continue aspirin, atorvastatin, metoprolol -Holding lisinopril as above no acute issues (7) GERD without esophagitis: Plan: -Continue PPI (8) Hypercholesterolemia: Plan: -Continue atorvastatin 80 mg (9) Benign essential HTN: Plan: -BP stable -Continue amlodipine, metoprolol -Holding lisinopril as above Plan DVT proph-SCDs Dispo-continued stay on med/surg, improving, possible dc to home later tomorrow Admission and Anticipated Discharge Date Admission Date: May 12, 2023 Anticipated date of discharge: 05/14/23 Subjective Feeling much better. No abd pain, no further fever, no nausea. No other cold symptoms, sore throat, runny nose, and has a chronic cough but nothing out of the ordinary. I discussed his care with GI. Physical Exam Constitutional: WD/WN, vitals as above Neck: trachea midline, no thyromegaly Respiratory: normal respiratory effort, lungs clear to auscultation Cardiovascular: RRR, no murmur, no edema Chest (Breasts): Chest: normal inspection of chest Gastrointestinal (Abdomen): normal bowel sounds, soft, nontender, no hepatosplenomegaly Musculoskeletal: Extremities: extremities normal to inspection; no cyanosis and no clubbing Skin: no rashes, warm and dry Neurologic: moves all extremities and awake; no focal motor deficits Psychiatric: A+Ox3, euthymic affect Lymphatic: no lymphedema Results & Data Results & Data Vital Signs (Past 12 Hours) Vital Signs Temp Pulse Resp BP Pulse Ox O2 Del Method 05/13/23 16:00 36.7 C 50 L 18 121/71 94 Room Air 05/13/23 08:00 Room Air 05/13/23 08:00 36.8 C 65 16 122/65 94 Room Air Laboratory Results CBC, CMP reviewed Diagnostic Findings Chest X-Ray 05/12/23 15:59 SINGLE VIEW CHEST CLINICAL HISTORY: Sepsis. FINDINGS: An AP, portable, upright chest radiograph is compared to study dated 06/07/2022 and correlated with chest CT dated 04/20/2023. The patient is status post midline sternotomy. The heart is enlarged. The pulmonary vasculature is noncongested. Chronic interstitial thickening similar to previous. There is bibasilar scarring/atelectasis. No airspace consolidation or large pleural effusion is identified. No pneumothorax is seen. The skeletal structures are osteopenic. The bony thorax is grossly intact. IMPRESSION: Cardiomegaly with no acute cardiopulmonary abnormality. ACT 112: Negative or not required by law. Electronically signed by: Alex Cameron M.D. 05/12/2023 4:47 PM Liver Ultrasound 05/12/23 17:14 US liver CLINICAL HISTORY: Fever. Right upper quadrant pain. COMPARISON STUDY: CT of the abdomen and pelvis and right upper quadrant ultrasound April 20, 2023. FINDINGS: The liver is cirrhotic. No hepatic lesions are identified by sonography. No biliary ductal dilatation is identified. Common bile duct measures 4 mm. The gallbladder is surgically absent. Pancreatic body is normal. Head and tail are obscured. There is no right hydronephrosis. IMPRESSION: 1. Cirrhotic liver. No hepatic lesions identified by sonography. 2. No biliary ductal dilatation status post cholecystectomy. ACT 112: Negative or not required by law. Electronically signed by: Dewey Felix M.D. 05/12/2023 6:14 PM Cholangiopancreatography MRI 05/12/23 21:31 Exam(s): MRI MRCP EXAM: MR Abdomen Without Intravenous Contrast, MRCP Protocol CLINICAL HISTORY: Primary sclerosing cholangitis flare. TECHNIQUE: Multiplanar magnetic resonance images of the abdomen without intravenous contrast using MRCP protocol. COMPARISON: CT abdomen and pelvis with contrast dated 04/20/2023 FINDINGS: Lower thorax: Curvilinear changes noted at the lung bases. Bile ducts: Filling defect in the mid common bile duct suggests pneumobilia. Gallbladder: Cholecystectomy. Liver: Similar dysmorphic appearance of the medial aspect of the left lobe of the liver with atrophy and ectasia of the regional biliary radicles. There is some ectasia of the biliary branches serving segment 8 and the inferior margin of the right lobe of the liver. There is narrowing of the proximal intrahepatic branch extending superiorly to serve segment 8 (series 803; images 30-32). Pancreas: Evaluation the pancreas is limited by respiratory artifact. No obvious peripancreatic inflammation. No ductal dilation. Spleen: Unremarkable. No splenomegaly. Adrenals: Unremarkable. No mass. Kidneys and ureters: Parapelvic left renal cysts noted inferiorly. Additional subcentimeter renal cortical cysts noted bilaterally. No hydronephrosis. Symmetric perinephric edema. Stomach and bowel: Unremarkable. No obstruction. IMPRESSION: 1. Filling defect in the mid common bile duct suggests pneumobilia. Please correlate with potential sphincterotomy. 2. There is narrowing of the proximal intrahepatic branch extending superiorly to serve segment 8 (series 803; images 30-32). Intrahepatic stenosis suspected. 3. Irregular areas of ectasia of the left lobe of the liver, segment 8 and along the inferior margin of the liver thought to be similar to the previous CT examination. 4. No choledocholithiasis identified. Electronically signed by: Reji Wilson MD 05/13/23 01:55 AM PG Care Time/CCT Total # of Minutes Spent Total Time Spent with Patient: Total time spent is greater than 50% in coordination of care (as documented) at patient's floor/unit and/or counseling patient: Coding Level of Care Code 53203 SUB INP/OBS CARE 235MIN Diagnoses Fever R50.9 Primary sclerosing cholangitis K83.01 Acute renal insufficiency N28.9 Hyponatremia E87.1 Crohns disease K50.90 Digestive disease complication type: without complication Gastrointestinal tract location: unspecified location CAD (coronary artery disease) I25.10 GERD without esophagitis K21.9 Hypercholesterolemia E78.00 Benign essential HTN I10 (5) Crohns disease Digestive disease complication type: without complication Gastrointestinal tract location: unspecified location Qualified Code(s): K50.90 - Crohn's disease, unspecified, without complications
[2023-05-13] MEDS ORDERED: amLODIPine BESYLATE 5 MG TAB PO SCH (16:30)
[2023-05-14] MEDS: metroNIDAZOLE 500 MG/100 ML BAG IV SCH ×2 (01:43→10:07)
--- NOTE | 2023-05-14 03:24 | Billing Data ---
Date of Service May 14, 2023 Coding Level of Care Code 70147 INT INP/OBS CARE
[2023-05-14] MEDS: PANTOprazole 40 MG TAB PO SCH (08:16)
[2023-05-14] MEDS: ASPIRIN 81 MG ECTAB PO SCH (08:16)
[2023-05-14] MEDS: ursodioL 300 MG CAP PO SCH (08:16)
[2023-05-14] MEDS: ATORVASTATIN 40 MG TAB PO SCH (08:16)
[2023-05-14] MEDS: METOPROLOL SUCC 50MG EXT REL TAB PO SCH (09:32)
[2023-05-14] MEDS: CHOLESTYRAMINE LIGHT 4 GM PKT PO SCH (10:07)
[2023-05-14 10:45] LABS: Albumin Level 3.5 gm/dl (3.4-5.0); Bilirubin Direct 0.2 mg/dl (0-0.2); Bilirubin,Total 0.7 mg/dl (0.2-1.0); Total Protein 6.6 gm/dl (6.0-8.3)
--- NOTE | 2023-05-14 15:43 | Discharge Summary ---
Date of Service May 14, 2023 Admission HPI Per Admitting Provider Pt is 73 yo M with PMH primary sclerosing cholangitis s/p cholecystectomy, CAD s/p CABG x5, HTN, HLD, GERD, Crohn's disease presenting with fever. Pt was in ER on 04/20 for severe upper abdominal pain with nausea and vomiting. MRCP in late 03/2023 significant for distal bile duct choledocholithiasis vs sludge with ER CTAP w/ similar findings. Consultation placed with [facility], pt had ERCP at [facility] on 04/21- noted common hepatic duct stricture requiring dilation and stone extraction w/ sludge removal. Pt discharged with 1 week of ciprofloxacin/Flagyl. Pt initially did well after discharge though reports at 6 AM this morning upon awakening onset of fatigue, chills, epigastric abdominal pain, nausea and fever (Tmax 103.1 F, improved with Tylenol). He came to ER as advised on last visit due to concern for repeat flare. Pt arrived to ER hemodynamically stable. Initial evaluation significant for Na 133, Cr 1.53, TB 1.7, ALP 106. CBC, CMP, troponin, PCT otherwise negative. RUQ US w/o evidence of biliary ductal dilatation, though cirrhotic liver noted. ER interventions include NSS 2L bolus, Zofran 4 mg IV, cefepime. At present, pt reports some improvement- less fatigue, mild abdominal pain, no nausea. Admission Exam Per Admitting Provider Constitutional: WD/WN, vitals as above Eyes: PERRL, conjunctivae normal, anicteric sclerae Respiratory: normal respiratory effort, lungs clear to auscultation Cardiovascular: Rate/Rhythm: + irregularly irregular Heart Sounds: normal S1 and normal S2 No peripheral edema. Gastrointestinal (Abdomen): normal bowel sounds, soft, nontender, no hepatosplenomegaly Musculoskeletal: No tenderness to palpation at the R or L hip. Skin: Abrasions to R arm below the right wrist and distal to the elbow, not actively bleeding. No rash or bruise seen at the R hip or elsewhere on body. Principal Diagnosis possible acute cholangitis Discharge Exam general: Awake, conversant Heart: S1, S2/regular rate and rhythm, no murmur rubs or gallops Lungs: Clear to auscultation bilaterally. Normal effort Abdomen: Soft/nontender/nondistended. No hepatosplenomegaly Extremities: No clubbing/cyanosis. No edema Behavior: Appropriate, cooperative Discharge Data Allergies Allergy/AdvReac Type Severity Reaction Status Date / Time amoxicillin AdvReac Intermediate Diarrhea Verified 05/12/23 16:51 clavulanic acid AdvReac Intermediate Diarrhea Verified 05/12/23 16:51 [From Augmentin] Sulfa (Sulfonamide AdvReac Intermediate fever/chill Verified 05/12/23 16:51 Antibiotics) s Consultations 05/12/23 19:33 ED Decision to Admit Stat 05/13/23 01:03 Consult Gastroenterology Routine Ordered Studies 05/12/23 17:14 US liver Stat 05/12/23 21:31 MR MRCP Routine Hospital Course (1) Fever: -Suspect possible biliary infection/ascending cholangitis in setting of known PSC -Negative lactate, pt hemodynamically stable, mild/absent leukocytosis at 10.8, not meeting SIRS criteria on admission - patient was treated with cefepime, Flagyl . We will discharge on Keflex and Flagyl. -BCx So far negative -Tylenol PRN no more fever overnight (2) Primary sclerosing cholangitis: -Chronic, follows with [facility] GI -MELD score 17 on admission -Continue ursodiol, cholestyramine -MRCP Negative - GI on board. Appreciate input. Did not recommend any further GI work-up. Will discharge patient today (3) Elevated bilirubin: -TB 1.7, improved from 4.1 on 04/20 -Associated elevated ALP at 106 -Clinical exam without jaundice or scleral icterus -Likely elevated secondary to worsening biliary disease - CMP showed normal total bilirubin today. (4) Acute renal insufficiency: -Cr 1.53 on admission, known CKD3 Resume lisinopril as creatinine has normalized (5) Hyponatremia: -Na 133 on admission -Likely due to lack of oral intake leading up to admission sodium improved (6) Crohns disease: -Lower suspicion for acute flare at present -Continue Dipentum (7) CAD (coronary artery disease): -Continue aspirin, atorvastatin, metoprolol - resume lisinopril (8) GERD without esophagitis: -Continue omeprazole or formulary equivalent (9) Hypercholesterolemia: -Continue atorvastatin 80 mg (10) Benign essential HTN: -BP stable -Continue amlodipine - resume lisinopril Plan disposition: Discharged today Total Time Total Time Spent Total Time Spent (In Minutes): 35 Discharge Plan Discharge Items Patient Disposition: Home - Self-Care Reason For Visit: PS CHOLANGITIS FLARE Discharge Diagnosis: Possible mild acute cholangitis Activity: Resume your previous activity Non-emergency contact: Primary Care Provider Call non-emergency contact if: you have any medication questions and your symptoms worsen Follow-up/Referrals: Alex Terrazas MD [Primary Care Provider] - 05/31/23 11:30 am Diet: Regular Addtl Attending Provider Instructions: Advised to follow-up [facility] PCP in 1 week Pending Studies at Discharge: No Stand-Alone Forms: My [facility] Medications and DC Order Prescriptions: New cephalexin 500 mg capsule 500 mg PO BID 5 Days Qty: 10 0RF metronidazole 500 mg tablet 500 mg PO BID 5 Days Qty: 10 0RF Continued nitroglycerin 0.4 mg tablet, sublingual 0.4 mg SL Q5M PRN (Reason: chest pain) Qty: 25 3RF cholestyramine (with sugar) 4 gram powder 4 g PO BID Qty: 378 5RF Rx Instructions: administer w/meal; avoid other meds within 1hr of taking it metoprolol succinate 100 mg tablet extended release 24 hr 100 mg PO QAM Qty: 90 3RF omeprazole 40 mg capsule,delayed release(DR/EC) 40 mg PO DAILY Qty: 90 3RF aspirin 81 mg tablet,delayed release (DR/EC) 81 mg PO DAILY Qty: 90 3RF atorvastatin 80 mg tablet 80 mg PO DAILY Qty: 90 3RF lisinopril 10 mg tablet 10 mg PO DAILY Qty: 90 3RF metronidazole 500 mg tablet 500 mg PO DIRECTED PRN (Reason: PROPHYLACTICALLY) Dipentum 250 mg capsule 250 mg PO BID Qty: 180 3RF ursodiol 300 mg capsule 300 mg PO BID cholecalciferol (vitamin D3) [Vitamin D3] 50 mcg (2,000 unit) Tablet 50 mcg PO DAILY ondansetron 4 mg tablet,disintegrating 4 mg PO Q6H PRN (Reason: nausea and vomiting) Qty: 10 0RF oxycodone 5 mg tablet 5 mg PO Q4H PRN (Reason: pain) Qty: 15 0RF amlodipine 10 mg tablet 10 mg PO QDD Rx Instructions: Take with supper for blood pressure. lorazepam 1 mg tablet 1 mg PO DIRECTED PRN (Reason: Claustrophobia) Rx Instructions: 1 mg orally 1 hour prior to MRI PRN; take second pill immediately prior to MRI if needed. Discharge Orders: Discharge Order (Routine); Ordered 05/14/23 Ordered By: Ashely Hart Admission Data Admit Date/Time: 05/12/23 21:31 Attending Provider: Ashely Hart Admit Provider: Manav Yan Primary Care Provider: Alex Terrazas Other Providers: Jermaine Dobson ; Kalpana Valdivia ; Jonah Krause ; Mandy Kumar ; Alicia Gaytan ; Rashmi Cantrell ; Kiki Gutierres ; Louie Bravo ; Rufino Conner ; Gabriele Lackey ; Adalid Hernández ; Holden Fragoso ; Joanna Quintana ; Ilana Loya ; Bettina Weeks ; Yareli Mckeon ; Gia Benavides ; Remy Schwartz ; Damon Carpio ; Sandrita Hale ; Ryan Teague Jr Other Interventions: Discharge Summary Assessment (RN) Last Done: 05/14/23 16:40 Coding Level of Care Code 73534 INP/OBS DISCH >30 MIN Diagnoses Fever R50.9 Primary sclerosing cholangitis K83.01 Elevated bilirubin R17 Acute renal insufficiency N28.9 Hyponatremia E87.1 Crohns disease K50.90 Digestive disease complication type: without complication Gastrointestinal tract location: unspecified location CAD (coronary artery disease) I25.10 GERD without esophagitis K21.9 Hypercholesterolemia E78.00 Benign essential HTN I10
--- NOTE | 2023-05-17 08:11 | Electrocardiogram Report ---
Test Reason : Blood Pressure : / mmHG Vent. Rate : 075 BPM Atrial Rate : 075 BPM P-R Int : 158 ms QRS Dur : 074 ms QT Int : 360 ms P-R-T Axes : 049 011 010 degrees QTc Int : 402 ms Normal sinus rhythm Cannot rule out Anterior infarct , age undetermined Abnormal ECG When compared with ECG of 20-APR-2023 11:28, No significant change was found Confirmed by Isidro Ramirez ([id number]) on 05/17/2023 8:11:12 AM Referred By: REFERRED SELF Confirmed By:Isidro Ramirez
--- OUTSIDE RECORDS SUMMARY | 2023-05-17 10:25 | External Medical Summary | Continuity of Care Document ---
Author Name Unknown Organization [place] [address] [id number] Care Team Providers Care Front Attendant Name Role Phone Alex Terrazas Primary Care Physician [phone] [id number] Date(s): 04/01/23 - 04/01/23 [place] [address] [address] [address] [phone] Encounter Diagnosis Crohn's disease(Discharge Diagnosis) - 04/01/23 PSC (primary sclerosing cholangitis)(Discharge Diagnosis) - 04/01/23 Discharge Disposition: Home or Self Care Attending Physician: LUCY Gutierres Janet Griffith Referring Physician: LUCY Gutierres Janet Griffith Allergies, Adverse Reactions, Alerts Substance Reaction Severity Status sulfa drugs chills fever Active Amoxil diarrhea Active Assessment and Plan Extracted from: Title:Office Visit Note Author:LUCY Gutierres Janet Griffith Date:04/01/23 1.Crohn's disease The patient is a pleasant 72-year-old male who presents today forroutine follow-up of Crohn's disease and history of primary sclerosing cholangitis. 1. Crohn's disease: - The patient has a longstanding history of Crohn's colitis which is maintained on Oramjbqz241 mg p.o. twice daily. IBD Health Maintenance: High risk colon cancerscreening: Next colonoscopy due 06/2023 (h/o PSC). Colonoscopy for oeijuylnscqj29/2021 with no active disease or dysplasia, had incidental diverticulosis and hemorrhoids. Age-appropriate cancer screening: Recommended skin cancer screening and age directed cancer screening Consider dermatology referral next OV Bone disease: monitor vitamin D levels and replete as needed. 12/2022 vitamin D 44.3, DEXA 03/2021 WNL, low/moderate fracture risk Vaccination: Annualinfluenza vaccine recommended. NkjyjdqbdWCH52 and PPSV 23, HBVvaccines.Began Shingrix vaccination at this OV Live vaccine precautions: Patient should not receivelive vaccines while on immunosuppression. Depression: screen prn. Smoking cessation: n/a Medication compliance: no issues 2. Primary sclerosing cholangitis: - Qdkobozbhtuywhyy508 mg p.o. twice daily. - He follows with Dr. Lincoln hepatologyannually withmostrecentappointment 04/2022.Due for MRI liver 03/2023 - He has Ciproand Flagyl at hometo start if he developstemperature elevation and upper abdominal pain.Refills provided today - Hepatitis A and B vaccinations have been administered previously. 3. GERD: - The patient has a history of GERDand is maintained on Omeprazole with good symptom control at this time. 4. GI office visit follow-up in6 months, sooner if needed. 2.PSC (primary sclerosing cholangitis) Immunizations Given and Recorded Vaccine Date Status Refusal Reason zoster vaccine, inactivated 04/01/23 Given pneumococcal 20-valent conjugate vaccine 1 01/08/23 Recorded SARS-CoV-2 mRNA (Pfizer 12+) bivalent 2 07/09/22 R ecorded SARS-CoV-2 mRNA (yctmolbiupi-boqv-ahw) 3 01/06/22 Recorded SARS-CoV-2 (COVID-19) mRNA BNT-162b2 vax 4 05/14/21 Recorded SARS-CoV-2 (COVID-19) mRNA BNT-162b2 vax 5 04/23/21 Recorded tetanus/diphtheria/pertuss, acel (Tdap) 6 04/16/20 Recorded tetanus/diphtheria/pertuss, acel (Tdap) 7 05/01/08 Recorded hepatitis B adult vaccine 09/15/18 Given hepatitis B adult vaccine 05/18/18 Given hepatitis B adult vaccine 03/17/18 Given hepatitis A adult vaccine 09/15/18 Given hepatitis A adult vaccine 03/17/18 Given pneumococcal 23-valent vaccine 8 03/23/16 Recorded pneumococcal 13-valent vaccine 10 02/06/15 Recorde d Not Given Vaccine Date Status Refusal Reason pneumococcal 23-valent vaccine 9 05/15/19 Not Give n Patient Refuses 1Result Comment: 2023-04-01: Historical information-source unspecified 2Result Comment: 2022-10-02: Historical information-source unspecified 3Result Comment: 2022-06-19: Historical information-source unspecified 4Result Comment: 2022-06-19: Historical information-source unspecified 5Result Comment: 2022-06-19: Historical information-source unspecified 6Result Comment: 2022-06-19: Historical information-source unspecified 7Result Comment: 2022-06-19: Historical information-source unspecified 8Result Comment: 2022-06-19: Historical information-source unspecified 9Result Comment: 2022-06-19: Historical information-source unspecified 10Result Comment: Asked patient if he wished to have vaccine. patient said "I'll pass right now". patient stated he will follow up with Primary care physician Medications Actigall 300 mg oral capsule Start: 09/21/19 8:48:00 EST, 1 cap, PO, bid, Disp# 180 cap, Refills: 3, Pharmacy: [id number] Start Date: 09/21/19 Stop Date: 09/15/20 Status: Ordered amLODIPine Start: 04/23/22 14:42:00 EDT, 10 mg =, PO, Daily Start Date: 04/23/22 Status: Ordered aspirin 81 mg oral tablet Start: 10/20/16 7:56:00, 1 tab, PO, Daily Start Date: 10/20/16 Status: Ordered atorvastatin Start: 04/23/22 14:43:00 EDT, 80 mg =, PO, Daily Start Date: 04/23/22 Status: Ordered cholestyramine 4 g/9 g oral powder for reconstitution Start: 03/06/21 9:48:00 EDT, 4 g =, PO, Daily, PRN: diarrhea Start Date: 03/06/21 Status: Ordered ciprofloxacin 500 mg oral tablet Start: 04/01/23 11:00:00 EDT, 1 tab, PO, q12h, Disp# 20 tab, Refills: 0, When needed, Pharmacy: [id number] Start Date: 04/01/23 Stop Date: 04/11/23 Status: Ordered Dipentum 250 mg oral capsule Start: 07/14/16 8:52:00, See Instructions, Disp# 180 cap, Refills: 3, 1 cap po BID Start Date: 07/14/16 Status: Ordered Flagyl 500 mg oral tablet Start: 04/01/23 11:00:00 EDT, 1 tab, PO, q8h, Disp# 30 tab, Refills: 0, Pharmacy: [id number] Start Date: 04/01/23 Stop Date: 04/11/23 Status: Ordered hydrocortisone 2.5% topical ointment Start: 04/23/22 14:44:00 EDT, topical, PRN Start Date: 04/23/22 Status: Ordered lisinopril Start: 04/23/22 14:44:00 EDT, 10 mg =, PO, Daily Start Date: 04/23/22 Status: Ordered LORazepam Start: 04/23/22 14:45:00 EDT, 1 mg =, PO Start Date: 04/23/22 Status: Ordered Metoprolol Succinate ER 100 mg oral tablet, extended release Start: 03/23/19 14:20:00 EDT, 1 tab, PO, Daily Start Date: 03/23/19 Status: Ordered nitroglycerin 0.4 mg sublingual tablet Start: 10/02/20 10:59:00 EST, 1 tab, SL, q5min, Disp# 25 tab, PRN: as needed for chest pain Start Date: 10/02/20 Status: Ordered omeprazole 40 mg oral delayed release capsule Start: 03/23/19 14:20:00 EDT, 1 cap, PO, Daily Start Date: 03/23/19 Status: Ordered triamcinolone 0.1% topical cream Start: 04/23/22 14:47:00 EDT, PRN Start Date: 04/23/22 Status: Ordered Vitamin D3 2000 intl units (50 mcg) oral capsule Start: 09/21/19 8:27:00 EST, PO, Daily Start Date: 09/21/19 Status: Ordered Mental Status 04/01/23 Barriers to Learning one year Hearing de ficit, Vision impairment, Other: eye glasses and bilateral hearing aids to both ears noted Mandatory Health Literacy Documentation Yes Health Literacy Communication Barriers N ever Primary Language Uzbek Problem List Condition Confirmation Course Effective Dates Status Health St atus Informant Crohn's disease Confirmed Active Hypertension Confirmed Active Melanoma 1 Confirmed Active PSC (primary sclerosing cholangitis) Confirmed Active Skin lesions Confirmed Active 1left chest Diagnosis Diagnosis Type Effective Dates Health Status Clinical Service Informant Crohn's disease Discharge Diagnosis 04/01/23 PSC (primary sclerosing cholangitis) Discharge Diagnosis 04/01/23 Procedures Procedure Date Related Diagnosis Body Site Status Colonoscopy 1 07/07/[address] of liver with/ w/o contrast 2 10/02/20 Completed MRCP - Magnetic resonance cholangiopancreatography 3 10/02/20 Compl eted ERCP 05/16/[address] of abdomen and pelvis 4 12/16/18 Completed Cholecystectomy 5 11/11/[address] of abdomen and pelvis 6 10/14/18 Completed Colonoscopy 2016 Completed Appendectomy 7 Completed Elbow 8 Completed Excision 9 Completed Heart 10 Completed Hernia 11 Completed Surgery 12 Completed Wrist 13 Completed 1Normal mucosa vascular pattern in the entire examined colon. Diverticulosis in the sigmoid colon. Non-bleeding internal hemorrhoids. Multiple Bx were obtained in the rectum, in the sigmoid colon, at the splenic flexure, in the transverse colon, at the hepatic flexure, in the ascending colon and in the cecum. Pathology showed no significant abnormalities. Repeat in 2 years. 2Impression: Heterogeneous mass of the inferior right hepatic lobe measuring up to 3.5 cm demonstrates progressive enhancement and adjacent capsular retraction suggestive of neoplasm, the most likely differential diagnosis being mass forming cholangiocarcinoma. Dissusely heterogeneous liver with lobular morphology redemonstrated. Mild intrahepatic and extrahepatic biliarty ductal dilation. Cholecystectomy with pneumobilia. Nonspecific mildly enlarged precaval lymph node. Small hiatal hernia 3Impression: There are numerous foci of stricturing throughout the intrahepatic bile ducts, as well as a long stricture of the proximal common hepatic duct. This is similar to previous and consistent with the reported history of primary sclerosing cholangitis. There is a long segment of the midportion fo the common bile duct that is not visualized. This is asignificant change from privious and may represent develping stricture. There is only minimal intrahepatic biliary ductal dilation which is similar to the 03/29/2020 examination. The gallbladder is surgically absent. There is no evidence of choledocholithiasis. There is a 3 cm ovoid T2 hyperintnse lesion in the infterior right lobe of liver which is new from 03/29/2020. This is pathologically indeterminant, and although this could be on an infectious/inflammatory basis the appearance is concerning for neoplasm. Correlation with a contrast-enhanced abdominal CT scan is recommended for further assessment. An enlarged portacaval lymph node is pathologically indeterminant but has increased in size from 03/29/2020. Additional findings as above. 4Intrahepatic ductal dilatation, mostly in the left hepatic lobe with pneumobilia. Findings compatible with clinical Hx of cholangitis. MRI wiht MRCP could be considered for better evaluation 5Pathology: Chronic cholecystitis, Cholelithiasis, Negative for dysplasia and malignancy 61) Sinnce 02/08/18, interval develpment of well thickening of the gallbladder. The gallbladder is again seen to be distended, approximating 6.6 x 5.1 cm on axial image . Potential cholecystitis is not excluded. 2) Multiple sites of intrahepatic biliary ductal dilatation is again seen with associated lobulatedmargins of the liver, consistent with clinical Hx of primary sclerosing cholangitis. Potential subtle small underlying biliary obstructin lesions are not excluded. 3) since 02/08/18, interval development of small pneumobilia--axial image . 4) Mild periportal adenopathy, grossly unchanged since 02/08/18. Few small gastrohepatic ligamentlymph nodes as well as several small retroperitoneal lymph nodes are grossly unchanged. 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 [facility] medical historyreviewed. Abdominal surgeries include: cholecystectomy and appendectomy; surgical history of CABG in 1995 Prior records: 09/21/2019: GI OV notes reviewed from Dr. Sanders - h/o Crohn's, PSC 03/14/2020: Hepatology OV notes reviewed from Dr. Mari - primary sclerosing cholangitis 03/29/2020: MRCP obtained and demonstrated diffusely irregular intrahepatic biliary ducts with multiple strictures, including a stricture of the proximal common hepatic duct.. The findings are consistent with the clinical history of sclerosing cholangitis. Additional findings per report 02/11/2021 to 02/14/2021: Inpatient admission at [facility] due to recurrent cholangitis with known h/o primary sclerosing cholangitis. MRCP demonstrated numerous areas of stricture and dilation with an intrahepatic biliary ducts with patent common bile duct; status post cholecystectomy. Previously seen 3 cm T2 hyperintensity at the inferior right lobe significantly improved since prior. Internal development of focal area of increased T2 signal within the right lobe of the liver. CTA was obtained with findings per report and previously described nonspecific ill-defined hypodense focus within the right lobe of the liver with associated capsular retraction measuring 2.5 c m. Patient on IV Zosyn and IV Flagyl while inpatient. He was discharged to home with p.o. antibiotics of Cipro and Flagyl 500 mg twice daily each to total 14 days of treatment. 04/04/2021: Bone density imaging obtained which demonstrated low/moderate fracture risk with no prescription therapy recommended at this time. 05/08/20 to 05/10/2021: Inpatient admission at [facility] due to PSC with history of Crohn's disease. Admitted due to fever at home with abdominal pain. GI followed during inpatient. Patient maintained on olsalazine to 50 mg p.o. twice daily and ursodiol 300 mg p.o. twicedaily. 04/29/2022: Hepatology office visit notes are reviewed fromDr. Mari 07/07/2021: Colonoscopy notes are reviewed performed due to history of IBD which demonstrated no endoscopic evidence of colitis throughout the entire colon. Mucosal vascular pattern in the entire colon was normal with multiple biopsies obtained. Scattered medium mouth diverticula found in the sigmoid colon. There were grade 3 nonbleeding internal hemorrhoids found during retroflexion. Pathology results of the cecum, ascending colon, hepatic flexure, transverse colon, splenic flexure, descending colon, sigmoid biopsies demonstrated mild crypt distortion with no acute inflammation or dysplasia. (next due 06/2023) 06/07/2022 to 06/09/2022: Admission notes from [facility] are reviewed due to admission for patient with history of primary sclerosing cholangitis who presented to the ER with fever, chills, right upper quadrant pain. Unfortunately history of recurrent cholangitis. Started Ciproat home but went to the ER due to fever. Mild leukocytosis WBC: 11.95. MRI of the abdomen showed stable findings compared to previous study. Patient went home on p.o. Cipro and Flagyl for an additional 5 days. Advised to continue taking ursodiol. 06/08/2022: MRI of the abdomen with and without contrast obtained patient with history of cholangitis with acute right upper quadrant abdominal pain demonstrated 1. Motion degraded exam. 2. Diffusely irregular intrahepatic biliary tree with multiple intrahepatic and long segment common bile duct stri ctures which overall appear generally stable compared to the 02/09/2018 study. Findings are compatible with the patient's clinical history of primary sclerosing cholangitis. 3. Fibrosis of the right hepatic lobe with inferior right hepatic lobe capsular retraction which also appears generally stable. There is a stable 2.6 cm area of probable fibrosis with hepatic neoplasm considered less likely. This lesion shows no significant change dating back to 2018. 4. Cholecystectomy. 06/19/2022 GI OV: Required inpatient admission 05/2022 due tocholangitis. He reports that he began havingright upper quadrantabdominal pain and fever promptingER evaluation. He states that he had startedCipro at home as he has been instructed. Last hospitalization was 04/2021. Patientreports complete resolution of abdominal pain. He has completedCipro and Flagyl as prescribedat hospital discharge. No nausea or vomiting. States he has had a few pounds weight loss since last office visit. Reports bowel movements 2-3 times dailywhich is normal for him. No melena or hematochezia. He has been instructed in the past to start Cipro immediately with any onset of temperature elevation he does have Cipro at home. 07/01/2022: [facility] to include CBC with differential, CMP, lipid panel, PSA, vitamin D 10/02/2022 GI OV:Patient presents today for routine follow-up. He has no questions/concerns and he is doing well. He does report that 2 of the medicationshe is on (Dipentum and ursodiol) see orders from [facility]. He was told there were supply issues with his Dipentumalthough he has astock of medication at home still. Reports that he is taking cholestyramine as needed for loose stool/diarrhea. He has not required Cipro or Flagylsince his last inpatient admission. Is compliant with omeprazole and ursodiol daily. Denies fever, chills, night sweats, unintentional weight loss. No nausea, vomiting, dysphagia,heartburn or indigestion. He has had no upper abdominal pain consistent with his PSC however he has had some intermittent lower abdominal cramping over the last 2 weeks. He is experiencing a bowel movement 1-3 times dailythat are loose. He denies any melena or hematochezia. 12/29/2022: CBC, CMP, lipid panel, vitamin D levels are reviewed with pertinent abnormals noted. BUN 28, creatinine 1.41, triglycerides 201, VLDL 40 04/01/2023 GI OV:The patient presents today for routine follow-up ofCrohn's colitis and primary sclerosing cholangitis. [place] He reports thatin the last6 months since I have seen him,he did use antibioticsdue to increased abdominal pain 11/2022 and took 2 days of antibiotics this monthhowever discontinued as his discomfort felt differentthan his normal cholangitis discomfort. His symptoms included some increased gas, upper abdominal pain but resolved over the course of several days. He has an MRIof his liver scheduledfor 04/09/2023. He has no other voiced GI complaints. He is havinga bowel movement 1-3 times daily that are typically loose but denies melena or hematochezia. Denies nausea, vomiting, dysphagia, unintentional weight loss, heartburn indigestion. IBD History - Diagnosis:Longstanding history of Crohn's colitis with PSC with extensive fibrosis and recurrent cholangitis -Current treatments: Crohn's - Dipentum; PSC - Actigall with prn Cipro and flagyl for cholangitis - IBD surgeries: none - Extraintestinal manifestations (joint, eye, mouth ulcers, skin lesions): none - Upper GI or Perianal involvement:none - FHx of IBD or CRC:Daughter with UC - Smoking history:Lifetime nonsmoker. - Social history: Denies use of alcohol or recreational drugs including marijuana. Retired from [employer] in 2018. He is and lives at home with his . No further complaints or concerns today. Physical Exam Vitals & Measurements HR:55(Monitored) RR:16 BP:112/62 SpO2:98% WT:74.800kg(Dosing) WT:74.8kg General:Alert and oriented, No acute distress, appears stated age,wears corrective lenses,_ HENT:Normocephalic, normal hearing Respiratory: Respiration are non-labored and no evidence of respiratory distress is noted Integumentary:Exposed skin viewable is dry and intact Psychiatric:Cooperative, appropriate mood & affect, Normal judgement Assessment/Plan 1.Crohn's disease The patient is a pleasant 72-year-old male who presents today forroutine follow-up of Crohn's disease and history of primary sclerosing cholangitis. 1. Crohn's disease: - The patient has a longstanding history of Crohn's colitis which is maintained on Xwtndcax586 mgp.o. twice daily. IBD Health Maintenance: High risk colon cancerscreening: Next colonoscopy due 06/2023 (h/o PSC). Colonoscopy for qogqzmmwjvxg94/2021 with no active disease or dysplasia, had incidental diverticulosis and hemorrhoids. Age-appropriate cancer screening: Recommended skin cancer screening and age directed cancer screening Consider dermatology referral next OV Bone disease: monitor vitamin D levels and replete as needed. 12/2022 vitamin D 44.3, DEXA 03/2021 WNL, low/moderate fracture risk Vaccination: Annualinfluenza vaccine recommended. XvnzlhtatGYH03 and PPSV 23, HBVvaccines.Began Shingrix vaccination at this OV Live vaccine precautions: Patient should not receivelive vaccines while on immunosuppression. Depression: screen prn. Smoking cessation: n/a Medication compliance: no issues 2. Primary sclerosing cholangitis: - Uekazgazwlnmltyj065 mg p.o. twice daily. - He follows with Dr. Lincoln hepatologyannually withmostrecentappointment 04/2022.Due for MRI liver 03/2023 - He has Ciproand Flagyl at hometo start if he developstemperature elevation and upper abdominal pain.Refills provided today - Hepatitis A and B vaccinations have been administered previously. 3. GERD: - The patient has a history of GERDand is maintained on Omeprazole with good symptom control at this time. 4. GI office visit follow-up in6 months, sooner if needed. 2.PSC (primary sclerosing cholangitis) Problem List/Past Medical History Ongoing Blood in urine Chest pain Crohn's disease Hypertension Kidney stones Melanoma PSC (primary sclerosing cholangitis) Skin lesions Sleep apnea Snoring Procedure/Surgical History Colonoscopy (07/07/2021)MRCP - Magnetic resonance cholangiopancreatography (10/02/2020)CT of liver with/ w/o contrast (10/02/2020)ERCP (05/16/2019)CT of abdomen and pelvis (12/16/2018)Cholecystectomy (11/11/2018)CT of abdomen and pelvis (10/14/2018)Colonoscopy (2015)ExcisionSurgeryAppendectomyHerniaWristElbowHeart Medications amLODIPine, 10 mg, PO, Daily aspirin(aspirin 81 mg oral tablet), 81 mg= 1 tab, PO, Daily atorvastatin, 80 mg, PO, Daily cholecalciferol(Vitamin D3 2000 intl units (50 mcg) oral capsule), PO, Daily cholestyramine(cholestyramine 4 g/9 g oral powder for reconstitution), 4 g, PO, Daily, PRN ciprofloxacin(ciprofloxacin 500 mg oral tablet), 500 mg= 1 tab, PO, q12h hydrocortisone topical(hydrocortisone 2.5% topical ointment), topical lisinopril, 10 mg, PO, Daily LORazepam, 1 mg, PO metoprolol(Metoprolol Succinate ER 100 mg oral tablet, extended release), 100 mg= 1 tab, PO, Daily metroNIDAZOLE(Flagyl 500 mg oral tablet), 500 mg= 1 tab, PO, q8h nitroglycerin(nitroglycerin 0.4 mg sublingual tablet), 0.4 mg= 1 tab, SL, q5min, PRN olsalazine(Dipentum 250 mg oral capsule), See Instructions, 3 refills omeprazole(omeprazole 40 mg oral delayed release capsule), 40 mg= 1 cap, PO, Daily triamcinolone topical(triamcinolone 0.1% topical cream) ursodiol(Actigall 300 mg oral capsule), 300 mg= 1 cap, PO, bid, 3 refills Allergies Amoxildiarrhea sulfa drugschills, fever Social History Smoking Status Never smoked cigarettes Family History Family history is unknown Immunizations Vaccine Date Status zoster vaccine, inactivated 04/01/2023 Given pneumococcal 20-valent conjugate vaccine 01/08/2023 Recorded Comments : 2023-04-01: Historical information-source unspecified SARS-CoV-2 mRNA (Pfizer 12+) bivalent 07/09/2022 Recorded Comments : 2022-10-02: Historical information-source unspecified SARS-CoV-2 mRNA (ivuznklvwtx-ayzs-npo) 01/06/2022 Recorded Comments : 2022-06-19: Historical information-source unspecified SARS-CoV-2 (COVID-19) mRNA BNT-162b2 vax 05/14/2021 Recorded Comments : 2022-06-19: Historical information-source unspecified SARS-CoV-2 (COVID-19) mRNA BNT-162b2 vax 04/23/2021 Recorded Comments : 2022-06-19: Historical information-source unspecified tetanus/diphtheria/pertuss, acel (Tdap) 04/16/2020 Recorded Comments : 2022-06-19: Historical information-source unspecified pneumococcal 23-valent vaccine - Not Given Comments : Patient Refuses Asked patient if he wished to have vaccine. patient said "I'll pass right now". patient stated he will follow up with Primary care physician hepatitis B adult vaccine 09/15/2018 Given hepatitis A adult vaccine 09/15/2018 Given hepatitis B adult vaccine 05/18/2018 Given hepatitis A adult vaccine 03/17/2018 Given hepatitis B adult vaccine 03/17/2018 Given pneumococcal 23-valent vaccine 03/23/2016 Recorded Comments : 2022-06-19: Historical information-source unspecified pneumococcal 13-valent vaccine 02/06/2015 Recorded Comments : 2022-06-19: Historical information-source unspecified tetanus/diphtheria/pertuss, acel (Tdap) 05/01/2008 Recorded Comments : 2022-06-19: Historical information-source unspecified Recommendations Health Maintenance Pending(in the next year) Due Adult Influenza Vaccine due03/13/23and every 1year Adult COVID-19 Vaccination due04/01/23Unknown Frequency Medicare Annual Wellness Visit due04/01/23and every 1year Due In Future Body Mass Index not due until03/31/24and every 1year Satisfied(in the past 1 year) Satisfied Adult COVID-19 Vaccination on07/09/22.Satisfied by LUCY Gutierres, Kiki Todd Body Mass Index on06/19/22.Satisfied by NERI Castano, Ceauna Shingles Vaccine on04/01/23.Satisfied by NERI Schrader, Hellen Electronic Signature on File CC: Alex Terrazas MD [address] [place] [id number] * Electronically Reviewed/Signed by: LUCY Gonzales Author Signature Dt/Tm:04/01/2023 11:35 AM Division of Gastroenterology [facility] Patient Care team information Care Team Personnel Name: MD Mk, Alex Otto Position: Referring DIRECT Member Role: Primary Care Provider Address: Address: [address] [place] [address] [place] Care Team Related Persons Name: TAMEKA DARNELL Address: home [address] [phone]
--- OUTSIDE RECORDS SUMMARY | 2023-05-17 10:25 | External Medical Summary | Summary of Care ---
Author Name Unknown Organization [facility] Address [address] [place] [address] Phone [phone] Care Team Providers Care Hogshead Builder Name Role Phone Alex Terrazas MD Primary Care Provider [phone] Encounter Details Date Type Department Care Team Description 01/11/2023 Orders Only [facility]iology [facility] [address] Tremaine Yang, [address] [facility] [place] [id number] Allergies Active Allergy Reactions Severity Noted Date Comments Amoxicillin-Pot Clavulanate 01/07/20 22 Sulfa Antibiotics 01/06/2022 documented as of this encounter (statuses as of 01/11/2023) Medications Medication Sig Dispensed Refills Start Date End Date Status METOPROLOL XL TBCR 100 MG OR Take 1 Tablet (100 mg) by mouth in the morning. 0 Active DIPENTUM 250 MG PO CAPS Take 1 Capsule (250 mg) by mouth in the morning and 1 Capsule (250 mg) before bedtime. 0 Active ASPIRIN 81 MG PO TABS Take 1 Tablet (81 mg) by mouth in the morning. 0 Active Ciprofloxacin HCl 500 MG Oral Tablet (Cipro) Take 1 Tablet (500 mg) by mouth in the morning and 1 Tablet (500 mg) before bedtime. As needed . 0 10/02/2020 Active Nitroglycerin 0.4 MG Sublingual Tablet Sublingual (Nitrostat) Place 1 Tablet (0.4 mg) under the tongue every 5 minutes as needed for Pain, Chest. 0 10/02/2020 Active Omeprazole 40 MG Oral Capsule Delayed Release (PriLOSEC) Take by mouth 1 Capsule in the morning. 0 12/02/2021 Active Ursodiol 300 MG Oral Capsule (Actigall) Take by mouth 300 mg in the morning AND 300 mg before bedtime. 0 Active Vitamin D 50 MCG (2000 UT) Oral Capsule Take by mouth 2,000 Units in the morning. 0 Active Lisinopril 10 MG Oral Tablet (Prinivil) Take by mouth 1 Tablet in the morning. 90 Tablet 3 02/17/2022 Active amLODIPine Besylate 10 MG Oral Tablet Take by mouth 1 Tablet in the morning. 100 Tablet 3 02/17/2022 Active metroNIDAZOLE 500 MG Oral Tablet (Flagyl) Take 1 Tablet (500 mg) by mouth in the morning and 1 Tablet (500 mg) at noon and 1 Tablet (500 mg) before bedtime. 0 06/19/2022 Active Triamcinolone Acetonide 0.1 % External Cream (Aristocort) as needed. 0 04/23/2022 Active LORazepam 1 MG Oral Tablet (Ativan) Take 1 Tablet (1 mg) by mouth in the morning. 0 04/23/2022 Active Hydrocortisone 2.5 % External Ointment as needed. 0 04/23/2022 Active Cholestyramine 4 GM/DOSE Oral Powder Take 4 g by mouth daily as needed for Diarrhea. 0 07/20/2022 Active Atorvastatin Calcium 80 MG Oral Tablet (Lipitor) Take 1 Tablet by mouth in the morning. 100 Tablet 3 01/04/2023 Active documented as of this encounter (statuses as of 01/11/2023) Active Problems Problem Noted Date Coronary atherosclerosis of [place] coron nu artery 10/26/2011 Postsurgical aortocoronary bypass status documented as of this encounter (statuses as of 01/11/2023) Immunizations Name Administration Dates Next Due COVID-19 mRNA, LNP-s, No Pre serve, 2-Dose Series (PillGuard) 05/14/2021,04/23/2021 COVID-19, LNP-s, No Preserve , Bronson-sucrose, Ages 12+ (PillGuard) 01/06/2022 HEP A - Hepatitis A (Adult > 18 yrs) 09/15/2018, 03/17/2018 Hepatitis B, 20+ yrs 09/15/2018,05/18/2018,03/17 Pneumococcal Conjugate Vacc, 13 Valent (Prevnar) 02/06/2015 Pneumococcal Polysaccharide PPV23 (Pneumovax) 03/23/2016 Seasonal Influenza Virus Vac cine, Unspecified Formulation 06/17/2022 documented as of this encounter Social History Tobacco Use Types Packs/Day Years Used Date Smoking Tobacco: Never Smokeless Tobacco: Never Alcohol Use Standard Drinks/Week Comments No 0 (1 standard drink = 0.6 oz pur e alcohol) Sex Assigned at Date Recorded Not on file Job Start Date Occupation Industry Not on file Not on file Not on file documented as of this encounter Plan of Treatment Upcoming Encounters Date Type Specialty Care Team Description 08/25/2023 Office Visit Cardiology Tremaine Yang, DO [address] [place] [address] Health Maintenance Due Date Last Done Comments Depression Screening, Annual for Pts 12 and Over 1961 Hepatitis C Screening 1967 DTaP,Tdap,and Td Vaccines (1 - Tdap) 1968 Cologuard: Ages 45-75 1994 Colonoscopy: Ages 45-75 1994 Colorectal Cancer Screening (Colonoscopy 10 Years; Sigmoidoscopy 5 Years; Cologuard 3 Years; FOBT 1 Year): Ages 45-75 1994 FOBT: Ages 45-75 1994 Sigmoidoscopy: Ages 45-75 1994 Zoster Vaccines (1 of 2) 1999 Pneumococcal Vaccine: 65+ Years Completed 03/23/2016, 02/06/2015 Hepatitis B Completed 09/15/2018, 01/2018, 03/17/2018 Influenza Vaccine (FLU shot) Completed 06/17/2022 COVID-19 Vaccine Completed 07/09/2022, , 05/14/2021, Additional history exists GARDASIL-HPV IMMUNIZATION SERIES Aged Out No longer eligible based on patient's age to complete this topic MENINGOCOCCAL (MENACTRA/MENVEO) Aged Out No longer eligible based on patient's age to complete this topic documented as of this encounter Medical Devices Not on filedocumented as of this encounter Procedures Procedure Name Priority Date/Time Associated Diagnosis Comments CHEMISTRY-OUTSIDE Routine 12/29/2022 documented in this encounter Results * (ABNORMAL) CHEMISTRY-OUTSIDE (12/29/2022) Not all results display below - see scan for full detail OUTSIDE LAB (SEE SCANNED REPORT) Comment:SEE SCAN: CBCD,CMP, LIPIDS, VIT D CREATININE-OUTSID E LAB 1.41(A) 0.6 - 1.4 MG/DL OUTSIDE LAB (SEE SCANNED REPORT) EGFR-OUTSIDE LAB 49.1 OUT SIDE LAB (SEE SCANNED REPORT) POTASSIUM-OUTSIDE LAB 4.5 3.5 - 5.1 MMOL/L OUTSIDE LAB (SEE SCANNED REPORT) GLUCOSE-OUTSIDE LAB 90 70 - 99 MG/DL OUTSIDE LAB (SEE SCANNED REPORT) HOURS FASTING OUTSID E LAB (SEE SCANNED REPORT) TRIGLYCERIDES-OUT SIDE LAB 201(A) 0 - 150 MG/DL OUTSIDE LAB (SEE SCANNED REPORT) CHOLESTEROL-OUTSI DE LAB 106 0 - 200 MG/DL OUTSIDE LAB (SEE SCANNED REPORT) HDL-OUTSIDE LAB 26 OUTS HEIDI LAB (SEE SCANNED REPORT) CHOL/HDL RATIO-OUTSIDE LAB 4.1 OUTSIDE LA B (SEE SCANNED REPORT) LDL (CALCULATED)-OUTS HEIDI LAB 40 OUTSIDE LAB (SEE SCANNED REPORT) LDL (DIRECT MEASURE)-OUTSIDE LAB OUTSIDE LAB (SEE SCANNED REPORT) HEMOGLOBIN, K8T-BISENUM LAB OUTSIDE LAB (SEE SCANNED REPORT) PHOSPHORUS-OUTSID E LAB OUTSIDE LAB (SEE SCANNED REPORT) PTH-OUTSIDE LAB OUTS HEIDI LAB (SEE SCANNED REPORT) MICROALBUMIN RATIO-OUTSIDE LAB OUTSIDE LA B (SEE SCANNED REPORT) PROTEIN, UA-OUTSIDE LAB OUTSIDE LAB (SEE SCANNED REPORT) HEMOGLOBIN-OUTSID E LAB 15.6 14.0 - 18.0 G/DL OUTSIDE LAB (SEE SCANNED REPORT) 12/29/2022 History Per Patient LABORATORY OUTSIDE LAB (SEE SCANNED REPORT) documented in this encounter Care Teams Hogshead Builder Relationship Specialty Start Date End Date Alex Terrazas MD [address] [place] [address] PCP - General 06/26/02 documented as of this encounter
--- OUTSIDE RECORDS SUMMARY | 2023-05-17 10:25 | External Medical Summary | Continuity of Care Document ---
Author Name Unknown Organization [facility] [address] [place] [id number] Care Team Providers Care Paper Hanger Name Role Phone Alex Terrazas Primary Care Physician [phone] [id number] Date[facility]s): 04/21/23 - 04/21/23 [facility] [address] [place] [phone] [place] Encounter Diagnosis Calculus of bile duct without cholangitis or cholecystitis with obstruction (Final) - Other specified diseases of biliary tract(Final) - Atherosclerotic heart disease of [place] coronary artery without angina pectoris (Final) - Essential (primary) hypertension(Final) - Hyperlipidemia, unspecified(Final) - Acquired absence of other specified parts of digestive tract(Final) - Presence of aortocoronary bypass graft(Final) - long term care administrator (current) use of aspirin(Final) - Other parts counterman (current) drug therapy(Final) - Discharge Disposition: Home or Self Care Attending Physician: MD Casillas Hadie Referring Physician: MD Nick, Alicia Walker Allergies, Adverse Reactions, Alerts Substance Reaction Severity Status sulfa drugs chills fever Active Amoxil diarrhea Active Immunizations Given and Recorded Vaccine Date Status Refusal Reason zoster vaccine, inactivated 04/01/23 Given pneumococcal 20-valent conjugate vaccine 1 01/08/23 Recorded SARS-CoV-2 mRNA (Pfizer 12+) bivalent 2 07/09/22 R ecorded SARS-CoV-2 mRNA ([id number]) 3 01/06/22 Recorded SARS-CoV-2 (COVID-19) mRNA BNT-162b2 [...] bid, Disp# 180 cap, Refills: 3, Pharmacy: [id number] Start Date: 09/21/19 Stop Date: [...] 20 tab, Refills: 0, When needed, Pharmacy: [id number] Start Date: 04/01/23 Stop Date: 04/11/23 Status: Ordered ciprofloxacin 500 mg oral tablet Start: 04/21/23 10:54:00 EDT, 1 tab, PO, q12h, Disp# 14 tab, Refills: 0, Pharmacy: [id number] Start Date: 04/21/23 Status: Ordered Dipentum 250 mg oral capsule Start: 07/14/16 8:52:00, See Instructions, Disp# 180 cap, Refills: 3, 1 cap po BID Start Date: 07/14/16 Status: Ordered Flagyl 500 mg oral tablet Start: 04/01/23 11:00:00 EDT, 1 tab, PO, q8h, Disp# 30 tab, Refills: 0, Pharmacy: [id number] Start Date: 04/01/23 Stop Date: [...] PO, Daily Start Date: 03/23/19 Status: Ordered metroNIDAZOLE 500 mg oral tablet Start: 04/21/23 10:54:00 EDT, 1 tab, PO, q8h, Disp# 21 tab, Refills: 0, Pharmacy: [id number] Start Date: 04/21/23 Status: Ordered nitroglycerin 0.4 mg sublingual tablet [...] PO, Daily Start Date: 09/21/19 Status: Ordered Problem List Condition Confirmation Course Effective Dates Status Health St atus Informant Crohn's disease Confirmed Active Hypertension Confirmed Active Melanoma 1 Confirmed Active PSC (primary sclerosing cholangitis) Confirmed Active Skin lesions Confirmed Active 1left chest Procedures Procedure Date Related Diagnosis Body Site [...] small retroperitoneal lymph nodes are grossly unchanged. [id number] 9melanoma of left chest [id number] 12fibroma right foot [id number] Vital Signs Most recent to oldest [Reference Range]: 1 2 3 Patient Weight 72.1 kg (04/21/23 9:44 AM) Temperature [36.5-37.9 DegC] 36.0 DegC *LOW* (04/21/23 10:50 AM) 36.0 DegC *LOW* (04/21/23 10:47 AM) 36.8 DegC (04/21/23 9:44 AM) Heart Rate 63 bpm (04/21/23 10:50 AM) 63 bpm (04/21/23 10:47 AM) 67 bpm (04/21/23 9:44 AM) Respiratory Rate 13 br/min (04/21/23 10:50 AM) 13 br/min (04/21/23 10:47 AM) 15 br/min (04/21/23 9:44 AM) Blood Pressure 106/64mmHg (04/21/23 10:50 AM) 106/64mmHg (04/21/23 10:47 AM) 115/66mmHg (04/21/23 9:44 AM) Cuff Pulse Pressure 42 mmHg (04/21/23 10:47 AM) 49 mmHg (04/21/23 9:44 AM) Social History Social History Type Response Smoking Status Never smoked cigaret aide Sex Male Endoscopy study * MD Sonja, Carlos: VERIFY, MODIFY, PERFORM Event Display: Endoscopy Authored Date: Please click on link to see image. Laboratory * AMEE Epstein(ASCP)Cyndee: TRANSCRIBE, TYE Bagley MD, Bing: VERIFY Event Display: NG Disclaimer Authored Date: For immunohistochemical or histochemical stains on cell blocks or other liquid based preparations, focused validation may have been done that may or may not apply to all specimen types. Results should be interpreted with caution. * AMEE Epstein(ASCP)Cyndee: TRANSCRIBETYE MD, Bing: VERIFY Event Display: NG Interp Adequacy Authored Date: 1 Common Bile Duct Brushing Satisfactory for evaluation. * AMEE Epstein(ASCP)Cyndee: TRANSCRIBE, TYE Bagley MD, Bing: VERIFY Event Display: NG Gross Authored Date: 2 brushes in 20cc CytoLyt fixative. Specimen divided for possible FISH testing. * Fluck, CT(ASCP), Cyndee F: TRANSCRIBE, PERFORM MD Bagley Bing: VERIFY Event Display: NG Clinical History Authored Date: PSC * Fluck, CT(ASCP), Cyndee Best: TRANSCRIBE, TYE Bagley MD, Bing: VERIFY Event Display: NG Interp Dx Authored Date: 1 Common Bile Duct Brushing Benign ductal cells present. Negative for malignant cells. Screened by: ELICEO WONG 04/22/2023 Completed by: Ania Bagley MD (Electronically signed by) 04/23/2023 09:41 EDT Performing Location: [facility] Patient Care team information Care Team Personnel Name: MD Mk, Alex Otto Position: Referring DIRECT Member Role: Primary Care Provider Address: Address: [address] [place] [id number] [place] Care Team Related Persons Name: TAMEKA DARNELL Address: home [address] [phone]
--- OUTSIDE RECORDS SUMMARY | 2023-05-17 10:25 | External Medical Summary | Summary of Care ---
Author Name Unknown Organization [place] [address] Care Team Providers Care Gleason Operator Name Role Phone Alex Terrazas MD Primary Care Provider [phone] Reason for Visit * Reason Comments Routine Exam Encounter Details Date Type Department Care Team Description 08/25/2022 Office Visit Cardiology [place] [address] [place] [address] Tremaine Yang, [address] [place] [address] Coronary artery disease of [place] artery of [place] heart with stable angina pectoris (HCC)*; HTN, goal below 130/80 Allergies Active Allergy Reactions Severity Noted Date Comments Amoxicillin-Pot Clavulanate 01/07/20 22 Sulfa Antibiotics 01/06/2022 documented as of this encounter (statuses as of 08/25/2022) Medications Medication Sig Dispensed Refills Start Date [...] 2,000 Units in the morning. 0 Active Atorvastatin Calcium 80 MG Oral Tablet (Lipitor) Take by mouth 1 Tablet in the morning. 100 Tablet 3 01/06/2022 Active Lisinopril 10 MG Oral Tablet (Prinivil) [...] as needed for Diarrhea. 0 07/20/2022 Active OMEPRAZOLE 20 MG PO CPDR 1 TAB ONCE DAILY 0 08/25/2022 Discontinued (Medication List Clean Up) documented as of this encounter (statuses as of 08/25/2022) Active Problems Problem Noted Date Coronary atherosclerosis of [place] coron nu artery 10/26/2011 Postsurgical aortocoronary bypass status documented as of this encounter (statuses as of 08/25/2022) Immunizations Name Administration Dates Next Due COVID-19 mRNA, LNP-s, No Pre serve, 2-Dose Series ([employer]) 05/14/2021,04/23/2021 COVID-19, LNP-s, No Preserve , Bronson-sucrose, Ages 12+ (Pfizer) 01/06/2022 HEP A - Hepatitis A (Adult [...] on file documented as of this encounter Last Filed Vital Signs Vital Sign Reading Time Taken Comments Blood Pressure 132/64 08/25/2022 7:50 AM EST Pulse 56 08/25/2022 7:50 AM EST Temperature - - Respiratory Rate - - Oxygen Saturation - - Inhaled Oxygen Concentration - - Weight 76.2 kg (168 lb) 08/25/2022 7:50 AM EST Height 170.2 cm (5' 7") 08/25/2022 7:50 AM EST Body Mass Index 26.31 08/25/2022 7:50 AM EST documented in this encounter Progress Notes * Tremaine Isidro Trey, DO - 08/25/2022 8:16 AM EST 08/25/2022 Cardiology Follow Up Reason for Follow Up ICD-10-CM 1. Coronary artery disease of [place] artery of [place] heart with stable angina pectoris (HCC) I25.118 2. HTN, goal below 130/80 I10 SUBJECTIVE: Skip Hartley is a 72 year old year old male who has established coronary artery disease.In 1995 he underwent coronary artery bypass grafting with a QURESHI to the LAD, ZIYAD to the diagonal, saphenous vein graft to the PDA sequentially to the 1st obtuse marginal and sequentially to the 2nd obtuse marginal.He has not seen Cardiology in many years. His biggest issue has been GI related with Crohn's disease and sclerosing cholangitis. However, the past 2 years while out hunting he has developed worsening shortness of breath while walking up hill. He has also developed anginal symptoms with exertion. For risk stratification I diddo a pharmacologic Cardiolite stress test there was a small area of RCA territory ischemia. Since the last I seen him he is brought on hunting and walking very vigorously amounts in doing this without anginal-type symptoms. His blood pressure is under reasonable control. Extensive ROS: All other ROS negative or as stated above. Patient Active Problem List Diagnosis Code Postsurgical aortocoronary bypass status Z95.1 Coronary atherosclerosis of [place] coronary artery I25.10 Review of patient's allergies indicates: Allergen Reactions Augmentin [Amoxicillin-Pot Clavulanate] Sulfa Antibiotics Current Outpatient Medications Medication Sig Dispense Refill METOPROLOL XL TBCR 100 MG OR Take 1 Tablet (100 mg) by mouth in the morning. DIPENTUM 250 MG PO CAPS Take 1 Capsule (250 mg) by mouth in the morning and 1 Capsule (250 mg) before bedtime. ASPIRIN 81 MG PO TABS Take 1 Tablet (81 mg) by mouth in the morning. Ciprofloxacin HCl 500 MG Oral Tablet (Cipro) Take 1 Tablet (500 mg) by mouth in the morning and1 Tablet (500 mg) before bedtime. As needed . Nitroglycerin 0.4 MG Sublingual Tablet Sublingual (Nitrostat) Place 1 Tablet (0.4 mg) under thetongue every 5 minutes as needed for Pain, Chest. Omeprazole 40 MG Oral Capsule Delayed Release (PriLOSEC) Take by mouth 1 Capsule in the morning. Ursodiol 300 MG Oral Capsule (Actigall) Take by mouth 300 mg in the morning AND 300 mg before bedtime. Vitamin D 50 MCG (2000 UT) Oral Capsule Take by mouth 2,000 Units in the morning. Atorvastatin Calcium 80 MG Oral Tablet (Lipitor) Take by mouth 1 Tablet in the morning. 100 Tablet 3 Lisinopril 10 MG Oral Tablet (Prinivil) Take by mouth 1 Tablet in the morning. 90 Tablet 3 amLODIPine Besylate 10 MG Oral Tablet Take by mouth 1 Tablet in the morning. 100 Tablet 3 metroNIDAZOLE 500 MG Oral Tablet (Flagyl) Take 1 Tablet (500 mg) by mouth in the morning and 1 Tablet (500 mg) at noon and 1 Tablet (500 mg) before bedtime. Triamcinolone Acetonide 0.1 % External Cream (Aristocort) as needed. LORazepam 1 MG Oral Tablet (Ativan) Take 1 Tablet (1 mg) by mouth in the morning. Hydrocortisone 2.5 % External Ointment as needed. Cholestyramine 4 GM/DOSE Oral Powder Take 4 g by mouth daily as needed for Diarrhea. No current facility-administered medications for this visit. 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 Employer: [employer] Tobacco Use Smoking status: Never Smokeless tobacco: Never Substance and Sexual Activity Alcohol use: No Drug use: No Family History Problem Relation Age of Onset Other (CAD Alzheimers) Mother Other ([place], CAD) Father Family Status Relation Status Mo Fa Past Surgical History: Procedure Laterality Date CORONARY ARTERIES BYPASS, FOUR 06/14/1996 QURESHI to LAD, ZIYAD to diagonal, SVG to posterior descending, sequential SVG to first marginal arteryto second marginal artery FOOT/TOE SURGERY NEC FOREARM/WRIST SURGERY NEC REMOVAL OF APPENDIX UPPER ARM/ELBOW SURGERY NEC OBJECTIVE/PHYSICAL EXAMINATION: BP 132/64 | Pulse 56 | Ht 1.702 m (5' 7") | Wt 76.2 kg (168 lb) | BMI 26.31 kg/m | BSA 1.9 m General: no acute distress and stated age Eyes: conjunctiva are pink and non-injected, sclera clear Neck: normal jugular venous pulse, no hepatojugular reflux Chest: normal shape and normal respiratory effort Lungs: clear to auscultation and percussion Cardiac Exam: - regular bradycardic heart sounds, no murmurs, rubs, or gallops Abdomen: abdomen soft, non-tender, no abnormal masses and no hepatosplenomegaly Musculoskeletal: no gait disturbance, no weakness Extremities: no edema and no cyanosis Neuro: grossly normal exam Psych: appropriate affect and insight. Skin: No rash Lymph: No adenopathy Data: Lipid Panel Results: Results for orders placed or performed in visit on 08/25/18 LIPID PANEL Result Value Ref Range HOURS FASTING >8 HOURS hours Triglycerides 110 <200 mg/dL Cholesterol 97 <200 mg/dL HDL Cholesterol 38 (L) >39 mg/dL Cholesterol-HDL Ratio 2.6 LDL Cholesterol 37 0 - 129 mg/dL Results for orders placed or performed in visit on 02/23/18 LIPID PANEL WITH DIRECT LDL IF TG ABOVE 400 MG/DL Result Value Ref Range HOURS FASTING 12 hours Triglycerides 125 <200 mg/dL Cholesterol 99 <200 mg/dL HDL Cholesterol 19 (L) >39 mg/dL Cholesterol-HDL Ratio 5.2 LDL Cholesterol 55 0 - 129 mg/dL LDL Cholesterol (Direct Measure) NOT APPLICABLE 0 - 129 mg/dL TSH Results: Lab Results Component Value Date/Time TSH - [facility] 3.66 02/23/2018 07:45 AM TSH - [facility] 3.27 03/02/2017 06:41 AM TSH - [facility] 2.42 03/27/2016 08:07 AM ASSESSMENT: 72 year old year old malewith coronary artery disease with chronic stable angina. RECOMMENDATIONS/PLAN: 1. Coronary artery disease with chronic stable angina: His pharmacologic Cardiolite stress test demonstrates a small area of RCA territory ischemia and given that he is asymptomatic and this is been longstanding we are going to manage this conservatively. His blood pressure and LDL cholesterol are at goal. Tremaine Yang DO Cardiology [address] [id number] This chart was completed in part utilizing [employer] Speech Voice Recognition Software. Grammatical errors, random word insertions, prounoun errors, and incomplete sentences are an occasional consequence of this system due to software limitations, ambient noise, and hardware issues. Any formal questions or concerns about the content, text, or information contained within the body of this dictation should be directly addressed to the provider for clarification. documented in this encounter Nursing Notes * Marilee Montoya RN - 08/25/2022 7:50 AM EST Patient was identified by name and date of . Name: Skip Hartley Date of : (1950). Examination Room: 7 Reason for Visit: Chief Complaint Patient presents with Routine Exam Interim Hospitalization(s): NO Interim Emergency room visit(s): YES [facility] Chest Pain: No SOB: No Problems/Concerns: No Medications reviewed and are up to date via: Patient's written list Would you like to sign up for [facility]? ALREADY ACTIVE Patient was instructed to not get up on the exam table/exam chair until directed and assisted by their provider; patient is to remain seated in the chair/ wheelchair/ exam table/ exam chair for fall prevention and safety reasons. Patient is aware to have assistance to step down off exam table/exam chair with personnel. Patient voiced full comprehension of instructions. Marilee Montoya RN 7:50 AM 08/25/2022 documented in this encounter Plan of Treatment Upcoming Encounters Date Type Specialty Care Team Description 08/25/2023 Office Visit Cardiology Tremaine Yang, DO [address] [place] [address] Health Maintenance Due Date Last Done Comments [...] 1994 Zoster Vaccines (1 of 2) 1999 COVID-19 Vaccine (4 - Booste r for Pfizer series) 03/03/2022 01/06/2022, 05/14/2021, 04/23/2021 Pneumococcal Vaccine: 65+ Years Completed 03/23/2016, 02/06/2015 Hepatitis B Completed 09/15/2018, 05/18/2018, 03/17/2018 Influenza Vaccine (FLU shot) Completed 06/17/2022 GARDASIL-HPV IMMUNIZATION SERIES Aged Out No longer eligible b ased on patient's age to complete this topic MENINGOCOCCAL (MENACTRA/MENVEO) Aged Out No longer eligible b ased on patient's age to complete this topic documented as of this encounter Medical Devices Not on filedocumented as of this encounter Visit Diagnoses Diagnosis Coronary artery disease of [place] artery of [place] heart with stable angina pectoris (HCC)- Primary HTN, goal below 130/80 Unspecified essential hypertension documented in this encounter Care Teams Gleason Operator Relationship Specialty Start Date End Date Alex Terrazas MD [address] [place] [address] PCP - General 06/26/02 documented as of this encounter
--- OUTSIDE RECORDS SUMMARY | 2023-05-17 10:25 | External Medical Summary | Continuity of Care Document ---
Author Name Unknown Organization [address] Address [address] [place] [id number] Care Team Providers Care Lumber Kiln Operator Name Role Phone Alex Terrazas Primary Care Physician [phone] [id number] Date[facility]s): 10/02/22 - 10/02/[address] [address] [phone] Encounter Diagnosis Crohn's disease(Discharge Diagnosis) - 10/02/22 PSC (primary sclerosing cholangitis)(Discharge Diagnosis) - 10/02/22 Discharge Disposition: Home or Self Care Attending Physician: LUCY Gutierres Janet Griffith Referring Physician: LUCY Gutierres Janet Griffith Allergies, Adverse Reactions, Alerts Substance Reaction Severity Status sulfa drugs chills fever Active Amoxil diarrhea Active Assessment and Plan Extracted from: Title:Office Visit Note Author:LUCY Gutierres Janet Griffith Date:10/02/22 1.Crohn's disease The patient is a pleasant 72-year-old male who presents today forroutine follow-up of Crohn's disease and history of primary sclerosing cholangitis. 1. Primary sclerosing cholangitis: - Most recentinpatient admission for recurrentcholangitis05/2022 - He is maintained flkdlepcyl533 mg p.o. twice daily. - He follows with Dr. Lincoln hepatologyannually withmostrecentappointment 04/2022.Due for MRI liver 03/2023 - He has Ciproand Flagyl at hometo start if he developstemperature elevation and upper abdominal pain. - Hepatitis A and B vaccinations have been administered previously. 2. Crohn's disease: - The patient has a longstanding history of Crohn's colitis which is maintained on Ppztpdlh585 mg p.o. twice daily. - Colonoscopy for ybguxspiywlf13/2021 with no active disease or dysplasia, had incidental diverticulosis and hemorrhoids. - Recommendation by Dr. Mari is colonoscopy every 2 years d/t h/o PSC. Next colonoscopy due 06/2023. 3. GERD: - The patient has a history of GERDand is maintained on Omeprazole with good symptom control at this time. 4. GI office visit follow-up in6 months, sooner if needed. 2.PSC (primary sclerosing cholangitis) Immunizations Given and Recorded Vaccine Date Status Refusal Reason Pfizer (COVID-19 12+) bivalent booster 1 07/09/22 Recorded SARS-CoV-2 mRNA (pfaytivhvxj-hhte-bmd) 2 01/06/22 Recorded SARS-CoV-2 (COVID-19) mRNA BNT-162b2 vax 3 05/14/21 Recorded SARS-CoV-2 (COVID-19) mRNA BNT-162b2 vax 4 04/23/21 Recorded tetanus/diphtheria/pertuss, acel (Tdap) 5 04/16/20 Recorded tetanus/diphtheria/pertuss, acel (Tdap) 6 05/01/08 Recorded hepatitis B adult vaccine 09/15/18 Given hepatitis B adult vaccine 05/18/18 Given hepatitis B adult vaccine 03/17/18 Given hepatitis A adult vaccine 09/15/18 Given hepatitis A adult vaccine 03/17/18 Given pneumococcal 23-valent vaccine 7 03/23/16 Recorded pneumococcal 13-valent vaccine 9 02/06/15 Recorded Not Given Vaccine Date Status Refusal Reason pneumococcal 23-valent vaccine 8 05/15/19 Not Give n Patient Refuses 1Result Comment: 2022-10-02: Historical information-source unspecified 2Result Comment: 2022-06-19: Historical information-source unspecified 3Result Comment: 2022-06-19: Historical information-source unspecified 4Result Comment: 2022-06-19: Historical information-source unspecified 5Result Comment: 2022-06-19: Historical information-source unspecified 6Result Comment: 2022-06-19: Historical information-source unspecified 7Result Comment: 2022-06-19: Historical information-source unspecified 8Result Comment: 2022-06-19: Historical information-source unspecified 9Result Comment: Asked patient if he wished to have vaccine. patient said "I'll pass right now". patient stated he will follow up with Primary care physician Medications Actigall 300 mg oral capsule Start: 09/21/19 8:48:00 EST, 1 cap, PO, bid, Disp# 180 cap, Refills: 3, Pharmacy: [id number] Start Date: 09/21/19 Stop [...] Ordered ciprofloxacin 500 mg oral tablet Start: 10/02/20 10:59:00 EST, 1 tab, PO, q12h, When needed Start Date: 10/02/20 Status: Ordered Dipentum 250 mg oral capsule Start: 07/14/16 8:52:00, See Instructions, Disp# 180 cap, Refills: 3, 1 cap po BID Start Date: 07/14/16 Status: Ordered Flagyl 500 mg oral tablet Start: 06/19/22 14:37:00 EDT, 1 tab, PO, q8h, Disp# 30 tab, Refills: 0, Pharmacy: [id number] Start Date: 06/19/22 Stop Date: 06/29/22 Status: Ordered hydrocortisone 2.5% topical ointment Start: [...] Start Date: 09/21/19 Status: Ordered Mental Status 10/02/22 Barriers to Learning one year Hearing de ficit, Vision impairment, Other: eye glasses and bilateral hearing aids to both ears noted Mandatory Health Literacy Documentation Yes Health Literacy Communication Barriers N ever Primary Language Romanian Problem List Condition Confirmation Course Effective Dates Status Health St atus Informant Crohn's disease Confirmed Active Hypertension Confirmed Active Melanoma 1 Confirmed Active Hospital discharge follow-up Confirmed Active PSC (primary sclerosing cholangitis) Confirmed Active Skin lesions Confirmed Active 1left chest Diagnosis Diagnosis Type Effective Dates Health Status Clinical Service Informant PSC (primary sclerosing cholangitis) Discharge Diagnosis 10/02/22 Crohn's disease Discharge Diagnosis 10/02/22 Procedures Procedure Date Related Diagnosis Body Site [...] small retroperitoneal lymph nodes are grossly unchanged. [id number] 9melanoma of left chest [id number] 12fibroma right foot [id number] Vital Signs Most recent to oldest [Reference Range]: 1 Patient Weight 78.9 kg (10/02/22 7:58 AM) Heart Rate 67 bpm (10/02/22 7:58 AM) Respiratory Rate 17 br/min (10/02/22 7:58 AM) Blood Pressure 112/68mmHg (10/02/22 7:58 AM) Social History Social History Type Response Smoking Status Never smoked cigaret aide Sex Male Patient Care team information Personnel Name: MD Mk, Alex Otto Address: Address: [address] [place] [id number] [place]
--- OUTSIDE RECORDS SUMMARY | 2023-05-17 10:25 | External Medical Summary | Summary of Care ---
Author Name Unknown Organization [facility] Address [address] [place] [address] Phone [phone] Care Team Providers Care Management Specialist Name Role Phone Alex Terrazas MD Primary Care Provider [phone] Reason for Visit * Reason Comments eRx-Medication Refill Encounter Details Date Type Department Care Team Description 02/06/2023 Refill Cardiology [place] Nathen [place] [address] [facility] [place] [address] Namrata Jane, [address] [facility] [place] [id number] Allergies Active Allergy Reactions Severity Noted Date Comments Amoxicillin-Pot Clavulanate 01/07/20 22 Sulfa Antibiotics 01/06/2022 documented as of this encounter (statuses as of 02/09/2023) Medications Medication Sig Dispensed Refills Start Date [...] 2,000 Units in the morning. 0 Active amLODIPine Besylate 10 MG Oral Tablet [...] the morning. 100 Tablet 3 01/04/2023 Active Lisinopril 10 MG Oral Tablet (Prinivil) TAKE ONE TABLET BY MOUTH EVERY MORNING 90 Tablet 3 02/09/2023 Active Lisinopril 10 MG Oral Tablet (Prinivil) Take by mouth 1 Tablet in the morning. 90 Tablet 3 02/17/2022 02/09/2023 Discontinued documented as of this encounter (statuses as of 02/09/2023) Active Problems Problem Noted Date Coronary atherosclerosis of [place] coron nu artery 10/26/2011 Postsurgical aortocoronary bypass status documented as of this encounter (statuses as of 02/09/2023) Immunizations Name Administration Dates Next Due COVID-19 mRNA, LNP-s, No Pre serve, 2-Dose Series ([employer]) 05/14/2021,04/23/2021 COVID-19, LNP-s, No Preserve , Bronson-sucrose, [...] on file documented as of this encounter Miscellaneous Notes * Telephone Encounter - Namrata Jane DO - 02/09/2023 10:19 AM EDT Signed Prescriptions: Disp Refills Lisinopril 10 MG Oral Tablet (Prinivil) 90 Tab*3 Sig: TAKE ONE TABLET BY MOUTH EVERY MORNING Authorizing Provider: NAMRATA JANE * Telephone Encounter - Marilee Montoya RN - 02/09/2023 9:31 AM EDTPending Prescriptions: Disp Refills Lisinopril 10 MG Oral Tablet (Prinivil) 90 Tab*3 Sig: TAKE ONE TABLET BY MOUTH EVERY MORNING * Telephone Encounter - Marilee Montoya RN - 02/09/2023 9:31 AM EDT Pending Prescriptions: Disp Refills Lisinopril 10 MG Oral Tablet (Prinivil) [*90 Tab*3 Sig: TAKE ONE TABLET BY MOUTH EVERY MORNING * Telephone Encounter - Interface, E-Rx Ss Inbound - 02/08/2023 6:36 PM EDT Pending Prescriptions: Disp Refills Lisinopril 10 MG Oral Tablet [Pharmacy Med*90 Tab*0 Sig: TAKE ONE TABLET BY MOUTH EVERY MORNING documented in this encounter Plan of Treatment Upcoming Encounters Date Type Specialty Care Team Description 08/25/2023 Office Visit Cardiology Namrata Jane, DO [address] [facility] [place] [phone] Health Maintenance Due Date Last Done Comments Depression Screening, Annual for Pts 12 and Over 1961 Hepatitis C Screening 1967 DTaP,Tdap,and Td Vaccines (1 - Tdap) 1968 Cologuard 1994 Colonoscopy 1994 Colorectal Cancer Screening 1994 Fecal Occult Blood Test 1994 Sigmoidoscopy 1994 Zoster Vaccines (1 of 2) 1999 [...] Not on filedocumented as of this encounter Care Teams Management Specialist Relationship Specialty Start Date End Date Alex Terrazas MD [address] [place] [address] PCP - General 06/26/02 documented as of this encounter
--- OUTSIDE RECORDS SUMMARY | 2023-05-17 10:25 | External Medical Summary | Summary of Care ---
Author Name Unknown Organization [facility] Address [address] [place] [address] Phone [phone] Care Team Providers Care Engagement Mgr Name Role Phone Alex Terrazas MD Primary Care Provider [phone] Reason for Visit * Reason Onset Date Comments Medication Refill 01/04/2023 Encounter Details Date Type Department Care Team Description 01/04/2023 Refill Cardiology [place] Zaire Polanco [address] [facility] [place] [phone] Namrata Jane, [address] [facility] [place] [phone] Allergies Active Allergy Reactions Severity Noted Date Comments Amoxicillin-Pot Clavulanate 01/07/20 22 Sulfa Antibiotics 01/06/2022 documented as of this encounter (statuses as of 01/04/2023) Medications Medication Sig Dispensed Refills Start Date [...] the morning. 100 Tablet 3 01/04/2023 Active Atorvastatin Calcium 80 MG Oral Tablet (Lipitor) Take by mouth 1 Tablet in the morning. 100 Tablet 3 01/06/2022 01/04/2023 Discontinued (Refill) documented as of this encounter (statuses as of 01/04/2023) Active Problems Problem Noted Date Coronary atherosclerosis of [place] coron nu artery 10/26/2011 Postsurgical aortocoronary bypass status documented as of this encounter (statuses as of 01/04/2023) Immunizations Name Administration Dates Next Due COVID-19 mRNA, LNP-s, No Pre serve, 2-Dose Series ([employer]) 05/14/2021,04/23/2021 COVID-19, LNP-s, No Preserve , Bronson-sucrose, [...] Telephone Encounter - Namrata Jane DO - 01/04/2023 12:53 PM EDT Signed Prescriptions: Disp Refills Atorvastatin Calcium 80 MG Oral Tablet (Li*100 Ta*3 Sig: Take 1 Tablet by mouth in the morning. Authorizing Provider: NAMRATA JANE * Telephone Encounter - Jovita De Santiago LPN - 01/04/2023 12:24 PM EDT Pending Prescriptions: Disp Refills Atorvastatin Calcium 80 MG Oral Tablet (L*100 Ta*3 Sig: Take 1 Tablet by mouth in the morning. documented in this encounter Plan of Treatment Upcoming Encounters Date Type Specialty Care Team Description 08/25/2023 Office Visit Cardiology Namrata Jane DO [address] [place] [phone] Health Maintenance Due Date Last Done Comments [...] filedocumented as of this encounter Care Teams Engagement Mgr Relationship Specialty Start Date End Date Alex Terrazas MD [address] [place] [address] PCP - General 06/26/02 documented as of this encounter
--- OUTSIDE RECORDS SUMMARY | 2023-05-17 10:26 | External Medical Summary | Summary of Care ---
Author [place] [address] Care Team Providers Care Inspector Aide Name Role Phone Alex Terrazas MD Primary Care Provider [phone] Encounter Details Date Type Department Care Team Description 05/14/2021 Immunization Covid19 Vaccine, [facility] [address] [place] [address] Dose, Covid19 Vaccine A [address] [place] [address] Encounter for immunization* Allergies No Known Active Allergiesdocumented as of this encounter (statuses as of 05/14/2021) Medications Medication Sig Dispensed Refills Start Date End Date Status OMEPRAZOLE 20 MG PO CPDR 1 TAB ONCE DAILY 0 Active TRICOR 145 MG PO TABS 1 TAB ONCE DAILY 0 Active VYTORIN 10-80 MG PO TABS 1 TAB ONCE DAILY 0 Active METOPROLOL XL TBCR 100 MG OR 1 TAB ONCE DAILY 0 Active DIPENTUM 250 MG PO CAPS 1 TAB TWICE DAILY 0 Active ASPIRIN 81 MG PO TABS 1 TAB ONCE DAILY 0 Active documented as of this encounter (statuses as of 05/14/2021) Active Problems Problem Noted Date Coronary atherosclerosis of [place] coron nu artery 10/26/2011 Postsurgical aortocoronary bypass status documented as of this encounter (statuses as of 05/14/2021) Immunizations Name Administration Dates Next Due COVID-19 mRNA, LNP-s, No Pre serve, 2-Dose Series (DSTLD) 05/14/2021,04/23/2021 documented as of this encounter Social History Tobacco Use Types Packs/Day Years Used Date Never Smoker Smokeless Tobacco: Never Used Alcohol Use Drinks/Week oz/Week Comments No Sex Assigned at Date Recorded Not on file Job Start Date Occupation Industry Not on file Not on file Not on file documented as of this encounter Plan of Treatment Health Maintenance Due Date Last Done Comments DTaP,Tdap,and Td Vaccines (1 - Tdap) 1968 Zoster Vaccines (1 of 2) 1999 Pneumococcal Vaccine: 65+ Years (1 of 1 - PPSV23) 2014 *DEPRESSION SCREENING,ANNUAL FOR PTS 12 AND OVER 03/29/2019 *COLORECTAL CANCER SCREENING (COLONOSCOPY 10 YEARS; SIGMOIDOSCOPY 5 YEARS; COLOGUARD 3 YEARS; FOBT 1 YEAR),AGES 50-75 03/24/2021 Influenza Vaccine (FLU shot) (#1) 2021 DIABETES SCREEN EVERY 3 YRS-AGE 45 AND ABOVE 10/14/2021 10/14/2018, 08/25/2018, 02/23/2018, Additional history exists LIPID SCREEN EVERY 5 YRS-MEN AGE 35-75 08/25/2023 08/25/2018, 02/23/2018, 03/02/2017, Additional history exists COVID-19 Vaccine Completed 05/14/2021, 04/23/2021 MENINGOCOCCAL (MENACTRA/MENVEO) Aged Out No longer eligible based on patient's age to complete this topic documented as of this encounter Implants Not on filedocumented as of this encounter Visit Diagnoses Diagnosis Encounter for immunization- Primary Need for other specified prophylactic vaccination against single bacterial disease documented in this encounter Advance Directives Documents on File Type Date Recorded Patient Fpga Engineer Expl anation Advanced Directive Advanced Directive Advanced Directive Advanced Directive Advanced Directive Advanced Directive
--- OUTSIDE RECORDS SUMMARY | 2023-05-17 10:26 | External Medical Summary | Continuity of Care Document ---
Author Name Unknown Organization [address] [address] Care Team Providers Care Tape Edge Machine Operator Name Role Phone Alex Terrazas Primary Care Physician [phone] Encounter [facility] [id number] Date(s): 06/17/21 - 06/17/[address] [address] [place] [phone] Encounter Diagnosis PSC (primary sclerosing cholangitis)(Discharge Diagnosis) - 06/17/21 Crohn disease(Discharge Diagnosis) - 06/17/21 Discharge Disposition: Home or Self Care Attending Physician: MD Carpio Leonard S Allergies, Adverse Reactions, Alerts Substance Reaction Severity Status sulfa drugs chills fever Active Amoxil diarrhea Active Immunizations Given and Recorded Vaccine Date Status Refusal Reason hepatitis B adult vaccine 09/15/18 Given hepatitis B adult vaccine 05/18/18 Given hepatitis B adult vaccine 03/17/18 Given hepatitis A adult vaccine 09/15/18 Given hepatitis A adult vaccine 03/17/18 Given Not Given Vaccine Date Status Refusal Reason pneumococcal 23-valent vaccine 1 05/15/19 Not Give n Patient Refuses 1Result Comment: Asked patient if he wished to have vaccine. patient said "I'll pass right now". patient stated he will follow up with Primary care physician Medications Actigall 300 mg oral capsule Start: 09/21/19 8:48:00 EST, 1 cap, PO, bid, Disp# 180 cap, Refills: 3, Pharmacy: [id number] Start Date: 09/21/19 Stop Date: 09/15/20 Status: Ordered amLODIPine 2.5 mg oral tablet Start: 03/06/21 9:48:00 EDT, 1 tab, PO, Daily Start Date: 03/06/21 Status: Ordered aspirin 81 mg oral tablet Start: 10/20/16 7:56:00, 1 tab, PO, Daily Start Date: 10/20/16 Status: Ordered cholestyramine 4 g/9 g oral powder for reconstitution Start: 03/06/21 9:48:00 EDT, 4 g =, PO, Daily, PRN: diarrhea Start Date: 03/06/21 Status: Ordered ciprofloxacin 500 mg oral tablet Start: 10/02/20 10:59:00 EST, 1 tab, PO, q12h Start Date: 10/02/20 Status: Ordered Dipentum 250 mg oral capsule Start: 07/14/16 8:52:00, See Instructions, Disp# 180 cap, Refills: 3, 1 cap po BID Start Date: 07/14/16 Status: Ordered Metoprolol Succinate ER 100 mg [...] PO, Daily Start Date: 03/23/19 Status: Ordered Vitamin D3 2000 intl units (50 mcg) oral capsule Start: 09/21/19 8:27:00 EST, PO, Daily Start Date: 09/21/19 Status: Ordered Vytorin 10 mg-80 mg oral tablet Start: 10/20/16 7:56:00 EST, 1 tab, PO, qPM Start Date: 10/20/16 Status: Ordered Mental Status 06/17/21 Barriers to Learning one year Hearing de ficit, Vision impairment, Other: eye glasses and bilateral hearing aids to both ears noted Mandatory Health Literacy Documentation Yes Health Literacy Communication Barriers N ever Primary Language [place]orese Problem List Condition Effective Dates Status Health Status Inform ant Crohns disease(Confirmed) Active Hypertension(Confirmed) Active Melanoma(Confirmed) 1 Active PSC (primary sclerosing cholangitis)(Confirmed) Active Skin lesions(Confirmed) Active 1left chest Diagnosis Diagnosis Type Effective Dates Health Status Clinical Service Informant PSC (primary sclerosing cholangitis) Discharge Diagnosis 06/17/21 Crohn disease Discharge Diagnosis 06/17/21 Procedures Procedure Date Related Diagnosis Body Site Status CT of liver with/ w/o contrast 1 10/02/20 Completed MRCP - Magnetic resonance cholangiopancreatography 2 10/02/20 Compl eted ERCP 05/16/[address] of abdomen and pelvis 3 12/16/18 Completed Cholecystectomy 4 11/11/[address] of abdomen and pelvis 5 10/14/18 Completed Colonoscopy 2015 Completed Appendectomy 6 Completed Elbow 7 Completed Excision 8 Completed Heart 9 Completed Hernia 10 Completed Surgery 11 Completed Wrist 12 Completed 1Impression: Heterogeneous mass of the inferior right hepatic lobe measuring up to 3.5 cm demonstrates progressive enhancement and adjacent capsular retraction suggestive of neoplasm, the most likely differential diagnosis being mass forming cholangiocarcinoma. Dissusely heterogeneous liver with lobular morphology redemonstrated. Mild intrahepatic and extrahepatic biliarty ductal dilation. Cholecystectomy with pneumobilia. Nonspecific mildly enlarged precaval lymph node. Small hiatal hernia 2Impression: There are numerous foci of stricturing throughout [...] size from 03/29/2020. Additional findings as above. 3Intrahepatic ductal dilatation, mostly in the left hepatic lobe with pneumobilia. Findings compatible with clinical Hx of cholangitis. MRI wiht MRCP could be considered for better evaluation 4Pathology: Chronic cholecystitis, Cholelithiasis, Negative for dysplasia and malignancy 51) Sinnce 02/08/18, interval develpment of well thickening [...] small retroperitoneal lymph nodes are grossly unchanged. [id number] 8melanoma of left chest 58018 [id number] 11fibroma right foot [id number] Vital Signs Most recent to oldest [Reference Range]: 1 Patient Weight 78 kg (06/17/21 7:51 AM) Heart Rate 50 bpm (06/17/21 7:51 AM) Respiratory Rate 16 br/min (06/17/21 7:51 AM) Blood Pressure 118/74mmHg (06/17/21 7:51 AM) Cuff Pulse Pressure 44 mmHg (06/17/21 7:51 AM) BP Location # 1 Left Arm, Manual (06/17/21 7:51 AM) Social History Social History Type Response Smoking Status Never smoked cigaret aide Sex Male
--- OUTSIDE RECORDS SUMMARY | 2023-05-17 10:26 | External Medical Summary | Continuity of Care Document ---
Author Name Unknown Organization [address] [place] 1900 [address] [place] [address] Care Team Providers Care Molding Engineer Name Role Phone Alex Terrazas Primary Care Physician [phone] [facility] [id number] Date(s): 11/09/20 - 11/09/[address] [place] [address] [facility] [address] [facility], [facility] [address], [address] [place] [address]- [phone] Discharge Disposition: Home or Self Care Attending Physician: MD Mari Karen L Referring Physician: MD Mari Karen L Allergies, Adverse Reactions, Alerts Substance Reaction Severity [...] bid, Disp# 180 cap, Refills: 3, Pharmacy: [id number] Start Date: 09/21/19 Stop Date: 09/15/20 Status: Ordered aspirin 81 mg oral tablet Start: 10/20/16 7:56:00, 1 tab, PO, Daily Start Date: 10/20/16 Status: Ordered ciprofloxacin 500 mg oral tablet [...] PO, qPM Start Date: 10/20/16 Status: Ordered Problem List Condition Effective Dates Status Health Status Inform ant Crohns disease(Confirmed) Active Hypertension(Confirmed) Active Melanoma(Confirmed) 1 Active PSC (primary sclerosing cholangitis)(Confirmed) Active Skin lesions(Confirmed) Active 1left chest Procedures Procedure Date Related Diagnosis Body Site Status CT of liver with/ w/o contrast 1 10/02/20 Completed MRCP - Magnetic resonance cholangiopancreatography 2 10/02/20 Compl eted ERCP 05/16/[address] of abdomen and pelvis 3 12/16/18 Completed Cholecystectomy 4 11/11/[address] of abdomen and pelvis 5 10/14/18 Completed Colonoscopy 2016 Completed Appendectomy 6 Completed Elbow 7 Completed [...] small retroperitoneal lymph nodes are grossly unchanged. 99570 46834 8melanoma of left chest 29264 [id number] 11fibroma right foot [id number] Results Radiology Reports * Exam Date Time Procedure Performing Provider Status 11/09/20 10:53 AM MRI Abdomen w/ + w/o Contrast Kailey Gilmore; Final Notes: (MRI Abdomen w/ + w/o Contrast) Reason For Exam: follow up of potential mass seen on OSH MRI (uploaded) MRI Abdomen w/ + w/o Contrast EXAMINATION: MRI Abdomen w/ + w/o Contrast CLINICAL HISTORY: K83.01: Primary sclerosing cholangitis; follow up of potential mass seen on OSH MRI (uploaded) COMPARISON: Comparison multiple prior exams most recently from 10/05/2020 TECHNIQUE: MRI Abdomen w/ + w/o Contrast CONTRAST: Contrast Type (IV): Gadavist Contrast Volume (IV) in ml: 8.00 FINDINGS: Abdomen Liver, Gallbladder \\T\\ bile ducts: Unchanged bands of fibrosis within the left and right hepatic lobes with overlying capsular retraction. Decrease in the size and conspicuity of the T2 hyperintense lesion in segment 5 measuring 2.1 x 1.9 cm (previously 2.8 x 2.1 cm; MRI dated 10/04/2020). Vague persistent enhancement in this region best seen on the 180 seconds subtracted images, comparable to the adjacent tissue which is contained within the aforementioned band of fibrosis. Underlying findings of primary sclerosing cholangitis, essentially unchanged from the prior. Gallbladder is absent. Pancreas: Fatty atrophy of the pancreas. Punctate T2 hyperintense foci within the pancreatic head and neck. No pancreatic ductal dilation. Spleen: Normal Adrenals: Normal Kidneys, collecting system and ureters: Unchanged inferior pole left renal sinuses. 2. Small characterize T2 hyperintense foci. Retroperitoneum, lymph nodes, and vessels: No retroperitoneal lymphadenopathy Bowel \\T\\ Mesentery: No obstruction. No mesenteric lymphadenopathy, free fluid, or pneumoperitoneum Upper Pelvis: Normal Bones \\T\\ Soft tissues: Mild degenerative change in the thoracolumbar spine Lung bases: Subsegmental atelectasis. IMPRESSION: 1. Decrease in size and conspicuity of the T2 hyperintense lesion in segment 5 measuring 2.1 x 1.9 cm (previously 2.8 x 2.1 cm). 2. Unchanged appearance of fibrosis within the left and right hepatic lobes with overlying capsularretraction. 3. Chronic findings of primary sclerosing cholangitis. [place] Act 112: This study does not meet the requirements of [place] Act 112. Final Dictated by:MD Dacosta Jacob A Dictated DT/TM:11/11/2020 8:37 Signed by:MD Dacosta Jacob A Signed (Electronic Signature):11/11/2020 8:36 a Social History Social History Type Response Smoking Status Never smoked cigaret aide Sex Male
--- OUTSIDE RECORDS SUMMARY | 2023-05-17 10:26 | External Medical Summary | Continuity of Care Document ---
Author Name Unknown Organization [address] [id number] Care Team Providers Care Commercial Hvac Technician Name Role Phone Alex Terrazas Primary Care Physician [phone] Encounter [facility] [id number] Date(s): 06/19/22 - 06/19/[address] [address] [phone] Encounter Diagnosis Body mass index [BMI] 24.0-24.9, adult(Discharge Diagnosis) - 06/19/22 Crohn's disease(Discharge Diagnosis) - 06/19/22 PSC (primary sclerosing cholangitis)(Discharge Diagnosis) - 06/19/22 Hospital discharge follow-up(Discharge Diagnosis) - 06/19/22 Discharge Disposition: Home or Self Care Attending Physician: LUCY Gutierres Janet Griffith Allergies, Adverse Reactions, Alerts Substance Reaction Severity Status sulfa drugs chills fever Active Amoxil diarrhea Active Assessment and Plan Extracted from: Title:Office Visit Note Author:LUCY Gutierres Janet Griffith Date:06/19/22 1.Crohn's disease The patient is a pleasant 72-year-old male who presents today forroutine follow-up of Crohn's disease and history of primary sclerosing cholangitis. 1. Primary sclerosing cholangitis:Most recentinpatient admission for recurrentcholangitis05/2022 with last admission 04/2021. He is maintained qtjtktbnon728 mg p.o. twice daily. He follows with Dr. Lincoln hepatologyannually withmostrecentappointment 04/2022. He has Ciproat hometo start if he developstemperature elevation. Will add metronidazole to regimento start with fever and upper abdominal pain. Hepatitis A and B vaccinations confirmed completed at today's OV. 2. Crohn's disease:The patient has a longstanding history of Crohn's colitis which is maintained on Kwdgttsn207 mg p.o. twice daily. Colonoscopy for axxtyyjsbwmr32/2021 with no active disease or dysplasia, had incidental diverticulosis and hemorrhoids. Recommendation by Dr. Mari is colonoscopy every 2 years d/t h/o PSC. Next colonoscopy due 06/2023. 3. GERD:The patient has a history of GERDand is maintained on Omeprazole with good symptom control at this time. 4. GI office visit follow-up in3 months, sooner if needed. 2.PSC (primary sclerosing cholangitis) 3.Hospital discharge follow-up Orders: metroNIDAZOLE, Start: 06/19/22 14:37:00 EDT, 1 tab, PO, q8h, Disp# 30 tab, Refills: 0, Pharmacy: [id number] Immunizations Given and Recorded Vaccine Date Status Refusal Reason SARS-CoV-2 mRNA ([id number]-gml) 1 01/06/22 Recorded SARS-CoV-2 (COVID-19) mRNA BNT-162b2 vax 2 05/14/21 Recorded SARS-CoV-2 (COVID-19) mRNA BNT-162b2 vax 3 04/23/21 Recorded tetanus/diphtheria/pertuss, acel (Tdap) 4 04/16/20 Recorded tetanus/diphtheria/pertuss, acel (Tdap) 5 05/01/08 Recorded hepatitis B adult vaccine 09/15/18 Given hepatitis B adult vaccine 05/18/18 Given hepatitis B adult vaccine 03/17/18 Given hepatitis A adult vaccine 09/15/18 Given hepatitis A adult vaccine 03/17/18 Given pneumococcal 23-valent vaccine 6 03/23/16 Recorded pneumococcal 13-valent vaccine 8 02/06/15 Recorded Not Given Vaccine Date Status Refusal Reason pneumococcal 23-valent vaccine 7 05/15/19 Not Give n Patient Refuses 1Result Comment: 2022-06-19: Historical information-source unspecified 2Result Comment: 2022-06-19: Historical information-source unspecified 3Result Comment: 2022-06-19: Historical information-source unspecified 4Result Comment: 2022-06-19: Historical information-source unspecified 5Result Comment: 2022-06-19: Historical information-source unspecified 6Result Comment: 2022-06-19: Historical information-source unspecified 7Result Comment: 2022-06-19: Historical information-source unspecified 8Result Comment: Asked patient if he wished to have vaccine. patient said "I'll pass right now". patient stated he will follow up with Primary care physician Medications Actigall 300 mg oral capsule Start: 09/21/19 8:48:00 EST, 1 cap, PO, bid, Disp# 180 cap, Refills: 3, Pharmacy: [id number] Start Date: 09/21/19 [...] q8h, Disp# 30 tab, Refills: 0, Pharmacy: [id number] Start Date: 06/19/22 Stop Date: [...] Start Date: 09/21/19 Status: Ordered Mental Status 06/19/22 Barriers to Learning one year Hearing de ficit, Vision impairment, Other: eye glasses and bilateral hearing aids to both ears noted Mandatory Health Literacy Documentation Yes Health Literacy Communication Barriers N ever Primary Language Malay Problem List Condition Confirmation Course Effective Dates Status Health St atus Informant Crohn's disease Confirmed Active Hypertension Confirmed Active Melanoma 1 Confirmed Active Hospital discharge follow-up Confirmed Active PSC (primary sclerosing cholangitis) Confirmed Active Skin lesions Confirmed Active 1left chest Diagnosis Diagnosis Type Effective Dates Health Status Clinical Service Informant Body mass index [BMI] 24.0-24.9, adult Discharge Diagnosis 06/19/22 Non-Specified Crohn's disease Discharge Diagnosis 06/19/22 PSC (primary sclerosing cholangitis) Discharge Diagnosis 06/19/22 Hospital discharge follow-up Discharge Diagnosis 06/19/22 Procedures Procedure Date Related Diagnosis Body Site [...] small retroperitoneal lymph nodes are grossly unchanged. 11104 19555 9melanoma of left chest 110021 264188 12fibroma right foot [id number] Vital Signs Most recent to oldest [Reference Range]: 1 Height 178.8 cm (06/19/22 1:57 PM) Patient Weight 77.2 kg (06/19/22 1:57 PM) Body Mass Index 24.15 kg/m2 (06/19/22 1:57 PM) Heart Rate 53 bpm (06/19/22 1:57 PM) Respiratory Rate 18 br/min (06/19/22 1:57 PM) Blood Pressure 118/70mmHg (06/19/22 1:57 PM) Cuff Pulse Pressure 48 mmHg (06/19/22 1:57 PM) Social History Social History Type Response Smoking Status Never smoked cigaret aide Sex Male Patient Care team information Personnel Name: MD Mk, Alex Otto Address: Address: [address] [place] [address] [place]
--- OUTSIDE RECORDS SUMMARY | 2023-05-17 10:26 | External Medical Summary | Continuity of Care Document ---
Author Name Unknown Organization [facility] Address [address] [place] [address] Care Team Providers Care Manager Investment Banking Name Role Phone Alex Terrazas Primary Care Physician [phone] Encounter [facility] [id number] Date(s): 10/08/20 - 10/08/[address] [address] Discharge Disposition: Home or Self Care Attending [...] bid, Disp# 180 cap, Refills: 3, Pharmacy: [id number] Start Date: 09/21/19 Stop [...] small retroperitoneal lymph nodes are grossly unchanged. 61816 20737 8melanoma of left chest 64117 [id number] 11fibroma right foot [id number] Results Radiology Reports * Exam Date Time Procedure Performing Provider Status 10/09/20 9:[address] Abdomen Consult Cyndee Proctor ; Final Notes: (OO CT Abdomen Consult) Reason For Exam: liver lesion OO CT Abdomen Consult EXAMINATION: OO CT Abdomen Consult CLINICAL HISTORY: liver lesion COMPARISON: Outside institute abdominal MRI Oct 03, Apr 01 TECHNIQUE: Review of outside institute multiphasic axial CT images of the abdomen were obtained prior and following the administration of IV contrast. CONTRAST: (Information not provided) DOSE: Total Reported Dose Length Product (DLP) = 913.52 mGy-cm FINDINGS: Detailed evaluation of the solid organ parenchyma is limited on this noncontrast study. Liver, Gallbladder \\T\\ bile ducts: 3.5 x 1.9 cm hypodense lesion without enhancement or washout within hepatic segment 5 corresponding to the T2 hyperintense lesion seen on recent MRI. There is no significant adjacent perilesional bile duct dilation on CT or MRI. Pneumobilia within the antidependent liver and extrahepatic bile duct. Findings in keeping with sclerosing cholangitis with multiple irregular areas of bile duct enlargement primarily in the left and anterior right liver (better visualized on recent MRCP). Unchanged capsular retraction of the right hepatic lobe. Cholecystectomy. Prominent brenda hepatis lymph nodes measuring up to 0.9 cm, likely reactive. Pancreas: Fatty parenchymal replacement. Spleen: Normal Adrenals: Normal Kidneys, collecting system and ureters: Symmetric renal enhancement. No hydronephrosis. Unchanged left renal sinus cyst. Retroperitoneum, lymph nodes, and vessels: No retroperitoneal lymphadenopathy. Normal caliber abdominal aorta with scattered calcified atherosclerosis. Bowel \\T\\ Mesentery: Visualized bowel is unobstructed. No mesenteric stranding or lymphadenopathy. Osseous and body wall: Shows visualized median sternotomy. Multilevel spinal endplate degenerative changes. Lower chest: Small hiatal hernia. Respiratory motion artifact with dependent atelectasis. IMPRESSION: Segment 5 liver lesion is unlikely to represent hepatocellular carcinoma (no arterial enhancement or washout) or cholangiocarcinoma (no bile duct dilation on CT or MRI). Findings may represent focal hepatitis given T2 hyperintensity. Further evaluation with Gadavist enhanced MRI maybe considered for further evaluation in 4-[address] Adam Vo and Dr. Orantes relayed findings to Dr. Leanne Mari at 10/09/2020 9:50 [address]. Dr. Adam Connell. SHIRLEY Vo is the dictating resident. Finalized report status indicates that the attending has reviewed the images and report, and agreeswith the interpretation. Preliminary report status should be regarded as NOT interpreted by the attending radiologist. [place] Act 112: This study does not meet [place] requirements of [place] Act 112. Final Dictated by:MD Vo William W Dictated DT/TM:10/09/2020 11:56 Resident:MD Vo William W Signed by:MD Orantes Nabeel I Signed (Electronic Signature):10/09/2020 11:54 Social History Social History Type Response Smoking Status Never smoked cigaret aide Sex Male
--- OUTSIDE RECORDS SUMMARY | 2023-05-17 10:26 | External Medical Summary | Continuity of Care Document ---
Author Name Unknown Organization [facility] [address] [place] [address] [place] J[place]NS[place] [id number] Care Team Providers Care Adolescent Coordinator Name Role Phone Alex Terrazas Primary Care Physician [phone] [facility] [phone] Date(s): 04/23/22 - 04/23/22 [facility] [address] [facility] [address], Entr[address], [address] [id number] [phone] Encounter Diagnosis PSC (primary sclerosing cholangitis)(Discharge Diagnosis) - 04/23/22 Body mass index [BMI] 26.0-26.9, adult(Discharge Diagnosis) - 04/23/22 Crohn's disease(Discharge Diagnosis) - 04/23/22 Discharge Disposition: Home or Self Care Attending Physician: MD Mari Karen L Referring Physician: MD Terrazas Eric K Allergies, Adverse Reactions, Alerts Substance Reaction Severity [...] bid, Disp# 180 cap, Refills: 3, Pharmacy: [id number] Start Date: 09/21/19 [...] po BID Start Date: 07/14/16 Status: Ordered hydrocortisone 2.5% topical ointment Start: [...] Start Date: 09/21/19 Status: Ordered Mental Status 04/23/22 Barriers to Learning one year Hearing de ficit, Vision impairment, Other: eye glasses and bilateral hearing aids to both ears noted Mandatory Health Literacy Documentation Yes Communication Barrier Present No Health Literacy Communication Barriers R adenike Primary Language Cook Islander Problem List Condition Effective Dates Status Health Status Inform ant Crohn's disease(Confirmed) Active Hypertension(Confirmed) Active Melanoma(Confirmed) 1 Active PSC (primary sclerosing cholangitis)(Confirmed) Active Skin lesions(Confirmed) Active 1left chest Diagnosis Diagnosis Type Effective Dates Health Status Clinical Service Informant Crohn's disease Discharge Diagnosis 04/23/22 PSC (primary sclerosing cholangitis) Discharge Diagnosis 04/23/22 Body mass index [BMI] 26.0-26.9, adult Discharge Diagnosis 04/23/22 Non-Specified Procedures Procedure Date Related Diagnosis Body Site [...] small retroperitoneal lymph nodes are grossly unchanged. [id number] 9melanoma of left chest [id number] 12fibroma right foot [id number] Vital Signs Most recent to oldest [Reference Range]: 1 Height 170.8 cm (04/23/22 2:55 PM) Patient Weight 78.6 kg (04/23/22 2:55 PM) Body Mass Index 26.94 kg/m2 (04/23/22 2:55 PM) Temperature [36.5-37.9 DegC] 36.5 DegC (04/23/22 2:55 PM) Heart Rate 60 bpm (04/23/22 2:55 PM) Blood Pressure 124/74mmHg (04/23/22 2:55 PM) Cuff Pulse Pressure 50 mmHg (04/23/22 2:55 PM) BP Location # 1 Right Arm (04/23/22 2:55 PM) Social History Social History Type Response Smoking Status Never smoked cigaret aide Sex Male Care Team Personnel Name: MD Mk, Alex Otto Address: [address] [place] [address]
--- OUTSIDE RECORDS SUMMARY | 2023-05-17 10:26 | External Medical Summary | Summary of Care ---
Author Name Unknown Organization [facility] [place] [address] Care Team Providers Care Tube Closing Machine Operator Name Role Phone Alex Terrazas MD Primary Care Provider [phone] Encounter Details Date Type Department Care Team Description 11/01/2020 Orders Only Access Center, [address] *DO NOT REMOVE THIS DEPARTMENT* [place] [address] Requisition, External Radiology [address] [place] [address] Age-related osteoporosis without current pathological fracture* Allergies No Known Active Allergiesdocumented as of this encounter (statuses as of 11/01/2020) Medications Medication Sig Dispensed Refills Start Date [...] as of this encounter (statuses as of 11/01/2020) Active Problems Problem Noted Date Coronary atherosclerosis of [place] coron nu artery 10/26/2011 Postsurgical aortocoronary bypass status documented as of this encounter (statuses as of 11/01/2020) Social History Tobacco Use Types Packs/Day Years Used Date Never Smoker Smokeless Tobacco: Never Used Alcohol Use Drinks/Week oz/Week Comments No Sex Assigned at Date Recorded Not on file documented as of this encounter Plan of Treatment Upcoming Encounters Date Type Specialty Care Team Description 04/04/2021 Appointment Radiology Scheduled Orders Name Type Priority Associated Diagnoses Orde r Schedule DEXA SCAN/BONE MINERAL AXIAL Medical Imaging Routine Age-related osteoporosis without current pathological fracture Ordered: 11/01/2020 Health Maintenance Due Date Last Done Comments DTaP,Tdap,and Td Vaccines (1 - Tdap) 1968 Zoster Vaccines (1 of 2) 1999 Pneumococcal Vaccine: 65+ Years (1 of 1 - PPSV23) 2014 *DEPRESSION SCREENING,ANNUAL FOR PTS 12 AND OVER 03/29/2019 Influenza Vaccine (FLU shot) (#1) 2020 DIABETES SCREEN EVERY 3 YRS-AGE 45 AND ABOVE 10/14/2021 10/14/2018, 08/25/2018, 02/23/2018, Additional history exists LIPID SCREEN EVERY 5 YRS-MEN AGE 35-75 08/25/2023 08/25/2018, 02/23/2018, 03/02/2017, Additional history exists MENINGOCOCCAL (MENACTRA/MENVEO) Aged Out No longer eligible based on patient's age to complete this topic documented as of this encounter Implants Not on filedocumented as of this encounter Visit Diagnoses Diagnosis Age-related osteoporosis without current pathological fracture- Primary Senile osteoporosis documented in this encounter Advance Directives Documents on File Type Date Recorded Patient Ext Js Developer Expl anation Advanced Directive Advanced Directive Advanced Directive Advanced Directive
--- OUTSIDE RECORDS SUMMARY | 2023-05-17 10:26 | External Medical Summary | Summary of Care ---
Author [place] [address] Care Team Providers Care Blow Torch Burner Name Role Phone Alex Terrazas MD Primary Care Provider [phone] Reason for Referral * Precert (Routine) Status Reason Specialty Diagnoses / Procedures Referred By Contact Referred To Contact Pending Review Precert Radiology Diagnoses Primary sclerosing cholangitis Procedures MRI ABDOMEN W WO CONTRAST Radiology [facility] [address] [place] [address] Encounter Details Date Type Department Care Team Description 03/27/2019 Orders Only Radiology, [facility] [address] [place], [place] [id number] Requisition, External Radiology [address] [place] [address] Primary sclerosing cholangitis* Allergies No Known Allergiesdocumented as of this encounter (statuses as of 03/27/2019) Medications Medication Sig Dispensed Refills Start Date [...] as of this encounter (statuses as of 03/27/2019) Active Problems Problem Noted Date Coronary atherosclerosis of [place] coron nu artery 10/26/2011 Postsurgical aortocoronary bypass status documented as of this encounter (statuses as of 03/27/2019) Social History Tobacco Use Types Packs/Day Years Used Date Never Smoker Smokeless Tobacco: Never Used Alcohol Use Drinks/Week oz/Week Comments No Sex Assigned at Date Recorded Not on file Job Start Date Occupation Industry Not on file Not on file Not on file Travel History Travel Start Travel End documented as of this encounter Plan of Treatment Upcoming Encounters Date Type Specialty Care Team Description 03/31/2019 Appointment Radiology 04/07/2019 Appointment Radiology Scheduled Orders Name Type Priority Associated Diagnoses Orde r Schedule DEXA SCAN/BONE MINERAL AXIAL Medical Imaging Routine Primary sclerosing cholangitis Ordered: 03/27/2019 MRI ABDOMEN W WO CONTRAST Medical Imaging Routine Primary sclerosing cholangitis Ordered: 03/27/2019 Health Maintenance Due Date Last Done Comments DTaP,Tdap,and Td Vaccines (1 - Tdap) 1968 PNEUMOCOCCAL ADULT 65 YRS AND OVER (1 of 2 - PCV13) 2014 Influenza Vaccine (FLU shot) (#1) 2019 DIABETES SCREEN EVERY 3 YRS-AGE 45 AND ABOVE 10/14/2021 10/14/2018, 08/25/2018, 02/23/2018, Additional history exists LIPID SCREEN EVERY 5 YRS-MEN AGE 35-75 08/25/2023 08/25/2018, 02/23/2018, 03/02/2017, Additional history exists MENINGOCOCCAL (MENACTRA) Aged Out No longer eligible based on patient's age to complete this topic documented as of this encounter Implants Not on filedocumented as of this encounter Visit Diagnoses Diagnosis Primary sclerosing cholangitis- Primary Cholangitis documented in this encounter Advance Directives Documents on File Type Date Recorded Patient Magneto Repairer Expl anation Advanced Directive Advanced Directive Advanced Directive
--- OUTSIDE RECORDS SUMMARY | 2023-05-17 10:26 | External Medical Summary | Summary of Care ---
Author [place] [address] Care Team Providers Care Automotive Service Technician Name Role Phone Alex Terrazas MD Primary Care Provider Encounter Details Date Type Department Care Team Description 03/31/2019 Documentation Radiology, [address] [id number] Saranya Dixon, RT Allergies No Known Allergiesdocumented as of this encounter (statuses as of 03/31/2019) Medications Medication Sig Dispensed Refills Start Date [...] as of this encounter (statuses as of 03/31/2019) Active Problems Problem Noted Date Coronary atherosclerosis of [place] coron nu artery 10/26/2011 Postsurgical aortocoronary bypass status documented as of this encounter (statuses as of 03/31/2019) Social History Tobacco Use Types Packs/Day Years Used Date Never Smoker Smokeless Tobacco: Never Used Alcohol Use Drinks/Week oz/Week Comments No Sex Assigned at Date Recorded Not on file Job Start Date Occupation Industry Not on file Not on file Not on file Travel History Travel Start Travel End documented as of this encounter Progress Notes * Saranya Dixon, RT - 03/31/2019 10:58 AM EDT Labs at [facility] 03/27/19: BUN 22, Creatinine 1.29, GFR 56.2 With patient's paperwork for appointment 04/07 documented in this encounter Plan of Treatment Upcoming Encounters Date Type Specialty Care Team Description 04/07/2019 Appointment Radiology Health Maintenance Due Date Last Done Comments DTaP,Tdap,and Td Vaccines (1 - Tdap) 1968 PNEUMOCOCCAL ADULT 65 YRS AND OVER (1 of 2 - PCV13) 2014 *COLORECTAL CANCER SCREENING (COLONOSCOPY 10 YEARS; SIGMOIDOSCOPY 5 YEARS; COLOGUARD 3 YEARS; FOBT 1 YEAR),AGES 50-75 03/29/2019 *DEPRESSION SCREENING, ANNUAL FOR PTS 18 AND OVER 03/29/2019 Influenza Vaccine (FLU shot) (#1) 2019 DIABETES SCREEN EVERY 3 YRS-AGE 45 AND ABOVE 10/14/2021 10/14/2018, 08/25/2018, 02/23/2018, Additional history exists LIPID SCREEN EVERY 5 YRS-MEN AGE 35-75 08/25/2023 08/25/2018, 02/23/2018, 03/02/2017, Additional history exists MENINGOCOCCAL (MENACTRA) Aged Out No longer eligible based on patient's age to complete this topic documented as of this encounter Implants Not on filedocumented as of this encounter Advance Directives Documents on File Type Date Recorded Patient Beef Grader Expl anation Advanced Directive Advanced Directive Advanced Directive
--- OUTSIDE RECORDS SUMMARY | 2023-05-17 10:26 | External Medical Summary | Summary of Care ---
Author Name Unknown Organization [place] [address] Care Team Providers Care Sign Language Translator Name Role Phone Camille Hendrix MD Primary Care Provider Reason for Referral * Precert (Within 10 days (routine)) - Pending Review Specialty Diagnoses / Procedures Referred By Luz Marina candelaria Referred To Contact Radiology Diagnoses Coronary artery disease of [place] artery of [place] heart with stable angina pectoris (HCC) Procedures NM MYOCARDIAL PERFUSION IMAGING SPECT MULTIPLE STUDIES WITH PHARMACOLOGIC INTERVENTION Tremaine Yang DO [address] [place] [address] Referral ID Status Reason Start Date Expiration Date Visits Requested Visits Authorized [id number] Pending Review Precert 01/13/2022 1 1 Reason for Visit * Reason Comments NEW PATIENT Short of Breath Encounter Details Date Type Department Care Team Description 01/06/2022 Office Visit Cardiology Zaire Jimenez [address] [place] [address] Tremaine Yang DO [address] [place] [address] Coronary artery disease of [place] artery of [place] heart with stable angina pectoris (HCC)* Allergies Active Allergy Reactions Severity Noted Date Comments Amoxicillin-Pot Clavulanate 01/07/20 22 Sulfa Antibiotics 01/06/2022 documented as of this encounter (statuses as of 01/06/2022) Medications Medication Sig Dispensed Refills Start Date End Date Status OMEPRAZOLE 20 MG PO CPDR 1 TAB ONCE DAILY 0 Active METOPROLOL XL TBCR 100 MG OR 1 TAB ONCE DAILY 0 Active DIPENTUM 250 MG PO CAPS 1 TAB TWICE DAILY 0 Active ASPIRIN 81 MG PO TABS 1 TAB ONCE DAILY 0 Active amLODIPine Besylate 2.5 MG Oral Tablet (Norvasc) Take by mouth 5 Tablets in the morning. 0 11/04/2021 Active Ciprofloxacin HCl 500 MG Oral Tablet (Cipro) 500 mg . As needed 0 10/02/2020 Active Nitroglycerin 0.4 MG Sublingual Tablet Sublingual (Nitrostat) 0.4 mg . 0 10/02/2020 Active Omeprazole 40 MG Oral [...] the morning. 100 Tablet 3 01/06/2022 Active TRICOR 145 MG PO TABS 1 TAB ONCE DAILY 0 2 Discontinued(Formerly [facility] List Clean Up) VYTORIN 10-80 MG PO TABS 1 TAB ONCE DAILY 0 2 Discontinued documented as of this encounter (statuses as of 01/06/2022) Active Problems Problem Noted Date Coronary atherosclerosis of [place] coron nu artery 10/26/2011 Postsurgical aortocoronary bypass status documented as of this encounter (statuses as of 01/06/2022) Immunizations Name Administration Dates Next Due COVID-19 mRNA, LNP-s, No Pre serve, 2-Dose Series (C4X Discovery) 05/14/2021,04/23/2021 documented as of this encounter Social History Tobacco Use Types Packs/Day Years Used Date Never Smoker Smokeless Tobacco: Never Used Alcohol Use Standard Drinks/Week Comments No 0 (1 standard drink = 0.6 oz pur e alcohol) Sex Assigned at Date Recorded Not on file Job Start Date Occupation Industry Not on file Not on file Not on file documented as of this encounter Last Filed Vital Signs Vital Sign Reading Time Taken Comments Blood Pressure 132/80 01/06/2022 10:52 AM EDT Pulse 52 01/06/2022 10:52 AM EDT Temperature - - Respiratory Rate - - Oxygen Saturation 96% 01/06/2022 10:52 AM EDT Inhaled Oxygen Concentration - - Weight 80.7 kg (178 lb) 01/06/2022 10:52 AM EDT Height 170.2 cm (5' 7") 01/06/2022 10:52 AM EDT Body Mass Index 27.88 01/06/2022 10:52 AM EDT documented in this encounter Progress Notes * Tremaine Yang, DO - 01/06/2022 11:37 AM EDT Cardiology Consultation [facility] 01/06/2022 Reason for Consultation: ICD-10-CM 1. Coronary artery disease of [place] artery of [place] heart with stable angina pectoris (HCC) I25.118 Provider Requesting Consultation: PCP: CAMILLE HENDRIX [address] [place] [id number] History of Present Illness: Skip Hratley is a 71 year old year old male who has established coronary artery disease. In 1995 he underwent coronary artery bypass grafting with a QURESHI to the LAD, ZIYAD to the diagonal, saphenous vein graft to the PDA sequentially to the 1st obtuse marginal and sequentially to the 2nd obtuse marginal. He has not seen Cardiology in many years. His biggest issue has been GI related with Crohn's dis ease and sclerosing cholangitis. However, the past 2 years while out hunting he has developed worsening shortness of breath while walking up hill. He has also developed anginal symptoms with exertion. Review of Systems: Constitutional (fever/chills/unintentional weight loss/vision/hearing): Negative Respiratory (cough/shortness of breath/dyspnea on exertion): Negative Cardiovascular (chest pain/palpitations/fluttering/diaphoresis/dyspnea on exertion/paroxysmally nocturnal dyspnea):see above hpi GI (nausea/vomiting/diarrhea/heart burn): see above hpi Endo (hair/cold or heat intolerance/ polyuria, polydypsia, polyphagia): Negative Neuro (shaking/weak/fatigue/parasthesias): Negative Skin (rash/easy bruising/xerosis): Negative Psychological (hallucinations): Negative (nocturia/urinary hesitancy/sexual review): Negative All other ROS is as stated above or negative. Past Medical History: Patient Active Problem List Diagnosis Code Postsurgical aortocoronary bypass status Z95.1 Coronary atherosclerosis of [place] coronary artery I25.10 Past Surgical History: Procedure Laterality Date CORONARY ARTERIES BYPASS, FOUR 06/14/1996 QURESHI to LAD, ZIYAD to diagonal, SVG to posterior descending, sequential SVG to first marginal arteryto second marginal artery FOOT/TOE SURGERY NEC FOREARM/WRIST SURGERY NEC REMOVAL OF APPENDIX UPPER ARM/ELBOW SURGERY NEC Family History: Family History Problem Relation Age of Onset Other (CAD Alzheimers) Mother Other (NH, CAD) Father Social History: Social History Socioeconomic History Marital status: Spouse name: Not on file Number of children: Not on file Years of education: Not on file Highest education level: Not on file Occupational History 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 Employer: [employer] Tobacco Use Smoking status: Never Smoker Smokeless tobacco: Never Used Substance and Sexual Activity Alcohol use: No Drug use: No Sexual activity: Not on file Other Topics Concern Not on file Social History Narrative Not on file Social Determinants of Health Financial Resource Strain: Not on file Food Insecurity: Not on file Transportation Needs: Not on file Physical Activity: Not on file Stress: Not on file Social Connections: Not on file Intimate Partner Violence: Not on file Housing Stability: Not on file Allergies: Augmentin [amoxicillin-pot clavulanate] and Sulfa antibiotics Medications: Current Outpatient Medications Medication Sig Dispense Refill OMEPRAZOLE 20 MG PO CPDR 1 TAB ONCE DAILY METOPROLOL XL TBCR 100 MG OR 1 TAB ONCE DAILY DIPENTUM 250 MG PO CAPS 1 TAB TWICE DAILY ASPIRIN 81 MG PO TABS 1 TAB ONCE DAILY amLODIPine Besylate 2.5 MG Oral Tablet (Norvasc) Take by mouth 5 Tablets in the morning. Ciprofloxacin HCl 500 MG Oral Tablet (Cipro) 500 mg . As needed Nitroglycerin 0.4 MG Sublingual Tablet Sublingual (Nitrostat) 0.4 mg . Omeprazole 40 MG Oral Capsule Delayed Release [...] Tablet in the morning. 100 Tablet 3 No current facility-administered medications for this visit. OBJECTIVE/PHYSICAL EXAMINATION: BP 132/80 | Pulse 52 | Ht 1.702 m (5' 7") | Wt 80.7 kg (178 lb) | SpO2 96% | BMI 27.88 kg/m | BSA1.95 m General: no acute distress and stated age Eyes: conjunctiva are pink and non-injected, sclera clear Neck: normal jugular venous pulse, no hepatojugular reflux Chest: normal shape and normal respiratory effort Lungs: Fine dry rales at bases Cardiac Exam: - regular bradycardic heart sounds, no murmurs, rubs, or gallops Abdomen: abdomen soft, non-tender, no abnormal masses and no hepatosplenomegaly Musculoskeletal: no gait disturbance, no weakness Extremities: no edema and no cyanosis Neuro: grossly normal exam Psych: appropriate affect and insight. Skin: No rash Lymph: No adenopathy Data: Lab Results Component Value Date/Time BUN - [facility] 25 (H) 10/14/2018 11:33 AM Lab Results Component Value Date/Time CREATININE - [facility] 1.2 10/14/2018 11:33 AM No components found for: [id number] IMPRESSION: 71 year old year old male with coronary artery disease with chronic stable angina. RECOMMENDATIONS/PLAN: 1. Coronary artery disease with chronic stable angina: He has had symptoms of shortness of breath and angina for proximally 2 years. However he states they have been worsening. For risk stratification I have ordered a pharmacologic Cardiolite stress test. I have also changed his Vytorin to atorvastatin 80 mg daily. I am going to see him back in 1 month review his stress test. Patient advised to call with any questions or concerns and to report to the ER with any and all emergencies. Tremaine Yang, DO Cardiology [address] [address] [place] [address] Sherri [place] [address] Level of complexity high. This chart was completed in part utilizing [employer] Speech Voice Recognition Software. Grammatical errors, random [...] documented in this encounter Nursing Notes * Jovita De Santiago LPN - 01/06/2022 10:52 AM EDT Patient was identified by name and date of . Name: Skip Hartley Date of : (1950). Examination Room: 6 Reason for Visit: Chief Complaint Patient presents with NEW PATIENT Short of Breath Hx of CABG x 1995. Interim Hospitalization(s): NO Interim Emergency room visit(s): NO Chest Pain: No SOB: Yes x 2 years. Worse this past . Problems/Concerns: No Medications reviewed and are up [...] personnel. Patient voiced full comprehension of instructions. Jovita De Santiago LPN 10:52 AM 01/06/2022 documented in this encounter Plan of Treatment Upcoming Encounters Date Type Specialty Care Team Description 01/13/2022 Appointment Radiology 02/17/2022 Office Visit Cardiology Tremaine Yang DO [address] [place] [address] Scheduled Orders Name Type Priority Associated Diagnoses Orde r Schedule EKG EKG Routine Ordered: 01/06 NM MYOCARDIAL PERFUSION IMAGING SPECT MULTIPLE STUDIES WITH PHARMACOLOGIC INTERVENTION Cardiology Routine Coronary artery disease of [place] artery of [place] heart with stable angina pectoris (HCC) Expected: 01/13/2022, Expires: 02/05/2023 Health Maintenance Due Date Last Done Comments Depression Screening, Annual for Pts 12 and Over 1961 DTaP,Tdap,and Td Vaccines (1 - Tdap) 1968 Cologuard: Ages 45-75 1994 Colonoscopy: Ages 45-75 1994 Colorectal Cancer Screening (Colonoscopy 10 Years; Sigmoidoscopy 5 Years; Cologuard 3 Years; FOBT 1 Year): Ages 45-75 1994 FOBT: Ages 45-75 1994 Sigmoidoscopy: Ages 45-75 1994 Zoster Vaccines (1 of 2) 1999 Pneumococcal Vaccine: 65+ Years (1 of 1 - PPSV23) 2014 COVID-19 Vaccine (3 - Booster for Pfizer series) 10/14/2021 05/14/2021, 04/23/2021 DIABETES SCREEN EVERY 3 YRS-AGE 45 AND ABOVE 10/14/2021 10/14/2018, 08/25/2018, 02/23/2018, Additional history exists Influenza Vaccine (FLU shot) (Season Ended) 2022 LIPID SCREEN EVERY 5 YRS-MEN AGE 35-75 08/25/2023 08/25/2018, 02/23/2018, 03/02/2017, Additional history exists GARDASIL-HPV IMMUNIZATION SERIES Aged Out No longer eligible based on patient's age to complete this topic MENINGOCOCCAL (MENACTRA/MENVEO) Aged Out No longer eligible based on patient's age to complete this topic documented as of this encounter Implants Not on filedocumented as of this encounter Visit Diagnoses Diagnosis Coronary artery disease of [place] artery of [place] heart with stable angina pectoris (HCC)- Primary documented in this encounter Advance Directives Documents on File Type Date Recorded Patient Aged Or Disabled Carer Expl anation Advanced Directive Advanced Directive Advanced Directive Advanced Directive Advanced Directive Advanced Directive Advanced Directive Advanced Directive Advanced Directive Care Teams Sign Language Translator Relationship Specialty Start Date End Date Camille Hendrix MD [address] [place] [address] PCP - General 06/26/02 documented as of this encounter
--- OUTSIDE RECORDS SUMMARY | 2023-05-17 10:26 | External Medical Summary | Continuity of Care Document ---
Author Name Unknown Organization [address] Address [address] [place] [phone] Care Team Providers Care Cell Cleaner Name Role Phone Alex Terrazas Primary Care Physician [phone] [id number] Date(s): 09/22/21 - 09/22/[address] [address] [phone] Encounter Diagnosis Crohn's disease(Discharge Diagnosis) - 09/22/21 PSC (primary sclerosing cholangitis)(Discharge Diagnosis) - 09/22/21 Discharge Disposition: Home or Self Care Attending Physician: LUCY Gutierres Janet Griffith Allergies, Adverse Reactions, Alerts Substance Reaction Severity Status sulfa drugs chills fever Active Amoxil diarrhea Active Assessment and Plan Extracted from: Title:Office Visit Note Author:LUCY Gutierres Janet Griffith Date:09/22/21 1.Crohn's disease The patient is a pleasant 71-year-old male who presents today forroutine follow-up of Crohn's disease and history of primary sclerosing cholangitis. 1. Primary sclerosing cholangitis:Most recentinpatient admission for recurrentcholangitis04/2021. He is maintained rxfpueurpl835 mg p.o. twice daily. He follows with Dr. Lincoln hepatologyannually with next appointment 04/2022. He has Ciproat hometo start if he developstemperature elevation. 2. Crohn's disease:The patient has a longstanding history of Crohn's colitis which is maintained on Fsubzugb148 mg p.o. twice daily. Colonoscopy for surveillance 05/2019 with no active disease or dysplasia, had incidental diverticulosis and hemorrhoids. Most recent colonoscopy 06/2021with no concerning findingson pathology. Recommendation by Dr. Mari is colonoscopy every 2 years d/t h/o PSC. Patient was provided with laboratory orders for CBC with differential and [facility] 3. GERD:The patient has a history of GERDand is maintained on Omeprazole with good symptom control at this time. 4. GI office visit follow-up in 4 monthswith myself or physician provider, sooner if needed. Will extendoffice visits after next office visit to 6 months. 2.PSC (primary sclerosing cholangitis) see above Immunizations Given and Recorded Vaccine Date Status [...] bid, Disp# 180 cap, Refills: 3, Pharmacy: [id number] Start Date: 09/21/19 Stop [...] Start Date: 10/20/16 Status: Ordered Mental Status 09/22/21 Barriers to Learning one year Hearing de ficit, Vision impairment, Other: eye glasses and bilateral hearing aids to both ears noted Mandatory Health Literacy Documentation Yes Health Literacy Communication Barriers N ever Primary Language Kiswahili Problem List Condition Effective Dates Status Health Status Inform ant Crohn's disease(Confirmed) Active Hypertension(Confirmed) Active Melanoma(Confirmed) 1 Active PSC (primary sclerosing cholangitis)(Confirmed) Active Skin lesions(Confirmed) Active 1left chest Diagnosis Diagnosis Type Effective Dates Health Status Clinical Service Informant Crohn's disease Discharge Diagnosis 09/22/21 PSC (primary sclerosing cholangitis) Discharge Diagnosis 09/22/21 Procedures Procedure Date Related Diagnosis Body Site [...] small retroperitoneal lymph nodes are grossly unchanged. [id number] 9melanoma of left chest [id number] [id number] 12fibroma right foot [id number] Social History Social History Type Response Smoking Status Never smoked cigaret aide Sex Male
--- OUTSIDE RECORDS SUMMARY | 2023-05-17 10:26 | External Medical Summary | Continuity of Care Document ---
Author Name Unknown Organization [address] Address [address] [place] [id number] Care Team Providers Care Radiation / Chemistry Technician Name Role Phone Alex Terrazas Primary Care Physician [phone] Encounter [facility] [place] [id number] Date(s): 10/02/20 - 10/02/[address] [address]- [phone] Encounter Diagnosis Body mass index [BMI] 28.0-28.9, adult(Discharge Diagnosis) - 10/02/20 PSC (primary sclerosing cholangitis)(Discharge Diagnosis) - 10/02/20 Upper abdominal pain(Discharge Diagnosis) - 10/02/20 Discharge Disposition: Home or Self Care Attending Physician: LUCY Gutierres Janet Griffith Referring Physician: MD Terrazas Eric K Allergies, Adverse Reactions, Alerts Substance Reaction Severity Status sulfa drugs chills fever Active Amoxil diarrhea Active Assessment and Plan Extracted from: Title:Office Visit Note Author:LUCY Gutierres Janet Griffith Date:10/02/20 1.PSC (primary sclerosing cholangitis) The patient has a history ofprimary sclerosing cholangitiswith 1 week history of epigastric and right upper quadrant abdominal pain that worsened2 days ago. He has noted intermittent elevations in temperature as high as 100.3 F. He began taking oral ciprofloxacin1 day ago. 1. Due to symptoms and patient history,patientreferred to the emergency departmentfor further evaluation. The [facility] ED was called and report given to ELEN Pinto. 2. EKG was obtained due to complaints ofchest pain which demonstrated normal sinus rhythmwith rate of 67with nonspecific T wave abnormality, IL interval 162 ms, QRS duration 88 ms, QT/QTc intervals 382/403 ms. This was reviewedwith previous EKGand Dr. Sanders prior to patient's transfer to the emergency department via private vehicle 3. Follow-up to be determined Rosa evaluation 2.Upper abdominal pain see above Body mass index [BMI] 28.0-28.9, adult Immunizations Given and Recorded Vaccine Date Status [...] bid, Disp# 180 cap, Refills: 3, Pharmacy: [id number] Start Date: 09/21/19 [...] Start Date: 10/20/16 Status: Ordered Mental Status 10/02/20 Barriers to Learning one year Hearing de ficit, Vision impairment, Other: eye glasses and bilateral hearing aids to both ears noted Mandatory Health Literacy Documentation Yes Health Literacy Communication Barriers N ever Primary Language Liberian Problem List Condition Effective Dates Status Health Status Inform ant Crohns disease(Confirmed) Active Hypertension(Confirmed) Active Melanoma(Confirmed) 1 Active PSC (primary sclerosing cholangitis)(Confirmed) Active Skin lesions(Confirmed) Active 1left chest Diagnosis Diagnosis Type Effective Dates Health Status Clinical Service Informant Body mass index [BMI] 28.0-28.9, adult Discharge Diagnosis 10/02/20 Non-Specified PSC (primary sclerosing cholangitis) Discharge Diagnosis 10/02/20 Upper abdominal pain Discharge Diagnosis 10/02/20 Procedures Procedure Date Related Diagnosis Body Site Status ERCP 05/16/[address] of abdomen and pelvis 1 12/16/18 Completed Cholecystectomy 2 11/11/[address] of abdomen and pelvis 3 10/14/18 Completed Colonoscopy 2016 Completed Appendectomy 4 Completed Elbow 5 Completed Excision 6 Completed Heart 7 Completed Hernia 8 Completed Surgery 9 Completed Wrist 10 Completed 1Intrahepatic ductal dilatation, mostly in the left hepatic lobe with pneumobilia. Findings compatible with clinical Hx of cholangitis. MRI wiht MRCP could be considered for better evaluation 2Pathology: Chronic cholecystitis, Cholelithiasis, Negative for dysplasia and malignancy 31) Sinnce 02/08/18, interval develpment of well thickening [...] small retroperitoneal lymph nodes are grossly unchanged. 53161 76126 6melanoma of left chest 21692 57086 9fibroma right foot [id number] Vital Signs Most recent to oldest [Reference Range]: 1 Height 170.1 cm (10/02/20 11:02 AM) Patient Weight 81.7 kg (10/02/20 11:02 AM) Body Mass Index 28.24 kg/m2 (10/02/20 11:02 AM) Temperature [36.5-38 DegC] 36.9 DegC (10/02/20 11:02 AM) Heart Rate 76 bpm (10/02/20 11:02 AM) Respiratory Rate 16 br/min (10/02/20 11:02 AM) Blood Pressure 162/88mmHg (10/02/20 11:02 AM) Cuff Pulse Pressure 74 mmHg (10/02/20 11:02 AM) BP Location # 1 Left Arm (10/02/20 11:02 AM) Social History Social History Type Response Smoking Status Never smoked cigaret aide Sex Male
--- OUTSIDE RECORDS SUMMARY | 2023-05-17 10:26 | External Medical Summary | Summary of Care ---
Author [place] [address] Care Team Providers Care Billet Header Name Role Phone Alex Terrazas MD Primary Care Provider [phone] Encounter Details Date Type Department Care Team Description 04/23/2021 Immunization Covid19 Vaccine, [facility] [address] [place] [address] Dose, Covid19 Vaccine A [address] [address] Encounter for immunization* Allergies No Known Active Allergiesdocumented as of this encounter (statuses as of 04/23/2021) Medications Medication Sig Dispensed Refills Start Date [...] as of this encounter (statuses as of 04/23/2021) Active Problems Problem Noted Date Coronary atherosclerosis of [place] coron nu artery 10/26/2011 Postsurgical aortocoronary bypass status documented as of this encounter (statuses as of 04/23/2021) Immunizations Name Administration Dates Next Due COVID-19 mRNA, LNP-s, No Pre serve, 2-Dose Series (e-channel) 04/23/2021 documented as of this encounter Social History [...] Encounters Date Type Specialty Care Team Description 05/14/2021 Immunization Ancillary Dose, Covid19 Vaccine A [facility] [address]nd [address] [place] [address] Health Maintenance Due Date Last Done Comments DTaP,Tdap,and Td Vaccines (1 - Tdap) 1968 Zoster Vaccines (1 of 2) 1999 Pneumococcal Vaccine: 65+ Years (1 of 1 - PPSV23) 2014 *DEPRESSION SCREENING,ANNUAL FOR PTS 12 AND OVER 03/29/2019 *COLORECTAL CANCER SCREENING (COLONOSCOPY 10 YEARS; SIGMOIDOSCOPY 5 YEARS; COLOGUARD 3 YEARS; FOBT 1 YEAR),AGES 50-75 03/24/2021 COVID-19 Vaccine (2 - Pfizer 2-dose series) 05/14/2021 04/23/2021 Influenza Vaccine (FLU shot) (#1) 2021 DIABETES [...] Documents on File Type Date Recorded Patient Data Integration Analyst Expl anation Advanced Directive Advanced Directive Advanced Directive Advanced Directive Advanced Directive Advanced Directive
--- OUTSIDE RECORDS SUMMARY | 2023-05-17 10:26 | External Medical Summary | Summary of Care ---
Author Name [place] [address] Care Team Providers Care Sporting Goods Salesperson Name Role Phone Alex Terrazas MD Primary Care Provider [phone] Encounter Details Date Type Department Care Team Description 04/23/2021 Immunization Covid19 Vaccine, [facility] [address] [place] [address] Dose, Covid19 Vaccine A [address] [address] Encounter for immunization* Allergies No Known Active [...] Problems Problem Noted Date Coronary atherosclerosis of [place] coron nu artery 10/26/2011 Postsurgical aortocoronary bypass status documented as of this encounter (statuses as of 04/23/2021) Immunizations Name Administration Dates Next Due COVID-19 mRNA, LNP-s, No Pre serve, 2-Dose Series ([facility]) 04/23/2021 documented as of this encounter Social [...] 05/14/2021 Immunization Ancillary Dose, Covid[address] [facility] [address] [place] [address] Health Maintenance Due Date Last Done Comments [...] Documents on File Type Date Recorded Patient Public Affairs Director Expl anation Advanced Directive Advanced Directive Advanced Directive Advanced Directive Advanced Directive Advanced Directive
--- OUTSIDE RECORDS SUMMARY | 2023-05-17 10:26 | External Medical Summary | Summary of Care ---
Author [place] [address] Care Team Providers Care Supervisor Edging Name Role Phone Alex Terrazas MD Primary Care Provider [phone] Reason for Visit * Reason Comments Appointment MRI Encounter Details Date Type Department Care Team Description 03/31/2019 Telephone Radiology, [address] [place] [address] Saranya Dixon RT Appointment (MRI) Allergies No Known Allergiesdocumented as of this [...] Problems Problem Noted Date Coronary atherosclerosis of [place] coron nu artery 10/26/2011 Postsurgical aortocoronary bypass [...] Travel End documented as of this encounter Miscellaneous Notes * Telephone Encounter - Saranya Dixon RT - 03/31/2019 11:36 AM EDT Name: Skip Hartley Do you have any of the following: Pacemaker, stents, heart valves, aneurysm clips? No Have you ever worked with metal or have you ever gotten metal in your eyes? No Have you had a colonoscopy in the last 30 days? No Do you have any dermals or body piercing's? No Knows to be NPO. Labs at [facility] 03/27/19 RT Mane documented in this encounter Plan of Treatment [...] Documents on File Type Date Recorded Patient Autos Disassembler Expl anation Advanced Directive Advanced Directive Advanced Directive
--- OUTSIDE RECORDS SUMMARY | 2023-05-17 10:26 | External Medical Summary | Summary of Care ---
Author Name Unknown Organization [place] [address] Care Team Providers Care Salvage Inspector Wood Parts Name Role Phone Alex Hendrix MD Primary Care Provider [phone] Encounter Details Date Type Department Care Team Description 01/14/2022 Orders Only Cardiology Zaire Jimenez [address] [place] [id number] Tremaine Yang, [address] [place] [id number] Allergies Active Allergy Reactions Severity Noted Date Comments Amoxicillin-Pot Clavulanate 01/07/20 22 Sulfa Antibiotics 01/06/2022 documented as of this encounter (statuses as of 01/14/2022) Medications Medication Sig Dispensed Refills Start Date End Date Status OMEPRAZOLE 20 MG PO CPDR 1 TAB ONCE DAILY 0 Active METOPROLOL XL TBCR 100 MG OR 1 TAB ONCE DAILY 0 Active DIPENTUM 250 MG PO CAPS 1 TAB TWICE DAILY 0 Active ASPIRIN 81 MG PO TABS 1 TAB ONCE DAILY 0 Active Ciprofloxacin HCl 500 MG Oral [...] the morning. 100 Tablet 3 01/06/2022 Active amLODIPine Besylate 5 MG Oral Tablet (Norvasc) Take by mouth 1 Tablet in the morning. 100 Tablet 3 01/06/2022 Active documented as of this encounter (statuses as of 01/14/2022) Active Problems Problem Noted Date Coronary atherosclerosis of [place] coron nu artery 10/26/2011 Postsurgical aortocoronary bypass status documented as of this encounter (statuses as of 01/14/2022) Immunizations Name Administration Dates Next Due COVID-19 mRNA, LNP-s, No Pre serve, 2-Dose Series (Pfizer) 05/14/2021,04/23/2021 documented as of this encounter Social [...] Encounters Date Type Specialty Care Team Description 02/17/2022 Office Visit Cardiology Tremaine Yang, DO [address] [facility] [place] [address] Health Maintenance Due Date Last Done [...] EVERY 3 YRS-AGE 45 AND ABOVE 10/14/2021 12/24/2021, 10/14/2018, 08/25/2018, Additional history exists Influenza Vaccine (FLU shot) (Season Ended) 2022 LIPID SCREEN EVERY 5 YRS-MEN AGE 35-75 08/25/2023 12/24/2021, 08/25/2018, 02/23/2018, Additional history exists GARDASIL-HPV IMMUNIZATION SERIES Aged Out No longer eligible based on patient's age to complete this topic MENINGOCOCCAL (MENACTRA/MENVEO) Aged Out No longer eligible based on patient's age to complete this topic documented as of this encounter Implants Not on filedocumented as of this encounter Procedures Procedure Name Priority Date/Time Associated Diagnosis Comments CHEMISTRY-OUTSIDE Routine 12/24/2021 documented in this encounter Results * (ABNORMAL) CHEMISTRY-OUTSIDE (12/24/2021) CREATININE-OUTSIDE LAB 1.30 0.6 - 1.4 MG/DL OUTSIDE LAB (SEE SCANNED REPORT) EGFR-OUTSIDE LAB 54.5 ML/MIN OUTSIDE LAB (SEE SCANNED REPORT) POTASSIUM-OUTSIDE LAB 4.4 3.5 - 5.1 MMOL/L OUTSIDE LAB (SEE SCANNED REPORT) GLUCOSE-OUTSIDE LAB 99 70 - 99 MG/DL OUTSIDE LAB (SEE SCANNED REPORT) HOURS FASTING OUTSIDE LAB (S EE SCANNED REPORT) TRIGLYCERIDES-OUTSIDE LAB 169(A) 0 - 150 MG/DL OUTSIDE LAB (SEE SCANNED REPORT) CHOLESTEROL-OUTSIDE LAB 98 0 - 200 MG/DL OUTSIDE LAB (SEE SCANNED REPORT) HDL-OUTSIDE LAB 33(A) 40 - 60 MG/DL OUTSIDE LAB (SEE SCANNED REPORT) CHOL/HDL RATIO-OUTSIDE LAB 3.0 0 - 5 OUTSIDE LAB (SEE SCANNED REPORT) LDL (CALCULATED)-OUTSIDE LAB 31 <100 MG/DL OUTSIDE LAB (SEE SCANNED REPORT) LDL (DIRECT MEASURE)-OUTSIDE LAB OUTSIDE LAB (SEE SCANNED REPORT) HEMOGLOBIN, I3A-RPZIWPT LAB OUTSIDE LAB (SEE SCANNED REPORT) PHOSPHORUS-OUTSIDE LAB OUTSIDE LAB (SEE SCANNED REPORT) PTH-OUTSIDE LAB OUTSIDE LAB (SEE SCANNED REPORT) MICROALBUMIN RATIO-OUTSIDE LAB OUTSIDE LAB (SEE SCANNED REPORT) PROTEIN, UA-OUTSIDE LAB OUTSIDE LAB (SEE SCANNED REPORT) HEMOGLOBIN-OUTSIDE LAB 16.9 14.0 - 18.0 G/DL OUTSIDE LAB (SEE SCANNED REPORT) CHEMISTRY COMMENT-OUTSIDE LAB Comment:SEE SCAN: DR HENDRIX: CBCD, CMP, LIPID PANEL OUTSIDE LAB (SEE SCANNED REPORT) Specimen Narrative OUTSIDE LAB (SEE SCANNED REPORT) documented in this encounter Advance Directives Documents on File Type Date Recorded Patient Sammying Machine Operator Expl anation Advanced Directive Advanced Directive Advanced Directive Advanced Directive Advanced Directive Advanced Directive Advanced Directive Advanced Directive Advanced Directive Care Teams Salvage Inspector Wood Parts Relationship Specialty Start Date End Date Alex Hendrix MD [address] [place] [address] PCP - General 06/26/02 documented as of this encounter
--- OUTSIDE RECORDS SUMMARY | 2023-05-17 10:26 | External Medical Summary | Summary of Care ---
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) Procedures NM MYOCARDIAL PERFUSION IMAGING SPECT MULTIPLE STUDIES WITH PHARMACOLOGIC INTERVENTION Namrata Jane DO [address] [place] [address] Referral ID Status Reason Start Date Expiration Date Visits Requested Visits Authorized [id number] Pending Review Precert 01/13/2022 1 1 Reason for Visit * Reason Comments NEW PATIENT Short of Breath Encounter Details Date Type Department Care Team Description 01/06/2022 Office Visit Cardiology Zaire Jimenez [address] [place] [address] Namrata Jane DO [address] [place] [address] 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 0 Active Vitamin D 50 MCG (1999 [place]) Oral Capsule Take by mouth 2,000 [...] TABS 1 TAB ONCE DAILY 0 2 Discontinued([facility] List Clean Up) VYTORIN 10-80 MG PO TABS 1 TAB ONCE DAILY 0 2 Discontinued amLODIPine Besylate 2.5 MG Oral Tablet (Norvasc) Take by mouth 5 Tablets in the morning. 0 11/04/2021 2 Discontinued documented as of this encounter (statuses as of 01/06/2022) Active Problems Problem Noted Date Coronary atherosclerosis of [place] coron nu artery 10/26/2011 Postsurgical aortocoronary bypass status documented as of this encounter (statuses as of 01/06/2022) Immunizations Name Administration Dates Next Due COVID-19 mRNA, LNP-s, No Pre serve, 2-Dose Series ([employer]) 05/14/2021,04/23/2021 documented as of this encounter Social [...] documented in this encounter Progress Notes * Namrata Jane, - 01/06/2022 11:37 AM EDT Cardiology Consultation [facility] 01/06/2022 Reason for Consultation: ICD-10-CM 1. 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) I25.118 Provider Requesting Consultation: PCP: CAMILLE HENDRIX [address] [place] [address] [phone] History of Present Illness: Skip Hartley is a 71 year old year old [...] aortocoronary bypass status Z95.1 Coronary atherosclerosis of hughes coronary artery I25.10 Past Surgical History: Procedure Laterality Date CORONARY ARTERIES BYPASS, FOUR 06/14/1996 QURESHI to LAD, ZIYAD to diagonal, SVG to posterior descending, sequential SVG to first marginal arteryto second marginal artery FOOT/TOE SURGERY NEC FOREARM/WRIST SURGERY NEC REMOVAL OF APPENDIX UPPER ARM/ELBOW SURGERY NEC Family History: Family History Problem Relation Age of Onset Other (CAD Alzheimers) Mother Other ([place], CAD) Father Social History: Social History Socioeconomic History Marital status: Spouse name: Not on file Number of children: Not on file Years of education: Not on file Highest education level: Not on file Occupational History 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 Namrata Jane, DO Cardiology [place] [address] [facility] [place] [address] Level of complexity high. This chart was completed in part utilizing Fluency Speech Voice Recognition Software. Grammatical errors, random word insertions, prounoun errors, and incomplete sentences are an occasional consequence of this system due to software limitations, ambient noise, and hardware issues. Any formal questions or concerns about the content, text, or information contained within the body of this dictation should be directly addressed to the provider for clarification. documented in this encounter Procedure Notes * Namrata Jane DO - 01/06/2022 10:59 AM EDT Associated Order(s): EKG REASON FOR STUDY: cad CONCLUSIONS: Sinus bradycardia Otherwise normal ECG When compared with ECG of 05-OCT-2008 13:29, No significant change Ventricular Rate: 50 Atrial Rate: 50 DE Interval: 172 QRS Duration: 82 QT/QTc: 418/381 ms P-R-T [place]: 58 : 23 : -8 degrees documented in this encounter Nursing Notes * Jovita De Santiago LPN - 01/06/2022 10:52 AM EDT Patient was identified by name and date of . Name: Skip Hartely Date of : (1950). Examination Room: 6 Reason for Visit: Chief Complaint Patient presents with NEW PATIENT Short of Breath Hx of CABG x 5 1995. Interim Hospitalization(s): NO Interim Emergency room [...] 10:52 AM 01/06/2022 documented in this encounter Miscellaneous Notes * Addendum Note - Namrata Jane DO - 01/06/2022 3:16 PM EDT Addended by: NAMRATA JANE on: 01/06/2022 03:16 PM Modules accepted: Orders documented in this encounter Plan of Treatment Upcoming Encounters Date Type Specialty Care Team Description 01/13/2022 Appointment Radiology 02/17/2022 Office Visit Cardiology Namrata Jane DO [address] [place] [id number] Scheduled Orders Name Type Priority Associated Diagnoses Orde r Schedule NM MYOCARDIAL PERFUSION IMAGING SPECT MULTIPLE STUDIES WITH PHARMACOLOGIC INTERVENTION Cardiology Routine 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) Expected: [...] Procedure Name Priority Date/Time Associated Diagnosis Comments DE ECG ROUTINE ECG W/LEAST 12 LDS W/I&R Routine 01/06/2022 10:59 AM EDT documented in this encounter Results * EKG (01/06/2022 10:59 AM EDT) Specimen Procedure Note Namrata Jane, DO - 01/06/2022 10:59 AM EDT REASON FOR STUDY: cad CONCLUSIONS: Sinus bradycardia Otherwise normal ECG When compared with ECG of 05-OCT-2008 13:29, No significant change Ventricular Rate: 50 Atrial Rate: 50 DE Interval: 172 QRS Duration: 82 QT/QTc: 418/381 ms P-R-T [place]: 58 : 23 : -8 degrees [facility] CARDIOLOGY documented in this encounter Visit Diagnoses Diagnosis 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
--- OUTSIDE RECORDS SUMMARY | 2023-05-17 10:26 | External Medical Summary | Continuity of Care Document ---
Author Name Unknown Organization [address] [id number] Care Team Providers Care Weight Engineer Name Role Phone Alex Terrazas Primary Care Physician [phone] Encounter [facility] [id number] Date(s): 02/18/22 - 02/18/[address] [address] [phone] Encounter Diagnosis PSC (primary sclerosing cholangitis)(Discharge Diagnosis) - 02/18/22 Crohn's disease(Discharge Diagnosis) - 02/18/22 Body mass index [BMI] 27.0-27.9, adult(Discharge Diagnosis) - 02/18/22 Discharge Disposition: Home or Self Care Attending Physician: LUCY Gutierres Janet Griffith Referring Physician: LUCY Gutierres Janet Griffith Allergies, Adverse Reactions, Alerts Substance Reaction Severity Status sulfa drugs chills fever Active Amoxil diarrhea Active Assessment and Plan Extracted from: Title:Office Visit Note Author:LUCY Gutierres Janet Griffith Date:02/18/22 1.PSC (primary sclerosing cholangitis) The patient is a pleasant 71-year-old male who presents today forroutine follow-up of Crohn's disease and history of primary sclerosing cholangitis. 1. Primary sclerosing cholangitis:Most recentinpatient admission for recurrentcholangitis04/2021. He is maintained dvreaoneac673 mg p.o. twice daily. He follows with Dr. Lincoln hepatologyannually with next appointment 04/2022, will have MRI prior to visit. He has Ciproat hometo start if he developstemperature elevation. 2. Crohn's disease:The patient has a longstanding history of Crohn's colitis which is maintained on Bmnllhog731 mg p.o. twice daily. Colonoscopy for ndfjatvrhqgx99/2021 with no active disease or dysplasia, had incidental diverticulosis and hemorrhoids. Recommendation by Dr. Mari is colonoscopy every 2 years d/t h/o PSC. Patient was provided with laboratory orders for CBC with differential and [facility] 3. GERD:The patient has a history of GERDand is maintained on Omeprazole with good symptom control at this time. 4. GI office visit follow-up in6 months, sooner if needed. 2.Crohn's disease see above Immunizations Given and Recorded Vaccine [...] bid, Disp# 180 cap, Refills: 3, Pharmacy: [id number] Start Date: 09/21/19 Stop [...] Start Date: 10/20/16 Status: Ordered Mental Status 02/18/22 Barriers to Learning one year Hearing de ficit, Vision impairment, Other: eye glasses and bilateral hearing aids to both ears noted Mandatory Health Literacy Documentation Yes Communication Barrier Present No Health Literacy Communication Barriers N ever Primary Language Greenlandic Problem List Condition Effective Dates Status Health Status Inform ant Crohn's disease(Confirmed) Active Hypertension(Confirmed) Active Melanoma(Confirmed) 1 Active PSC (primary sclerosing cholangitis)(Confirmed) Active Skin lesions(Confirmed) Active 1left chest Diagnosis Diagnosis Type Effective Dates Health Status Clinical Service Informant Body mass index [BMI] 27.0-27.9, adult Discharge Diagnosis 02/18/22 Non-Specified PSC (primary sclerosing cholangitis) Discharge Diagnosis 02/18/22 Crohn's disease Discharge Diagnosis 02/18/22 Procedures Procedure Date Related Diagnosis Body Site [...] small retroperitoneal lymph nodes are grossly unchanged. [id number] 9melanoma of left chest 372152 [id number] 12fibroma right foot [id number] Vital Signs Most recent to oldest [Reference Range]: 1 Height 170 cm (02/18/22 10:45 AM) Patient Weight 78.9 kg (02/18/22 10:45 AM) Body Mass Index 27.3 kg/m2 (02/18/22 10:45 AM) Heart Rate 68 bpm (02/18/22 10:45 AM) Respiratory Rate 12 br/min (02/18/22 10:45 AM) Blood Pressure 124/70mmHg (02/18/22 10:45 AM) Cuff Pulse Pressure 54 mmHg (02/18/22 10:45 AM) BP Location # 1 Left Arm (02/18/22 10:45 AM) Social History Social History Type Response Smoking Status Never smoked cigaret aide Sex Male Care Team Personnel Name: MD Mk, Alex Otto Address: [address] [place] [address] [place]
--- OUTSIDE RECORDS SUMMARY | 2023-05-17 10:26 | External Medical Summary | Summary of Care ---
Author Name Unknown Organization [facility] [place] [address] Care Team Providers Care Horse Riding Coach Or Instructor Name Role Phone Alex Terrazas MD Primary Care Provider [phone] Reason for Visit * Reason Comments Outpatient Testing Encounter Details Date Type Department Care Team Description 02/25/2022 Laboratory Laboratory, [facility] [address] [place] [id number] [facility], Lab [address] [place] [address] Coronary artery disease of [place] artery of [place] heart with stable angina pectoris (HCC); HTN, goal below 130/80 Allergies Active Allergy Reactions Severity Noted Date Comments Amoxicillin-Pot Clavulanate 01/07/20 22 Sulfa Antibiotics 01/06/2022 documented as of this encounter (statuses as of 02/25/2022) Medications Medication Sig Dispensed Refills Start Date [...] bedtime. 0 Active Vitamin D 50 MCG (1999) Oral Capsule Take by mouth 2,000 Units in the morning. 0 Active Atorvastatin Calcium 80 MG Oral Tablet (Lipitor) Take by mouth 1 Tablet in the morning. 100 Tablet 3 01/06/2022 Active Lisinopril 10 MG Oral Tablet (Prinivil) Take by mouth 1 Tablet in the morning. 90 Tablet 3 02/17/2022 Active amLODIPine Besylate 10 MG Oral Tablet (Norvasc) Take by mouth 1 Tablet in the morning. 100 Tablet 3 02/17/2022 Active documented as of this encounter (statuses as of 02/25/2022) Active Problems Problem Noted Date Coronary atherosclerosis of [place] coron nu artery 10/26/2011 Postsurgical aortocoronary bypass status documented as of this encounter (statuses as of 02/25/2022) Immunizations Name Administration Dates Next Due COVID-19 mRNA, LNP-s, No Pre serve, 2-Dose Series (panOpen) 05/14/2021,04/23/2021 documented as of this encounter Social [...] Encounters Date Type Specialty Care Team Description 08/25/2022 Office Visit Cardiology Tremaine Yang, DO [address] [facility] [place] [id number] Pending Results Name Type Priority Associated Diagnoses Date /Time COMPREHENSIVE METABOLIC PANEL Lab Routine Coronary artery disease of [place] artery of [place] heart with stable angina pectoris (HCC) HTN, goal below 130/80 02/25/2022 6:50 AM EDT Health Maintenance Due Date Last Done Comments [...] 2) 1999 Pneumococcal Vaccine: 65+ Years (1 - PCV) 2014 COVID-19 Vaccine (3 - Booster for Pfizer series) 10/14/2021 05/14/2021, 04/23/2021 Influenza Vaccine (FLU shot) (Season Ended) 2022 DIABETES SCREEN EVERY 3 YRS-AGE 45 AND ABOVE 12/24/2024 12/24/2021, 10/14/2018, 08/25/2018, Additional history exists LIPID SCREEN EVERY 5 YRS-MEN AGE 35-75 12/24/2026 12/24/2021, 08/25/2018, 02/23/2018, Additional history exists GARDASIL-HPV IMMUNIZATION SERIES Aged Out No longer eligible based on patient's age to complete this topic MENINGOCOCCAL (MENACTRA/MENVEO) Aged Out No longer eligible based on patient's age to complete this topic documented as of this encounter Implants Not on filedocumented as of this encounter Visit Diagnoses Diagnosis Coronary artery disease of [place] artery of [place] heart with stable angina pectoris (HCC) HTN, goal below 130/80 Unspecified essential hypertension documented in this encounter Advance Directives Documents on File Type Date Recorded Patient Manufacturing Sales Representative Expl anation Advanced Directive Advanced Directive Advanced Directive Advanced Directive Advanced Directive Advanced Directive Advanced Directive Advanced Directive Advanced Directive Advanced Directive Advanced Directive Care Teams Horse Riding Coach Or Instructor Relationship Specialty Start Date End Date Alex Terrazas MD [address] [place] [address] PCP - General 06/26/02 documented as of this encounter
--- OUTSIDE RECORDS SUMMARY | 2023-05-17 10:26 | External Medical Summary | Summary of Care ---
Author Name Unknown Organization [place] [address] Care Team Providers Care Consulting Utility Forester Name Role Phone Alex Terrazas MD Primary Care Provider [phone] Reason for Visit * Reason Onset Date Comments Test Results 01/14/2022 Encounter Details Date Type Department Care Team Description 01/14/2022 Telephone Cardiology Zaire Jimenez [address] [place] [id number] Tremaine Yang, [address] [place] [id number] Test Results Allergies Active Allergy Reactions Severity Noted Date [...] Problems Problem Noted Date Coronary atherosclerosis of [place] coron nu artery 10/26/2011 Postsurgical aortocoronary bypass status documented as of this encounter (statuses as of 01/14/2022) Immunizations Name Administration Dates Next Due COVID-19 mRNA, LNP-s, No Pre serve, 2-Dose Series (Empower2adapt) 05/14/2021,04/23/2021 documented as of this encounter Social [...] encounter Miscellaneous Notes * Telephone Encounter - MILAGROS Pino - 01/14/2022 4:34 PM EDT Pt notified via phone and states understanding. MILAGROS Pino * Telephone Encounter - MILAGROS Pino - 01/14/2022 4:34 PM EDT ----- Message from Tremaine Yang DO sent at 01/13/2022 4:15 PM EDT ----- Can you let him know that his stress test was indeed abnormal. I expected these results. We will discuss this at our next office visit. documented in this encounter Plan of Treatment Upcoming Encounters Date Type Specialty Care Team Description 02/17/2022 Office Visit [facility] [place] [address] Health Maintenance Due Date Last Done Comments [...] Documents on File Type Date Recorded Patient Pharmacy Scheduler Expl anation Advanced Directive Advanced Directive Advanced Directive Advanced Directive Advanced Directive Advanced Directive Advanced Directive Advanced Directive Advanced Directive Care Teams Consulting Utility Forester Relationship Specialty Start Date End Date Alex Terrazas MD [address] [place] [address] PCP - General 06/26/02 documented as of this encounter
--- OUTSIDE RECORDS SUMMARY | 2023-05-17 10:26 | External Medical Summary | Continuity of Care Document ---
Author Name Unknown Organization [address] [address] Care Team Providers Care Park Police Name Role Phone Alex Terrazas Primary Care Physician [phone] Encounter [facility] [id number] Date(s): 03/06/21 - 03/06/[address] [address]- [phone] Encounter Diagnosis Body mass index [BMI] 27.0-27.9, adult(Discharge Diagnosis) - 03/06/21 PSC (primary sclerosing cholangitis)(Discharge Diagnosis) - 03/06/21 Discharge Disposition: Home or Self Care Attending Physician: LUCY Gutierres Janet Griffith Referring Physician: MD Terrazas Eric K Allergies, Adverse Reactions, Alerts Substance Reaction Severity Status sulfa drugs chills fever Active Amoxil diarrhea Active Assessment and Plan Extracted from: Title:Office Visit Note Author:LUCY Gutierres Janet Griffith Date:03/06/21 1.PSC (primary sclerosing cholangitis) The patient presents today for follow-up of recent inpatient hospitalization for recurrent cholangitis with a history of primary sclerosing cholangitis. He has completedCipro and Flagyl to total 14 days of IV and p.o. antibiotic therapy. He is doing well. 1. Primary sclerosing cholangitis:Recent inpatient admission for recurrentcholangitis. Has completed antibiotic therapy and reports no current complaints. He has follow-up with Dr. Lincoln hepatologyJuly 2020. He has Ciproat hometo start if he developstemperature elevation. 2. Crohn's disease:The patient has a longstanding history of Crohn's colitis which is maintained on Dipentum. Colonoscopy for surveillance 05/2019 with no active disease or dysplasia, had incidental diverticulosis and hemorrhoids. He is due for colonoscopy 05/2021. Recommendation by Dr. Mari is colonoscopy every 2 years d/t h/o PSC. 3. GERD:The patient has a history of GERDand is maintained on Omeprazole with good symptom control at this time. 4. GI office visit follow-up 09/2021, sooner if needed Immunizations Given and Recorded Vaccine Date Status [...] bid, Disp# 180 cap, Refills: 3, Pharmacy: [id number] Start Date: 09/21/19 [...] Start Date: 10/20/16 Status: Ordered Mental Status 03/06/21 Barriers to Learning one year Hearing de ficit, Vision impairment, Other: eye glasses and bilateral hearing aids to both ears noted Mandatory Health Literacy Documentation Yes Health Literacy Communication Barriers N ever Primary Language Chinese Problem List Condition Effective Dates Status Health Status Inform ant Crohns disease(Confirmed) Active Hypertension(Confirmed) Active Melanoma(Confirmed) 1 Active PSC (primary sclerosing cholangitis)(Confirmed) Active Skin lesions(Confirmed) Active 1left chest Diagnosis Diagnosis Type Effective Dates Health Status Clinical Service Informant PSC (primary sclerosing cholangitis) Discharge Diagnosis 03/06/21 Body mass index [BMI] 27.0-27.9, adult Discharge Diagnosis 03/06/21 Non-Specified Procedures Procedure Date Related Diagnosis Body [...] small retroperitoneal lymph nodes are grossly unchanged. 34749 19345 8melanoma of left chest 74083 536419 11fibroma right foot 483924 Vital Signs Most recent to oldest [Reference Range]: 1 Height 170 cm (03/06/21 9:49 AM) Patient Weight 78.6 kg (03/06/21 9:49 AM) Body Mass Index 27.2 kg/m2 (03/06/21 9:49 AM) Heart Rate 60 bpm (03/06/21 9:49 AM) Respiratory Rate 12 br/min (03/06/21 9:49 AM) Blood Pressure 136/78mmHg (03/06/21 9:49 AM) Cuff Pulse Pressure 58 mmHg (03/06/21 9:49 AM) BP Location # 1 Left Arm (03/06/21 9:49 AM) Social History Social History Type Response Smoking Status Never smoked cigaret aide Sex Male
--- OUTSIDE RECORDS SUMMARY | 2023-05-17 10:26 | External Medical Summary ---
Author Name Unknown Address Unknown Organization K01:[facility] [address] [place] [address] Laboratory Report Ordering Provider Test Date Status BUCK OTT 02/25/2022 06:50:44 Final Observation Date Value Abnormality Reference (Units ) Status BUN 02/25/2022 06:50:44 25 Above high normal 6-20 (mg/dL) Final Creatinine 02/25/2022 06:50:44 1.4 Above high normal 0.6-1.2 (mg/dL) Final Glomerular filtration rate/1.73 sq M.predicted [Volume Rate/Area] in Serum, Plasma or Blood by Creatinine-based formula (CKD-EPI) 02/25/2022 06:50:44 53 Below low normal >=60 (mL/min) Final Performing Location [facility] [place] [facility] [address] [place] [address]
--- OUTSIDE RECORDS SUMMARY | 2023-05-17 10:26 | External Medical Summary | Summary of Care ---
Author Name Unknown Organization [place] [address] Care Team Providers Care Bladder Changer Name Role Phone Alex Terrazas MD Primary Care Provider [phone] Reason for Visit * Reason Comments Follow Up Encounter Details Date Type Department Care Team Description 02/17/2022 Office Visit [place] [address] [place] [address] Tremaine Yang, [address] [place] [phone] Coronary artery disease of [place] artery of [place] heart with stable angina pectoris (HCC)*; HTN, goal below 130/80 Allergies Active Allergy Reactions Severity Noted Date Comments Amoxicillin-Pot Clavulanate 01/07/20 22 Sulfa Antibiotics 01/06/2022 documented as of this encounter (statuses as of 02/17/2022) Medications Medication Sig Dispensed Refills Start Date [...] the morning. 100 Tablet 3 02/17/2022 Active amLODIPine Besylate 5 MG Oral Tablet (Norvasc) Take by mouth 1 Tablet in the morning. 100 Tablet 3 01/06/2022 02/17/2022 Discontinued documented as of this encounter (statuses as of 02/17/2022) Active Problems Problem Noted Date Coronary atherosclerosis of [place] coron nu artery 10/26/2011 Postsurgical aortocoronary bypass status documented as of this encounter (statuses as of 02/17/2022) Immunizations Name Administration Dates Next Due COVID-19 mRNA, LNP-s, No Pre serve, 2-Dose Series ([email or web address]) 05/14/2021,04/23/2021 documented as of this encounter Social [...] Sign Reading Time Taken Comments Blood Pressure 142/80 02/17/2022 1:13 PM EDT Pulse 60 02/17/2022 1:13 PM EDT Temperature - - Respiratory Rate - - Oxygen Saturation - - Inhaled Oxygen Concentration - - Weight 79.4 kg (175 lb) 02/17/2022 1:13 PM EDT Height 170.2 cm (5' 7") 02/17/2022 1:13 PM EDT Body Mass Index 27.41 02/17/2022 1:13 PM EDT documented in this encounter Progress Notes * Tremaine Yang DO - 02/17/2022 1:45 PM EDT 02/17/2022 Cardiology Follow Up Reason for Follow Up ICD-10-CM 1. Coronary artery disease of [place] artery of [place] heart with stable angina pectoris (HCC) I25.118 2. HTN, goal below 130/80 I10 SUBJECTIVE: Skip Hartley is a 71 year old [...] symptoms with exertion. For risk stratification I did do a pharmacologic Cardiolite stress test there was a small area of RCA territory ischemia. Since the last I seen him he has not done any vigorous exertion. With his activities of daily he has not had any anginal symptoms. Extensive ROS: All other ROS negative or as stated above. Patient Active Problem List Diagnosis Code Postsurgical aortocoronary bypass status Z95.1 Coronary atherosclerosis of [place] coronary artery I25.10 Review of patient's allergies indicates: Allergen Reactions Augmentin [Amoxicillin-Pot Clavulanate] Sulfa Antibiotics Current Outpatient Medications Medication Sig Dispense Refill OMEPRAZOLE 20 MG PO CPDR 1 TAB ONCE DAILY METOPROLOL XL TBCR 100 MG OR 1 TAB ONCE DAILY DIPENTUM 250 MG PO CAPS 1 TAB TWICE DAILY ASPIRIN 81 MG PO TABS 1 TAB ONCE DAILY Ciprofloxacin HCl 500 MG Oral Tablet (Cipro) 500 mg . As needed Nitroglycerin 0.4 MG Sublingual Tablet Sublingual (Nitrostat) 0.4 mg . Omeprazole 40 MG Oral Capsule Delayed Release (PriLOSEC) Take by mouth 1 Capsule in the morning. Ursodiol 300 MG Oral Capsule (Actigall) Take by mouth 300 mg in the morning AND 300 mg before bedtime. Vitamin D 50 MCG (1999 [place]) Oral Capsule Take by mouth 2,000 Units in the morning. Atorvastatin Calcium 80 MG Oral Tablet (Lipitor) Take by mouth 1 Tablet in the morning. 100 Tablet 3 amLODIPine Besylate 5 MG Oral Tablet (Norvasc) Take by mouth 1 Tablet in the morning. 100 Tablet 3 Lisinopril 10 MG Oral Tablet (Prinivil) Take by mouth 1 Tablet in the morning. 90 Tablet 3 No current facility-administered medications for this visit. 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 Employer: [employer] Tobacco Use Smoking status: Never Smoker Smokeless [...] on file Housing Stability: Not on file Family History Problem Relation Age of Onset [...] UPPER ARM/ELBOW SURGERY NEC OBJECTIVE/PHYSICAL EXAMINATION: BP 142/80 | Pulse 60 | Ht 1.702 m (5' 7") | Wt 79.4 kg (175 lb) | BMI 27.41 kg/m | BSA 1.94 m General: no acute distress and stated age Eyes: conjunctiva are pink and non-injected, sclera clear Neck: normal jugular venous pulse, no hepatojugular reflux Chest: normal shape and normal respiratory effort Lungs: clear to auscultation and percussion Cardiac Exam: - regular heart sounds, no murmurs, rubs, or gallops [...] - [facility] 2.42 03/27/2016 08:07 AM ASSESSMENT: 71 year old year old male with coronary artery disease with chronic stable angina. RECOMMENDATIONS/PLAN: 1. Coronary artery disease with chronic stable angina: His pharmacologic Cardiolite stress test demonstrates a small area of RCA territory ischemia and given that he is generally asymptomatic in thisis been longstanding we are going to manage this conservatively. His blood pressure can use better control and I have added lisinopril 10 mg daily to his medical regiment. I have checked a CMP in approximately 1 weeks time. Tremaine Yang DO Cardiology [address] [address] This chart was completed in part utilizing [email or web address] Speech Voice Recognition Software. Grammatical errors, random [...] Nursing Notes * Marilee Montoya RN - 02/17/2022 1:13 PM EDT Patient was identified by name and date of . Name: Skip Hartley Date of : (1950). Examination Room: 6 Reason for Visit: Chief Complaint Patient presents with Follow Up Interim Hospitalization(s): NO Interim Emergency room visit(s): NO Chest Pain: No SOB: No Problems/Concerns: No Medications reviewed and are up to date via: Patient's memory Would you like to sign up for [...] full comprehension of instructions. Marilee Montoya RN 1:13 PM 02/17/2022 documented in this encounter Plan of Treatment Upcoming Encounters Date Type Specialty Care Team Description 08/25/2022 Office Visit Cardiology Tremaine Yang, DO [address] [place] [address] [place] [address] Scheduled Orders Name Type Priority Associated Diagnoses Orde r Schedule COMPREHENSIVE METABOLIC PANEL Lab Routine Coronary artery disease of [place] artery of [place] heart with stable angina pectoris (HCC) HTN, goal below 130/80 Expected: 02/24/2022, Expires: 02/17/2023 Health Maintenance Due Date Last Done Comments [...] Visit Diagnoses Diagnosis Coronary artery disease of [place] artery of [place] heart with stable angina pectoris (HCC)- Primary HTN, goal below 130/80 Unspecified essential hypertension documented in this encounter Advance Directives Documents on File Type Date Recorded Patient Governor Assembler Hydraulic Expl anation Advanced Directive Advanced Directive Advanced Directive Advanced Directive Advanced Directive Advanced Directive Advanced Directive Advanced Directive Advanced Directive Advanced Directive Care Teams Bladder Changer Relationship Specialty Start Date End Date Alex Terrazas MD [address] [place], [place] [id number] PCP - General 06/26/02 documented as of this encounter
--- OUTSIDE RECORDS SUMMARY | 2023-05-17 10:27 | External Medical Summary ---
Author Name Unknown Address Unknown Organization [facility]AB:Performed at [address] [place] [address] Laboratory Report Ordering Provider Test Date Status RUMA OBRIEN 02/23/2018 07:45:00 Final Observation Date Value Abnormality Reference Status BUN 02/23/2018 08:51 25 Above high normal 6-20 Final Creatinine 02/23/2018 08:51 1.2 0.6-1.2 Fi nal Performing Location Performed at [address] [place] [address]
--- OUTSIDE RECORDS SUMMARY | 2023-05-17 10:27 | External Medical Summary ---
Author Name Unknown Address Unknown Organization [facility]:Performed at [address] [place] [address] Laboratory Report Ordering Provider Test Date Status RUMA OBRIEN 03/02/2017 06:41:00 Final Observation Date Value Abnormality Reference Status TSH 03/02/2017 08:16 3.27 0.27-4.2 Fin al Performing Location Performed at [address] [place] [address]
--- OUTSIDE RECORDS SUMMARY | 2023-05-17 10:27 | External Medical Summary ---
Author Name Unknown Address Unknown Organization [facility]PHLE[facility]:Performed at [address] [place] [address] Laboratory Report Ordering Provider Test Date Status RUMA OBRIEN 08/25/2018 06:48:00 Final Observation Date Value Abnormality Reference Status Fasting status Patient Ql Reported 08/25/2018 06:50 >8 HOURS Final Triglyceride 08/25/2018 07:51 110 <200 Final Performing Location Performed at [address] [place] [address]
--- OUTSIDE RECORDS SUMMARY | 2023-05-17 10:27 | External Medical Summary ---
Author Name Unknown Address [address] [id number] Phone Organization K01:[facility] [address] [id number] Laboratory Report Ordering Provider Test Date Status RUMA OBRIEN 02/23/2018 07:45:00 Final Observation Date Value Abnormality Reference Status PSA 02/23/2018 13:51 0.36 <4.1 Fin al Performing Location [address] [address]
--- OUTSIDE RECORDS SUMMARY | 2023-05-17 10:27 | External Medical Summary ---
Author Name Unknown Address Unknown Organization [facility]:Performed at [address] [place] [address] Laboratory Report Ordering Provider Test Date Status RUMA OBRIEN 10/14/2018 11:33:00 Final Observation Date Value Abnormality Reference Status BUN 10/14/2018 12:20 25 Above high normal 6-20 Final Creatinine 10/14/2018 12:20 1.2 0.6-1.2 Fi nal Performing Location Performed at [address] [place] [address]
--- OUTSIDE RECORDS SUMMARY | 2023-05-17 10:27 | External Medical Summary ---
Author Name Unknown Address Unknown Organization LLAB:Performed [address] [place] [address] Laboratory Report Ordering Provider Test Date Status RUMA OBRIEN 02/08/2018 16:55:00 Final Observation Date Value Abnormality Reference Status Lipase 02/08/2018 17:31 13 Below low normal 16-63 Final Performing Location Performed at [address] [place] [address]
--- OUTSIDE RECORDS SUMMARY | 2023-05-17 10:27 | External Medical Summary ---
Author Name Unknown Address [place] [address] Phone Organization K01:[place] [address] [place] [id number] Laboratory Report Ordering Provider Test Date Status SAURABH WILKINS 04/22/2018 06:45:00 Final Observation Date Value Abnormality Reference Status Cancer Ag 19-9 04/22/2018 13:19 52.6 Above high normal <35 Final Performing Location [place] [address] [address] [facility] [address]
--- OUTSIDE RECORDS SUMMARY | 2023-05-17 10:27 | External Medical Summary ---
Author Name Unknown Address Unknown Organization LLAB:Performed at [address] [place] [address] Laboratory Report Ordering Provider Test Date Status RUMA OBRIEN 08/25/2018 06:48:00 Final Observation Date Value Abnormality Reference Status WBC, Total 08/25/2018 07:28 7.90 4.00-10.80 F inal RBC 08/25/2018 07:28 5.36 Above high normal 4.50- 5.25 Final Hemoglobin 08/25/2018 07:28 15.9 14.0-16.8 Fi nal HCT 08/25/2018 07:28 47.1 40.0-48.4 Fin al MCV 08/25/2018 07:28 87.9 82.0-99.5 Fin al MCH 08/25/2018 07:28 29.7 27.0-34.0 Fin al MCHC 08/25/2018 07:28 33.8 32.0-36.0 Fin al RDW 08/25/2018 07:28 13.7 11.5-15.5 Fin al Platelets 08/25/2018 07:28 224 140-400 Fin al MPV 08/25/2018 07:28 9.6 6.6-11.1 Fin al Segs 08/25/2018 07:28 42.6 40-75 Fin al Lymphs % 08/25/2018 07:28 28.7 18-42 Fin al Monos 08/25/2018 07:28 12.5 Above high normal 1-11 Final Eosinophils 08/25/2018 07:28 14.8 Above high normal 0-6 Final Basos 08/25/2018 07:28 1.0 0-2 Fin al Immature Granulocyte, Percent 08/25/2018 07:28 0.4 0-2 Final Absolute Segs 08/25/2018 07:28 3.36 1.8-7.7 Final Lymphs, absolute 08/25/2018 07:28 2.27 1.0-4. 8 Final Monos, Abs 08/25/2018 07:28 0.99 0.0-1.1 Fi nal Eos, Abs 08/25/2018 07:28 1.17 Above high normal 0.0-0 .7 Final Basos, Abs 08/25/2018 07:28 0.08 0.0-0.2 Fi nal Immature Granulocytes, Number 08/25/2018 07:28 0.03 0.0-0.2 Final Performing Location Performed at [address] [place] [address]
--- OUTSIDE RECORDS SUMMARY | 2023-05-17 10:27 | External Medical Summary | Summary of Care ---
Author Name [place] [address] Phone Care Team Providers Care Regional Ehs Manager Name Role Phone Alex Terrazas MD Primary Care Provider [phone] Reason for Referral * Precert (Routine) Status Reason Specialty Diagnoses / Procedures Referred By Contact Referred To Contact Pending Review Precert Radiology Diagnoses Chronic right shoulder pain Procedures SHOULDER MRI W/O CONTRAST Radiology [facility] [address] [place] [address] Encounter Details Date Type Department Care Team Description 09/16/2017 Orders Only Radiology, [facility] [address] [place], [place] [id number] Requisition, External Radiology [address] [place] [address] Chronic right shoulder pain* Allergies No Known Allergiesas of this encounter Medications Prescription Sig. Disp. Refills Start Date End Date Status OMEPRAZOLE 20 MG PO CPDR 1 TAB ONCE DAILY Active TRICOR 145 MG PO TABS 1 TAB ONCE DAILY Active VYTORIN 10-80 MG PO TABS 1 TAB ONCE DAILY Active METOPROLOL XL TBCR 100 MG OR 1 TAB ONCE DAILY Active DIPENTUM 250 MG PO CAPS 1 TAB TWICE DAILY Active ASPIRIN 81 MG PO TABS 1 TAB ONCE DAILY Active as of this encounter Active Problems Problem Noted Date Coronary atherosclerosis of [place] coron nu artery 10/26/2011 Postsurgical aortocoronary bypass status as of this encounter Social History Tobacco Use Types Packs/Day Years Used Date Never Smoker Smokeless Tobacco: Never Used Alcohol Use Drinks/Week oz/Week Comments No Sex Assigned at Date Recorded Not on file as of this encounter Plan of Treatment Upcoming Encounters Date Type Specialty Care Team Description 09/22/2017 Imaging Radiology [facility], [facility] Mobile [address] [address] Scheduled Tests Name Priority Associated Diagnoses Order S chedule SHOULDER MRI W/O CONTRAST Routine Chronic right shoulder pain Ordered: 09/16/2017 Health Maintenance Due Date Last Done Comments COLONOSCOPY-EVERY 10 YRS AGE S 50-75 1999 PNEUMOCOCCAL ADULT 65 YRS AN D OVER (1 of 2 - PCV13) 2014 TETANUS EVERY 10 YEARS-TDAP (BOOSTRIX OR ADACEL) SUGGESTED IF NOT RECEIVED IN THE PAST. 2014 Influenza Vaccine (FLU shot) (#1) 2017 DIABETES SCREEN EVERY 3 YRS- AGE 45 AND ABOVE 03/02/2020 03/02/2017, 03/27/2016, 02/07/2015, Additional history exists LIPID SCREEN EVERY 5 YRS-MEN AGE 35-75 03/02/2022 03/02/2017, 03/27/2016, 02/07/2015, Additional history exists as of this encounter Implants Not on fileas of this encounter Visit Diagnoses Diagnosis Chronic right shoulder pain - Primary Pain in joint, shoulder region in this encounter Insurance Payer Benefit Plan / Group Subscriber ID Type Phone Address [facility] [place] [id number] as of this encounter
--- OUTSIDE RECORDS SUMMARY | 2023-05-17 10:27 | External Medical Summary ---
Author Name Unknown Address Unknown Organization LLAB:Performed at [address] [place] [address] Laboratory Report Ordering Provider Test Date Status RUMA OBRIEN 02/08/2018 16:55:00 Final Observation Date Value Abnormality Reference Status BUN 02/08/2018 17:31 20 6-20 Fin al Creatinine 02/08/2018 17:31 1.3 Above high normal 0.6- 1.2 Final Performing Location Performed at [address] [place] [address]
--- OUTSIDE RECORDS SUMMARY | 2023-05-17 10:27 | External Medical Summary ---
Author Name Unknown Address Unknown Organization LPHLEB:Performed at [address] [place] [address] Laboratory Report Ordering Provider Test Date Status RUMA OBRIEN 02/23/2018 07:45:00 Final Observation Date Value Abnormality Reference Status Fasting status - Reported 02/23/2018 07:49 12 Final Triglyceride 02/23/2018 08:51 125 <200 Final Performing Location Performed at [address] [place] [address]
--- OUTSIDE RECORDS SUMMARY | 2023-05-17 10:27 | External Medical Summary ---
Author Name Unknown Address Unknown Organization LLAB:Performed at [address] [place] [address] Laboratory Report Ordering Provider Test Date Status RUMA OBRIEN 10/14/2018 11:33:00 Final Observation Date Value Abnormality Reference Status Lipase 10/14/2018 12:20 15 Below low normal 16-63 Final Performing Location Performed at [address] [place] [address]
--- OUTSIDE RECORDS SUMMARY | 2023-05-17 10:27 | External Medical Summary ---
Author Name Unknown Address Unknown Organization LLAB:Performed at [address] [place] [address] Laboratory Report Ordering Provider Test Date Status RUMA OBRIEN 08/25/2018 06:48:00 Final Observation Date Value Abnormality Reference Status BUN 08/25/2018 07:51 25 Above high normal 6-20 Final Creatinine 08/25/2018 07:51 1.2 0.6-1.2 Fi nal Performing Location Performed at [address] [place] [address]
--- OUTSIDE RECORDS SUMMARY | 2023-05-17 10:27 | External Medical Summary ---
Author Name Unknown Address Unknown Organization LLAB:Performed at [address] [place] [address] Laboratory Report Ordering Provider Test Date Status RUMA OBRIEN 10/14/2018 11:33:00 Final Observation Date Value Abnormality Reference Status WBC, Total 10/14/2018 11:47 10.04 4.00-10.80 F inal RBC 10/14/2018 11:47 5.84 Above high normal 4.50- 5.25 Final Hemoglobin 10/14/2018 11:47 17.4 Above high normal 14.0 -16.8 Final HCT 10/14/2018 11:47 51.2 Above high normal 40.0- 48.4 Final MCV 10/14/2018 11:47 87.7 82.0-99.5 Fin al MCH 10/14/2018 11:47 29.8 27.0-34.0 Fin al MCHC 10/14/2018 11:47 34.0 32.0-36.0 Fin al RDW 10/14/2018 11:47 13.2 11.5-15.5 Fin al Platelets 10/14/2018 11:47 278 140-400 Fin al MPV 10/14/2018 11:47 9.4 6.6-11.1 Fin al Segs 10/14/2018 11:47 58.8 40-75 Fin al Lymphs % 10/14/2018 11:47 23.4 18-42 Fin al Monos 10/14/2018 11:47 14.1 Above high normal 1-11 Final Eosinophils 10/14/2018 11:47 2.7 0-6 F inal Basos 10/14/2018 11:47 0.5 0-2 Fin al Immature Granulocyte, Percent 10/14/2018 11:47 0.5 0-2 Final Absolute Segs 10/14/2018 11:47 5.90 1.8-7.7 Final Lymphs, absolute 10/14/2018 11:47 2.35 1.0-4. 8 Final Monos, Abs 10/14/2018 11:47 1.42 Above high normal 0.0- 1.1 Final Eos, Abs 10/14/2018 11:47 0.27 0.0-0.7 Fin susan Irizarry, Abs 10/14/2018 11:47 0.05 0.0-0.2 Fi nal Immature Granulocytes, Number 10/14/2018 11:47 0.05 0.0-0.2 Final Performing Location Performed at [address] [place] [address]
--- OUTSIDE RECORDS SUMMARY | 2023-05-17 10:27 | External Medical Summary | Summary of Care ---
Author [place] [address] Care Team Providers Care Tare Worker Name Role Phone Alex Terrazas MD Primary Care Provider [phone] Reason for Referral * Precert (Emergency) Status Reason Specialty Diagnoses / Procedures Referred By Contact Referred To Contact Pending Review Precert Radiology Diagnoses Abdominal pain, acute, right upper quadrant Ascending cholangitis Primary sclerosing cholangitis Procedures CT ABD/PELVIS W IV AND W ORAL CONTRAST Radiology [facility] [address] [place] [address] Encounter Details Date Type Department Care Team Description 12/15/2018 Orders Only Radiology, [facility] [address] [place] [address] Requisition, External Radiology [address] [place], [place] [id number] Abdominal pain, acute, right upper quadrant*; Ascending cholangitis; Primary sclerosing cholangitis Allergies No Known Allergiesdocumented as of this encounter (statuses as of 12/15/2018) Medications Medication Sig Dispensed Refills Start Date [...] as of this encounter (statuses as of 12/15/2018) Active Problems Problem Noted Date Coronary atherosclerosis of [place] coron nu artery 10/26/2011 Postsurgical aortocoronary bypass status documented as of this encounter (statuses as of 12/15/2018) Social History Tobacco Use Types Packs/Day Years [...] Encounters Date Type Specialty Care Team Description 12/16/2018 Appointment Radiology Scheduled Tests Name Priority Associated Diagnoses Order S chedule CT ABD/PELVIS W IV AND W ORAL CONTRAST STAT Abdominal pain, acute, right upper quadrant Ascending cholangitis Primary sclerosing cholangitis Expected: 12/15/2018, Expires: 12/16/2019 Health Maintenance Due Date Last Done Comments DTaP,Tdap,and Td Vaccines (1 - Tdap) 1968 PNEUMOCOCCAL ADULT 65 YRS AND OVER (1 of 2 - PCV13) 2014 Influenza Vaccine (FLU shot) (#1) 2018 DIABETES SCREEN EVERY 3 YRS-AGE 45 AND ABOVE 10/14/2021 10/14/2018, 08/25/2018, 02/23/2018, Additional history exists LIPID SCREEN EVERY 5 YRS-MEN AGE 35-75 08/25/2023 08/25/2018, 02/23/2018, 03/02/2017, Additional history exists MENINGOCOCCAL (MENACTRA) Aged Out No longer eligible based on patient's age to complete this topic documented as of this encounter Implants Not on filedocumented as of this encounter Visit Diagnoses Diagnosis Abdominal pain, acute, right upper quadrant- Primary Abdominal pain, right upper quadrant Ascending cholangitis Cholangitis Primary sclerosing cholangitis Cholangitis documented in this encounter Advance Directives Patient has advance care planning documents on file. For more information, please contact: [place] [address]
--- OUTSIDE RECORDS SUMMARY | 2023-05-17 10:27 | External Medical Summary ---
Author Name Unknown Address Unknown Organization LLAB:Performed at [address] [place] [address] Laboratory Report Ordering Provider Test Date Status RUMA OBRIEN 02/23/2018 07:45:00 Final Observation Date Value Abnormality Reference Status TSH 02/23/2018 08:51 3.66 0.27-4.2 Fin al Performing Location Performed at [address] [place] [address]
--- OUTSIDE RECORDS SUMMARY | 2023-05-17 10:27 | External Medical Summary ---
Author Name Unknown Address Unknown Organization LLAB:Performed at [address] [place] [address] Laboratory Report Ordering Provider Test Date Status RUMA OBRIEN 02/08/2018 16:55:00 Final Observation Date Value Abnormality Reference Status Amylase 02/08/2018 17:31 31 28-100 Fin al Performing Location Performed at [address] [place] [address]
--- OUTSIDE RECORDS SUMMARY | 2023-05-17 10:27 | External Medical Summary | Summary of Care ---
Author Name Unknown Organization [facility] [place] [address] Phone Care Team Providers Care Nutrition Services Associate Name Role Phone Alex Terrazas MD Primary Care Provider Reason for Visit * Reason Comments APPOINTMENT MRI Encounter Details Date Type Department Care Team Description 09/17/2017 Telephone Radiology, [address] [address] APPOINTMENT (MRI) Allergies No Known Allergiesas of this encounter [...] Problems Problem Noted Date Coronary atherosclerosis of [place] coron nu artery 10/26/2011 Postsurgical aortocoronary bypass status as of this encounter Social History Tobacco Use Types Packs/Day Years Used Date Never Smoker Smokeless Tobacco: Never Used Alcohol Use Drinks/Week oz/Week Comments No Sex Assigned at Date Recorded Not on file as of this encounter Miscellaneous Notes * Telephone Encounter - Saranya Dixon, RT - 09/17/2017 9:24 AM EST Left message in this encounter Plan of Treatment Upcoming Encounters Date Type Specialty Care Team Description 09/22/2017 Imaging Radiology [facility], Mri Mobile [address] [place], [place] [address], [place] [id number] Health Maintenance Due Date Last Done Comments [...] Implants Not on fileas of this encounter Insurance Payer Benefit Plan / Group Subscriber ID Type Phone Address [facility] [place] [id number] as of this encounter
--- OUTSIDE RECORDS SUMMARY | 2023-05-17 10:27 | External Medical Summary ---
Author Name Unknown Address Unknown Organization LLAB:Performed at [address] [place] [address] Laboratory Report Ordering Provider Test Date Status RUMA OBRIEN 10/14/2018 11:33:00 Final Observation Date Value Abnormality Reference Status Amylase 10/14/2018 12:20 35 28-100 Fin al Performing Location Performed at [address] [place] [address]
--- OUTSIDE RECORDS SUMMARY | 2023-05-17 10:27 | External Medical Summary ---
Author Name Unknown Address Unknown Organization LLAB:Performed at [address] [place] [address] Laboratory Report Ordering Provider Test Date Status RUMA OBRIEN 03/02/2017 06:41:00 Final Observation Date Value Abnormality Reference Status WBC, Total 03/02/2017 07:51 5.79 4.00-10.80 F inal RBC 03/02/2017 07:51 5.15 4.50-5.25 Fin al Hemoglobin 03/02/2017 07:51 15.5 14.0-16.8 Fi nal HCT 03/02/2017 07:51 46.6 40.0-48.4 Fin al MCV 03/02/2017 07:51 90.5 82.0-99.5 Fin al MCH 03/02/2017 07:51 30.1 27.0-34.0 Fin al MCHC 03/02/2017 07:51 33.3 32.0-36.0 Fin al RDW 03/02/2017 07:51 13.2 11.5-15.5 Fin al Platelets 03/02/2017 07:51 233 140-400 Fin al MPV 03/02/2017 07:51 10.2 6.6-11.1 Fin al Segs 03/02/2017 07:51 46.1 40-75 Fin al Lymphs % 03/02/2017 07:51 29.4 18-42 Fin al Monos 03/02/2017 07:51 13.0 Above high normal 1-11 Final Eosinophils 03/02/2017 07:51 10.0 Above high normal 0-6 Final Basos 03/02/2017 07:51 1.0 0-2 Fin al Immature Granulocyte, Percent 03/02/2017 07:51 0.5 0-2 Final Absolute Segs 03/02/2017 07:51 2.67 1.8-7.7 Final Lymphs, absolute 03/02/2017 07:51 1.70 1.0-4. 8 Final Monos, Abs 03/02/2017 07:51 0.75 0.0-1.1 Fi nal Eos, Abs 03/02/2017 07:51 0.58 0.0-0.7 Fin susan [place], Abs 03/02/2017 07:51 0.06 0.0-0.2 Fi nal Immature Granulocytes, Number 03/02/2017 07:51 0.03 0.0-0.2 Final Performing Location Performed at [address] [place] [address]
--- OUTSIDE RECORDS SUMMARY | 2023-05-17 10:27 | External Medical Summary ---
Author Name Unknown Address Unknown Organization LPHLEB:Performed at [address] [place] [address] Laboratory Report Ordering Provider Test Date Status RUMA OBRIEN 03/02/2017 06:41:00 Final Observation Date Value Abnormality Reference Status Fasting status - Reported 03/02/2017 06:47 12 Final Triglyceride 03/02/2017 08:16 120 <200 Final Performing Location Performed at [address] [place] [address]
--- OUTSIDE RECORDS SUMMARY | 2023-05-17 10:27 | External Medical Summary ---
Author Name Unknown Address Unknown Organization LLAB:Performed at [address] [place] [address] Laboratory Report Ordering Provider Test Date Status RUMA OBRIEN 02/08/2018 16:55:00 Final Observation Date Value Abnormality Reference Status WBC, Total 02/08/2018 17:16 13.15 Above high normal 4.00 -10.80 Final RBC 02/08/2018 17:16 5.16 4.50-5.25 Fin al Hemoglobin 02/08/2018 17:16 15.6 14.0-16.8 Fi nal HCT 02/08/2018 17:16 45.1 40.0-48.4 Fin al MCV 02/08/2018 17:16 87.4 82.0-99.5 Fin al MCH 02/08/2018 17:16 30.2 27.0-34.0 Fin al MCHC 02/08/2018 17:16 34.6 32.0-36.0 Fin al RDW 02/08/2018 17:16 13.2 11.5-15.5 Fin al Platelets 02/08/2018 17:16 286 140-400 Fin al MPV 02/08/2018 17:16 9.8 6.6-11.1 Fin al Segs 02/08/2018 17:16 72.9 40-75 Fin al Lymphs % 02/08/2018 17:16 13.4 Below low normal 18-42 Final Monos 02/08/2018 17:16 11.8 Above high normal 1-11 Final Eosinophils 02/08/2018 17:16 1.1 0-6 F inal Basos 02/08/2018 17:16 0.3 0-2 Fin al Immature Granulocyte, Percent 02/08/2018 17:16 0.5 0-2 Final Absolute Segs 02/08/2018 17:16 9.59 Above high normal 1 .8-7.7 Final Lymphs, absolute 02/08/2018 17:16 1.76 1.0-4. 8 Final Monos, Abs 02/08/2018 17:16 1.55 Above high normal 0.0- 1.1 Final Eos, Abs 02/08/2018 17:16 0.15 0.0-0.7 Fin susan [place]rizar[place], Abs 02/08/2018 17:16 0.04 0.0-0.2 Fi nal Immature Granulocytes, Number 02/08/2018 17:16 0.06 0.0-0.2 Final Performing Location Performed at [address] [place] [address]
--- OUTSIDE RECORDS SUMMARY | 2023-05-17 10:27 | External Medical Summary ---
Author Name Unknown Address Unknown Organization LLAB:Performed at [address] [place] [address] Laboratory Report Ordering Provider Test Date Status RUMA OBRIEN 02/23/2018 07:45:00 Final Observation Date Value Abnormality Reference Status WBC, Total 02/23/2018 08:17 7.60 4.00-10.80 F inal RBC 02/23/2018 08:17 4.73 4.50-5.25 Fin al Hemoglobin 02/23/2018 08:17 14.1 14.0-16.8 Fi nal HCT 02/23/2018 08:17 41.4 40.0-48.4 Fin al MCV 02/23/2018 08:17 87.5 82.0-99.5 Fin al MCH 02/23/2018 08:17 29.8 27.0-34.0 Fin al MCHC 02/23/2018 08:17 34.1 32.0-36.0 Fin al RDW 02/23/2018 08:17 12.8 11.5-15.5 Fin al Platelets 02/23/2018 08:17 498 Above high normal 140-4 00 Final MPV 02/23/2018 08:17 9.5 6.6-11.1 Fin al Segs 02/23/2018 08:17 47.9 40-75 Fin al Lymphs % 02/23/2018 08:17 31.3 18-42 Fin al Monos 02/23/2018 08:17 11.6 Above high normal 1-11 Final Eosinophils 02/23/2018 08:17 7.6 Above high normal 0-6 Final Basos 02/23/2018 08:17 1.1 0-2 Fin al Immature Granulocyte, Percent 02/23/2018 08:17 0.5 0-2 Final Absolute Segs 02/23/2018 08:17 3.64 1.8-7.7 Final Lymphs, absolute 02/23/2018 08:17 2.38 1.0-4. 8 Final Monos, Abs 02/23/2018 08:17 0.88 0.0-1.1 Fi nal Eos, Abs 02/23/2018 08:17 0.58 0.0-0.7 Fin susan [place]ar[place], Abs 02/23/2018 08:17 0.08 0.0-0.2 Fi nal Immature Granulocytes, Number 02/23/2018 08:17 0.04 0.0-0.2 Final Performing Location Performed at [address] [place] [address]
--- OUTSIDE RECORDS SUMMARY | 2023-05-17 10:27 | External Medical Summary ---
Author Name Unknown Address [address] [place] [id number] Phone Organization K01:[facility] [address] [place] [id number] Laboratory Report Ordering Provider Test Date Status MICHAEL WILKINSGHT 04/22/2018 06:45:00 Final Observation Date Value Abnormality Reference Status IgG 04/22/2018 13:20 4142 470-6441 Fin al IgA 04/22/2018 13:20 347 70-400 Octavio al IgM 04/22/2018 13:20 195 40-230 Octavio davis Performing Location [facility] [address] [facility] [address]
--- OUTSIDE RECORDS SUMMARY | 2023-05-17 10:27 | External Medical Summary ---
Author Name Unknown Address Unknown Organization LPHLEB:Performed at [address] [place] [address] Laboratory Report Ordering Provider Test Date Status RUMA OBRIEN 02/08/2018 16:55:00 Final Observation Date Value Abnormality Reference Status Source 02/08/2018 16:57 CLEAN CATCH URINE Final Bacteria identified in Unspecified specimen by Culture 02/09/2018 10:44 LESS THAN 1,000 COLONIES/ML (NO GROWTH) Final REPORT STATUS 02/09/2018 10:44 02/09/2018 FINAL Final Performing Location Performed at [address] [place] [address]
--- OUTSIDE RECORDS SUMMARY | 2023-05-17 10:27 | External Medical Summary | Summary of Care ---
Author Name [place] [address] Care Team Providers Care Signal Tester Name Role Phone Alex Terrazas MD Primary Care Provider [phone] Reason for Referral * Precert (Emergency) Status Reason Specialty Diagnoses / Procedures Referred By Contact Referred To Contact Pending Review Precert Radiology Diagnoses Abdominal pain, acute, right lower quadrant Abdominal pain, acute, right upper quadrant Hematuria Primary sclerosing cholangitis Procedures CT ABD/PELVIS W IV AND W ORAL CONTRAST Radiology [facility] [address] [place] [address] Encounter Details Date Type Department Care Team Description 10/14/2018 Orders Only Radiology, [facility] [address] [place] [address] Requisition, External Radiology [address] [place] [address] Abdominal pain, acute, right lower quadrant*; Abdominal pain, acute, right upper quadrant; Hematuria; Primary sclerosing cholangitis Allergies No Known Allergiesdocumented as of this encounter (statuses as of 10/14/2018) Medications Medication Sig Dispensed Refills Start Date [...] as of this encounter (statuses as of 10/14/2018) Active Problems Problem Noted Date Coronary atherosclerosis of [place] coron nu artery 10/26/2011 Postsurgical aortocoronary bypass status documented as of this encounter (statuses as of 10/14/2018) Social History Tobacco Use Types Packs/Day Years [...] Encounters Date Type Specialty Care Team Description 10/14/2018 Appointment Radiology Scheduled Tests Name Priority Associated Diagnoses Order S chedule CT ABD/PELVIS W IV AND W ORAL CONTRAST STAT Abdominal pain, acute, right lower quadrant Abdominal pain, acute, right upper quadrant Hematuria Primary sclerosing cholangitis Expected: 10/14/2018, Expires: 10/14/2019 Health Maintenance Due Date Last Done Comments DTaP,Tdap,and Td Vaccines (1 - Tdap) 1969 PNEUMOCOCCAL ADULT 65 YRS AND OVER (1 of 2 - PCV13) 2014 Influenza Vaccine (FLU shot) (#1) 2018 DIABETES SCREEN EVERY 3 YRS-AGE 45 AND ABOVE 08/25/2021 08/25/2018, 02/23/2018, 02/08/2018, Additional history exists LIPID SCREEN EVERY 5 YRS-MEN AGE 35-75 08/25/2023 08/25/2018, 02/23/2018, 03/02/2017, Additional history exists MENINGOCOCCAL (MENACTRA) Aged Out No longer eligible based on patient's age to complete this topic documented as of this encounter Implants Not on filedocumented as of this encounter Visit Diagnoses Diagnosis Abdominal pain, acute, right lower quadrant- Primary Abdominal pain, right lower quadrant Abdominal pain, acute, right upper quadrant Abdominal pain, right upper quadrant Hematuria Hematuria, unspecified Primary sclerosing cholangitis Cholangitis documented in this encounter Advance Directives Patient has advance care planning documents on file. For more information, please contact: [place] [address]
--- OUTSIDE RECORDS SUMMARY | 2023-05-17 10:27 | External Medical Summary ---
Author Name Unknown Address Unknown Organization LLAB:Performed [address] [place] [address] Laboratory Report Ordering Provider Test Date Status RUMA OBRIEN 02/08/2018 16:55:00 Final Observation Date Value Abnormality Reference Status Troponin T 02/08/2018 17:31 <6 0-22 Fi nal Performing Location Performed at [address] [place] [address]
--- OUTSIDE RECORDS SUMMARY | 2023-05-17 10:27 | External Medical Summary ---
Author Name Unknown Address [address] [place] [place] [phone] Phone Organization K01:[place] [address] [address] [place] [id number] Laboratory Report Ordering Provider Test Date Status RUMA OBRIEN 03/02/2017 06:41:00 Final Observation Date Value Abnormality Reference Status PSA 03/02/2017 14:10 0.26 <4.1 Fin al Performing Location [place] [id number]
--- OUTSIDE RECORDS SUMMARY | 2023-05-17 10:27 | External Medical Summary | Summary of Care ---
Author Name [place] [address] Phone Care Team Providers Care Bulk Driver Name Role Phone Alex Terrazas MD Primary Care Provider [phone] Reason for Referral * Precert (Emergency) Status Reason Specialty Diagnoses / Procedures Referred By Contact Referred To Contact Pending Review Precert Radiology Diagnoses Abdominal pain, right lower quadrant Abdominal pain, right upper quadrant Crohn's disease (HCC) Hematuria, microscopic Procedures CT ABD/PELVIS W IV AND W ORAL CONTRAST Radiology [facility] [address] [place] [address] Encounter Details Date Type Department Care Team Description 02/08/2018 Orders Only Radiology, [facility] [address], [place] [id number] Requisition, External Radiology [address] [place] [address] Abdominal pain, right lower quadrant*;Abdominal pain, right upper quadrant;Crohn's disease (HCC);Hematuria, microscopic Allergies No Known Allergiesas of this encounter [...] Problems Problem Noted Date Coronary atherosclerosis of [place] coron nu artery 10/26/2011 Postsurgical aortocoronary bypass status as of this encounter Social History Tobacco Use Types Packs/Day Years Used Date Never Smoker Smokeless Tobacco: Never Used Alcohol Use Drinks/Week oz/Week Comments No Sex Assigned at Date Recorded Not on file as of this encounter Plan of Treatment Upcoming Encounters Date Type Specialty Care Team Description 02/08/2018 Hospital Encounter Radiology Scheduled Tests Name Priority Associated Diagnoses Order S chedule CT ABD/PELVIS W IV AND W ORAL CONTRAST STAT Abdominal pain, right lower quadrant Abdominal pain, right upper quadrant Crohn's disease (HCC) Hematuria, microscopic Expected: 02/08/2018, Expires: 02/08/2019 Health Maintenance Due Date Last Done Comments DTaP,Tdap,and Td Vaccines (1 - Tdap) 1969 PNEUMOCOCCAL ADULT 65 YRS AN D OVER (1 of 2 - PCV13) 2014 Influenza Vaccine (FLU shot) (Season Ended) 2018 DIABETES SCREEN EVERY 3 YRS- AGE 45 AND ABOVE 03/02/2020 03/02/2017, 03/27/2016, 02/07/2015, Additional history exists LIPID SCREEN EVERY 5 YRS-MEN AGE 35-75 03/02/2022 03/02/2017, 03/27/2016, 02/07/2015, Additional history exists as of this encounter Implants Not on fileas of this encounter Visit Diagnoses Diagnosis Abdominal pain, right lower quadrant - Primary Abdominal pain, right upper quadrant Crohn's disease (HCC) Regional enteritis of unspecified site Hematuria, microscopic Microscopic hematuria in this encounter
--- OUTSIDE RECORDS SUMMARY | 2023-05-17 10:28 | External Medical Summary ---
Author Name Unknown Organization [facility] Laboratory Report Ordering Provider Test Date Status CAMILLE HENDRIX MD 02/07/2015 08:08:00-0400 Final Obs # Observation Date Value ABNL Reference Status Pe rforming Location 1 BUN 02/07/2015 09:54-0400 25 H 6-20 mg/dL Final 2 Creatinine 02/07/2015 09:54-0400 1.3 0.7-1.3 mg/dL Final GFR should be used to assess renal function. Plasma/Serum creatinine may not be able to properly reflect renal function in some cases. If patient is , multiply estimated GFR by 1.159.
--- OUTSIDE RECORDS SUMMARY | 2023-05-17 10:28 | External Medical Summary ---
Author Name Unknown Address Unknown Organization [facility]:Performed at [address] [address] Laboratory Report Ordering Provider Test Date Status RUMA OBRIEN MD 03/27/2016 08:07:00 Final Obs # Observation Date Value Abnormality Reference Status Performing Location 0 AST (Aspartate aminotransferase) 03/27/2016 08:56 35 10-50 Final Performed at [address] [address]
--- OUTSIDE RECORDS SUMMARY | 2023-05-17 10:28 | External Medical Summary ---
Author Name Unknown Organization [facility] Laboratory Report Ordering Provider Test Date Status CAMILLE HENDRIX MD 02/07/2015 08:08:00-0400 Final Obs # Observation Date Value ABNL Reference Status Pe rforming Location 1 WBC 02/07/2015 08:46-0400 6.63 4.00-10.80 K/uL Final 2 RBC 02/07/2015 08:46-0400 5.17 4.50-5.25 M/uL Final 3 HGB 02/07/2015 08:46-0400 15.4 14.0-16.8 g/dL Final 4 HCT 02/07/2015 08:46-0400 46.0 40.0-48.4 % Final 5 MCV 02/07/2015 08:46-0400 89.0 82.0-99.5 fL Final 6 MCH 02/07/2015 08:46-0400 29.8 27.0-34.0 pg Final 7 MCHC 02/07/2015 08:46-0400 33.5 32.0-36.0 g/dL Final 8 RDW 02/07/2015 08:46-0400 13.0 11.5-15.5 % Final 9 PLT 02/07/2015 08:46-0400 245 140-400 K/uL Final 10 MPV 02/07/2015 08:46-0400 10.3 6.6-11.1 fL Final 11 Segs 02/07/2015 08:46-0400 51 40-75 % Final 12 Lymphocytes 02/07/2015 08:46-0400 29 18-42 % Final 13 Monos 02/07/2015 08:46-0400 13 H 1-11 % Final 14 Eosinophils 02/07/2015 08:46-0400 6 0-6 % Final 15 Basos 02/07/2015 08:46-0400 1 0-2 % Final 16 Segmented Neutrophils, Abs 02/07/2015 08:46-0400 3.37 1.8-7.7 K/uL Final 17 Lymphs, Abs 02/07/2015 08:46-0400 1.95 1.0-4.8 K/uL Final 18 Monos, Abs 02/07/2015 08:46-0400 0.83 0.0-1.1 K/uL Final 19 Eos, Abs 02/07/2015 08:46-0400 0.42 0.0-0.7 K/uL Final 20 Basos, Abs 02/07/2015 08:46-0400 0.05 0.0-0.2 K/uL Final
--- OUTSIDE RECORDS SUMMARY | 2023-05-17 10:28 | External Medical Summary ---
Author Name Unknown Address Unknown Organization [facility]:Performed at [address] [place] [address] Laboratory Report Ordering Provider Test Date Status RUMA OBRIEN 03/02/2017 06:41:00 Final Observation Date Value Abnormality Reference Status BUN 03/02/2017 08:16 26 Above high normal 6-20 Final Creatinine 03/02/2017 08:16 1.5 Above high normal 0.6- 1.2 Final Performing Location Performed at [address] [place] [address]
--- OUTSIDE RECORDS SUMMARY | 2023-05-17 10:28 | External Medical Summary ---
Author Name Unknown Organization [facility] Laboratory Report Ordering Provider Test Date Status CAMILLE HENDRIX MD 02/07/2015 08:08:00-0400 Final Obs # Observation Date Value ABNL Reference Status Pe rforming Location 1 TSH 02/07/2015 09:54-0400 2.98 0.35-4.94 uIU/mL Final
--- OUTSIDE RECORDS SUMMARY | 2023-05-17 10:28 | External Medical Summary ---
Author Name Unknown Address Unknown Organization [facility]:Performed at [address] [place] [address] Laboratory Report Ordering Provider Test Date Status RUMA OBRIEN MD 03/27/2016 08:07:00 Final Obs # Observation Date Value Abnormality Reference Status Performing Location 0 BUN 03/27/2016 08:56 28 Above high normal 6-20 Final Performed at [facility] [address] [facility] [address] 1 Creatinine 03/27/2016 08:56 1.3 Above high normal 0.6-1.2 Final
--- OUTSIDE RECORDS SUMMARY | 2023-05-17 10:28 | External Medical Summary ---
Author Name Unknown Address Unknown Organization [facility]:Performed at [facility] [address] [place] [address] Laboratory Report Ordering Provider Test Date Status RUMA OBRIEN MD 03/27/2016 08:07:00 Final Obs # Observation Date Value Abnormality Reference Status Performing Location 0 WBC, Total 03/27/2016 08:53 7.96 4.00-10.80 Final Performed at [facility] [address] [facility] [address] 1 RBC 03/27/2016 08:53 5.14 4.50-5.25 Final 2 Hemoglobin 03/27/2016 08:53 15.6 14.0-16.8 Final 3 HCT 03/27/2016 08:53 45.6 40.0-48.4 Final 4 MCV 03/27/2016 08:53 88.7 82.0-99.5 Final 5 MCH 03/27/2016 08:53 30.4 27.0-34.0 Final 6 MCHC 03/27/2016 08:53 34.2 32.0-36.0 Final 7 RDW 03/27/2016 08:53 13.2 11.5-15.5 Final 8 Platelets 03/27/2016 08:53 269 140-400 Final 9 MPV 03/27/2016 08:53 10.3 6.6-11.1 Final 10 NEUT 03/27/2016 08:53 53.8 40-75 Final 11 Lymphs % 03/27/2016 08:53 30.5 18-42 Final 12 Monos 03/27/2016 08:53 10.7 1-11 Final 13 Eosinophils 03/27/2016 08:53 3.6 0-6 Final 14 Basos 03/27/2016 08:53 0.9 0-2 Final 15 Immature Granulocyte, Percent 03/27/2016 08:53 0.5 0-2 Final 16 ANEUT 03/27/2016 08:53 4.28 1.8-7.7 Final 17 Lymphs, absolute 03/27/2016 08:53 2.43 1.0-4.8 Final 18 Monos, Abs 03/27/2016 08:53 0.85 0.0-1.1 Final 19 Eos, Abs 03/27/2016 08:53 0.29 0.0-0.7 Final 20 Basos, Abs 03/27/2016 08:53 0.07 0.0-0.2 Final 21 Immature Granulocytes, Number 03/27/2016 08:53 0.04 0.0-0.2 Final
--- OUTSIDE RECORDS SUMMARY | 2023-05-17 10:28 | External Medical Summary ---
Author Name Unknown Address [address] [id number] Phone Organization K01:[facility] [address] [id number] Laboratory Report Ordering Provider Test Date Status RUMA OBRIEN MD 03/27/2016 08:07:00 Final Obs # Observation Date Value Abnormality Reference Status Performing Location 0 PSA 03/27/2016 15:23 0.35 <4.1 Final [facility] [address] [facility] [address]
--- OUTSIDE RECORDS SUMMARY | 2023-05-17 10:28 | External Medical Summary ---
Author Name Unknown Organization [facility] Laboratory Report Ordering Provider Test Date Status CAMILLE HENDRIX MD 02/07/2015 08:08:00-0400 Final Obs # Observation Date Value ABNL Reference Status Pe rforming Location 1 PSA 02/07/2015 09:54-0400 0.18 <4.1 ng/mL Final
--- OUTSIDE RECORDS SUMMARY | 2023-05-17 10:28 | External Medical Summary ---
Author Name Unknown Organization [facility] Laboratory Report Ordering Provider Test Date Status CAMILLE HENDRIX MD 02/07/2015 08:08:00-0400 Final Obs # Observation Date Value ABNL Reference Status Pe rforming Location 1 AST (Aspartate aminotransferase) 02/07/2015 09:54-0400 34 5-34 U/L Final
--- OUTSIDE RECORDS SUMMARY | 2023-05-17 10:28 | External Medical Summary ---
Author Name Unknown Address Unknown Organization [facility]:Performed at [address] [place] [address] Laboratory Report Ordering Provider Test Date Status RUMA OBRIEN MD 03/27/2016 08:07:00 Final Obs # Observation Date Value Abnormality Reference Status Performing Location 0 Fasting status - Reported 03/27/2016 08:10 12 Final Performed at [address] [address] 1 Triglyceride 03/27/2016 08:56 70 <200 Final
--- OUTSIDE RECORDS SUMMARY | 2023-05-17 10:28 | External Medical Summary ---
Author Name Unknown Address Unknown Organization [facility]:Performed at [address] [address] Laboratory Report Ordering Provider Test Date Status RUMA OBRIEN MD 03/27/2016 08:07:00 Final Obs # Observation Date Value Abnormality Reference Status Performing Location 0 ALT (Alanine aminotransferase) 03/27/2016 08:56 23 10-50 Final Performed at [address] [address]
--- OUTSIDE RECORDS SUMMARY | 2023-05-17 10:28 | External Medical Summary ---
Author Name Unknown Organization [facility] Laboratory Report Ordering Provider Test Date Status CAMILLE HENDRIX MD 02/07/2015 08:08:00-0400 Final Obs # Observation Date Value ABNL Reference Status Pe rforming Location 1 hours fasting 02/07/2015 08:10-0400 12 hours Final 2 Triglyceride 02/07/2015 09:54-0400 112 <200 mg/dL Final TRIGLYCERIDE REFERENCE RANGES (mg/dL) <150 NORMAL 150-199 BORDERLINE HIGH 200-499 HIGH >499 VERY HIGH TOTAL CHOLESTEROL REFERENCE RANGES(mg/dL) <200 DESIRABLE 200-239 BORDERLINE HIGH >239 HIGH HDL CHOLESTEROL REFERENCE RANGES(mg/dL) <40 LOW(UNDESIRABLE) >59 HIGH(DESIRABLE) LDL CHOLESTEROL REFERENCE RANGES(mg/dL) <100 OPTIMAL GOAL FOR HIGH RISK PATIENTS 100-129 NEAR OR ABOVE NORMAL 130-159 BORDERLINE HIGH 160-189 HIGH >189 VERY HIGH
--- OUTSIDE RECORDS SUMMARY | 2023-05-17 10:28 | External Medical Summary ---
Author Name Unknown Address Unknown Organization [facility]:Performed at [address] [place] [address] Laboratory Report Ordering Provider Test Date Status RUMA OBRIEN MD 03/27/2016 08:07:00 Final Obs # Observation Date Value Abnormality Reference Status Performing Location 0 TSH 03/27/2016 09:06 2.42 0.27-4.2 Final Performed at [address] [place] [address]
== END 2023-05-14 18:11 | disposition home or self-care (01) | DRG 445 ==
LOC: ED 13:40 → SUATTDRO 21:31 → 3W 21:31

== ENCOUNTER 2024-04-07 16:40 | Inpatient (IN) ==
--- NOTE | 2024-04-07 17:21 | Emergency Department Note ---
History of Present Illness General Chief complaint: Abdominal Pain Stated complaint: ABD PAIN, DOC REF Time Seen by Provider: 04/07/24 17:03 History of Present Illness Maximum Pain Intensity: 5 This is a 73-year-old male that presents to the emergency department via private vehicle with complaints of "upper abdominal pain, fever". The patient states that he has had intermittent epigastric abdominal pain for the past year however over the past 2 weeks has been rather constant. He notes he was seen here in the ED recently for similar. He states that this Wednesday evening he began with chills and was chilled to the point that he was shaking for about 45 minutes. He then notes Tmax 102.8. He then started Cipro and Flagyl and since then temperature has been about 101 and around noon time today was around 98/99. He describes the epigastric abdominal pain is more of a pressure sensation. No chest pain or abdominal pain. He was referred here today by GI specialist that he spoke to on the phone. Home Medications Medication Instructions Recorded Confirmed Type cholecalciferol (vitamin D3) 50 50 mcg PO QPM 10/02/20 04/07/24 History mcg (2,000 unit) tablet (Vitamin D3) nitroglycerin 0.4 mg sublingual 0.4 mg sublingual Q5M PRN chest 12/17/21 04/07/24 Rx tablet pain #25 tabs ursodiol 300 mg capsule 300 mg PO BID 01/08/23 04/07/24 History triamcinolone acetonide 0.1 % 1 applic topical BID PRN skin 07/13/23 04/07/24 Rx topical cream irritation #80 grams aspirin 81 mg tablet,delayed 81 mg PO QAM 07/14/23 04/07/24 History release atorvastatin 80 mg tablet 80 mg PO QAM 07/14/23 04/07/24 History lisinopril 10 mg tablet 10 mg PO QAM 07/14/23 04/07/24 History metoprolol succinate 100 mg 100 mg PO QAM #90 tabs 07/19/23 04/07/24 Rx tablet,extended release 24 hr metronidazole 500 mg tablet 500 mg PO TID PRN PBC flair 7 days 11/01/23 04/07/24 Rx #42 tabs balsalazide 750 mg capsule 750 mg PO QID 01/12/24 04/07/24 History mecobalamin (vitamin B12) 1,000 1,000 mcg sublingual Q OTHER DAY 01/12/24 04/07/24 History mcg disintegrating tablet,sublingual omeprazole 40 mg capsule,delayed 40 mg PO QAM #90 caps 02/28/24 04/07/24 Rx release amlodipine 10 mg tablet 10 mg PO QPM #90 tabs 03/22/24 04/07/24 Rx ciprofloxacin HCl 500 mg tablet 500 mg PO BID PRN PBC Flare 03/25/24 04/07/24 History (Cipro) Allergies Allergy/AdvReac Type Severity Reaction Status Date / Time amoxicillin AdvReac Intermediate Diarrhea Verified 03/25/24 13:22 clavulanic acid AdvReac Intermediate Diarrhea Verified 03/25/24 13:22 [From Augmentin] Sulfa (Sulfonamide AdvReac Intermediate fever/chill Verified 03/25/24 13:22 Antibiotics) s Past Med/Surg History Problem List (Updated 04/08/24 @ 01:09 by Addison Fortune PA-C) Fever (Acute) Abdominal pain, epigastric (Acute) Nausea & vomiting (Acute) Solar keratosis Encounter for pre-operative examination Hyponatremia Elevated bilirubin (Acute) Fever (Acute) Epigastric abdominal pain (Acute) Leukocytosis (Acute) Fever (Acute) Medicare annual wellness visit, subsequent Ascending cholangitis Prostate cancer screening Medicare annual wellness visit, subsequent Crohns disease (Chronic) GERD without esophagitis (Chronic) Hypercholesterolemia (Chronic) Primary sclerosing cholangitis (Chronic) FLAKITO (obstructive sleep apnea) Benign essential HTN (Chronic) Bilateral cataracts Vitamin B 12 deficiency Vitamin D deficiency Acute renal insufficiency Leukocytosis Hand eczema CAD (coronary artery disease) (Chronic) Osteoporosis Medical History History of COVID-01 June 2023 mild Ascending cholangitis Crohn disease GERD (gastroesophageal reflux disease) 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 Hyperlipidemia Hypertension Sleep apnea no machine Surgical History Hx of right cataract extraction Hx of cholecystectomy Hx of endoscopic retrograde cholangiopancreatography 04/21/23 Hx of colonoscopy Hx of laceration of skin LEFT WRIST REPAIR OF LACERATION History of open reduction and internal fixation (ORIF) procedure RIGHT ELBOW Hx of inguinal hernia repair RIGHT Hx of appendectomy Hx of foot surgery RIGHT FOOT SURGERY, REMOVAL OF FIBROMA S/P CABG x 5 1995 AFTER CA Family History Other Family history non-contributory Social History Smoking Status: Never smoker Second Hand Exposure: No; Do You Dip or Chew Tobacco: No; Tobacco Cessation Education Requested by Patient: No Hx Alcohol Use: No Hx Substance Use: No Preferred Language: Tajik Communication Ability: Effective New Client [employer]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 Services Clerk Required: No Beliefs That Will Affect Care: None marital status: Current Living Situation: Spouse Current Living Situation Comment: Other Information That Helps Us Care for You: No Feels Safe at Home: Yes Safety Concerns: Feels Safe At This Time caffeine: No Seatbelt Use: always Assistive Devices: None Review of Systems A total of 10 systems reviewed and were otherwise negative Physical Exam Vital Signs Vital Signs - 24 hr 04/07/24 16:45 04/07/24 17:30 04/07/24 17:51 Temperature 36.4 C L Temperature Source Temporal Artery Scan Pulse Rate 85 72 Pulse Rate [Apical] 77 Pulse Rhythm Regular Pulse Rhythm [Apical] Regular Pulse Strength Normal Pulse Strength [Apical] Normal Respiratory Rate 16 20 Respiratory Effort / Characteristics Non-Labored Non-Labored Spontaneous Respiratory Depth Normal Normal Respiratory Pattern Regular Regular Blood Pressure 105/69 Blood Pressure [Right Arm] 123/75 Blood Pressure Mean 81 Blood Pressure Mean [Right Arm] 91 Blood Pressure Position Sitting Blood Pressure Position [Right Arm] Sitting Pulse Oximetry 96 96 Oxygen Delivery Method Room Air Room Air Sepsis Recent Fever Within 48 Hours Yes Sepsis New/Unexplained Change in Mental Status No Sepsis Action Taken by Nursing No Action Required 04/07/24 17:51 04/07/24 19:30 Temperature Temperature Source Pulse Rate 77 Pulse Rate [Apical] 72 Pulse Rhythm Regular Pulse Rhythm [Apical] Regular Pulse Strength Pulse Strength [Apical] Normal Respiratory Rate 20 17 Respiratory Effort / Characteristics Non-Labored Spontaneous Respiratory Depth Normal Respiratory Pattern Regular Blood Pressure Blood Pressure [Right Arm] 133/75 Blood Pressure Mean Blood Pressure Mean [Right Arm] 94 Blood Pressure Position Blood Pressure Position [Right Arm] Sitting Pulse Oximetry 96 94 Oxygen Delivery Method Room Air Room Air Sepsis Recent Fever Within 48 Hours Sepsis New/Unexplained Change in Mental Status Sepsis Action Taken by Nursing VITAL SIGNS - Vital signs and nursing notes were reviewed. Stable and afebrile. GENERAL -73-year-old male appearing his stated age who is in no acute distress but appears tired and mildly dehydrated. Communicates well with provider and answers questions appropriately. SKIN - Without rashes. No meningeal or petechial rash HEAD - NC/AT. EYES - PERRL with EOMI bilaterally. Sclera anicteric. EARS - No deformities of external structures noted on gross examination bilaterally. NOSE - Midline and without cyanosis. No epistaxis or purulent drainage noted. Septum midline without deviation or septal hematoma noted. MOUTH/OROPHARYNX - Without perioral cyanosis. Buccal mucosa pink and moist and without leukoplakia. Tongue midline with equal elevation of palate bilaterally. No tonsillar hypertrophy, erythema, or exudates noted. Fair dentition noted. NECK - Neck with FROM. No nuchal rigidity. LUNGS - Chest wall symmetric without accessory muscle use, intercostals retractions, or central cyanosis. Normal vesicular breath sounds CTA B/L. No wheezes, rales, or rhonchi appreciated. CARDIAC - RRR ABDOMEN - Abdominal contour normal without pulsations or visible masses. BS normoactive all four quadrants. There is epigastric abdominal tenderness without guarding or rigidity. No palpable masses, hepatosplenomegaly, or ascites noted. EXTREMITIES - No clubbing or peripheral cyanosis. +5/5 strength noted in UE/LE bilaterally. NEUROLOGIC - Cranial nerves grossly intact. PSYCH -alert, oriented and pleasant on exam Course Administered Medications Potassium Chloride/Sodium Chloride (Normal Saline W/20 Meq Kcl) 20 meq in 1,000 mls @ 80 mls/hr IV .[id number] ARTEM; Protocol Stop: 04/08/24 21:14 Last Admin: 04/07/24 20:38 Dose: 80 mls/hr Documented By: PATRICK Miscellaneous (Balsalazide~Order Awaiting Action) 1 each N/A QS [facility] Stop: 05/07/24 22:29 Last Admin: 04/08/24 01:00 Dose: Not Given Documented By: Admin: 04/07/24 23:29 Dose: Not Given Documented By: PATRICK Ursodiol (Ursodiol 300 Mg Cap) 300 mg PO BID [facility] Stop: 05/07/24 22:12 Last Admin: 04/07/24 23:29 Dose: 300 mg Documented By: PATRICK Vitamin D (Cholecalciferol 25 Mcg (1000 Units) Tab) 50 mcg PO QPM ARTEM Stop: 05/07/24 22:12 Last Admin: 04/07/24 23:29 Dose: 50 mcg Documented By: PATRICK Discontinued Medications Sodium Chloride (Nss) 1,000 mls @ 500 mls/hr IV .Q2H ARTEM Stop: 04/07/24 19:59 Last Infusion: 04/07/24 21:08 Dose: Infused Documented By: Admin: 04/07/24 18:25 Dose: 500 mls/hr Documented By: RONI Pantoprazole Sodium 40 mg/ (Syringe) 10 mls @ 5 mls/min IV NOW ONE Stop: 04/07/24 20:05 Last Admin: 04/07/24 21:06 Dose: 5 mls/min Documented By: PATRICK Piperacillin Sod/Tazobactam Sod (Zosyn) 4.5 gm in 100 mls @ 200 mls/hr IV NOW ONE Stop: 04/07/24 20:44 Last Infusion: 04/07/24 21:08 Dose: Infused Documented By: Admin: 04/07/24 20:38 Dose: 200 mls/hr Documented By: PATRICK Ioversol (Optiray 320 100ml) 94 ml IV ONCE ONE Stop: 04/07/24 18:10 Last Admin: 04/07/24 18:09 Dose: 94 ml Documented By: ALLAN Medical Decision Making Laboratory Data 04/07/24 17:09 04/07/24 17:09 Lab Results 04/07/24 04/07/24 04/07/24 Range/Units 17:09 17:34 18:42 WBC 12.32 H (4.8-10.8) K/ul RBC 4.88 (4.70-6.10) M/uL Hgb 14.6 (14.0-18.0) g/dl Hct 43.0 (42.0-52.0) % MCV 88.1 (80.0-100.0) fL MCH 29.9 (25.0-34.0) pg MCHC 34.0 (32.0-36.0) g/dL RDW Std Deviation 40.1 (36.4-46.3) fL RDW Coeff of Kaity 12.5 (11.5-14.5) % Plt Count 306 (130-400) K/uL MPV 9.9 (9.4-12.4) fL Immature Gran % (Auto) 0.4 % Neut % (Auto) 65.9 % Lymph % (Auto) 20.0 % [place] % (Auto) 11.4 % Eos % (Auto) 1.9 % Baso % (Auto) 0.4 % Neut # (Auto) 8.10 H (1.40-6.50) K/uL Lymph # (Auto) 2.47 (1.20-3.40) K/uL [place] # (Auto) 1.41 H (0.11-0.59) K/uL Eos # (Auto) 0.24 (0.00-0.50) K/uL Baso # (Auto) 0.05 (0.00-0.20) K/uL Immature Gran # (Auto) 0.05 (0.01-0.20) K/uL PT Cancelled 12.3 H INR Cancelled 1.1 APTT Cancelled 37 H PTT Ratio Cancelled 1.4 Sodium 132 L (136-145) mmol/L Potassium 4.3 (3.5-5.1) mmol/L Chloride 102 (98-107) mmol/L Carbon Dioxide 19 L (21-32) mmol/L Anion Gap 11 (3-11) BUN 23 (6-23) mg/dl Creatinine 1.55 H (0.6-1.4) mg/dl Est Cr Clr Drug Dosing 39.1 ml/min Est GFR ( Amer) 50.4 ml/min Est GFR (Non-Af Amer) 43.5 ml/min BUN/Creatinine Ratio 14.8 (10-20) Glucose 109 H (70-99(Fasting)) mg/dl Lactate 1.3 (0.4-2.0) mmol/L Calcium 9.1 (8.6-10.3) mg/dl Magnesium 1.8 (1.7-2.4) mg/dl Total Bilirubin 1.0 (0.2-1.0) mg/dl AST 35 (13-39) U/L ALT 11 (7-52) U/L Alkaline Phosphatase 88 (34-104) U/L Troponin I High Sens 5.9 (0-20) pg/ml Total Protein 8.0 (6.0-8.3) gm/dl Albumin 3.8 (3.4-5.0) gm/dl Globulin 4.2 H (2.5-4.0) gm/dl Albumin/Globulin Ratio 0.9 (0.9-2) Lipase 9 L (11-82) U/L Procalcitonin 0.42 (0-0.5) ng/ml Adenovirus (PCR) Not Detected (NotDetected) B. pertussis DNA (PCR) Not Detected (NotDetected) B.parapertussis DNA PCR Not Detected (NotDetected) C. pneumoniae DNA (PCR) Not Detected (NotDetected) Coronavirus OC43 (PCR) Not Detected (NotDetected) Coronavirus HKU1 (PCR) Not Detected (NotDetected) Coronavirus 229E (PCR) Not Detected (NotDetected) SARS-CoV-2 (PCR) Not Detected (NotDetected) Coronavirus NL63 (PCR) Not Detected (NotDetected) Human Metapneumovir PCR Not Detected (NotDetected) Influenza Type A (PCR) Not Detected (NotDetected) Influenza Type B (PCR) Not Detected (NotDetected) M. pneumoniae (PCR) Not Detected (NotDetected) Parainfluenza 1 (PCR) Not Detected (NotDetected) Parainfluenza 2 (PCR) Not Detected (NotDetected) Parainfluenza 3 (PCR) Not Detected (NotDetected) Parainfluenza 4 (PCR) Not Detected (NotDetected) RSV (PCR) Not Detected (NotDetected) Entero/Rhino (PCR) Not Detected (NotDetected) Imaging Data Radiologist's Impression: Abdomen/Pelvis CT 04/07/24 17:16 CT abd pelvis IV con only CLINICAL HISTORY: Epigastric abdominal pain TECHNIQUE: Helical axial images of the abdomen and pelvis were obtained and displayed. Automated dose lowering techniques and/or adjustment according to patient size were utilized for this exam. This exam was performed with intravenous contrast. CT DOSE: 1141.06 mGy.cm COMPARISON: Comparison is made to CT abdomen pelvis 04/20/2023 FINDINGS: Lower chest: Bibasilar atelectasis versus scarring is seen. Liver: Nodular contour of the liver is seen compatible with cirrhosis. Gallbladder and biliary tree: Patient is status post cholecystectomy. Mild prominence of the intrahepatic bile ducts is unchanged from prior exam. Pancreas: Fatty replacement of the pancreas is seen. Spleen: Splenule is incidentally noted. Adrenals: Unremarkable. Kidneys and ureters: Renal cysts are seen. Bladder: Unremarkable. Reproductive organs: Unremarkable. Bowel: Diverticulosis is seen without evidence of diverticulitis. Patient is status post appendectomy. There is a small hiatal hernia. Lymph nodes Retroperitoneal: Subcentimeter lymph nodes are noted. Pelvic: Unremarkable. Mesenteric: Unremarkable. Peritoneum: Normal. Vessels: Atherosclerotic calcifications are seen. Abdominal wall: Unremarkable. Bones: Degenerative changes in the visualized spine. IMPRESSION: 1. No evidence of acute abnormality to explain epigastric pain. There is a hiatal hernia, correlation for reflux esophagitis is recommended. 2. Patient is status post cholecystectomy with cirrhotic liver contour and beading of the bile duct again seen, compatible with history of primary sclerosing cholangitis. 3. Diverticulosis without diverticulitis. ACT 112: Negative or not required by law. Electronically signed by: Kumar Morris M.D. 04/07/2024 6:51 PM Chest X-Ray 04/07/24 17:16 XR chest 1V portable CLINICAL HISTORY: Epigastric abdominal pain TECHNIQUE: Single frontal radiograph of the chest was obtained. Comparison: Comparison is made to chest radiograph 03/25/2024 FINDINGS: Median sternotomy wires are unchanged. Cardiomegaly is noted. The lungs are clear. No evidence of pleural effusion or pneumothorax. IMPRESSION: No acute chest disease. ACT 112: Negative or not required by law. Electronically signed by: Kumar Morris M.D. 04/07/2024 5:38 PM [facility] Narrative Patient was seen and evaluated as above in room C12. Review was performed of triage nursing notes and vital signs. I did review pertinent previous visits and patient history. After obtaining a thorough history and physical examination the above work up was performed. Patient presents to us today for evaluation of upper abdominal pain now with fever. He has a history of PSC. Patient did speak to his GI specialist office on the phone today and was referred here. He does note associated fevers over the past few days with rather constant abdominal pain for the past 2 weeks. On examination he is tender in the upper abdomen. Options of care were discussed with the patient. EKG was obtained and reveals normal sinus rhythm at a rate of 76 bpm. QTc 425. QRS 76. No ST elevation. IV access was established. Labs were drawn. Patient was hydrated with IV fluids. Labs reveal leukocytosis 12.32. No anemia. Coags normal. Mild hyponatremia 132. Creatinine 1.55. Carbon dioxide 19. Glucose 109. Troponin within normal range. Lipase normal. Procalcitonin detectable at 0.42 but within normal range. Bio fire panel negative. CT scan was obtained of the abdomen and pelvis with IV contrast as well as a chest x-ray. Chest x-ray per my interpretation is without acute process. CT scan of the abdomen pelvis result is as above. No acute abnormality noted on the CT, chronic findings noted. At this time with the patient's history of PSC, with subjective fevers at home and persistent abdominal pain I do believe that further evaluation and management is warranted in the inpatient setting. Case discussed with the hospitalist service. Please refer to further documentation regarding his stay. While in the department, I personally reevaluated the patient several times and each time the patient was found to be resting comfortably. The patient was educated upon management, educated upon todays findings/results, educated upon importance of follow up from today's visit, educated upon symptoms in which to return, had questions answered prior to discharge, verbalized understanding, and was discharged home in good condition. GCS: 15 In the evaluation and treatment of this patient the following differential diagnoses were entertained: Cholangitis, acute abdomen, pancreatitis, pneumonia, CA, among others Impression & Plan Abdominal pain, epigastric, Fever Discharge Plan Visit Data Chief Complaint: Abdominal Pain Stated Complaint: ABD PAIN, DOC REF ED Provider: Maxwell Stokes ED Midlevel Provider: Addison Fortune Discharge Problem: Abdominal pain, epigastric, Fever Patient Disposition: Admitted As Inpatient Condition: Good Discharge Instructions Interventions: ED Discharge Assessment Last Done: 04/07/24 22:13
--- NOTE | 2024-04-07 17:39 | XRay Report ---
XR chest 1V portable CLINICAL HISTORY: Epigastric abdominal pain TECHNIQUE: Single frontal radiograph of the chest was obtained. Comparison: Comparison is made to chest radiograph 03/25/2024 FINDINGS: Median sternotomy wires are unchanged. Cardiomegaly is noted. The lungs are clear. No evidence of ple ural effusion or pneumothorax. IMPRESSION: No acute chest disease. ACT 112: Negative or not required by law. Electronically signed by: Kumar Morris M.D. 04/07/2024 5:38 PM
[2024-04-07 17:43] LABS: Basophils # (auto) 0.05 K/uL (0.00-0.20); Basophils % (auto) 0.4 %; Eosinophils # (auto) 0.24 K/uL (0.00-0.50); Eosinophils % (auto) 1.9 %; Hemoglobin 14.6 g/dl (14.0-18.0); Immature Granulocytes # (auto) 0.05 K/uL (0.01-0.20); Immature Granulocytes % (auto) 0.4 %; Lymphocytes # (auto) 2.47 K/uL (1.20-3.40); Mean Corpuscular Hemoglobin 29.9 pg (25.0-34.0); Mean Corpuscular Volume 88.1 fL (80.0-100.0); Mean Platelet Volume 9.9 fL (9.4-12.4); Monocytes # (auto) 1.41 K/uL (0.11-0.59); Monocytes % (auto) 11.4 %; Neutrophils % (auto) 65.9 %; Platelet Count 306 K/uL (130-400); RDW Coefficient of Variation 12.5 % (11.5-14.5); RDW Standard Deviation 40.1 fL (36.4-46.3); Red Blood Count 4.88 M/uL (4.70-6.10); White Blood Count 12.32 K/ul (4.8-10.8)
[2024-04-07 17:47] LABS: Albumin Globulin Ratio 0.9 (0.9-2); Albumin Level 3.8 gm/dl (3.4-5.0); BUN Creatinine Ratio 14.8 (10-20); Calcium 9.1 mg/dl (8.6-10.3); Creatinine Clr Calc Pharmacy 39.1 ml/min; Est GFR (African American) 50.4 ml/min; Est GFR (Non-African American) 43.5 ml/min; Globulin 4.2 gm/dl (2.5-4.0); Magnesium 1.8 mg/dl (1.7-2.4); Potassium 4.3 mmol/L (3.5-5.1)
[2024-04-07 17:52] LABS: Troponin I High Sensitivity 5.9 pg/ml (0-20)
[2024-04-07] MEDS: OPTIRAY 320 100ml IV ONE (18:09)
[2024-04-07] MEDS: SODIUM CHLORIDE 0.9% 1,000 ML IV SCH (18:25)
[2024-04-07 18:31] LABS: Adenovirus PCR Not Detected (NotDetected); Bordetella parapertussis PCR Not Detected (NotDetected); Bordetella pertussis PCR Not Detected (NotDetected); Chlamydia pneumoniae PCR Not Detected (NotDetected); Coronavirus 229E PCR Not Detected (NotDetected); Coronavirus CoV-2 (COVID19)PCR Not Detected (NotDetected); Coronavirus HKU1 PCR Not Detected (NotDetected); Coronavirus NL63 PCR Not Detected (NotDetected); Coronavirus OC43PCR Not Detected (NotDetected); Human Metapneumovirus PCR Not Detected (NotDetected); Influenza A PCR Not Detected (NotDetected); Influenza B PCR Not Detected (NotDetected); Mycoplasma pneumoniae PCR Not Detected (NotDetected); Parainfluenza Virus 1 PCR Not Detected (NotDetected); Parainfluenza Virus 2 PCR Not Detected (NotDetected); Parainfluenza Virus 3 PCR Not Detected (NotDetected); Parainfluenza Virus 4 PCR Not Detected (NotDetected); Respiratory Syncytial VirusPCR Not Detected (NotDetected); Rhinovirus/Enterovirus PCR Not Detected (NotDetected)
--- NOTE | 2024-04-07 18:54 | CT Scan Report ---
CT abd pelvis IV con only CLINICAL HISTORY: Epigastric abdominal pain TECHNIQUE: Helical axial images of the abdomen and pelvis were obtained and displayed. Automated dose lowering techniques and/or adjustment according to patient size were utilized for this exam. This e xam was performed with intravenous contrast. CT DOSE: 1141.06 mGy.cm COMPARISON: Comparison is made to CT abdomen pelvis 04/20/2023 FINDINGS: Lower chest: Bibasilar atelectasis versus scarring is seen. Liver: Nodular contour of the liver is seen compatible with cirrhosis. Gallbladder and biliary tree: Patient is status post cholecystectomy. Mild prominence of the intrahep atic bile ducts is unchanged from prior exam. Pancreas: Fatty replacement of the pancreas is seen. Spleen: Splenule is incidentally noted. Adrenals: Unremarkable. Kidneys and ureters: Renal cysts are seen. Bladder: Unremarkable. Reproductive organs: Unremarkable. Bowel: Diverticulosis is seen without evidence of diverticulitis. Patient is status post appendectomy . There is a small hiatal hernia. Lymph nodes Retroperitoneal: Subcentimeter lymph nodes are noted. Pelvic: Unremarkable. Mesenteric: Unremarkable. Peritoneum: Normal. Vessels: Atherosclerotic calcifications are seen. Abdominal wall: Unremarkable. Bones: Degenerative changes in the visualized spine. IMPRESSION: 1. No evidence of acute abnormality to explain epigastric pain. There is a hiatal hernia, correlatio n for reflux esophagitis is recommended. 2. Patient is status post cholecystectomy with cirrhotic liver contour and beading of the bile duct again seen, compatible with history of primary sclerosing cholangitis. 3. Diverticulosis without diverticulitis. ACT 112: Negative or not required by law. Electronically signed by: Kumar Morris M.D. 04/07/2024 6:51 PM
--- NOTE | 2024-04-07 19:11 | Emergency Department Note ---
ED Visit Note I was consulted by the Advanced Practice Provider. I personally made/approved the management plan and take responsibility for the patient management. I performed a substantive portion of the visit. This includes the aspects of: -History/Physical -MDM .
[2024-04-07 19:36] LABS: INR 1.1 (0.9-1.1); Partial Thromboplastin Ratio 1.4; Partial Thromboplastin Time 37 Seconds (21-31); Prothrombin Time 12.3 Seconds (9.0-12.0)
[2024-04-07] MEDS ORDERED: ONDANSETRON INJ 2 MG/ML 2 ML VIAL IV PRN (20:04)
[2024-04-07] MEDS ORDERED: PIPERACILLIN/TAZOBACTAM 4.5 GM in DEXTROSE 5% MINI-B 100 ML IV ONE (20:07)
--- NOTE | 2024-04-07 20:10 | History & Physical Report ---
Date of Service April 07, 2024 Assessment & Plan (1) Abdominal pain, epigastric: (2) Fever: (3) Nausea & vomiting: (4) Crohns disease: (5) Primary sclerosing cholangitis: (6) GERD without esophagitis: (7) Acute kidney injury superimposed on CKD: Plan Acute temperature, abdominal pain, nausea and vomiting/Crohn's disease/PSC- CT scan without acute findings Placed on Zosyn 4.5 g IV every 8 hours Pantoprazole 40 mg IV daily NSS + KCl 20 mill equivalents at 80 mL/h x 2 L Zofran 4 mg IV every 6 hours as needed Acetaminophen 650 mg by mouth every 6 hours as needed for mild pain or fever Continue ursodiol 300 mg twice daily and balsalazide Full liquid diet as tolerated Hold Cipro and Flagyl p.o. Consult gastroenterology CAD/hypertension- Hold amlodipine, aspirin, lisinopril Continue metoprolol succinate, changing from 100 mg every morning to 50 mg twice daily Acute kidney injury superimposed on CKD- Creatinine 1.55, with baseline 1.40 IV fluids as noted above, holding lisinopril, and recheck laboratories in a.m. History of Present Illness Chief Complaint: The patient presents to the emergency department as a referral from [facility] due to complaint of upper abdominal pain and fever to 102 F. He has Cipro and Flagyl at home, that he started 24 hours ago, but after calling the GI office, they advised him to come to the ED for assessment. Primary Care Provider: Alex Terrazas MD The patient is a 73-year-old male with a past medical history including primary sclerosing cholangitis, Crohn's disease, GERD without esophagitis, FLAKITO, hypertension, CAD, CKD and osteoporosis. He developed a temperature yesterday, began his Cipro and Flagyl as he been directed in the past, with continued symptoms, after calling the [facility] GI office today, he was referred to the ED for assessment. CT scan abdomen pelvis showed bile duct beading as before, suggestive of PSC. Allergies Allergy/AdvReac Type Severity Reaction Status Date / Time amoxicillin AdvReac Intermediate Diarrhea Verified 03/25/24 13:22 clavulanic acid AdvReac Intermediate Diarrhea Verified 03/25/24 13:22 [From Augmentin] Sulfa (Sulfonamide AdvReac Intermediate fever/chill Verified 03/25/24 13:22 Antibiotics) s Home Medications Medication Instructions Recorded Confirmed Type cholecalciferol (vitamin D3) 50 50 mcg PO QPM 10/02/20 04/07/24 History mcg (2,000 unit) tablet (Vitamin D3) nitroglycerin 0.4 mg sublingual 0.4 mg sublingual Q5M PRN chest 12/17/21 04/07/24 Rx tablet pain #25 tabs ursodiol 300 mg capsule 300 mg PO BID 01/08/23 04/07/24 History triamcinolone acetonide 0.1 % 1 applic topical BID PRN skin 07/13/23 04/07/24 Rx topical cream irritation #80 grams aspirin 81 mg tablet,delayed 81 mg PO QAM 07/14/23 04/07/24 History release atorvastatin 80 mg tablet 80 mg PO QAM 07/14/23 04/07/24 History lisinopril 10 mg tablet 10 mg PO QAM 07/14/23 04/07/24 History metoprolol succinate 100 mg 100 mg PO QAM #90 tabs 07/19/23 04/07/24 Rx tablet,extended release 24 hr metronidazole 500 mg tablet 500 mg PO TID PRN PBC flair 7 days 11/01/23 04/07/24 Rx #42 tabs balsalazide 750 mg capsule 750 mg PO QID 01/12/24 04/07/24 History mecobalamin (vitamin B12) 1,000 1,000 mcg sublingual Q OTHER DAY 01/12/24 04/07/24 History mcg disintegrating tablet,sublingual omeprazole 40 mg capsule,delayed 40 mg PO QAM #90 caps 02/28/24 04/07/24 Rx release amlodipine 10 mg tablet 10 mg PO QPM #90 tabs 03/22/24 04/07/24 Rx ciprofloxacin HCl 500 mg tablet 500 mg PO BID PRN PBC Flare 03/25/24 04/07/24 History (Cipro) Past Med/Surg History Problem List (Updated 04/08/24 @ 04:57 by Jermaine Dobson MD) Acute kidney injury superimposed on CKD Fever (Acute) Abdominal pain, epigastric (Acute) Nausea & vomiting (Acute) Solar keratosis Encounter for pre-operative examination Hyponatremia Elevated bilirubin (Acute) Fever (Acute) Epigastric abdominal pain (Acute) Leukocytosis (Acute) Fever (Acute) Medicare annual wellness visit, subsequent Ascending cholangitis Prostate cancer screening Medicare annual wellness visit, subsequent Crohns disease (Chronic) GERD without esophagitis (Chronic) Hypercholesterolemia (Chronic) Primary sclerosing cholangitis (Chronic) FLAKITO (obstructive sleep apnea) Benign essential HTN (Chronic) Bilateral cataracts Vitamin B 12 deficiency Vitamin D deficiency Acute renal insufficiency Leukocytosis Hand eczema CAD (coronary artery disease) (Chronic) Osteoporosis Medical History History of COVID-01 June 2023 mild Ascending cholangitis Crohn disease GERD (gastroesophageal reflux disease) Myocardial Infarction 1995 - then CABG X 5 IN [place] Hyperlipidemia Hypertension Sleep apnea no machine Surgical History Hx of right cataract extraction Hx of cholecystectomy Hx of endoscopic retrograde cholangiopancreatography 04/21/23 Hx of colonoscopy Hx of laceration of skin LEFT WRIST REPAIR OF LACERATION History of open reduction and internal fixation (ORIF) procedure RIGHT ELBOW Hx of inguinal hernia repair RIGHT Hx of appendectomy Hx of foot surgery RIGHT FOOT SURGERY, REMOVAL OF FIBROMA S/P CABG x 5 1995 AFTER [place] Family History Other Family history non-contributory Social History Smoking Status: Never smoker Second Hand Exposure: No; Do You Dip or Chew Tobacco: No; Tobacco Cessation Education Requested by Patient: No Hx Alcohol Use: No Hx Substance Use: No Preferred Language: Spanish Communication Ability: Effective Computer Systems Consultant Required: No Beliefs That Will Affect Care: None marital status: Current Living Situation: Spouse Current Living Situation Comment: Other Information That Helps Us Care for You: No Feels Safe at Home: Yes Safety Concerns: Feels Safe At This Time caffeine: No Seatbelt Use: always Assistive Devices: None Review of Systems Review of Systems: The patient denies chest pain, palpitations, shortness of breath, dyspnea on exertion, cough, lower extremity swelling, sore throat, nausea, vomiting, blood in urine or stool, dysuria, urinary frequency or urgency, lightheadedness, dizziness, headache, memory loss, loss of consciousness, rash, abnormal bruising or bleeding, imbalance, focal or generalized weakness, numbness or tingling in arms or legs, generalized arthralgias or myalgias, back or neck pain, or night sweats. The review of systems is otherwise negative other than for that already noted above, and at least 10 systems have been reviewed. Physical Exam Physical Exam: The patient is awake, alert and oriented 3, well developed and well nourished, normocephalic and atraumatic, lying in bed and in no acute distress. HEENT--PERRL, EOMI, mucous membranes and oropharynx dry. Neck--supple. No JVD. No bruits. Thyroid normal, trachea midline, no adenopathy. Heart--normal S1 and S2. No murmurs, rubs or gallops. Lungs--clear bilaterally, no respiratory distress, no accessory muscle use. Abdomen--normal bowel sounds and soft. Nontender. Nondistended, no hernias or masses, no organomegaly. Extremities--no cyanosis or clubbing. No edema. Dermatologic--normal skin turgor, normal color, no abnormal lymph nodes, no rash. Neurologic--cranial nerves II through XII grossly intact. Rheumatologic--normal range of motion. Psychiatric--normal affect. Results & Data Results & Data Vital Signs (Past 12 Hours) Vital Signs Temp Pulse Pulse Resp BP BP Pulse Ox 04/07/24 19:30 72 17 133/75 94 04/07/24 17:51 77 20 96 04/07/24 17:51 77 20 123/75 96 04/07/24 17:30 72 04/07/24 16:45 36.4 C L 85 16 105/69 96 O2 Del Method 04/07/24 19:30 Room Air 04/07/24 17:51 Room Air 04/07/24 17:51 Room Air 04/07/24 17:30 04/07/24 16:45 Room Air Laboratory Results Laboratory Results WBC 12.32 K/ul (4.8-10.8) H 04/07/24 17:09 RBC 4.88 M/uL (4.70-6.10) 04/07/24 17:09 Hgb 14.6 g/dl (14.0-18.0) 04/07/24 17:09 Hct 43.0 % (42.0-52.0) 04/07/24 17:09 MCV 88.1 fL (80.0-100.0) 04/07/24 17:09 MCH 29.9 pg (25.0-34.0) 04/07/24 17:09 MCHC 34.0 g/dL (32.0-36.0) 04/07/24 17:09 RDW Std Deviation 40.1 fL (36.4-46.3) 04/07/24 17:09 RDW Coeff of Kaity 12.5 % (11.5-14.5) 04/07/24 17:09 Plt Count 306 K/uL (130-400) 04/07/24 17:09 MPV 9.9 fL (9.4-12.4) 04/07/24 17:09 Immature Gran % (Auto) 0.4 % 04/07/24 17:09 Neut % (Auto) 65.9 % 04/07/24 17:09 Lymph % (Auto) 20.0 % 04/07/24 17:09 [place] % (Auto) 11.4 % 04/07/24 17:09 Eos % (Auto) 1.9 % 04/07/24 17:09 Baso % (Auto) 0.4 % 04/07/24 17:09 Neut # (Auto) 8.10 K/uL (1.40-6.50) H 04/07/24 17:09 Lymph # (Auto) 2.47 K/uL (1.20-3.40) 04/07/24 17:09 [place] # (Auto) 1.41 K/uL (0.11-0.59) H 04/07/24 17:09 Eos # (Auto) 0.24 K/uL (0.00-0.50) 04/07/24 17:09 Baso # (Auto) 0.05 K/uL (0.00-0.20) 04/07/24 17:09 Immature Gran # (Auto) 0.05 K/uL (0.01-0.20) 04/07/24 17:09 PT 12.3 Seconds (9.0-12.0) H 04/07/24 18:42 INR 1.1 (0.9-1.1) 04/07/24 18:42 APTT 37 Seconds (21-31) H 04/07/24 18:42 PTT Ratio 1.4 07/26/24 18:42 Sodium 132 mmol/L (136-145) L 04/07/24 17:09 Potassium 4.3 mmol/L (3.5-5.1) 04/07/24 17:09 Chloride 102 mmol/L (98-107) 04/07/24 17:09 Carbon Dioxide 19 mmol/L (21-32) L 04/07/24 17:09 Anion Gap 11 (3-11) 04/07/24 17:09 BUN 23 mg/dl (6-23) 04/07/24 17:09 Creatinine 1.55 mg/dl (0.6-1.4) H 04/07/24 17:09 Est Cr Clr Drug Dosing 39.1 ml/min 04/07/24 17:09 Est GFR ( Amer) 50.4 ml/min 04/07/24 17:09 Est GFR (Non-Af Amer) 43.5 ml/min 04/07/24 17:09 BUN/Creatinine Ratio 14.8 (10-20) 04/07/24 17:09 Glucose 109 mg/dl (70-99(Fasting)) H 04/07/24 17:09 Lactate 1.3 mmol/L (0.4-2.0) 04/07/24 17:34 Calcium 9.1 mg/dl (8.6-10.3) 04/07/24 17:09 Magnesium 1.8 mg/dl (1.7-2.4) 04/07/24 17:09 Total Bilirubin 1.0 mg/dl (0.2-1.0) 04/07/24 17:09 AST 35 U/L (13-39) 04/07/24 17:09 ALT 11 U/L (7-52) 04/07/24 17:09 Alkaline Phosphatase 88 U/L (34-104) 04/07/24 17:09 Troponin I High Sens 5.9 pg/ml (0-20) 04/07/24 17:09 Total Protein 8.0 gm/dl (6.0-8.3) 04/07/24 17:09 Albumin 3.8 gm/dl (3.4-5.0) 04/07/24 17:09 Globulin 4.2 gm/dl (2.5-4.0) H 04/07/24 17:09 Albumin/Globulin Ratio 0.9 (0.9-2) 04/07/24 17:09 Lipase 9 U/L (11-82) L 04/07/24 17:09 Procalcitonin 0.42 ng/ml (0-0.5) 04/07/24 17:09 Urine Color Yellow 04/08/24 03:30 Urine Appearance Clear (Clear) 04/08/24 03:30 Urine pH 7.0 (4.5-7.5) 04/08/24 03:30 Ur Specific [place] 1.018 (1.000-1.030) 04/08/24 03:30 Urine Protein Negative (Negative) 04/08/24 03:30 Urine Glucose (UA) Negative (Negative) 04/08/24 03:30 Urine Ketones Negative (Negative) 04/08/24 03:30 Urine Blood Negative (Negative) 04/08/24 03:30 Urine Nitrite Negative (Negative) 04/08/24 03:30 Urine Bilirubin Negative (Negative) 04/08/24 03:30 Urine Urobilinogen Negative (Negative) 04/08/24 03:30 Ur Leukocyte Esterase Negative (Negative) 04/08/24 03:30 Adenovirus (PCR) Not Detected (NotDetected) 04/07/24 17:34 B. pertussis DNA (PCR) Not Detected (NotDetected) 04/07/24 17:34 B.parapertussis DNA PCR Not Detected (NotDetected) 04/07/24 17:34 C. pneumoniae DNA (PCR) Not Detected (NotDetected) 04/07/24 17:34 Coronavirus OC43 (PCR) Not Detected (NotDetected) 04/07/24 17:34 Coronavirus HKU1 (PCR) Not Detected (NotDetected) 04/07/24 17:34 Coronavirus 229E (PCR) Not Detected (NotDetected) 04/07/24 17:34 SARS-CoV-2 (PCR) Not Detected (NotDetected) 04/07/24 17:34 Coronavirus NL63 (PCR) Not Detected (NotDetected) 04/07/24 17:34 Human Metapneumovir PCR Not Detected (NotDetected) 04/07/24 17:34 Influenza Type A (PCR) Not Detected (NotDetected) 04/07/24 17:34 Influenza Type B (PCR) Not Detected (NotDetected) 04/07/24 17:34 M. pneumoniae (PCR) Not Detected (NotDetected) 04/07/24 17:34 Parainfluenza 1 (PCR) Not Detected (NotDetected) 04/07/24 17:34 Parainfluenza 2 (PCR) Not Detected (NotDetected) 04/07/24 17:34 Parainfluenza 3 (PCR) Not Detected (NotDetected) 04/07/24 17:34 Parainfluenza 4 (PCR) Not Detected (NotDetected) 04/07/24 17:34 RSV (PCR) Not Detected (NotDetected) 04/07/24 17:34 Entero/Rhino (PCR) Not Detected (NotDetected) 04/07/24 17:34 Impressions Abdomen/Pelvis CT 04/07/24 17:16 CT abd pelvis IV con only CLINICAL HISTORY: Epigastric abdominal pain TECHNIQUE: Helical axial images of the abdomen and pelvis were obtained and displayed. Automated dose lowering techniques and/or adjustment according to patient size were utilized for this exam. This exam was performed with intravenous contrast. CT DOSE: 1141.06 mGy.cm COMPARISON: Comparison is made to CT abdomen pelvis 04/20/2023 FINDINGS: Lower chest: Bibasilar atelectasis versus scarring is seen. Liver: Nodular contour of the liver is seen compatible with cirrhosis. Gallbladder and biliary tree: Patient is status post cholecystectomy. Mild prominence of the intrahepatic bile ducts is unchanged from prior exam. Pancreas: Fatty replacement of the pancreas is seen. Spleen: Splenule is incidentally noted. Adrenals: Unremarkable. Kidneys and ureters: Renal cysts are seen. Bladder: Unremarkable. Reproductive organs: Unremarkable. Bowel: Diverticulosis is seen without evidence of diverticulitis. Patient is status post appendectomy. There is a small hiatal hernia. Lymph nodes Retroperitoneal: Subcentimeter lymph nodes are noted. Pelvic: Unremarkable. Mesenteric: Unremarkable. Peritoneum: Normal. Vessels: Atherosclerotic calcifications are seen. Abdominal wall: Unremarkable. Bones: Degenerative changes in the visualized spine. IMPRESSION: 1. No evidence of acute abnormality to explain epigastric pain. There is a hiatal hernia, correlation for reflux esophagitis is recommended. 2. Patient is status post cholecystectomy with cirrhotic liver contour and beading of the bile duct again seen, compatible with history of primary sclerosing cholangitis. 3. Diverticulosis without diverticulitis. ACT 112: Negative or not required by law. Electronically signed by: Kumar Morris M.D. 04/07/2024 6:51 PM Chest X-Ray 04/07/24 17:16 XR chest 1V portable CLINICAL HISTORY: Epigastric abdominal pain TECHNIQUE: Single frontal radiograph of the chest was obtained. Comparison: Comparison is made to chest radiograph 03/25/2024 FINDINGS: Median sternotomy wires are unchanged. Cardiomegaly is noted. The lungs are clear. No evidence of pleural effusion or pneumothorax. IMPRESSION: No acute chest disease. ACT 112: Negative or not required by law. Electronically signed by: Kumar Morris M.D. 04/07/2024 5:38 PM Code Status & VTE Plan Code Status Full code VTE Prophylaxis Plan VTE Prophylaxis will be ordered: Yes PG Care Time/CCT Total # of Minutes Spent Total Time Spent with Patient: Total time spent is greater than 50% in coordination of care (as documented) at patient's floor/unit and/or counseling patient: Coding Level of Care Code 53886 INT INP/OBS CARE 3/75MIN Diagnoses Abdominal pain, epigastric R10.13 Fever R50.9 Nausea & vomiting R11.2 Crohn's disease without complication, unspecified gastrointestinal tract location K50.90 Gastrointestinal tract location: unspecified location Digestive disease complication type: without complication Primary sclerosing cholangitis K83.01 GERD without esophagitis K21.9 Acute kidney injury superimposed on CKD N17.9; N18.9 (4) Crohns disease Gastrointestinal tract location: unspecified location Digestive disease complication type: without complication Qualified Code(s): K50.90 - Crohn's disease, unspecified, without complications
[2024-04-07] MEDS: NSS + 20MEQ KCL 20 MEQ/1,000 ML BAG IV SCH (20:38)
[2024-04-07] MEDS: PIPERACILLIN/TAZOBACTAM 4.5 GM/100 ML BAG IV ONE (20:38)
[2024-04-07] MEDS: PANTOprazole 40 MG in SYRINGE 0 ML IV ONE (21:06)
[2024-04-07] MEDS ORDERED: NITROGLYCERIN SL 0.4 MG/TAB TAB SL PRN (22:13)
[2024-04-07] MEDS ORDERED: ACETAMINOPHEN 325 MG TAB PO PRN (22:13)
--- OUTSIDE RECORDS SUMMARY | 2024-04-07 22:56 | External Medical Summary | Summary of Care ---
Author Name Unknown Organization [facility] [address] [place] [address] Phone [phone] Care Team Providers Care Business Manager Name Role Phone Alex Terrazas MD Primary Care Provider [phone] Encounter Details Date Type Department Care Team (Latest Contact Info) Description 03/24/2024 9:39 AM EDT - 03/24/2024 11:59 PM EDT Hospital Encounter Radiology, [facility] [address] [place] [address] Arrived Discharge Disposition: Home - Self Care Allergies Active Allergy Reactions Criticality Noted Date Comments Amoxicillin-Pot Clavulanate 01/07/20 22 Sulfa Antibiotics 01/06/2022 documented as of this encounter (statuses as of 03/25/2024) Medications Medication Sig Dispensed Refills Start Date End Date Status METOPROLOL XL TBCR 100 MG OR Take 1 Tablet by mouth in the morning. Active DIPENTUM 250 MG PO CAPS Take 1 Capsule by mouth in the morning and 1 Capsule before bedtime. Active ASPIRIN 81 MG PO TABS Take 1 Tablet by mouth in the morning. Active Ciprofloxacin HCl 500 MG Oral Tablet (Cipro) Take 1 Tablet by mouth in the morning and 1 Tablet before bedtime. As needed . 10/02/2020 Active Nitroglycerin 0.4 MG Sublingual Tablet Sublingual (Nitrostat) Place 1 Tablet (0.4 mg) under the tongue every 5 minutes as needed for Pain, Chest. 10/02/2020 Active Omeprazole 40 MG Oral Capsule Delayed Release (PriLOSEC) Take 1 Capsule by mouth in the morning. 12/02/2021 Active Ursodiol 300 MG Oral Capsule (Actigall) Take 1 Capsule by mouth in the morning and 1 Capsule before bedtime. Active Vitamin D 50 MCG (2000 UT) Oral Capsule Take 2,000 Units by mouth at bedtime. Active amLODIPine Besylate 10 MG Oral Tablet Take 1 Tablet by mouth in the morning. 100 Tablet 3 02/17/2022 Active metroNIDAZOLE 500 MG Oral Tablet (Flagyl) Take 1 Tablet by mouth in the morning and 1 Tablet at noon and 1 Tablet before bedtime. 06/19/2022 Active Triamcinolone Acetonide 0.1 % External Cream (Aristocort) as needed. 04/23/2022 Active LORazepam 1 MG Oral Tablet (Ativan) Take 1 Tablet (1 mg) by mouth in the morning. 04/23/2022 Active Hydrocortisone 2.5 % External Ointment as needed. 04/23/2022 Active Cholestyramine 4 GM/DOSE Oral Powder Take 4 g by mouth daily as needed for Diarrhea. 07/20/2022 Active Vitamin B-12 1000 MCG Sublingual Tablet Sublingual Place 1 Tablet under the tongue in the morning. Active Lisinopril 10 MG Oral Tablet (Prinivil) Take 1 Tablet by mouth in the morning. In the morning.. 90 Tablet 3 02/08/2024 Active Atorvastatin Calcium 80 MG Oral Tablet (Lipitor) Take 1 Tablet by mouth in the morning. 100 Tablet 3 02/08/2024 Active documented as of this encounter (statuses as of 03/25/2024) Active Problems Problem Noted Date Diagnosed Date Coronary atherosclerosis of [place] coronary viri ry 10/26/2011 Postsurgical aortocoronary bypass status documented as of this encounter (statuses as of 03/25/2024) Immunizations Name Administration Dates Next Due COVID-19 mRNA, LNP-s, No Pre serve, 2-Dose Series (Sjapper) 05/14/2021,04/23/2021 COVID-19, LNP-s, No Preserve , Bronson-sucrose, Ages 12+ (Sjapper) 01/06/2022 HEP A - Hepatitis A (Adult [...] drink = 0.6 oz pur e alcohol) Utilities Answer Date Recorded Do you have trouble paying y our heating, water, or electric bill? (Adult - for ages 18 years and over) Not on file 02/29/2024 Is your family able to pay t he heat, water, or electric bill? (Household - for ages 0-17 years) Not on file 02/29/2024 Does your family have access to good internet? (Household - for ages 0-17 years) Not on file 02/29/2024 Social Connections Answer Date Recorded How often do you feel lonely or isolated from those around you? (Adult - for ages 18 years and over) Not on file 02/29/2024 Sex and Gender Information Value Date Recorded Sex Assigned at Not on file Gender Identity Not on file Sexual Orientation Not on file Job Start Date Occupation Industry Not on file Not on file Not on file documented as of this encounter Plan of Treatment Pending Results Name Type Priority Associated Diagnoses Date /Time DEXA SCAN/BONE MINERAL AXIAL Medical Imaging Routine Primary sclerosing cholangitis 03/24/2024 10:16 AM EDT Health Maintenance Due Date Last Done Comments Depression Screening 1961 Hepatitis C Screening 1967 DTaP,Tdap,and Td Vaccines (1 - Tdap) 1968 Cologuard 1994 Colonoscopy 1994 Colorectal Cancer Screening 1994 Fecal Occult Blood Test 1994 Sigmoidoscopy 1994 COVID-19 Vaccine ( - 2022- season) 2023 07/09/2022, 01/06/2022, 05/14/2021, Additional history exists Zoster Vaccines (2 of 2) 05/27/2023 04/01/2023 Influenza Vaccine (FLU shot) (#1) 2024 06/17/2022 Hepatitis B Vaccine Completed 09/15/2018, 05/18/2018, 03/17/2018 Pneumococcal Vaccine: 65+ Years Completed 01/08/2023, 03/23/2016, 02/06/2015 HPV (Gardasil) Vaccine Aged Out No lo nger eligible based on patient's age to complete this topic MENINGOCOCCAL (MENACTRA/MENVEO) Aged Out No longer eligible based on patient's age to complete this topic documented as of this encounter Medical Devices Not on filedocumented as of this encounter Care Teams Business Manager Relationship Specialty Start Date End Date Alex Terrazas MD [address] [place] [address] PCP - General 06/26/02 documented as of this encounter
[2024-04-07] MEDS: CHOLECALCIFEROL 25 MCG (1000 UNITS) TAB PO SCH (23:29)
[2024-04-07] MEDS: ursodioL 300 MG CAP PO SCH (23:29)
[2024-04-08] MEDS: PIPERACILLIN/TAZOBACTAM 4.5 GM in DEXTROSE 5% MINI-B 100 ML IV SCH (03:25)
[2024-04-08 03:58] LABS: Appearance Urine Clear (Clear); Bilirubin Urine Negative (Negative); Blood Urine Negative (Negative); Color Urine Yellow; Glucose Urine UA Negative (Negative); Ketones Urine Negative (Negative); Leukocyte Esterase Urine Negative (Negative); Nitrite Urine Negative (Negative); Protein Urine Negative (Negative); Specific Gravity Urine 1.018 (1.000-1.030); Urobilinogen Urine Negative (Negative)
[2024-04-08 07:17] LABS: Basophils # (auto) 0.06 K/uL (0.00-0.20); Basophils % (auto) 0.6 %; Hemoglobin 14.2 g/dl (14.0-18.0); Immature Granulocytes # (auto) 0.04 K/uL (0.01-0.20); Immature Granulocytes % (auto) 0.4 %; Lymphocytes # (auto) 1.55 K/uL (1.20-3.40); Lymphocytes % (auto) 15.5 %; Mean Corpuscular Hemoglobin 29.5 pg (25.0-34.0); Mean Corpuscular Hgb Conc 33.8 g/dL (32.0-36.0); Mean Corpuscular Volume 87.3 fL (80.0-100.0); Mean Platelet Volume 9.5 fL (9.4-12.4); Monocytes # (auto) 1.13 K/uL (0.11-0.59); Monocytes % (auto) 11.3 %; Neutrophils # (auto) 7.01 K/uL (1.40-6.50); Neutrophils % (auto) 70.2 %; Platelet Count 272 K/uL (130-400); RDW Coefficient of Variation 12.4 % (11.5-14.5); RDW Standard Deviation 39.9 fL (36.4-46.3); Red Blood Count 4.81 M/uL (4.70-6.10); White Blood Count 9.99 K/ul (4.8-10.8)
--- NOTE | 2024-04-08 07:35 | Electrocardiogram Report ---
Test Reason : Blood Pressure : / mmHG Vent. Rate : 076 BPM Atrial Rate : 076 BPM P-R Int : 158 ms QRS Dur : 076 ms QT Int : 378 ms P-R-T Axes : 056 -22 050 degrees QTc Int : 425 ms Normal sinus rhythm Normal ECG When compared with ECG of 25-MAR-2024 11:59, No significant change was found Confirmed by Isidro Ramirez ([id number]) on 04/08/2024 7:34:40 AM Referred By: REFERRED SELF Confirmed By:Isidro Ramirez
[2024-04-08 07:51] LABS: Albumin Globulin Ratio 0.9 (0.9-2); Albumin Level 3.4 gm/dl (3.4-5.0); BUN Creatinine Ratio 14.1 (10-20); Calcium 8.7 mg/dl (8.6-10.3); Creatinine Clr Calc Pharmacy 47.3 ml/min; Est GFR (African American) 63.5 ml/min; Est GFR (Non-African American) 54.8 ml/min; Magnesium 1.7 mg/dl (1.7-2.4); Potassium 4.4 mmol/L (3.5-5.1); Total Protein 7.4 gm/dl (6.0-8.3)
[2024-04-08] MEDS: METOPROLOL SUCC 50MG EXT REL TAB PO SCH (08:21)
[2024-04-08 09:42] LABS: A calco-baum cmplx NotReported Not Detected (NotDetected); Bact fragilis Not Reported Not Detected (NotDetected); Blood Culture Id Panel PCR Panel Negative (NotDetected); C auris Not Reported Not Detected (NotDetected); Calbicans Not Reported Not Detected (NotDetected); Candida glabrata Not Reported Not Detected (NotDetected); Candida krusei Not Reported Not Detected (NotDetected); Cneoformans/gatti Not Reported Not Detected (NotDetected); Cparapsilosis Not Reported Not Detected (NotDetected); E cloacae compx Not Reported Not Detected (NotDetected); Efaecalis Not Reported Not Detected (NotDetected); Efaecium Not Reported Not Detected (NotDetected); Enterobacterales Not Reported Not Detected (NotDetected); Escherichia coli Not Reported Not Detected (NotDetected); H influenzae Not Reported Not Detected (NotDetected); K aerogenes Not Reported Not Detected (NotDetected); Koxytoca Not Reported Not Detected (NotDetected); Kpneumoniae grp Not Reported Not Detected (NotDetected); Lmonocyt Not Reported Not Detected (NotDetected); N meningitidis Not Reported Not Detected (NotDetected); P aeruginosa Not Reported Not Detected (NotDetected); Proteus spp Not Reported Not Detected (NotDetected); Salmonella spp Not Reported Not Detected (NotDetected); Staph lugdunensis Not Reported Not Detected (NotDetected); Staph spp. Not Reported Not Detected (NotDetected); Staphaureus Not Reported Not Detected (NotDetected); Staphepi Not Reported Not Detected (NotDetected); Stenmaltophilia Not Reported Not Detected (NotDetected); Strep agal(GrpB) Not Reported Not Detected (NotDetected); Strep pneum Not Reported Not Detected (NotDetected); Strep pyog (GrpA) Not Reported Not Detected (NotDetected); Strep spp Not Reported Not Detected (NotDetected)
--- NOTE | 2024-04-08 10:31 | Gastrointestinal Consultation ---
Date of Consultation April 08, 2024 Assessment & Plan (1) Abdominal pain, epigastric: Pleasant man with recurrent spells of abdominal pain, nausea and vomiting. He does not feel this is a Crohn's flare and he does not feel this is a flare of his PSC. Since his LFT's are normal then I agree this is not PSC flare. If he didn't have PSC I would almost question whether or not he every had Crohn's disease as well. He does say that his Crohn's was colonic when it was diagnosed. For now I would treat this as if it was an acute gastroenteritis and see how he does. He says he has improved quite a bit over night. I would probably treat him with antibiotics--can be oral at home--for at least five and possibly ten days since he has had so many spells this year. At some point he may need small bowel evaluation as an outpatient. (2) Nausea & vomiting: History of Present Illness Reason for Consultation: abdominal pain, fever Attending Physician: Carlos Tucker MD History of Present Illness 73 year old man with a fifty year history of Crohn's disease maintained on dipentum through the years at a 500 mg dosage. He has also developed PSC about six years ago and gets annual MRCP or ERCP. He tells me that this past year he has had about six spells of abdominal pain, nausea and vomiting. He has cipro and flagyl and he would self start that and get over things. He says he can very much tell when he is having a problem related to his PSC and none of these feel like those spells. He cannot remember the last true flare of Crohn's that he had. I did a colonoscopy on him in the last year that was normal. He says that yesterday after he had started his typical spell of upper abdominal pain and nausea a few days ago, he had a temperature of 102.8 He had been to the ER a few days before and was sent home to take his cipro and flagyl. He called the clinic yesterday and was advised to come to ED. Today as I am seeing him he is feeling better. He does not think, nor recall, having anything food jensen that could have could have been bad. Allergies Allergy/AdvReac Type Severity Reaction Status Date / Time amoxicillin AdvReac Intermediate Diarrhea Verified 03/25/24 13:22 clavulanic acid AdvReac Intermediate Diarrhea Verified 03/25/24 13:22 [From Augmentin] Sulfa (Sulfonamide AdvReac Intermediate fever/chill Verified 03/25/24 13:22 Antibiotics) s Home Medications Medication Instructions Recorded Confirmed Type cholecalciferol (vitamin D3) 50 50 mcg PO QPM 10/02/20 04/07/24 History mcg (2,000 unit) tablet (Vitamin D3) nitroglycerin 0.4 mg sublingual 0.4 mg sublingual Q5M PRN chest 12/17/21 04/07/24 Rx tablet pain #25 tabs ursodiol 300 mg capsule 300 mg PO BID 01/08/23 04/07/24 History triamcinolone acetonide 0.1 % 1 applic topical BID PRN skin 07/13/23 04/07/24 Rx topical cream irritation #80 grams aspirin 81 mg tablet,delayed 81 mg PO QAM 07/14/23 04/07/24 History release atorvastatin 80 mg tablet 80 mg PO QAM 07/14/23 04/07/24 History lisinopril 10 mg tablet 10 mg PO QAM 07/14/23 04/07/24 History metoprolol succinate 100 mg 100 mg PO QAM #90 tabs 07/19/23 04/07/24 Rx tablet,extended release 24 hr metronidazole 500 mg tablet 500 mg PO TID PRN PBC flair 7 days 11/01/23 04/07/24 Rx #42 tabs balsalazide 750 mg capsule 750 mg PO QID 01/12/24 04/07/24 History mecobalamin (vitamin B12) 1,000 1,000 mcg sublingual Q OTHER DAY 01/12/24 04/07/24 History mcg disintegrating tablet,sublingual omeprazole 40 mg capsule,delayed 40 mg PO QAM #90 caps 02/28/24 04/07/24 Rx release amlodipine 10 mg tablet 10 mg PO QPM #90 tabs 03/22/24 04/07/24 Rx ciprofloxacin HCl 500 mg tablet 500 mg PO BID PRN PBC Flare 03/25/24 04/07/24 History (Cipro) Patient History Medical History History of COVID-01 June 2023 mild Ascending cholangitis Crohn disease GERD (gastroesophageal reflux disease) Myocardial Infarction 1995 - then CABG X 5 IN [place] Hyperlipidemia Hypertension Sleep apnea no machine Surgical History Hx of right cataract extraction Hx of cholecystectomy Hx of endoscopic retrograde cholangiopancreatography 04/21/23 Hx of colonoscopy Hx of laceration of skin LEFT WRIST REPAIR OF LACERATION History of open reduction and internal fixation (ORIF) procedure RIGHT ELBOW Hx of inguinal hernia repair RIGHT Hx of appendectomy Hx of foot surgery RIGHT FOOT SURGERY, REMOVAL OF FIBROMA S/P CABG x 5 1995 AFTER [place] Family History Other Family history non-contributory Social History Smoking Status: Never smoker Second Hand Exposure: No; Do You Dip or Chew Tobacco: No; Tobacco Cessation Education Requested by Patient: No Hx Alcohol Use: No Hx Substance Use: No Preferred Language: Beninese Communication Ability: Effective 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 Beliefs That Will Affect Care: None marital status: Current Living Situation: Spouse Current Living Situation Comment: Other Information That Helps Us Care for You: No Feels Safe at Home: Yes Safety Concerns: Feels Safe At This Time caffeine: No Seatbelt Use: always Assistive Devices: None Review of Systems Review of Systems: All systems reviewed & are unremarkable except as noted in HPI & below Physical Exam Physical Exam: Pleasant man in no distress Constitutional: WD/WN, vitals as above Neck: trachea midline, no thyromegaly Respiratory: normal respiratory effort, lungs clear to auscultation Cardiovascular: RRR, no murmur, no edema Gastrointestinal (Abdomen): normal bowel sounds, soft, nontender, no hepatosplenomegaly Results & Data Vital Signs (Past 12 Hours) Vital Signs Temp Pulse Pulse Pulse Resp BP BP 04/08/24 08:28 36.7 C 70 18 120/72 04/08/24 08:16 55 L 04/08/24 04:52 73 04/08/24 04:27 36.8 C 78 18 124/75 04/08/24 04:09 69 16 137/82 04/08/24 03:36 73 17 122/69 04/07/24 23:56 37 C 63 16 128/74 04/07/24 22:54 64 17 126/71 Pulse Ox O2 Del Method 04/08/24 08:28 97 Room Air 04/08/24 08:16 04/08/24 04:52 04/08/24 04:27 94 Room Air 04/08/24 04:09 96 Room Air 04/08/24 03:36 97 Room Air 04/07/24 23:56 96 Room Air 04/07/24 22:54 96 Room Air Laboratory Results 04/08/24 04/08/24 04/07/24 Range/Units 06:52 03:30 18:42 WBC 9.99 (4.8-10.8) K/ul RBC 4.81 (4.70-6.10) M/uL Hgb 14.2 (14.0-18.0) g/dl Hct 42.0 (42.0-52.0) % MCV 87.3 (80.0-100.0) fL MCH 29.5 (25.0-34.0) pg MCHC 33.8 (32.0-36.0) g/dL RDW Std Deviation 39.9 (36.4-46.3) fL RDW Coeff of Kaity 12.4 (11.5-14.5) % Plt Count 272 (130-400) K/uL MPV 9.5 (9.4-12.4) fL Immature Gran % (Auto) 0.4 % Neut % (Auto) 70.2 % Lymph % (Auto) 15.5 % Bonner % (Auto) 11.3 % Eos % (Auto) 2.0 % Baso % (Auto) 0.6 % Neut # (Auto) 7.01 H (1.40-6.50) K/uL Lymph # (Auto) 1.55 (1.20-3.40) K/uL Bonner # (Auto) 1.13 H (0.11-0.59) K/uL Eos # (Auto) 0.20 (0.00-0.50) K/uL Baso # (Auto) 0.06 (0.00-0.20) K/uL Immature Gran # (Auto) 0.04 (0.01-0.20) K/uL PT 12.3 H INR 1.1 APTT 37 H PTT Ratio 1.4 Sodium 132 L (136-145) mmol/L Potassium 4.4 (3.5-5.1) mmol/L Chloride 105 (98-107) mmol/L Carbon Dioxide 19 L (21-32) mmol/L Anion Gap 8 (3-11) BUN 18 (6-23) mg/dl Creatinine 1.28 (0.6-1.4) mg/dl Est Cr Clr Drug Dosing 47.3 ml/min Est GFR ( Amer) 63.5 ml/min Est GFR (Non-Af Amer) 54.8 ml/min BUN/Creatinine Ratio 14.1 (10-20) Glucose 115 H (70-99(Fasting)) mg/dl Lactate (0.4-2.0) mmol/L Calcium 8.7 (8.6-10.3) mg/dl Magnesium 1.7 (1.7-2.4) mg/dl Total Bilirubin 1.0 (0.2-1.0) mg/dl AST 31 (13-39) U/L ALT 10 (7-52) U/L Alkaline Phosphatase 80 (34-104) U/L Troponin I High Sens (0-20) pg/ml Total Protein 7.4 (6.0-8.3) gm/dl Albumin 3.4 (3.4-5.0) gm/dl Globulin 4.0 (2.5-4.0) gm/dl Albumin/Globulin Ratio 0.9 (0.9-2) Lipase (11-82) U/L Procalcitonin (0-0.5) ng/ml Urine Color Yellow Urine Appearance Clear (Clear) Urine pH 7.0 (4.5-7.5) Ur Specific [place] 1.018 (1.000-1.030) Urine Protein Negative (Negative) Urine Glucose (UA) Negative (Negative) Urine Ketones Negative (Negative) Urine Blood Negative (Negative) Urine Nitrite Negative (Negative) Urine Bilirubin Negative (Negative) Urine Urobilinogen Negative (Negative) Ur Leukocyte Esterase Negative (Negative) Adenovirus (PCR) (NotDetected) B. pertussis DNA (PCR) (NotDetected) B.parapertussis DNA PCR (NotDetected) C. pneumoniae DNA (PCR) (NotDetected) Coronavirus OC43 (PCR) (NotDetected) Coronavirus HKU1 (PCR) (NotDetected) Coronavirus 229E (PCR) (NotDetected) SARS-CoV-2 (PCR) (NotDetected) Coronavirus NL63 (PCR) (NotDetected) Human Metapneumovir PCR (NotDetected) Influenza Type A (PCR) (NotDetected) Influenza Type B (PCR) (NotDetected) M. pneumoniae (PCR) (NotDetected) Parainfluenza 1 (PCR) (NotDetected) Parainfluenza 2 (PCR) (NotDetected) Parainfluenza 3 (PCR) (NotDetected) Parainfluenza 4 (PCR) (NotDetected) RSV (PCR) (NotDetected) Entero/Rhino (PCR) (NotDetected) Bld Cult ID Panel PCR (NotDetected) 04/07/24 04/07/24 Range/Units 17:34 17:09 WBC 12.32 H (4.8-10.8) K/ul RBC 4.88 (4.70-6.10) M/uL Hgb 14.6 (14.0-18.0) g/dl Hct 43.0 (42.0-52.0) % MCV 88.1 (80.0-100.0) fL MCH 29.9 (25.0-34.0) pg MCHC 34.0 (32.0-36.0) g/dL RDW Std Deviation 40.1 (36.4-46.3) fL RDW Coeff of Kaity 12.5 (11.5-14.5) % Plt Count 306 (130-400) K/uL MPV 9.9 (9.4-12.4) fL Immature Gran % (Auto) 0.4 % Neut % (Auto) 65.9 % Lymph % (Auto) 20.0 % Bonner % (Auto) 11.4 % Eos % (Auto) 1.9 % Baso % (Auto) 0.4 % Neut # (Auto) 8.10 H (1.40-6.50) K/uL Lymph # (Auto) 2.47 (1.20-3.40) K/uL Bonner # (Auto) 1.41 H (0.11-0.59) K/uL Eos # (Auto) 0.24 (0.00-0.50) K/uL Baso # (Auto) 0.05 (0.00-0.20) K/uL Immature Gran # (Auto) 0.05 (0.01-0.20) K/uL PT Cancelled INR Cancelled APTT Cancelled PTT Ratio Cancelled Sodium 132 L (136-145) mmol/L Potassium 4.3 (3.5-5.1) mmol/L Chloride 102 (98-107) mmol/L Carbon Dioxide 19 L (21-32) mmol/L Anion Gap 11 (3-11) BUN 23 (6-23) mg/dl Creatinine 1.55 H (0.6-1.4) mg/dl Est Cr Clr Drug Dosing 39.1 ml/min Est GFR ( Amer) 50.4 ml/min Est GFR (Non-Af Amer) 43.5 ml/min BUN/Creatinine Ratio 14.8 (10-20) Glucose 109 H (70-99(Fasting)) mg/dl Lactate 1.3 (0.4-2.0) mmol/L Calcium 9.1 (8.6-10.3) mg/dl Magnesium 1.8 (1.7-2.4) mg/dl Total Bilirubin 1.0 (0.2-1.0) mg/dl AST 35 (13-39) U/L ALT 11 (7-52) U/L Alkaline Phosphatase 88 (34-104) U/L Troponin I High Sens 5.9 (0-20) pg/ml Total Protein 8.0 (6.0-8.3) gm/dl Albumin 3.8 (3.4-5.0) gm/dl Globulin 4.2 H (2.5-4.0) gm/dl Albumin/Globulin Ratio 0.9 (0.9-2) Lipase 9 L (11-82) U/L Procalcitonin 0.42 (0-0.5) ng/ml Urine Color Urine Appearance (Clear) Urine pH (4.5-7.5) Ur Specific [place] (1.000-1.030) Urine Protein (Negative) Urine Glucose (UA) (Negative) Urine Ketones (Negative) Urine Blood (Negative) Urine Nitrite (Negative) Urine Bilirubin (Negative) Urine Urobilinogen (Negative) Ur Leukocyte Esterase (Negative) Adenovirus (PCR) Not Detected (NotDetected) B. pertussis DNA (PCR) Not Detected (NotDetected) B.parapertussis DNA PCR Not Detected (NotDetected) C. pneumoniae DNA (PCR) Not Detected (NotDetected) Coronavirus OC43 (PCR) Not Detected (NotDetected) Coronavirus HKU1 (PCR) Not Detected (NotDetected) Coronavirus 229E (PCR) Not Detected (NotDetected) SARS-CoV-2 (PCR) Not Detected (NotDetected) Coronavirus NL63 (PCR) Not Detected (NotDetected) Human Metapneumovir PCR Not Detected (NotDetected) Influenza Type A (PCR) Not Detected (NotDetected) Influenza Type B (PCR) Not Detected (NotDetected) M. pneumoniae (PCR) Not Detected (NotDetected) Parainfluenza 1 (PCR) Not Detected (NotDetected) Parainfluenza 2 (PCR) Not Detected (NotDetected) Parainfluenza 3 (PCR) Not Detected (NotDetected) Parainfluenza 4 (PCR) Not Detected (NotDetected) RSV (PCR) Not Detected (NotDetected) Entero/Rhino (PCR) Not Detected (NotDetected) Bld Cult ID Panel PCR PCR Panel Negative (NotDetected) Diagnostic Findings Abdomen/Pelvis CT 04/07/24 17:16 CT abd pelvis IV con only CLINICAL HISTORY: Epigastric abdominal pain TECHNIQUE: Helical axial images of the abdomen and pelvis were obtained and displayed. Automated dose lowering techniques and/or adjustment according to patient size were utilized for this exam. This exam was performed with intravenous contrast. CT DOSE: 1141.06 mGy.cm COMPARISON: Comparison is made to CT abdomen pelvis 04/20/2023 FINDINGS: Lower chest: Bibasilar atelectasis versus scarring is seen. Liver: Nodular contour of the liver is seen compatible with cirrhosis. Gallbladder and biliary tree: Patient is status post cholecystectomy. Mild prominence of the intrahepatic bile ducts is unchanged from prior exam. Pancreas: Fatty replacement of the pancreas is seen. Spleen: Splenule is incidentally noted. Adrenals: Unremarkable. Kidneys and ureters: Renal cysts are seen. Bladder: Unremarkable. Reproductive organs: Unremarkable. Bowel: Diverticulosis is seen without evidence of diverticulitis. Patient is status post appendectomy. There is a small hiatal hernia. Lymph nodes Retroperitoneal: Subcentimeter lymph nodes are noted. Pelvic: Unremarkable. Mesenteric: Unremarkable. Peritoneum: Normal. Vessels: Atherosclerotic calcifications are seen. Abdominal wall: Unremarkable. Bones: Degenerative changes in the visualized spine. IMPRESSION: 1. No evidence of acute abnormality to explain epigastric pain. There is a hiatal hernia, correlation for reflux esophagitis is recommended. 2. Patient is status post cholecystectomy with cirrhotic liver contour and beading of the bile duct again seen, compatible with history of primary sclerosing cholangitis. 3. Diverticulosis without diverticulitis. ACT 112: Negative or not required by law. Electronically signed by: Kumar Morris M.D. 04/07/2024 6:51 PM Chest X-Ray 04/07/24 17:16 XR chest 1V portable CLINICAL HISTORY: Epigastric abdominal pain TECHNIQUE: Single frontal radiograph of the chest was obtained. Comparison: Comparison is made to chest radiograph 03/25/2024 FINDINGS: Median sternotomy wires are unchanged. Cardiomegaly is noted. The lungs are clear. No evidence of pleural effusion or pneumothorax. IMPRESSION: No acute chest disease. ACT 112: Negative or not required by law. Electronically signed by: Kumar Morris M.D. 04/07/2024 5:38 PM
[2024-04-08] MEDS: PANTOprazole 40 MG in SYRINGE 0 ML IV SCH (11:03)
--- NOTE | 2024-04-08 11:13 | Hospitalist Progress Note ---
Date of Service April 08, 2024 Assessment & Plan (1) Abdominal pain, epigastric: (2) Fever: (3) Nausea & vomiting: (4) Crohns disease: (5) Primary sclerosing cholangitis: (6) GERD without esophagitis: (7) Acute kidney injury superimposed on CKD: Plan Patient with a history of Crohn's disease/PSC- Presents to the hospital with fever, abdominal pain CT scan without acute findings Possibly gastroenteritis, no evidence of Crohn's flareup Placed on Zosyn 4.5 g IV every 8 hours Reevaluated this morning, patient feels a whole lot better Also evaluated by gastroenterology who agrees with antibiotics Will continue 1 more day of IV antibiotics and discharge tomorrow on p.o. antibiotics. CAD/hypertension- Hold amlodipine, aspirin, lisinopril Continue metoprolol succinate, changing from 100 mg every morning to 50 mg twice daily Acute kidney injury superimposed on CKD- Now resolved, creatinine back to baseline Hopefully discharge in next 24 hours Admission and Anticipated Discharge Date Admission Date: April 07, 2024 Subjective Patient seen and examined today, feels a whole lot better, abdominal pain is gone no fevers overnight Review of Systems Review of Systems: All systems reviewed are negative, apart from the ones contained in the history. Physical Exam Physical Exam: The patient is awake, alert and oriented 3, well developed and well nourished, normocephalic and atraumatic, lying in bed and in no acute distress. HEENT--PERRL, EOMI, mucous membranes and oropharynx mildly dry Neck--supple. No JVD. No bruits. Thyroid normal, trachea midline, no adenopathy. Heart--normal S1 and S2. No murmurs, rubs or gallops. Lungs--clear bilaterally, no respiratory distress, no accessory muscle use. Abdomen--normal bowel sounds and soft. Extremities--no cyanosis or clubbing. No edema. Dermatologic--normal skin turgor, normal color, no abnormal lymph nodes, no rash. Neurologic--cranial nerves II through XII grossly intact. Rheumatologic--normal range of motion. Psychiatric--normal affect. Results & Data Results & Data Vital Signs (Past 12 Hours) Vital Signs Temp Pulse Pulse Pulse Resp BP BP 04/08/24 08:28 98.1 F 70 18 120/72 04/08/24 08:16 55 L 04/08/24 04:52 73 04/08/24 04:27 98.2 F 78 18 124/75 04/08/24 04:09 69 16 137/82 04/08/24 03:36 73 17 122/69 04/07/24 23:56 98.6 F 63 16 128/74 Pulse Ox O2 Del Method 04/08/24 08:28 97 Room Air 04/08/24 08:16 04/08/24 04:52 04/08/24 04:27 94 Room Air 04/08/24 04:09 96 Room Air 04/08/24 03:36 97 Room Air 04/07/24 23:56 96 Room Air PG Care Time/CCT Total # of Minutes Spent Total Time Spent with Patient: Total time spent is greater than 50% in coordination of care (as documented) at patient's floor/unit and/or counseling patient: Coding Level of Care Code 14839 SUB INP/OBS CARE 2/35MIN Diagnoses Abdominal pain, epigastric R10.13 Fever R50.9 Nausea & vomiting R11.2 Crohn's disease without complication, unspecified gastrointestinal tract location K50.90 Gastrointestinal tract location: unspecified location Digestive disease complication type: without complication Primary sclerosing cholangitis K83.01 GERD without esophagitis K21.9 Acute kidney injury superimposed on CKD N17.9; N18.9 Time Spent (min) 35 (4) Crohns disease Gastrointestinal tract location: unspecified location Digestive disease complication type: without complication Qualified Code(s): K50.90 - Crohn's disease, unspecified, without complications
[2024-04-09 07:53] LABS: Basophils # (auto) 0.06 K/uL (0.00-0.20); Basophils % (auto) 0.8 %; Eosinophils # (auto) 0.48 K/uL (0.00-0.50); Eosinophils % (auto) 6.1 %; Hematocrit (blood only) 42.9 % (42.0-52.0); Hemoglobin 14.7 g/dl (14.0-18.0); Immature Granulocytes # (auto) 0.04 K/uL (0.01-0.20); Immature Granulocytes % (auto) 0.5 %; Lymphocytes % (auto) 17.9 %; Mean Corpuscular Hemoglobin 29.8 pg (25.0-34.0); Mean Corpuscular Hgb Conc 34.3 g/dL (32.0-36.0); Mean Corpuscular Volume 86.8 fL (80.0-100.0); Mean Platelet Volume 9.5 fL (9.4-12.4); Monocytes % (auto) 11.5 %; Neutrophils # (auto) 4.95 K/uL (1.40-6.50); Neutrophils % (auto) 63.2 %; Platelet Count 315 K/uL (130-400); RDW Coefficient of Variation 12.6 % (11.5-14.5); RDW Standard Deviation 40.2 fL (36.4-46.3); Red Blood Count 4.94 M/uL (4.70-6.10); White Blood Count 7.83 K/ul (4.8-10.8)
[2024-04-09] MEDS: CYANOCOBALAMIN (B-12) 500 MCG TABLET PO SCH (07:53)
[2024-04-09 08:15] LABS: Albumin Globulin Ratio 0.8 (0.9-2); Albumin Level 3.4 gm/dl (3.4-5.0); BUN Creatinine Ratio 10.7 (10-20); Bilirubin,Total 0.8 mg/dl (0.2-1.0); Creatinine Clr Calc Pharmacy 46.3 ml/min; Est GFR (African American) 61.7 ml/min; Est GFR (Non-African American) 53.3 ml/min; Globulin 4.3 gm/dl (2.5-4.0); Magnesium 1.8 mg/dl (1.7-2.4); Potassium 4.3 mmol/L (3.5-5.1); Total Protein 7.7 gm/dl (6.0-8.3)
--- NOTE | 2024-04-09 10:16 | Gastroenterology Progress Note ---
Date of Service April 09, 2024 Assessment & Plan (1) Abdominal pain, epigastric: Plan: Doing well. Will advance diet. If tolerated he can go home to complete ten day course of antibiotics. He has an appt to see me May 10. Admission and Anticipated Discharge Date Admission Date: April 07, 2024 Subjective Feels great. Back to normal he thinks. Only on full liquids Physical Exam Physical Exam: He looks well Results & Data Vital Signs (Past 12 Hours) Vital Signs Temp Pulse Pulse Resp BP BP Pulse Ox 04/09/24 08:17 36.8 C 63 18 125/76 95 04/09/24 08:17 62 04/09/24 02:06 36.5 C 82 16 122/71 96 04/08/24 23:00 71 04/08/24 22:34 36.6 C 60 16 128/72 95 O2 Del Method 04/09/24 08:17 Room Air 04/09/24 08:17 04/09/24 02:06 Room Air 04/08/24 23:00 04/08/24 22:34 Room Air
--- NOTE | 2024-04-09 11:39 | Discharge Summary ---
Date of Service April 09, 2024 Admission HPI Per Admitting Provider The patient is a 73-year-old male with a past medical history including primary sclerosing cholangitis, Crohn's disease, GERD without esophagitis, FLAKITO, hypertension, CAD, CKD and osteoporosis. He developed a temperature yesterday, began his Cipro and Flagyl as he been directed in the past, with continued symptoms, after calling the [facility] office today, he was referred to the ED for assessment. CT scan abdomen pelvis showed bile duct beading as before, suggestive of PSC. Admission Exam (Per Admitting) Constitutional The patient is awake, alert and oriented 3, well developed and well nourished, normocephalic and atraumatic, lying in bed and in no acute distress. HEENT--PERRL, EOMI, mucous membranes and oropharynx mildly dry Neck--supple. No JVD. No bruits. Thyroid normal, trachea midline, no adenopathy. Heart--normal S1 and S2. No murmurs, rubs or gallops. Lungs--clear bilaterally, no respiratory distress, no accessory muscle use. Abdomen--normal bowel sounds and soft. Extremities--no cyanosis or clubbing. No edema. Dermatologic--normal skin turgor, normal color, no abnormal lymph nodes, no rash. Neurologic--cranial nerves II through XII grossly intact. Rheumatologic--normal range of motion. Psychiatric--normal affect. Discharge Data Consultations 04/07/24 19:13 ED Decision to Admit Stat 04/07/24 22:13 Consult Gastroenterology Routine Hospital Course (1) Abdominal pain, epigastric: (2) Fever: (3) Nausea & vomiting: (4) Crohns disease: (5) Primary sclerosing cholangitis: (6) GERD without esophagitis: (7) Acute kidney injury superimposed on CKD: Plan Patient with a history of Crohn's disease/PSC- Presents to the hospital with fever, abdominal pain CT scan without acute findings Possibly gastroenteritis, no evidence of Crohn's flareup Placed on Zosyn 4.5 g IV every 8 hours Reevaluated this morning, patient feels a whole lot better Also evaluated by gastroenterology who agrees with antibiotics discharege on p.o. antibiotics. CAD/hypertension- Hold amlodipine, aspirin, lisinopril Continue metoprolol succinate, changing from 100 mg every morning to 50 mg twice daily Acute kidney injury superimposed on CKD- Now resolved, creatinine back to baseline Hopefully discharge in next 24 hours Coding Level of Care Code 62836 INP/OBS DISCH >30 MIN Diagnoses Abdominal pain, epigastric R10.13 Fever R50.9 Nausea & vomiting R11.2 Crohn's disease without complication, unspecified gastrointestinal tract location K50.90 Gastrointestinal tract location: unspecified location Digestive disease complication type: without complication Primary sclerosing cholangitis K83.01 GERD without esophagitis K21.9 Acute kidney injury superimposed on CKD N17.9; N18.9 Time Spent (min) 35
== END 2024-04-09 11:31 | disposition home or self-care (01) | DRG 392 ==
LOC: ED 16:40 → EDINP 20:09 → SUATTDRO 20:09 → 2N 22:13